=== PATIENT | female | born 1975 | race Caucasian/White ===

== ENCOUNTER 2023-05-10 07:39 | Outpatient (OUT) | payer OTHER, SELFPAY ==
--- NOTE | 2023-05-10 07:41 | MM_ITS ---
Patient Name: JESSENIA JIMENEZ MR#: [id number] : 1975 Exam Date: 05/10/2023 Ordering Doctor: DR Adrian Parisi . RADIOLOGY REPORT PROCEDURE: MM TOMOSYNTHESIS SCREENING BI COMPARISON: MAMMO POST BIOPSY LEFT, 10/03/2021. MG MAMM DIAGNOSTIC 3D SHRUTI CAD, 04/20/2022. INDICATIONS: Screening Calculator Name NCI Breast Cancer Risk Assessment Tool 5 Year Breast Cancer Risk 1.60% Lifetime Breast Cancer Risk 12.50% Personal Breast Cancer No Personal Ovarian Cancer No Treatments None Family Cancers None LOCATION: [facility] BREAST COMPOSITION: Extremely dense, which lowers the sensitivity of mammography. FINDINGS: DIAGNOSTIC CATEGORY 2--BENIGN FINDING. NO CHANGE FROM COMPARISON. Scattered benign-appearing nodules are present. Scattered benign-appearing calcifications are present. Scattered benign-appearing lymph nodes are present. RIGHT BREAST: No significant suspicious finding. LEFT BREAST: No significant suspicious finding. Stable microclip marker upper outer quandrant, anterior RECOMMENDATIONS: ROUTINE MAMMOGRAM AND CLINICAL EVALUATION IN 12 MONTHS. PLEASE NOTE: A NORMAL MAMMOGRAM DOES NOT EXCLUDE THE POSSIBILITY OF BREAST CANCER. A CLINICALLY SUSPICIOUS PALPABLE LUMP SHOULD BE BIOPSIED. Dictated by: Kam Mosqueda MD on 05/10/2023 at 09:11 Approved by: Kam Mosqueda MD on 05/10/2023 at 09:13
== END 2023-05-10 07:40 | disposition home or self-care (01) ==
LOC: MAMMO 07:39
PROVIDERS: PCP Family Medicine; Visit Provider Obstetrics & Gynecology
DX: Z12.31 Encounter for screening mammogram for malignant neoplasm of breast (principal)
CPT/HCPCS: 77063; 77067

== ENCOUNTER 2023-08-07 19:43 | Outpatient (REF) | payer OTHER, SELFPAY ==
--- OUTSIDE RECORDS SUMMARY | 2023-08-07 19:47 | XMS_ITS | CCD ---
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 Phone NAEL, DR LOPEZ Admitting Unavailable NAEL, DR LOPEZ Attending Unavailable SHEPHERD, DR KIM Garces Primary Care Unavailable NAEL, DR LOPEZ Consulting Unavailable ZIEBER, DR MOE Henry Consulting Unavailable NAEL, DR LOPEZ Admitting Unavailable NAEL, DR LOPEZ Attending Unavailable SHEPHERD, DR KIM Garces Primary Care Unavailable NAEL, DR LOPEZ Consulting Unavailable VELASQUEZ, DR MOE Henry Consulting Unavailable SHEPHERD, DR KIM Garces Admitting Unavailable SHEPHERD, DR KIM Garces Attending Unavailable SHEPHERD, DR KIM Garces Primary Care Unavailable SHEPHERD, DR KIM Garces Consulting Unavailable NAEL, DR LOPEZ Admitting Unavailable NAEL, DR LOPEZ Attending Unavailable SHEPHERD, DR KIM Garces Primary Care Unavailable OLIN, DR JORGE Gallardo Consulting Unavailable NAEL, DR LOPEZ Consulting Unavailable NAEL, DR LOPEZ Admitting Unavailable NAEL, DR LOPEZ Attending Unavailable SHEPHERD, DR KIM Garces Primary Care Unavailable NAEL, DR LOPEZ Consulting Unavailable Kim Shepherd MD Primary Care Provider [phone] Medications Current Medications Medication Drug Class(es) Dates Sig (Normalized) Sig (Original) FLUoxetine 20 mg oral capsule (1 source) Serotonin Reuptake Inhibitor Start: 10-01-2022 take 1 capsule by mouth in the morning FLUoxetine (PROzac) 20 MG capsule Take 20 mg by mouth in the morning. 0 10/01/2022 Active levonorgestrel 0.564720 mg/hr intrauterine system (1 source) Progestin, Progestin-containi ng Intrauterine Device Levonorgestrel (Mirena, 52 MG,) 20 MCG/DAY intrauterine device as directed Intrauterine 0 Active 24 hr metFORMIN hydrochloride 500 mg extended release oral tablet (1 source) Biguanide Start: 07-03-2022 metFORMIN XR (Glucophage-XR) 500 MG 24 hr tablet 1 (one) time each day at the same time. 0 07/03/2022 Active Problems Active Problems Problem Classification Problem Date Documented Date Episodic/Chronic Immunizations and screening for infectious disease (1 source) Encounter for screening for human papillomavirus (HPV); Translations: [ENC SCREENING HUMAN PAPILLOMAVIRUS] Onset: 07-04-2022 Episodic Other screening for suspected conditions (not mental disorders or infectious disease) (8 sources) Encounter for screening for malignant neoplasm of cervix; Translations: [Other abnormal and inconclusive findings on diagnostic imaging of breast] Onset: 04-20-2022 Episodic Past or Other Problems Problem Classification Problem Date Documented Da te Episodic/Chronic Malaise and fatigue (4 sources) Other fatigue; Translations: [OTHER FATIGUE] Onset: 09-01-2021 Episodic Nonmalignant breast conditions (4 sources) Solitary cyst of left breast; Translations: [SOLITARY CYST OF LEFT BREAST] Onset: 10-03-2021 Episodic Results Test Name Value Interpretation Reference Range Facil ity PAP ACOG PANEL 2: 30 to 65on 07-09-2022 . . Normal [facility] Comment on above: Result Comment: Perf ormed at: WB Performed By: #### [id number] ####[facility] [address] [place] [id number] Pan Age Gdln ACOG Testing 30-65 Normal [facility] Comment on above: Performed By: #### 4 [id number] ####[facility] [address] [place] [id number] Pan DIAGNOSIS: Comment Normal [facility] Comment on above: Result Comment: NEGA TIVE FOR INTRAEPITHELIAL LESION OR MALIGNANCY. CELLULAR CHANGES ASSOCIATED WITH INFLAMMATION ARE PRESENT. Performed at: WB Performed By: #### [id number] ####[facility] [address] [place] [id number] Pan HPV Aptima Negative Normal Negative [facility] Comment on above: Result Comment: This nucleic acid amplification test detects fourteen high-risk HPV types (16,18,31,33,35,39,45,51,52,56,58,59,66,68) without differentiation. Performed at: =G Performed By: #### [id number] ####[facility] [address] [place], [place] [address]DrCarol Pan HPV Genotype Reflex Comment Normal [facility] Comment on above: Result Comment: Crit van not met, HPV Genotype not performed. Performed at: WB Performed By: #### [id number] ####[place] [address]DrCarol Pan Methodology: Comment Normal [facility] Comment on above: Result Comment: This liquid based ThinPrep(R) pap test was screened with the use of an image guided system. Performed at: WB Performed By: #### 4 [id number] ####[place] [address]DrCarol Pan Note: Comment Normal [facility] Comment on above: Result Comment: The Pap smear is a screening test designed to aid in the detection of premalignant and malignant conditions of the uterine cervix. It is not a diagnostic procedure and should not be used as the sole means of detecting cervical cancer. Both false-positive and false-negative reports do occur. . Performed at: WB Performed By: #### [id number] ####[facility] [address] [place], [place] [address]DrCarol Pan Performed by: Comment Normal [facility] Comment on above: Result Comment: Zamzam Ryan, Mail Teller (ASCP) Performed at: WB Performed By: #### [id number] ####[facility] [address] [place], [place] [address]DrCarol Pan Specimen adequacy: Comment Normal [facility] Comment on above: Result Comment: Sati sfactory for evaluation. Endocervical and/or squamous metaplastic cells (endocervical component) are present. Performed at: WB Performed By: #### [id number] ####[facility] [address] [place], [place] [address]DrCarol Pan MG MAMM DIAGNOSTIC 3D SHRUTI CA Don 04-20-2022 MG MAMM DIAGNOSTIC 3D SHRUTI CAD Patient: BOB GLORIA D. Exam Date: 04/20/2022 : 1975 Gender:F Ordering : DR JESSICA PARISI . Admission #: [id number] Family : Order #: [id number] CLICK HERE TO VIEW EXAM RADIOLOGY REPORT PROCEDURE: MAMMOGRAM DIAGNOSTIC 3D BILATERAL CAD COMPARISON: MAMMO POST BIOPSY LEFT, 10/03/2021. INDICATIONS: Abnormal findings on diagnostic imaging of breast Calculator Name NCI Breast Cancer Risk Assessment Tool 5 Year Breast Cancer Risk 1.70% Lifetime Breast Cancer Risk 12.80% Personal Breast Cancer No Personal Ovarian Cancer No Treatments None Family Cancers None LOCATION: [facility] BREAST COMPOSITION: Extremely dense, which lowers the sensitivity of mammography. FINDINGS: DIAGNOSTIC CATEGORY 2--BENIGN FINDING. NO CHANGE FROM COMPARISON. Scattered benign-appearing nodules are present. Scattered benign-appearing calcifications are present. Scattered benign-appearing lymph nodes are present. RIGHT BREAST: No significant suspicious finding. LEFT BREAST: No significant suspicious finding. Stable micro clip marker upper outer quadrant, anterior breast RECOMMENDATIONS: ROUTINE MAMMOGRAM AND CLINICAL EVALUATION IN 12 MONTHS. PLEASE NOTE: A NORMAL MAMMOGRAM DOES NOT EXCLUDE THE POSSIBILITY OF BREAST CANCER. A CLINICALLY SUSPICIOUS PALPABLE LUMP SHOULD BE BIOPSIED. Dictated by: Jorge Mosqueda MD on 04/20/2022 at 10:25 Approved by: Jorge Mosqueda MD on 04/20/2022 at 10:26 Normal [facility] MAMM DX 3D LT CADon 04-20 MG MAMM DX 3D LT CAD Patient: GLORIA JIMENEZ Exam Date: 04/20/2022 : 1975 Gender:F Ordering : DR JESSICA PARISI . Admission #: [id number] Family : Order #: [id number] CLICK HERE TO VIEW EXAM RADIOLOGY REPORT PROCEDURE: MAMMOGRAM DIAGNOSTIC 3D BILATERAL CAD COMPARISON: MAMMO POST BIOPSY LEFT, 10/03/2021. INDICATIONS: Abnormal findings on diagnostic imaging of breast Calculator Name NCI Breast Cancer Risk Assessment Tool 5 Year Breast Cancer Risk 1.70% Lifetime Breast Cancer Risk 12.80% Personal Breast Cancer No Personal Ovarian Cancer No Treatments None Family Cancers None LOCATION: [facility] BREAST COMPOSITION: Extremely dense, which lowers the sensitivity of mammography. FINDINGS: DIAGNOSTIC CATEGORY 2--BENIGN FINDING. NO CHANGE FROM COMPARISON. Scattered benign-appearing nodules are present. Scattered benign-appearing calcifications are present. Scattered benign-appearing lymph nodes are present. RIGHT BREAST: No significant suspicious finding. LEFT BREAST: No significant suspicious finding. Stable micro clip marker upper outer quadrant, anterior breast RECOMMENDATIONS: ROUTINE MAMMOGRAM AND CLINICAL EVALUATION IN 12 MONTHS. PLEASE NOTE: A NORMAL MAMMOGRAM DOES NOT EXCLUDE THE POSSIBILITY OF BREAST CANCER. A CLINICALLY SUSPICIOUS PALPABLE LUMP SHOULD BE BIOPSIED. Dictated by: Jorge Mosqueda MD on 04/20/2022 at 10:25 Approved by: Jorge Mosqueda MD on 04/20/2022 at 10:26 Normal [facility] MAMMO POST BIOPSY LEFTon MAMMO POST BIOPSY LEFT Patient: BOB SEPTEMBER Precious. Exam Date: 10/03/2021 : 1975 Gender:F Ordering : DR JESSICA PARISI . Admission #: [id number] Family : Order #: [id number] CLICK HERE TO VIEW EXAM This report includes an Addendum and supersedes previous reports for this exam. RADIOLOGY REPORT PROCEDURE: MAMMOGRAM POST BIOPSY IMAGES COMPARISON: MG MAMM DX 3D LT CAD, 09/27/2021. MG MAMM SCREEN 3D SHRUTI CAD, 03/17/2021. INDICATIONS: Complex cyst of breast BREAST COMPOSITION: Extremely dense, which lowers the sensitivity of mammography. FINDINGS: BIOPSY MARKER: A metallic marker has been placed in the targeted location within the lower-outer quadrant of the left breast. BREAST FINDINGS: Expected post biopsy findings. RECOMMENDATIONS: Dictated by: Moe Keane M.D. on 10/03/2021 at 13:32 Approved by: Moe Keane M.D. on 10/03/2021 at 13:43 ADDENDUM: FINDINGS: DIAGNOSTIC CATEGORY 3--PROBABLY BENIGN FINDING. THE FOLLOWING FINDING(S) HAS A HIGH PROBABILITY OF A BENIGN ETIOLOGY: RECOMMENDATIONS: SHORT TERM FOLLOW-UP DIAGNOSTIC MAMMOGRAM LEFT BREAST IN 6 MONTHS. Dictated by: Moe Keane M.D. on 10/11/2021 at 10:39 Approved by: Moe Keane M.D. on 10/11/2021 at 10:39 Normal [facility] US VAC ASST BX BRST LT W CLI Kyler 10-03-2021 US VAC ASST BX BRST LT W CLIP Patient: BOB SEPTEMBER Precious. Exam Date: 10/03/2021 : 1975 Gender:F Ordering : DR JESSICA PARISI . Admission #: [id number] Family : Order #: [id number] CLICK HERE TO VIEW EXAM This report includes an Addendum and supersedes previous reports for this exam. RADIOLOGY REPORT PROCEDURE: ULTRASOUND BIOPSY VACCUUM ASSISTED LEFT WITH CLIP COMPARISON: US BREAST LEFT LIMITED, 09/27/2021. INDICATIONS: Complex cyst of breast DESCRIPTION: After obtaining informed consent, a vacuum assisted ultrasound-guided biopsy was performed in the usual sterile manner. The location of the biopsy was then marked as indicated below. FINDINGS: RECOMMENDATIONS: SPECIMEN #, LOCATION: Cyst aspiration and 4 core samples, 3 o'clock left breast complex cyst. BIOPSY NEEDLE: 13 gauge Elite (r) vacuum core biopsy needle. MARKERS(S) PLACED: A single metallic marker was placed in the appropriate targeted location. MEDICATION: Buffered 1% lidocaine with epinephrine administered locally. COMPLICATIONS: None. PATHOLOGY LAB: Pending. CONCLUSION: 1. Uneventful ultrasound-guided breast biopsy. 2. Pathology results are pending. An addendum to this report will be provided after pathology results are available. Dictated by: Moe Keane M.D. on 10/03/2021 at 13:44 Approved by: Moe Keane M.D. on 10/03/2021 at 13:45 ADDENDUM: Final pathologic diagnosis: Negative for malignant cells; consistent with cyst contents. Dictated by: Moe Keane M.D. on 10/11/2021 at 10:38 Approved by: Moe Keane M.D. on 10/11/2021 at 10:38 Normal [facility] MG MAMM DX 3D LT CADon 09-27 MG MAMM DX 3D LT CAD Patient: BOB GLORIA Precious. Exam Date: 09/27/2021 : 1975 Gender:F Ordering : DR JESSICA PARISI . Admission #: [id number] Family : Order #: [id number] CLICK HERE TO VIEW EXAM RADIOLOGY REPORT PROCEDURE: MAMMOGRAM DIAGNOSTIC 3D LEFT CAD, 09/27/2021, 07:49 ULTRASOUND BREAST LEFT LIMITED, 09/27/2021, 08:24 COMPARISON: US BREAST LEFT LIMITED, 03/28/2021. MG MAMM SCREEN SHRUTI W CAD, 03/16/2020. MG MAMM RT DIAG FU, 03/18/2019. MG MAMM SCREEN SHRUTI W CAD, 03/04/2019. MG MAMM SCREEN 3D SHRUTI CAD, 03/17/2021. INDICATIONS: Solitary cyst of breast Calculator Name NCI Breast Cancer Risk Assessment Tool 5 Year Breast Cancer Risk 0.80% Lifetime Breast Cancer Risk 8.50% Personal Breast Cancer No Personal Ovarian Cancer No Treatments None Family Cancers None LOCATION: [facility] BREAST COMPOSITION: Extremely dense, which lowers the sensitivity of mammography. FINDINGS: DIAGNOSTIC CATEGORY 4--SUSPICIOUS FOR MALIGNANCY. FINDING DOES NOT EXHIBIT CLASSIC FINDINGS OF BREAST CANCER: LEFT BREAST: Previously seen cystic structure at the 3 o'clock position 2.6 cm from the nipple appears more complex on today's study with more thickened, irregular jones and adjacent cyst, 1.6 x 1.2 x 1.2 cm in overall size. Aspiration of fluid followed by ultrasound-guided biopsy of complex cyst is recommended. Findings, recommendations, and alternatives were discussed with the patient. Our radiology department nurse is working with patient to schedule biopsy. RECOMMENDATIONS: ULTRASOUND-GUIDED CORE BIOPSY: LEFT BREAST PLEASE NOTE: A NORMAL MAMMOGRAM DOES NOT EXCLUDE THE POSSIBILITY OF BREAST CANCER. A CLINICALLY SUSPICIOUS PALPABLE LUMP SHOULD BE BIOPSIED. Dictated by: Moe Keane M.D. on 09/27/2021 at 09:46 Approved by: Moe Keane M.D. on 09/27/2021 at 09:50 Normal [facility] US BREAST LEFT LIMITEDon US BREAST LEFT LIMITED Patient: GLORIA JIMENEZ Precious. Exam Date: 09/27/2021 : 1975 Gender:F Ordering : DR JESSICA PARISI . Admission #: [id number] Family : Order #: [id number] CLICK HERE TO VIEW EXAM RADIOLOGY REPORT PROCEDURE: MAMMOGRAM DIAGNOSTIC 3D LEFT CAD, 09/27/2021, 07:49 ULTRASOUND BREAST LEFT LIMITED, 09/27/2021, 08:24 COMPARISON: US BREAST LEFT LIMITED, 03/28/2021. MG MAMM SCREEN SHRUTI W CAD, 03/16/2020. MG MAMM RT DIAG FU, 03/18/2019. MG MAMM SCREEN SHRUTI W CAD, 03/04/2019. MG MAMM SCREEN 3D SHRUTI CAD, 03/17/2021. INDICATIONS: Solitary cyst of breast Calculator Name NCI Breast Cancer Risk Assessment Tool 5 Year Breast Cancer Risk 0.80% Lifetime Breast Cancer Risk 8.50% Personal Breast Cancer No Personal Ovarian Cancer No Treatments None Family Cancers None LOCATION: [facility] BREAST COMPOSITION: Extremely dense, which lowers the sensitivity of mammography. FINDINGS: DIAGNOSTIC CATEGORY 4--SUSPICIOUS FOR MALIGNANCY. FINDING DOES NOT EXHIBIT CLASSIC FINDINGS OF BREAST CANCER: LEFT BREAST: Previously seen cystic structure at the 3 o'clock position 2.6 cm from the nipple appears more complex on today's study with more thickened, irregular jones and adjacent cyst, 1.6 x 1.2 x 1.2 cm in overall size. Aspiration of fluid followed by ultrasound-guided biopsy of complex cyst is recommended. Findings, recommendations, and alternatives were discussed with the patient. Our radiology department nurse is working with patient to schedule biopsy. RECOMMENDATIONS: ULTRASOUND-GUIDED CORE BIOPSY: LEFT BREAST PLEASE NOTE: A NORMAL MAMMOGRAM DOES NOT EXCLUDE THE POSSIBILITY OF BREAST CANCER. A CLINICALLY SUSPICIOUS PALPABLE LUMP SHOULD BE BIOPSIED. Dictated by: Moe Keane M.D. on 09/27/2021 at 09:46 Approved by: Moe Keane M.D. on 09/27/2021 at 09:50 Normal [facility] ESTRADIOLon 09-02-2021 Estradiol 209.0 pg/mL Normal [facility] Comment on above: Result Comment: Adul t Female: Follicular phase 12.5 - 166.0 Ovulation phase 85.8 - 498.0 Luteal phase 43.8 - 211.0 Postmenopausal <6.0 - 54.7 1st trimester 215.0 - >4300.0 Jeanna ECLIA methodology Performed By: #### E STRADI #### [facility] [address] [place] [address] Dr. Taran Pan FSHon 09-02-2021 FSH 6.1 mIU/mL Normal [facility] Comment on above: Result Comment: Adul t Female: Follicular phase 3.5 - 12.5 Ovulation phase 4.7 - 21.5 Luteal phase 1.7 - 7.7 Postmenopausal 25.8 - 134.8 Performed By: #### L BCFSH #### [facility] [address] [place] [address] Dr. Taran Pan CBC AUTO DIFFon 09-01-2021 BASO # 0.1 103/ul Normal 0.0-0.1 [facility] Comment on above: Performed By: #### C BC ####[facility] [address] [place], [place] [address]Dr. Taran Maxim Basophils/100 WBC (Bld) 1.2 % Normal 0.2-2.0 [facility] Comment on above: Performed By: #### C BC ####[facility] [address] [place], [place] [address]Dr. Ludypablo Maxim EO # 0.1 103/ul Normal 0.0-0.7 [facility] Comment on above: Performed By: #### C BC ####[facility] [address] [place], [place] [address]Dr. Taran Pan Eosinophils/100 WBC (Bld) 0.9 % Normal 0.9-7.0 [facility] Comment on above: Performed By: #### C BC ####[facility] [address] [place], [place] [address]Dr. Ludypablo Pan Erythrocyte distribution width (RBC) [Ratio] 13.1 % Normal 11.0-15.0 [facility] Comment on above: Performed By: #### C BC ####[facility] [address] [place], [place] [address]Dr. Ludypablo Pan Hematocrit (Bld) [Volume fraction] 42.4 % Normal 36.0-48.0 [facility] Comment on above: Performed By: #### C BC ####[facility] [address] [place], [place] [address]Dr. Ludypablo Maxim Hemoglobin (Bld) [Mass/Vol] 14.0 g/dL Normal 12.0-16.0 [facility] Comment on above: Performed By: #### C BC ####[facility] [address] [place], [place] [address]Dr. Taran Pan IG # 0.02 10e3/ul Normal 0.00-0.03 [facility] Comment on above: Performed By: #### C BC ####[facility] [address] [place], [place] [address]Dr. Taran Pan IG % 0.3 % Normal 0.0-0.5 [facility] Comment on above: Performed By: #### C BC ####[facility] [address] [place] [address]DrCarol Pan LYMPH # 1.5 103/ul Normal 1.2-3.8 [facility] Comment on above: Performed By: #### C BC ####[facility] [address] [place] [address]DrCarol Pan Lymphocytes/100 WBC (Bld) 26.4 % Normal 20.5-60.0 [facility] Comment on above: Performed By: #### C BC ####[facility] [address] [place], [place] [address]DrCarol Pan MANUAL DIFF REQ NO Normal [facility] Comment on above: Performed By: #### C BC ####[facility] [address] [place] [address]DrCarol Pan MCH (RBC) [Entitic mass] 30.6 pg Normal 26.7-34.0 [facility] Comment on above: Performed By: #### C BC ####[facility] [address] [place], [place] [address]DrCarol Pan MCHC (RBC) [Mass/Vol] 33.0 g/dL Normal 29.9-35.2 [facility] Comment on above: Performed By: #### C BC ####[facility] [address] [place], [place] [address]DrCarol Pan MCV (RBC) [Entitic vol] 92.6 fL Normal 81.0-99.0 [facility] Comment on above: Performed By: #### C BC ####[facility] [address] [place], [place] [address]DrCarol Pan MONO # 0.3 103/ul Normal 0.3-0.8 [facility] Comment on above: Performed By: #### C BC ####[facility] [address] [place], [place] [address]DrCarol Pan Monocytes/100 WBC (Bld) 5.6 % Normal 1.7-12.0 [facility] Comment on above: Performed By: #### C BC ####[facility] [address] [place], [place] [address]Dr. Taran Pan NEUT # 3.8 103/ul Normal 1.4-6.5 [facility] Comment on above: Performed By: #### C BC ####[facility] [address] [place], [place] [address]Dr. Taran Pan Neutrophils/100 WBC (Bld) 65.6 % Normal 43.0-75.0 [facility] Comment on above: Performed By: #### C BC ####[facility] [address] [place], [place] [address]Dr. Taran Pan Platelet mean volume (Bld) [Entitic vol] 11.2 fL Normal 9.5-13.5 [facility] Comment on above: Performed By: #### C BC ####[facility] [address] [place], [place] [address]Dr. Taran Maxim PLT 398 103/ul Normal 150-450 [facility] Comment on above: Performed By: #### C BC ####[facility] [address] [place], [place] [address]Dr. Taran Pan RBC 4.58 106/ul Normal 4.20-5.40 [facility] Comment on above: Performed By: #### C BC ####[facility] [address] [place], [place] [address]Dr. Ludypablo Maxim WBC 5.8 103/ul Normal 4.0-11.0 [facility] Comment on above: Performed By: #### C BC ####[facility] [address] [place], [place] [address]DrCarol Pan FREE T4on 09-01-2021 Free T4 [Mass/Vol] 0.95 ng/dL Normal 0.78-2.19 [facility] Comment on above: Performed By: #### F T4 ####[facility] [address] [place], [place] [address]Dr. Taran Pan PROF CHEM 8 (BAS METB)on Anion gap [Moles/Vol] 11.2 mmol/L Normal [facility] Comment on above: Performed By: #### T SH, BMP #### [facility] [address] [place] [address] Dr. Taran Pan Calcium [Mass/Vol] 8.5 mg/dL Normal 8.5-10.1 [facility] Comment on above: Performed By: #### T SH, BMP #### [facility] [address] [place] [address] Dr. Taran Pan Chloride [Moles/Vol] 104 mmol/L Normal 98-107 [facility] Comment on above: Performed By: #### T SH, BMP #### [facility] [address] [place] [address] Dr. Taran Pan CO2 [Moles/Vol] 28.2 mmol/L Normal 22.0-30.0 [facility] Comment on above: Performed By: #### T SH, BMP #### [facility] [address] [place] [address] Dr. Taran Pan Creatinine [Mass/Vol] 0.77 mg/dL Normal 0.52-1.04 [facility] Comment on above: Performed By: #### T SH, BMP #### [facility] [address] [place] [address] Dr. Taran Pan EGFR-AF RUSSIAN >60 Normal >=60 [facility] Comment on above: Performed By: #### T SH, BMP #### [facility] [address] [place] [address] Dr. Taran Pan EGFR-NON AF RUSSIAN >60 Normal >=60 [facility] Comment on above: Performed By: #### T SH, BMP #### [facility] [address] [place] [address] Dr. Taran Pan Glucose [Mass/Vol] 96 mg/dL Normal 74-106 [facility] Comment on above: Performed By: #### T SH, BMP #### [facility] [address] [place] [address] Dr. Taran Pan Potassium [Moles/Vol] 4.4 mmol/L Normal 3.4-5.0 [facility] Comment on above: Performed By: #### T CLIVE, BMP #### [facility] [address] [place] [address] Dr. Taran Pan Sodium [Moles/Vol] 139 mmol/L Normal 137-145 [facility] Comment on above: Performed By: #### T CLIVE, BMP #### [facility] [address] [place] [address] Dr. Taran Pan Urea nitrogen [Mass/Vol] 12.0 mg/dL Normal 7.0-18.0 [facility] Comment on above: Performed By: #### Gerardo DUFFY, BMP #### [facility] [address] [place] [address] Dr. Taran Pan Urea nitrogen/Creatini ne [Mass ratio] 15.6 mg/mg Normal [facility] Comment on above: Performed By: #### Gerardo DUFFY, BMP #### [facility] [address] [place] [address] Dr. Taran Pan TSHon 09-01-2021 TSH 2.163 uIU/mL Normal 0.470-4.680 [facility] Comment on above: Performed By: #### T CLIVE, BMP #### [facility] [address] [place] [address] Dr. Taran Pan TSH RANGE SEE BELOW Normal [facility] Comment on above: Result Comment: <0.3 4 UIU/ml HYPERTHYROID 0.34-5.60 UIU/ml EUTHYROID >5.60 UIU/ml HYPOTHYROID Performed By: #### T CLIVE, BMP #### [facility] [address] [place] [address] Dr. Taran Elise 03-25-2021 MARYANNEN Telephone (Recondo) BOBSEPTEMBER Precious ([id number]) 1975 [facility] Date Time Provider Department 03/25/21 HECTOR BEAR During your visit today, we recorded the following information about you: Hector Bear PA-C 03/25/2021 8:03 AM Signed Call to September for Occupation Health follow up of positive COVID test with symptom onset 9 days ago. she states symptoms are resolved other than lost of taste and smell. She denies fever and states she would like to be cleared for work on 03/26/21, will clear and send message to management. Hector Bear PA-C Allergies As of Date: 03/25/2021 (No Known Allergies) Date Reviewed: 04/12/2014 Reviewed by: Tony Llamas - Fully Assessed Reason for Visit: [facility] COVID Outreach [4023] Prescriptions as of 03/25/2021 - FLUoxetine (PROZAC) 10 mg capsule TAKE 1 CAPSULE BY MOUTH ONCE DAILY Problem List As Of Date 03/25/2021 Noted Resolved Preventative health care [Z00.00] 06/08/2013 AMA (advanced maternal age) multigravida 35+ [O*04/12/2014 History of delivery, currently *04/12/2014 Echogenic bowel of fetus on ultrasound*05/10/2014 Acute maxillary sinusitis [J01.00] 07/20/2015 Encounter Status:Closed by HECTOR BEAR on 03/25/21 [facility] 03-18-2021 [facility] Telephone (CORPMN) BOBSEPTEMBER Precious ([id number]) 1975 [facility] Date Time Provider Department 03/18/21 HECTOR BEAR During your visit today, we recorded the following information about you: Hector Bear PA-C 03/18/2021 7:21 AM Signed Call to September for Occupational Health follow up with no answer, left with call back numbers. Hector Bear PA-C Allergies As of Date: 03/18/2021 (No Known Allergies) Date Reviewed: 04/12/2014 Reviewed by: Tony Llamas - Fully Assessed Reason for Visit: [facility] COVID Outreach [1996] Prescriptions as of 03/18/2021 - FLUoxetine (PROZAC) 10 mg capsule TAKE 1 CAPSULE BY MOUTH ONCE DAILY Problem List As Of Date 03/18/2021 Noted Resolved Preventative health care [Z00.00] 06/08/2013 AMA (advanced maternal age) multigravida 35+ [O*04/12/2014 History of delivery, currently *04/12/2014 Echogenic bowel of fetus on ultrasound*05/10/2014 Acute maxillary sinusitis [J01.00] 07/20/2015 Encounter Status:Closed by HECTOR BEAR on 03/18/[address] [facility] GLORIA JIMENEZ ([id number]) 1975 [facility] Date Time Provider Department 03/18/21 HECTOR BEAR CORPMN During your visit today, we recorded the following information about you: Hector Bear PA-C 03/18/2021 7:36 AM Signed Call to September to discuss COVID positive result. She states symptoms are mild with onset of 03/15/21. She I vaccinated and RTW policy discussed in detail Hector Bear PA-C Allergies As of Date: 03/18/2021 (No Known Allergies) Date Reviewed: 04/12/2014 Reviewed by: Tony Llamas - Fully Assessed Reason for Visit: [facility] COVID Outreach [1245] Prescriptions as of 03/18/2021 - FLUoxetine (PROZAC) 10 mg capsule TAKE 1 CAPSULE BY MOUTH ONCE DAILY Problem List As Of Date 03/18/2021 Noted Resolved Preventative health care [Z00.00] 06/08/2013 AMA (advanced maternal age) multigravida 35+ [O*04/12/2014 History of delivery, currently *04/12/2014 Echogenic bowel of fetus on ultrasound*05/10/2014 Acute maxillary sinusitis [J01.00] 07/20/2015 Encounter Status:Closed by HECTOR BEAR on 03/18/21 [facility] 03-17-2021 [facility] Telephone (CORPMN) GLORIA JIMENEZ ([id number]) 1975 [facility] Date Time Provider Department 03/17/[address] [facility] During your visit today, we recorded the following information about you: Colton Lindsey RN 03/17/2021 9:07 AM Signed CG called with gena-lex sx of SOTO, fatigue, cough. RASHMI RT paged at 1000. Allergies As of Date: 03/17/2021 (No Known Allergies) Date Reviewed: 04/12/2014 Reviewed by: Tony Llamas - Fully Assessed Reason for Visit: Covid-19 Hotline [9524] Prescriptions as of 03/17/2021 - FLUoxetine (PROZAC) 10 mg capsule TAKE 1 CAPSULE BY MOUTH ONCE DAILY Problem List As Of Date 03/17/2021 Noted Resolved Preventative health care [Z00.00] 06/08/2013 AMA (advanced maternal age) multigravida 35+ [O*04/12/2014 History of delivery, currently *04/12/2014 Echogenic bowel of fetus on ultrasound*05/10/2014 Acute maxillary sinusitis [J01.00] 07/20/2015 Encounter Status:Closed by COLTON LINDSEY on 03/17/21 [facility] Tele[facility] (CORPMN) BOB,September ([id number]) 1975 F [facility] Date Time Provider Department 03/17/21 MERRITT VALDIVIA During your visit today, we recorded the following information about you: Merritt Valdivia APRN.MATRIX INSPECTOR 03/17/2021 9:13 AM Signed Spoke with patient - meets criteria for Covid-19 testing. Symptoms: New onset cough past few days, really bad SOTO Symptoms started 03/15 Positive contact ?: been around covid +, coworker Covid pass +/-?: at work Covid 19 test ordered; patient instructed to schedule test via [employer]. 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 FULLY VACCINATED. No recent travel. No high risk factors. 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 Recommended to call back if onset of any symptoms or worsening of symptoms. Recommended caregiver to check my chart message for the link to self- schedule the covid test. Caregiver will continue using face mask, hand hygiene and social distancing as we discussed. Caregiver's PCP (if available) has been CC'd to receive test results. The employee/patient did not have any questions or concerns at the end of our conversation. Merritt Valdivia APRN.[facility] Occupational Health Allergies As of Date: 03/17/2021 (No Known Allergies) Date Reviewed: 04/12/2014 Reviewed by: Tony Llamas - Fully Assessed Reason for Visit: [facility] COVID Outreach [3886] Primary Visit Diagnosis:Suspected COVID-19 virus infection [Z20.822] Order(s):CAREGIVER COVID19 [SQCGCOVD] Order #: [id number] FUTURE Prescriptions as of 03/17/2021 - FLUoxetine (PROZAC) 10 mg capsule TAKE 1 CAPSULE BY MOUTH ONCE DAILY Problem List As Of Date 03/17/2021 Noted Resolved Preventative health care [Z00.00] 06/08/2013 AMA (advanced maternal age) multigravida 35+ [O*04/12/2014 History of delivery, currently *04/12/2014 Echogenic bowel of fetus on ultrasound*05/10/2014 Acute maxillary sinusitis [J01.00] 07/20/2015 Encounter Status:Closed by MERRITT VALDIVIA on 03/17/21 Normal [facility] Caregiver [id number] 03-17-20 21 SARS-CoV-2 (COVID-19) RNA CLAUDE+probe Ql (Unsp spec) UPPER RESPIRATORY TRACT SWAB Normal [facility] Comment on above: Performed By: #### C GCOVD #### [place] [address] SARS-CoV-2 (COVID-19) RNA CLAUDE+probe Ql (Unsp spec) Positive for COVID19 (SARS CoV2) by RT-PCR or equivalent method. Critically abnormal Negative for COVID19 (SARS CoV2) by RT-PCR or equivalent method. [facility] Comment on above: Result Comment: This test was developed and its performance characteristics determined by [facility]. This test has been authorized by FDA under an Emergency Use Authorization (EUA). This test has been validated in accordance with the FDA's Guidance Document Policy for Diagnostics Testing in Laboratories Certified to Perform High Complexity Testing under CLIA prior to Emergency use Authorization for Coronavirus Disease 2019 during the Public Health Emergency issued on August 01, 2019. Test performed by [facility], [facility], [address] [place] [phone]. Performed By: #### C GCOVD #### [place] [address] Encounters Encounter Date Encounter Type Care Provider Facility Start: 07-15-2023 Chart abstracting Jessica Parisi DO Work Phone: [facility] Start: 07-03-2022 End: 07-03-[address] JESSICA PARISI Facility:[facility] Start: 04-20-2022 End: 04-21-[address] JESSICA PARISI Facility:[facility] Start: 10-03-2021 End: 10-03-[address] JESSICA PARISI Facility:[facility] Start: 09-27-2021 End: 09-28-[address] JESSICA PARISI Facility:[facility] Start: 09-01-2021 End: 09-02-[address] KIM SHEPHERD Facility:[facility] Procedures Date Procedure Procedure Detail Performing Clinician Start: 05-10-2023 Mammography Jessica campos DO Work Phone: Plan of Treatment Date Care Activity Detail Author Start: 05-10-2024 Screening for malign ant neoplasm of breast Mammogram [facility] Start: 08-07-2023 End: 08-07-2023 Patient encounter procedure 08/07/2023 4:00 PM EST Office Visit [facility] [address] [place] [id number] Jessica Parisi, DO [address] [place] [address] [facility] Start: 2005 Screening for malign ant neoplasm of cervix [facility] Start: 02-06-1996 Screening for malign ant neoplasm of cervix Pap Smear [facility] Start: 1975 Screening for malign ant neoplasm of colon [facility] Payers Date Payer Category Payer [facility] O (unspecified) ANTONIO ALVAREZ [id number] 2021-Present [address] [place] [address] [facility] [place] [id number] 1975 Unknown [id number] 1975 Unknown [id number] 1975 Unknown [id number] 1975 Unknown [id number] 1975 Unknown [id number] 1959 Private Health Insurance [id number] Social History Date Type Detail Facility Start: 07-15-2023 [facility] Start: 07-15-2023 Tobacco use and exposure Smokeless t obacco non-user [facility] Start: 07-15-2023 Alcohol intake Lifetime non-d fay (finding) [facility] Start: 1975 Sex Assigned At Not on file [facility] Gender identity Not on file [facility] Clinical Note 08-10-2020 Note Date & Type Note Facility 08-10-2020 Note Patient Outreach ([place] [facility]) GLORIA JIMENEZ ([id number]) 1975 [facility] Date Time Provider Department 08/10/20 ALCIDES SINCLAIR During your visit today, we recorded the following information about you: Allergies As of Date: 08/10/2020 (No Known Allergies) Date Reviewed: 04/12/2014 Reviewed by: Tony Llamas - Fully Assessed Order(s):SARS-COVID VACCINE 1ST DOSE APPT [60411NLT] Order #: [id number] FUTURE Problem List As Of Date 08/10/2020 Noted Resolved Preventative health care [Z00.00] 06/08/2013 AMA (advanced maternal age) multigravida 35+ [O*04/12/2014 History of delivery, currently *04/12/2014 Echogenic bowel of fetus on ultrasound*05/10/2014 Acute maxillary sinusitis [J01.00] 07/20/2015 Encounter Status:Closed by RODGER, PRODUSER on 08/15/20 [facility] Summary Purpose Family History No Family History Records FoundNo Family History Records Found Advance Directives No Advanced Directives Records FoundNo Advanced Directives Records Found Additional Source Comments INFORMATION SOURCE (unrecogn ized section and content) DATE CREATED AUTHOR 06/26/2021 [facility] DATE CREATED AUTHOR AUTHOR'S ORGANIZ ATION 07/10/2022 [facility] Teams (unrecognized sec tion and content) 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 This clinical summary was aggregated from multiple sources. Caution should be exercised in using it in the provision of clinical care. This summary normalizes information from multiple sources, and as a consequence, information in this document may materially change the coding, format and clinical context of patient data. In addition, data may be omitted in some cases. CLINICAL DECISIONS SHOULD BE BASED ON THE PRIMARY CLINICAL RECORDS. [employer] provides no warranty or guarantee of the accuracy or completeness of information in this document.
[2023-08-12 21:07] LABS: Age Gdln ACOG Testing Note (.); HPV Aptima Negative (Negative); IGP, Aptima HPV, rfx 16/18,45 Note (.)
== END 2023-08-07 19:44 | disposition home or self-care (01) ==
LOC: LAB 19:43
PROVIDERS: PCP Family Medicine; Visit Provider Obstetrics & Gynecology
DX: Z01.419 Encounter for gynecological examination (general) (routine) without abnormal findings (principal)
CPT/HCPCS: 87624; G0145

== ENCOUNTER 2023-08-16 19:36 | Emergency (ER) | payer OTHER, SELFPAY ==
[2023-08-16 19:38] VITALS: BP 156/82; PULSE 75; RESP 18; TEMP 36.8; O2SAT 99; BMI 27.5
--- OUTSIDE RECORDS SUMMARY | 2023-08-16 19:49 | XMS_ITS | CCD ---
Author Name Unknown Address [address] [place] [address] Organization [facility] Care Team Providers Care Clinical Informatics Physician Name Role Phone NAEL, DR LOPEZ Admitting Unavailable NAEL, DR LOPEZ Attending Unavailable SHEPHERD, DR KIM Garces Primary Care Unavailable NAEL, DR LOPEZ Consulting Unavailable VELASQUEZ, DR MOE Henry Consulting Unavailable NAEL, DR LOPEZ Admitting Unavailable NAEL, DR LOPEZ Attending Unavailable JOAO, DR KIM Garces Primary Care Unavailable NAEL, DR LOPEZ Consulting Unavailable VELASQUEZ, DR MOE Henry Consulting Unavailable SHEPHERD, DR KIM Garces Admitting Unavailable SHEPHERD, DR KIM Garces Attending Unavailable JOAO, DR KIM Garces Primary Care Unavailable JOAO, DR KIM Garces Consulting Unavailable NAEL, DR LOPEZ Admitting Unavailable NAEL, DR LOPEZ Attending Unavailable SHEPHERD, DR KIM Garces Primary Care Unavailable BURNSIDE, DR JORGE Gallardo Consulting Unavailable NAEL, DR LOPEZ Consulting Unavailable NAEL, DR LOPEZ Admitting Unavailable NAEL, DR LOPEZ Attending Unavailable JOAO, DR KIM Garces Primary Care Unavailable NAEL, DR LOPEZ Consulting Unavailable Kim Shepherd MD Primary Care Provider [phone] JESSICA PARISI Attending Unavailable Medications Current Medications Medication Drug Class(es) Dates Sig (Normalized) Sig (Original) FLUoxetine 20 mg oral capsule (1 source) Serotonin Reuptake Inhibitor Start: 10-01-2022 take 1 capsule by mouth in the morning FLUoxetine (PROzac) 20 MG capsule Take 20 mg by mouth in the morning. 0 10/01/2022 Active levonorgestrel 0.384777 mg/hr intrauterine system (1 source) Progestin, Progestin-containi [...] 30 to 65on 07-09-[address] [facility] Comment on above: Result Comment: Perf ormed at: WB Performed By: #### 4 [id number] ####[facility] [address] [place] [id number] Pan Age Gdln ACOG Testing 30-[address] [facility] Comment on above: Performed By: #### 4 [id number] ####[facility] [address] [place] [id number] Pan DIAGNOSIS: Comment Normal [facility] Comment on above: Result Comment: NEGA TIVE FOR INTRAEPITHELIAL LESION OR MALIGNANCY. CELLULAR CHANGES ASSOCIATED WITH INFLAMMATION ARE PRESENT. Performed at: WB Performed By: #### 4 [id number] ####[facility] [address] [place] [id number] Pan HPV Aptima Negative Normal Negative [facility] Comment on above: Result Comment: This nucleic acid amplification test detects fourteen high-risk HPV types (16,18,31,33,35,39,45,51,52,56,58,59,66,68) without differentiation. Performed at: =G Performed By: #### 4 [id number] ####[facility] [address] [place], [place] [address]Dr. Taran Pan HPV Genotype Reflex Comment Normal [facility] Comment on above: Result Comment: Crit eria not met, HPV Genotype not performed. Performed at: WB Performed By: #### 4 [id number] ####[facility] [address] [place], [place] [address]DrCarol Pan Methodology: Comment Normal [facility] Comment on above: Result Comment: This liquid based ThinPrep(R) pap test was screened with the use of an image guided system. Performed at: WB Performed By: #### 4 [id number] ####[place] [address]DrCarol Pan Note: Comment Normal [facility] Comment on above: Result Comment: The Pap smear is a screening test designed to aid in the detection of premalignant and malignant conditions of the uterine cervix. It is not a diagnostic procedure and should not be used as the sole means of detecting cervical cancer. Both false-positive and false-negative reports do occur. . Performed at: WB Performed By: #### 4 [id number] ####[facility] [address] [place], [place] [address]DrCarol Pan Performed by: Comment Normal [facility] Comment on above: Result Comment: Zamzam Ryan, Production Material Handler (ASCP) Performed at: WB Performed By: #### 4 [id number] ####[facility] [address] [place], [place] [address]DrCarol Pan Specimen adequacy: Comment Normal [facility] Comment on above: Result Comment: Sati sfactory for evaluation. Endocervical and/or squamous metaplastic cells (endocervical component) are present. Performed at: WB Performed By: #### 4 [id number] ####[facility] [address] [place], [place] [address]DrCarol Pan MG MAMM DIAGNOSTIC 3D SHRUTI CA Don 04-20-2022 MG MAMM DIAGNOSTIC 3D SHRUTI CAD Patient: TONY SEPTEMBER D. Exam Date: 04/20/2022 : 1975 Gender:F Ordering : DR JESSICA PARISI . Admission #: [id number] Family : Order #: [id number] CLICK HERE TO VIEW EXAM RADIOLOGY REPORT PROCEDURE: MAMMOGRAM DIAGNOSTIC 3D BILATERAL CAD COMPARISON: MAMMO POST BIOPSY LEFT, 10/03/2021. INDICATIONS: Abnormal findings on diagnostic imaging of breast Calculator Name NCI Breast Cancer Risk Assessment Tool 5 Year Breast Cancer Risk 1.70% Lifetime Breast Cancer Risk 12.80% Personal Breast Cancer No Personal Ovarian Cancer No Treatments None Family Cancers None LOCATION: [facility] BREAST COMPOSITION: Extremely dense, which lowers the [...] Mosqueda MD on 04/20/2022 at 10:26 Normal [facility] MG MAMM DX 3D LT CADon 04-20 MG MAMM DX 3D LT CAD Patient: TONY SEPTEMBER D. Exam Date: 04/20/2022 : 1975 Gender:F Ordering : DR JESSICA PARISI . Admission #: [id number] Family : Order #: [id number] CLICK HERE TO VIEW EXAM RADIOLOGY REPORT PROCEDURE: MAMMOGRAM DIAGNOSTIC 3D BILATERAL CAD COMPARISON: MAMMO POST BIOPSY LEFT, 10/03/2021. INDICATIONS: Abnormal findings on diagnostic imaging of breast Calculator Name NCI Breast Cancer Risk Assessment Tool 5 Year Breast Cancer Risk 1.70% Lifetime Breast Cancer Risk 12.80% Personal Breast Cancer No Personal Ovarian Cancer No Treatments None Family Cancers None LOCATION: [facility] BREAST COMPOSITION: Extremely dense, which lowers the [...] Mosqueda MD on 04/20/2022 at 10:[address] [facility] MAMMO POST BIOPSY LEFTon MAMMO POST BIOPSY LEFT Patient: JESSENIA JIMENEZ Precious. Exam Date: 10/03/2021 : 1975 Gender:F Ordering : DR JESSICA PARISI . Admission #: [id number] Family : Order #: [id number] CLICK HERE TO VIEW EXAM This report [...] Keane M.D. on 10/11/2021 at 10:[address] [facility] US VAC ASST BX BRST LT W CLI Kyler 10-03-2021 US VAC ASST BX BRST LT W CLIP Patient: TONY September. Exam Date: 10/03/2021 : 1975 Gender:F Ordering : DR JESSICA PARISI . Admission #: [id number] Family : Order #: [id number] CLICK HERE TO VIEW EXAM This report [...] Keane M.D. on 10/11/2021 at 10:[address] [facility] MG MAMM DX 3D LT CADon 09-27 MG MAMM DX 3D LT CAD Patient: TONY SEPTEMBER Precious. Exam Date: 09/27/2021 : 1975 Gender:F Ordering : DR JESSICA PARISI . Admission #: [id number] Family : Order #: [id number] CLICK HERE TO VIEW EXAM RADIOLOGY REPORT [...] Treatments None Family Cancers None LOCATION: [facility] BREAST COMPOSITION: Extremely dense, which lowers the [...] M.D. on 09/27/2021 at 09:50 Normal [facility] US BREAST LEFT LIMITEDon US BREAST LEFT LIMITED Patient: JESSENIA JIMENEZ Exam Date: 09/27/2021 : 1975 Gender:F Ordering : DR JESSICA PARISI . Admission #: [id number] Family : Order #: [id number] CLICK HERE TO VIEW EXAM RADIOLOGY REPORT [...] Treatments None Family Cancers None LOCATION: [facility] BREAST COMPOSITION: Extremely dense, which lowers the [...] M.D. on 09/27/2021 at 09:50 Normal [facility] ESTRADIOLon 09-02-2021 Estradiol 209.0 pg/mL Normal [facility] Comment on above: Result Comment: Adul t Female: Follicular phase 12.5 - 166.0 Ovulation phase 85.8 - 498.0 Luteal phase 43.8 - 211.0 Postmenopausal <6.0 - 54.7 1st trimester 215.0 - >4300.0 Jeanna ECLIA methodology Performed By: #### E LORENE #### [facility] [address] [place], [place] [address] Dr. Taran Pan FSHon 09-02-2021 FSH 6.1 mIU/mL Normal [facility] Comment on above: Result Comment: Adul t Female: Follicular phase 3.5 - 12.5 Ovulation phase 4.7 - 21.5 Luteal phase 1.7 - 7.7 Postmenopausal 25.8 - 134.8 Performed By: #### L [facility] #### [facility] [address] [place] [address] [address] Taran Pan CBC AUTO DIFFon 09-01-2021 BASO # 0.1 103/ul Normal 0.0-0.[address] [facility] Comment on above: Performed By: #### C BC ####[facility] [address] [place] [id number]. Taran Pan Basophils/100 WBC (Bld) 1.2 % Normal 0.2-2.0 [facility] Comment on above: Performed By: #### C BC ####[facility] [address] [place] [address]DrCarol Pan EO # 0.1 103/ul Normal 0.0-0.7 [facility] Comment on above: Performed By: #### C BC ####[facility] [address] [place] [address]DrCarol Pan Eosinophils/100 WBC (Bld) 0.9 % Normal 0.9-7.0 [facility] Comment on above: Performed By: #### C BC ####[facility] [address] [place] [address]Dr. Taran Pan Erythrocyte distribution width (RBC) [Ratio] 13.1 % Normal 11.0-15.0 [facility] Comment on above: Performed By: #### C BC ####[facility] [address] [place] [address]Dr. Taran Pan Hematocrit (Bld) [Volume fraction] 42.4 % Normal 36.0-48.0 [facility] Comment on above: Performed By: #### C BC ####[facility] [address] [place] [address]Dr. Taran Pan Hemoglobin (Bld) [Mass/Vol] 14.0 g/dL Normal 12.0-16.0 [facility] Comment on above: Performed By: #### C BC ####[facility] [address] [place] [address]DrCarol Pan IG # 0.02 10e3/ul Normal 0.00-0.03 [facility] Comment on above: Performed By: #### C BC ####[facility] [address] [place] [id number]. Taran Pan IG % 0.3 % Normal 0.0-0.5 [facility] Comment on above: Performed By: #### C BC ####[facility] [address] [place] [id number]. Taran Pan LYMPH # 1.5 103/ul Normal 1.2-3.8 [facility] Comment on above: Performed By: #### C BC ####[facility] [address] [place] [id number]. Taran Pan Lymphocytes/100 WBC (Bld) 26.4 % Normal 20.5-60.0 [facility] Comment on above: Performed By: #### C BC ####[facility] [address] [place] [id number]. Taran Pan MANUAL DIFF REQ NO Normal [facility] Comment on above: Performed By: #### C BC ####[facility] [address] [place] [id number]. Taran Pan MCH (RBC) [Entitic mass] 30.6 pg Normal 26.7-34.0 [facility] Comment on above: Performed By: #### C BC ####[facility] [address] [place] [id number]. Taran Pan MCHC (RBC) [Mass/Vol] 33.0 g/dL Normal 29.9-35.2 [facility] Comment on above: Performed By: #### C BC ####[facility] [address] [place] [id number]. Taran Pan MCV (RBC) [Entitic vol] 92.6 fL Normal 81.0-99.0 [facility] Comment on above: Performed By: #### C BC ####[facility] [address] [place] [id number]. Taran Pan MONO # 0.3 103/ul Normal 0.3-0.8 [facility] Comment on above: Performed By: #### C BC ####[facility] [address] [place] [id number]. Taran Pan Monocytes/100 WBC (Bld) 5.6 % Normal 1.7-12.0 [facility] Comment on above: Performed By: #### C BC ####[facility] [address] [place] [id number]. Taran Pan NEUT # 3.8 103/ul Normal 1.4-6.5 [facility] Comment on above: Performed By: #### C BC ####[facility] [address] [place] [id number]. Taran Pan Neutrophils/100 WBC (Bld) 65.6 % Normal 43.0-75.0 [facility] Comment on above: Performed By: #### C BC ####[facility] [address] [place] [id number]. Taran Pan Platelet mean volume (Bld) [Entitic vol] 11.2 fL Normal 9.5-13.5 [facility] Comment on above: Performed By: #### C BC ####[facility] [address] [place] [id number]. Taran Pan PLT 398 103/ul Normal 150-450 [facility] Comment on above: Performed By: #### C BC ####[facility] [address] [place] [id number]. Taran Pan RBC 4.58 106/ul Normal 4.20-5.40 [facility] Comment on above: Performed By: #### C BC ####[facility] [address] [place] [id number]. Taran Pan WBC 5.8 103/ul Normal 4.0-11.0 [facility] Comment on above: Performed By: #### C BC ####[facility] [address] [place] [id number]. Taran Pan FREE T4on 09-01-2021 Free T4 [Mass/Vol] 0.95 ng/dL Normal 0.78-2.19 [facility] Comment on above: Performed By: #### F T4 ####[facility] [address] [place] [address]Dr. Taran Pan PROF CHEM 8 (BAS METB)on Anion gap [Moles/Vol] 11.2 mmol/L Normal [facility] Comment on above: Performed By: #### T SH, BMP #### [facility] [address] [place] [address] [address] Taran Pan Calcium [Mass/Vol] 8.5 mg/dL Normal 8.5-10.1 [facility] Comment on above: Performed By: #### T SH, BMP #### [facility] [address] [place] [address] [address] Taran Pan Chloride [Moles/Vol] 104 mmol/L Normal 98-107 [facility] Comment on above: Performed By: #### T SH, BMP #### [facility] [address] [place] [address] [address] Taran Pan CO2 [Moles/Vol] 28.2 mmol/L Normal 22.0-30.0 [facility] Comment on above: Performed By: #### T SH, BMP #### [facility] [address] [place] [address] [address] Taran Pan Creatinine [Mass/Vol] 0.77 mg/dL Normal 0.52-1.04 [facility] Comment on above: Performed By: #### T SH, BMP #### [facility] [address] [place] [address] [address] Taran Pan EGFR-AF ALGERIAN >60 Normal >=60 [facility] Comment on above: Performed By: #### T SH, BMP #### [facility] [address] [place] [address] [address] Taran Pan EGFR-NON AF ALGERIAN >60 Normal >=60 [facility] Comment on above: Performed By: #### T SH, BMP #### [facility] [address] [place] [address] [address] Taran Pan Glucose [Mass/Vol] 96 mg/dL Normal 74-106 [facility] Comment on above: Performed By: #### T SH, BMP #### [facility] [address] [place] [address] Dr. Taran Pan Potassium [Moles/Vol] 4.4 mmol/L Normal 3.4-5.[address] [facility] Comment on above: Performed By: #### T CLIVE, BMP #### [facility] [address] [place] [address] Dr. Taran Pan Sodium [Moles/Vol] 139 mmol/L Normal 137-[address] [facility] Comment on above: Performed By: #### T CLIVE, BMP #### [facility] [address] [place] [address] Dr. Taran Pan Urea nitrogen [Mass/Vol] 12.0 mg/dL Normal 7.0-18.[address] [facility] Comment on above: Performed By: #### T CLIVE, BMP #### [facility] [address] [place] [address] Dr. Taran Pan Urea nitrogen/Creatini ne [Mass ratio] 15.6 mg/mg Normal [facility] Comment on above: Performed By: #### T CLIVE, BMP #### [facility] [address] [place] [address] Dr. Taran Pan TSHon 09-01-2021 TSH 2.163 uIU/mL Normal 0.470-4.680 [facility] Comment on above: Performed By: #### T CLIVE, BMP #### [facility] [address] [place] [address] Dr. Taran Pan TSH RANGE SEE BELOW Normal [facility] Comment on above: Result Comment: <0.3 4 UIU/ml HYPERTHYROID 0.34-5.60 UIU/ml EUTHYROID >5.60 UIU/ml HYPOTHYROID Performed By: #### T CLIVE, BMP #### [facility] [address] [place] [address] Dr. Taran Elise 03-25-2021 PRIYANK Telephone (Traiana) TONYSeptember ([id number]) 1975 [facility] Date Time Provider Department 03/25/21 EVELIA BEAR During your visit today, we recorded the following information about you: Evelia Bear PA-C 03/25/2021 8:03 AM Signed Call to September for Occupation Health follow up of positive COVID test with symptom onset 9 days ago. she states symptoms are resolved other than lost of taste and smell. She denies fever and states she would like to be cleared for work on 03/26/21, will clear and send message to management. Evelia Bear PA-C Allergies As of Date: 03/25/2021 (No Known Allergies) Date Reviewed: 04/12/2014 Reviewed by: Tony Llamas - Fully Assessed Reason for Visit: [facility] COVID Outreach [[id number]] Prescriptions as of 03/25/2021 - FLUoxetine (PROZAC) 10 mg capsule TAKE 1 CAPSULE BY MOUTH ONCE DAILY Problem List As Of Date 03/25/2021 Noted Resolved Preventative health care [Z00.00] 06/08/2013 AMA (advanced maternal age) multigravida 35+ [O*04/12/2014 History of delivery, currently *04/12/2014 Echogenic bowel of fetus on ultrasound*05/10/2014 Acute maxillary sinusitis [J01.00] 07/20/2015 Encounter Status:Closed by EVELIA BEAR on 03/25/21 [facility] CNPN Telephone (CORPMN) TONYSEPTEMBER Precious ([id number]) 1975 [facility] Date Time Provider Department 03/18/21 EVELIA BEAR During your visit today, we recorded the following information about you: Evelia Bear PA-C 03/18/2021 7:21 AM Signed Call to September for Occupational Health follow up with no answer, left with call back numbers. Evelia Bear PA-C Allergies As of Date: 03/18/2021 (No Known Allergies) Date Reviewed: 04/12/2014 Reviewed by: Tony Llamas - Fully Assessed Reason for Visit: [facility] COVID Outreach [[id number]] Prescriptions as of 03/18/2021 - FLUoxetine (PROZAC) 10 mg capsule TAKE 1 CAPSULE BY MOUTH ONCE DAILY Problem List As Of Date 03/18/2021 Noted Resolved Preventative health care [Z00.00] 06/08/2013 AMA (advanced maternal age) multigravida 35+ [O*04/12/2014 History of delivery, currently *04/12/2014 Echogenic bowel of fetus on ultrasound*05/10/2014 Acute maxillary sinusitis [J01.00] 07/20/2015 Encounter Status:Closed by EVELIA BEAR on 03/18/21 [facility] JESSENIA JIMENEZ ([id number]) 1975 [facility] Date Time Provider Department 03/18/21 EVELIA BEAR CORPMN During your visit today, we recorded the following information about you: Evelia Bear PA-C 03/18/2021 7:36 AM Signed Call to September to discuss COVID positive result. She states symptoms are mild with onset of 03/15/21. She I vaccinated and RTW policy discussed in detail Evelia Bear PA-C Allergies As of Date: 03/18/2021 (No Known Allergies) Date Reviewed: 04/12/2014 Reviewed by: Tony Llamas - Leida Assessed Reason for Visit: [facility] COVID Outreach [[id number]] Prescriptions as of 03/18/2021 - FLUoxetine (PROZAC) 10 mg capsule TAKE 1 CAPSULE BY MOUTH ONCE DAILY Problem List As Of Date 03/18/2021 Noted Resolved Preventative health care [Z00.00] 06/08/2013 AMA (advanced maternal age) multigravida 35+ [O*04/12/2014 History of delivery, currently *04/12/2014 Echogenic bowel of fetus on ultrasound*05/10/2014 Acute maxillary sinusitis [J01.00] 07/20/2015 Encounter Status:Closed by EVELIA BEAR on 03/18/21 [facility] 03-17-2021 CNPN Telephone (CORPMN) JESSENIA JIMENEZ ([id number]) [address] [facility] Date Time Provider Department 03/17/21 COLTON LINDSEY During your visit today, we recorded the following information about you: Colton Lindsey RN 03/17/2021 9:07 AM Signed CG called with covmariela-like sx of SOTO, fatigue, cough. RASHMI RT paged at [phone]. Allergies As of Date: 03/17/2021 (No Known Allergies) Date Reviewed: 04/12/2014 Reviewed by: Tony Llamas - Fully Assessed Reason for Visit: Covid-19 Hotline [[id number]] Prescriptions as of 03/17/2021 - FLUoxetine (PROZAC) 10 mg capsule TAKE 1 CAPSULE BY MOUTH ONCE DAILY Problem List As Of Date 03/17/2021 Noted Resolved Preventative health care [Z00.00] 06/08/2013 AMA (advanced maternal age) multigravida 35+ [O*04/12/2014 History of delivery, currently *04/12/2014 Echogenic bowel of fetus on ultrasound*05/10/2014 Acute maxillary sinusitis [J01.00] 07/20/2015 Encounter Status:Closed by COLTON LINDSEY on 03/17/21 [facility]CORPMN[facility] TONYSeptember ([id number]) [address] [facility] Date Time Provider Department 03/17/21 MERRITT VALDIVIA During your visit today, we recorded the following information about you: Merritt Valdivia APRN.MARYANNE 03/17/2021 9:13 AM Signed Spoke with patient - meets criteria for Covid-19 testing. Symptoms: New onset cough past few days, really bad SOTO Symptoms started 03/15 Positive contact ?: been around covid +, coworker Covid pass +/-?: at work Covid 19 test ordered; patient instructed to schedule test via [employer]. Also instructed patient to self-isolate, quarantine until test results are known, and to notify supervisor broadloom that they are unable to return to [...] the end of our conversation. Merritt Valdivia APRN.MARYANNE Occupational Health Allergies As of Date: 03/17/2021 (No Known Allergies) Date Reviewed: 04/12/2014 Reviewed by: Tony Llamas - Fully Assessed Reason for Visit: [facility] COVID Outreach [[id number]] Primary Visit Diagnosis:Suspected COVID-19 virus infection [Z20.822] Order(s):CAREGIVER COVID19 [SQCGCOVD] Order #: [id number] FUTURE Prescriptions as of 03/17/2021 - FLUoxetine (PROZAC) 10 mg capsule TAKE 1 CAPSULE BY MOUTH ONCE DAILY Problem List As Of Date 03/17/2021 Noted Resolved Preventative health care [Z00.00] 06/08/2013 AMA (advanced maternal age) multigravida 35+ [O*04/12/2014 History of delivery, currently *04/12/2014 Echogenic bowel of fetus on ultrasound*05/10/2014 Acute maxillary sinusitis [J01.00] 07/20/2015 Encounter Status:Closed by MERRITT VALDIVIA on 03/17/21 Normal [facility] Caregiver [id number] 03-17-20 SARS-CoV-2 (COVID-19) RNA CLAUDE+probe Ql (Unsp spec) UPPER RESPIRATORY TRACT SWAB Normal [facility] Comment on above: Performed By: #### C GCOVD #### [address] [address] SARS-CoV-2 (COVID-19) RNA CLAUDE+probe Ql (Unsp spec) Positive for COVID19 (SARS CoV2) by RT-PCR or equivalent method. Critically abnormal Negative for COVID19 (SARS CoV2) by RT-PCR or equivalent method. [facility] Comment on above: Result Comment: This test was developed and its performance characteristics determined by [facility]'s [facility] [place]. This test has been authorized by FDA under an Emergency Use Authorization (EUA). This test has been validated in accordance with the FDA's Guidance Document Policy for Diagnostics Testing in Laboratories Certified to Perform High Complexity Testing under CLIA prior to Emergency use Authorization for Coronavirus Disease 2019 during the Public Health Emergency issued on August 01, 2019. Test performed by [facility], [facility] [place], [address] [place] [id number]. Performed By: #### C GCOVD #### [address] [address] Encounters Encounter Date Encounter Type Care Provider Facility Start: 08-07-2023 End: 08-07-2023 ambulatory JESSICA PARISI Not Available Start: 07-15-2023 Chart abstracting Jessica Parisi DO [...] for malign ant neoplasm of breast Mammogram [facility] Start: 08-07-2023 End: 08-07-2023 Patient encounter procedure 08/07/2023 4:00 PM EST Office Visit [facility] [address] [place] [address] Jessica Parisi, DO [address] [place], [place] [id number] [facility] Start: 2005 Screening for malign ant neoplasm of cervix [facility] Start: 02-06-1996 Screening for malign ant neoplasm of cervix Pap Smear [facility] Start: 1975 Screening for malign ant neoplasm of colon [facility] Healthcare Payers Date Payer Category Payer Managed Care O (unspecified) AETNA AETNA [id number] 2021-Present [address] [place] [id number] [facility] [id number] 1975 Unknown [id number] 1975 Unknown [id number] 1975 Unknown [id number] 1975 Unknown [id number] [id number] 1975 Unknown [id number] [id number] 1975 Unknown [id number] 1959 Private Health Insurance [id number] Social History Date Type Detail Facility Start: 07-15-2023 Tobacco smoking stat [facility] Never smoked tobacco [facility] Start: 07-15-2023 Tobacco use and exposure Smokeless t obacco non-user [facility] Start: 07-15-2023 Alcohol intake Lifetime non-d fay (finding) [facility] Start: 1975 Sex Assigned At Not on file [facility] Healthcare Gender identity Not on file [facility] are Clinical Note 08-10-2020 Note Date & Type Note Facility 08-10-2020 Note Patient Outreach ([place] [facility]) JESSENIA JIMENEZ ([id number]) [address] [facility] Date Time Provider Department 08/10/20 ALCIDES SINCLAIR During your visit today, we recorded the following information about you: Allergies As of Date: 08/10/2020 (No Known Allergies) Date Reviewed: 04/12/2014 Reviewed by: Tony Llamas - Fully Assessed Order(s):SARS-COVID VACCINE 1ST DOSE APPT [70911MXA] Order #: [id number] FUTURE Problem List As Of Date 08/10/2020 Noted Resolved Preventative health care [Z00.00] 06/08/2013 AMA (advanced maternal age) multigravida 35+ [O*04/12/2014 History of delivery, currently *04/12/2014 Echogenic bowel of fetus on ultrasound*05/10/2014 Acute maxillary sinusitis [J01.00] 07/20/2015 Encounter Status:Closed by EPIC, PRODUSER on 08/15/20 [facility] Summary Purpose Family History No Family History Records FoundNo Family History Records FoundNo Family History Records Found Advance Directives No Advanced Directives Records FoundNo Advanced Directives Records FoundNo Advanced Directives Records Found Additional Source Comments INFORMATION SOURCE (unrecogn ized section and content) DATE CREATED AUTHOR 06/26/2021 [facility] DATE CREATED AUTHOR AUTHOR'S ORGANIZ ATION 07/10/2022 [facility] DATE CREATED AUTHOR AUTHOR'S ORGANIZ ATION 08/08/2023 [facility] Care Teams (unrecognized sec tion and content) Clinical Informatics Physician Relationship Specialty Start Date End Date Kim Shepherd MD [address] [place] [id number] PCP - General Family Medicine 04/03/23 FOR [...] BE BASED ON THE PRIMARY CLINICAL RECORDS. [employer] provides no warranty or guarantee of the accuracy or completeness of information in this document.
--- NOTE | 2023-08-16 19:51 | ED_ITS ---
HPI - Abdominal Pain General Chief Complaint: Abdominal Pain Stated Complaint: abd pain Time Seen by Provider: 08/16/23 19:45 Source: patient Mode of arrival: walk-in Limitations: no limitations History of Present Illness HPI narrative: patient presents complaining of abdominal pain and diarrhea. At least 6 episodes of nonbloody diarrhea. Nausea but no vomiting. Points to epigastric and lower quads as sites of abdominal discomfort. No fever or chills. No known exposures Related Data Allergies Allergy/AdvReac Type Severity Reaction Status Date / Time No Known Drug Allergies Allergy Verified 08/16/23 19:45 Review of Systems ROS Status of ROS 10 or more systems reviewed and unremark able except as noted in history and below Exam Constitutional Vital Signs, click to edit/add: Last Vital Signs Temp 98.6 F 08/17/23 00:14 Pulse 80 08/17/23 00:14 Resp 16 08/16/23 23:29 BP 92/53 08/17/23 00:14 Pulse Ox 96 08/17/23 00:14 O2 Del Method Room Air 08/17/23 00:14 Common normals: no apparent distress, average body habitus, oriented x3, no limitations, healthy appearing, alert and well nourished [facility] Common normals: normocephalic and head/scalp atraumatic Eye Common normals: EOMs intact bilaterally and conjunctivae normal Respiratory Common normals: normal respiratory effort, no retractions, no use of accessory muscles and clear to auscultation bilaterally Cardio Common normals: regular rate, regular rhythm, S1 normal heart sound and S2 normal heart sound GI Common normals: Normal to inspection, nondistended, normoactive bowel sounds present, soft to palpation and non-tender Extremity Common normals: normal to inspection and full ROM Neuro Common normals: oriented x3, CN's II-XII intact bilaterally, moves all ext remities and no focal motor deficits Psych Appearance: grossly normal Course Vital Signs Vital signs: Vital Signs Temperature 98.2 F 08/16/23 19:38 Pulse Rate 75 08/16/23 19:38 Respiratory Rate 18 08/16/23 19:38 Blood Pressure 156/82 H 08/16/23 19:38 Pulse Oximetry 99 08/16/23 19:38 Oxygen Delivery Method Room Air 08/16/23 19:38 Temperature 98.6 F 08/17/23 00:14 Pulse Rate 80 08/17/23 00:14 Respiratory Rate 16 08/16/23 23:29 Blood Pressure 92/53 08/17/23 00:14 Pulse Oximetry 96 08/17/23 00:14 Oxygen Delivery Method Room Air 08/17/23 00:14 MDM - Abdominal Pain MDM Narrative Medical decision making narrative: presents with abdominal pain and diarrhea. Nonbloody diarrhea. stool neg for C. diff. Pain improved after hydration and fentanyl. CT with mild findings of enteritis.Discharged home with lomotil. Stool culture pending Lab Data Labs: Lab Results 08/16/23 08/16/23 Range/Units 19:58 21:33 WBC 6.4 (4.0-11.0) 10^3/uL RBC 4.54 (4.20-5.40) 10^6/uL Hgb 13.5 (12.0-16.0) g/dL Hct 42.6 (36.0-48.0) % MCV 93.8 (81.0-99.0) fL MCH 29.7 (26.7-34.0) pg MCHC 31.7 (29.9-35.2) g/dL RDW 13.8 (11.0-15.0) % Plt Count 326 (150-450) 10^3/uL MPV 11.4 (9.5-13.5) fL Neut % (Auto) 85.0 H (43.0-75.0) % Lymph % (Auto) 11.7 L (20.5-60.0) % [place] % (Auto) 1.4 L (1.7-12.0) % Eos % (Auto) 0.5 L (0.9-7.0) % Baso % (Auto) 1.2 (0.2-2.0) % Neut # (Auto) 5.5 (1.4-6.5) 10^3/uL Lymph # (Auto) 0.8 L (1.2-3.8) 10^3/uL [place] # (Auto) 0.1 L (0.3-0.8) 10^3/uL Eos # (Auto) 0.0 (0.0-0.7) 10^3/uL Baso # (Auto) 0.1 (0.0-0.1) 10^3/uL Abs Immat Gran (auto) 0.01 (0.00-0.03) 10^3/uL Imm/Tot Granulo (auto) 0.2 (0.0-0.5) % Sodium 136 (136-145) mmol/L Potassium 3.4 L (3.5-5.1) mmol/L Chloride 100 (98-107) mmol/L Carbon Dioxide 25.1 (21.0-32.0) mmol/L Anion Gap 14.3 BUN 9.0 (7.0-18.0) mg/dL Creatinine 0.79 (0.55-1.02) mg/dL Est GFR ( Amer) >60 (>=60) Est GFR (Non-Af Amer) >60 (>=60) BUN/Creatinine Ratio 11.4 Glucose 95 (74-106) mg/dL Lactate 0.8 (0.4-2.0) mmol/L Calcium 8.5 (8.5-10.1) mg/dL Total Bilirubin 0.2 (0.2-1.0) mg/dL AST 17 (15-37) U/L ALT 37 (14-59) U/L Alkaline Phosphatase 65 (46-116) U/L Total Protein 7.9 (6.4-8.2) g/dL Albumin 3.9 (3.4-5.0) g/dL Globulin 4.0 g/dL Albumin/Globulin Ratio 1.0 Stl C. cayetanensis PCR Not detected (NOT DETECTE) Stool Rotavirus (PCR) Not detected (NOT DETECTE) Stool Adenovirus (PCR) Not detected (NOT DETECTE) Stool Astrovirus (PCR) Not detected (NOT DETECTE) Stool Campylobacter PCR Not detected (NOT DETECTE) Stool Cryptosporidium PCR Not detected (NOT DETECTE) St Sh/Enteroin Ecoli PCR Not detected (NOT DETECTE) Stl Enterotoxigenic E PCR Not detected (NOT DETECTE) Stool EPEC (PCR) Not detected (NOT DETECTE) Stl E. histolytica PCR Not detected (NOT DETECTE) Stool Giardia Lamblia PCR Not detected (NOT DETECTE) Stl P. shigelloides PCR Not detected (NOT DETECTE) Stool Salmonella PCR Not detected (NOT DETECTE) Stool Sapovirus (PCR) Not detected (NOT DETECTE) Stl Shiga-like Tx 1 PCR Not detected (NOT DETECTE) St Y.enterocolitica PCR Not detected (NOT DETECTE) Stl Vibrio cholerae PCR Not detected (NOT DETECTE) Stl Enteroaggr Ecoli PCR Not detected (NOT DETECTE) Stl Norovirus GI/GII PCR Not detected (NOT DETECTE) Specimen Source Stool C. difficile Toxin A&B Not detected (NOT DETECTE) Vibrio Culture Not detected (NOT DETECTE) Imaging Data CT scan - abdomen: Radiologist's impression: ITS Impressions Abdomen/Pelvis CT 08/16/23 22:05 IMPRESSION: Fluid-filled large bowel may be seen with diarrheal illness/enteritis. Otherwise, no acute intra-abdominal or pelvic abnormality. Electronically authenticated by: VÍCTOR HARPER Date: 08/16/2023 22:56 Discharge Plan Discharge Stand Alone Forms: Portal Instructions Chief Complaint: Abdominal Pain Clinical Impression: Enteritis Patient Disposition: Home, Self-Care Time of Disposition Decision: 00:18 Condition: Good Mode of Transportation: Private Vehicle Instructions: Enteritis (ED) Additional Instructions: follow up with family doctor saturday Referrals: Kim Hendricks MD [Primary Care Provider] - 1 week Discharge Date/Time: 08/17/23 00:27
[2023-08-16 20:09] LABS: Basophils Absolute Auto 0.1 10^3/uL (0.0-0.1); Basophils Percent Auto 1.2 % (0.2-2.0); Eosinophils Percent Auto 0.5 % (0.9-7.0); Hematocrit 42.6 % (36.0-48.0); Hemoglobin 13.5 g/dL (12.0-16.0); Immature Granulocytes Abs Auto 0.01 10^3/uL (0.00-0.03); Immature Granulocytes Pct Auto 0.2 % (0.0-0.5); Lymphocytes Absolute Auto 0.8 10^3/uL (1.2-3.8); Lymphocytes Percent Auto 11.7 % (20.5-60.0); Mean Corpuscular HGB Conc 31.7 g/dL (29.9-35.2); Mean Corpuscular Hemoglobin 29.7 pg (26.7-34.0); Mean Corpuscular Volume 93.8 fL (81.0-99.0); Mean Platelet Volume 11.4 fL (9.5-13.5); Monocytes Absolute Auto 0.1 10^3/uL (0.3-0.8); Monocytes Percent Auto 1.4 % (1.7-12.0); Neutrophils Absolute Auto 5.5 10^3/uL (1.4-6.5); Platelet Count 326 10^3/uL (150-450); Red Blood Count 4.54 10^6/uL (4.20-5.40); Red Cell Distribution Width 13.8 % (11.0-15.0); White Blood Count 6.4 10^3/uL (4.0-11.0)
[2023-08-16] MEDS: DICYCLOMINE HCL 20 MG/2 ML VIAL IM (20:23)
[2023-08-16] MEDS: 0.9 % SODIUM CHLORIDE 1,000 ML 999 ML IV (20:23)
[2023-08-16] MEDS: ONDANSETRON PF 4 MG/2 ML VIAL IV (20:23)
[2023-08-16 20:25] LABS: Alanine Aminotransferase 37 U/L (14-59); Albumin Level 3.9 g/dL (3.4-5.0); Alkaline Phosphatase 65 U/L (46-116); Anion Gap 14.3; Aspartate Amino Transferase 17 U/L (15-37); BUN Creatinine Ratio 11.4; Bilirubin Total 0.2 mg/dL (0.2-1.0); Calcium 8.5 mg/dL (8.5-10.1); Carbon Dioxide 25.1 mmol/L (21.0-32.0); Chloride 100 mmol/L (98-107); Estimated GFR (African America >60 (>=60); Estimated GFR (Non-African Ame >60 (>=60); Glucose 95 mg/dL (74-106); Potassium 3.4 mmol/L (3.5-5.1); Sodium 136 mmol/L (136-145); Total Protein 7.9 g/dL (6.4-8.2)
[2023-08-16 20:28] LABS: Lactate/Lactic Acid 0.8 mmol/L (0.4-2.0)
[2023-08-16] MEDS: METOCLOPRAMIDE HCL 10 MG/2 ML VIAL IVP (20:54)
[2023-08-16] MEDS: FENTANYL CITRATE/PF 100 MCG/2 ML VIAL 50 MCG IV ×2 (20:54→22:37)
--- NOTE | 2023-08-16 22:05 | CT_ITS ---
The [address] [address] Patient Name: JESSENIA JIMENEZ MRN: [id number] date: 1975 Sex: F Assigned Patient Location: ER Current Patient Location: ER Accession/Order Number: [id number] Exam Date: 08/16/2023 22:25 Report Date: 08/16/2023 22:56 At the request of: KRISTIE KITCHEN Procedure: CT abdomen pelvis w con EXAM: CT abdomen pelvis w con HISTORY: abdominal pain COMPARISON: None. TECHNIQUE: Intravenous contrast-enhanced axial CT of the abdomen and pelvis was performed with coronal and sagittal reformats provided. FINDINGS: Lung bases: Clear. ABDOMEN: Liver: Normal. Gallbladder/biliary: Normal. No biliary dilation. Pancreas: Normal. Spleen: Normal. Adrenals: Normal. Kidneys, ureters and urinary bladder: Normal. Pelvis: Normal size of the uterus. An intrauterine device is noted and appears appropriately positioned. No adnexal mass. Vasculature: Normal caliber of the abdominal aorta. Major venous structures of the abdomen are patent. Hollow viscera/retroperitoneum: Small hiatal hernia. Small bowel is normal caliber. Appendix is normal. No focal colonic wall thickening. Portions of large bowel are fluid filled. No mesenteric or pelvic lymphadenopathy. No intra-abdominal free fluid or free air. Musculoskeletal/soft tissues: Subcutaneous emphysema along the left flank may reflect an injection site. No acute fracture or aggressive osseous abnormality. CT/CT abdomen pelvis w con IMPRESSION: Fluid-filled large bowel may be seen with diarrheal illness/enteritis. Otherwise, no acute intra-abdominal or pelvic abnormality. Electronically authenticated by: VÍCTOR HARPER Date: 08/16/2023 22:56
[2023-08-16 22:06] VITALS: BP 128/63; PULSE 91; RESP 18; TEMP 38.7; O2SAT 100
[2023-08-16 22:10] LABS: Adenovirus F 40/41 NOT DETECTED (NOT DETECTE); Astrovirus NOT DETECTED (NOT DETECTE); Campylobacter NOT DETECTED (NOT DETECTE); Cryptosporidium NOT DETECTED (NOT DETECTE); Cyclospora cayetanensis NOT DETECTED (NOT DETECTE); Entamoeba histolytica NOT DETECTED (NOT DETECTE); Enteroaggregative E.coli NOT DETECTED (NOT DETECTE); Enteropathogenic E.coli NOT DETECTED (NOT DETECTE); Enterotoxigenic E. coli NOT DETECTED (NOT DETECTE); Giardia lamblia NOT DETECTED (NOT DETECTE); Norovirus GI/GII NOT DETECTED (NOT DETECTE); Plesiomonas shigelloides NOT DETECTED (NOT DETECTE); Rotavirus A NOT DETECTED (NOT DETECTE); Salmonella NOT DETECTED (NOT DETECTE); Sapovirus NOT DETECTED (NOT DETECTE); Shiga-like toxin-producing E.C NOT DETECTED (NOT DETECTE); Shigella/Enteroinvasive E.coli NOT DETECTED (NOT DETECTE); Vibrio NOT DETECTED (NOT DETECTE); Vibrio cholerae NOT DETECTED (NOT DETECTE); Yersinia enterocolitica NOT DETECTED (NOT DETECTE)
[2023-08-16] MEDS: ACETAMINOPHEN 500 MG TABLET 1000 MG PO (22:36)
[2023-08-16 23:29] VITALS: BP 99/54; PULSE 83; RESP 16; TEMP 38.1; O2SAT 96
[2023-08-17] MEDS: HYDROCODONE/ACET 5-325 MG TABLET 4 TAB PO (00:09)
[2023-08-17] MEDS: DIPHENOXYLATE HCL 2.5 MG/ATROPINE 0.025 MG TABLET 2 TAB PO (00:12)
[2023-08-17 00:14] VITALS: BP 92/53; PULSE 80; TEMP 37; O2SAT 96
[2023-08-17] MEDS: DIPHENOXYLATE HCL 2.5 MG/ATROPINE 0.025 MG TABLET 1 TAB PO (00:17)
[2023-08-19 15:08] LABS: Cryptosporidium EIA Negative (Negative); Giardia lamblia Ag, EIA Negative (Negative)
== END 2023-08-17 00:27 | disposition home or self-care (01) ==
PROVIDERS: Emergency Provider Internal Medicine; PCP Family Medicine
DX: K52.9 Noninfective gastroenteritis and colitis, unspecified (principal)
CPT/HCPCS: 36415; 74177; 80053; 83605; 85025; 87045; 87493; 87507; 96361; 96372; 96374; 96375; 96376; 99285; J0500; Q9967

== ENCOUNTER 2023-09-07 07:52 | Outpatient (OUT) | payer OTHER, SELFPAY ==
--- NOTE | 2023-09-07 | US_ITS ---
The [address] [address] Patient Name: JESSENIA JIMENEZ MRN: [id number] date: 1975 Sex: F Assigned Patient Location: US Current Patient Location: US Accession/Order Number: [id number] Exam Date: 09/07/2023 08:03 Report Date: 09/07/2023 09:00 At the request of: NON-STAFF PHYSICIAN Procedure: US right upper quadrant EXAMINATION: US right upper quadrant HISTORY: epigastric pain r10.13 , abdominal pain COMPARISON: No relevant comparison available. TECHNIQUE: Transabdominal evaluation of the right upper quadrant. FINDINGS: LIVER: Normal size and echotexture. Color Doppler demonstrates patent hepatic veins. PORTAL VEIN: Duplex Doppler demonstrates normal hepatopetal flow pattern with flow velocity averaging 46 cm/s. GALLBLADDER: No visible gallstones, wall thickening, or pericholecystic free fluid. Negative sonographic Boyer's sign. BILIARY: No abnormal dilation or stones. Common bile duct diameter is within normal limits. PANCREASE: No visible mass, abnormal atrophy, or duct dilation. KIDNEY: No hydronephrosis. No visible mass or stones. Size: 9.8 x 4.0 x 4.4 cm US/US right upper quadrant IMPRESSION: 1. Normal right upper quadrant ultrasound. Electronically authenticated by: YENIFER ENG Date: 09/07/2023 09:00
--- OUTSIDE RECORDS SUMMARY | 2023-09-07 07:54 | XMS_ITS | CCD ---
Author Organization [facility] Care Team Providers Care Television Specialist Name Role Phone NAEL, DR LOPEZ Admitting [...] KIM Garces Attending Unavailable SHEPHERD, DR KIM Garecs Primary Care Unavailable SHEPHERD, DR KIM Garces Consulting Unavailable NAEL, DR LOPEZ Admitting Unavailable NAEL, DR LOPEZ Attending Unavailable SHEPHERD, DR KIM Garces Primary Care Unavailable DALLAS, DR JORGE Gallardo Consulting Unavailable NAEL, DR LOPEZ Consulting Unavailable NAEL, DR LOPEZ Admitting Unavailable NAEL, DR LOPEZ Attending Unavailable JOAO, DR KIM Garces Primary Care Unavailable NAEL, DR LOPEZ Consulting Unavailable Kim Shepherd MD Primary Care Provider JESSICA PARISI Attending Unavailable Kim Shepherd MD Primary Care Provider Medications Current Medications Medication Drug Class(es) Dates Sig (Normalized) Sig (Original) ciprofloxacin 500 mg oral tablet (1 source) Quinolone Antimicrobial Start: 08-21-2023 take 500 mg by mouth twice daily Ciprofloxacin Hcl Active 500 MG PO Twice daily August 21, 2023 12:00am FLUoxetine 20 mg oral capsule (5 sources) Serotonin Reuptake Inhibitor Start: 01-16-2022 take 1 capsule by mouth once daily Fluoxetine Active 1 CAP PO Daily August 21, 2023 12:00am FreeTextSig: Take 1 capsule by mouth once daily; Note: Source Status: Start; Refills: 1; Qty: 90 Capsule; Provider: Joao Alvarez ( ) Start: 07-23-2019 take 1 capsule by mo uth once daily FLUoxetine (PROZAC) 10 mg capsule TAKE 1 CAPSULE BY MOUTH ONCE DAILY 30 capsule 1 07/23/2019 Active Comment on above: TAKE 1 CAPSULE BY MO UTH ONCE DAILY levonorgestrel 0.854359 mg/hr intrauterine system (1 source) Progestin, Progestin-containing Intrauterine Device Levonorgestrel (Mirena, 52 MG,) 20 MCG/DAY intrauterine device as directed Intrauterine 0 Active Multivitamin (Daily Multi-Vitamin) tablet (1 source) Start: 08-21-19 24 take 1 tablet by mouth once daily Multivitamin (Daily Multi-Vitamin) tablet Active 1 TAB PO Daily August 21, 2023 12:00am Completed/Discontinued Medications Medication Drug Class(es) Dates Sig (Normalized) Sig (Original) 24 hr metFORMIN hydrochloride 500 mg extended release oral tablet (2 sources) Biguanide Start: 07-03-2022 take 1 tablet by mouth once daily in the evening metFORMIN ER (GLUCOPHAGE XR) 500 mg 24 hr tablet Take 1 tablet by mouth every evening. 90 tablet 3 07/03/2022 Active Start: 07-03-2022 metFORMIN XR ( Glucophage-XR) 500 MG 24 hr tablet 1 (one) time each day at the same time. 0 07/03/2022 Active Comment on above: Take 1 tablet by tamera th every evening. MULTI-VITAMIN ORAL (1 source) MULTI-VITAMIN OR AL Take by mouth. 0 Active Comment on above: Take by mouth. vortioxetine 10 mg oral tablet (1 source) Start: 2 take 1 tablet by mouth once daily vortioxetine (TRINTELLIX) 10 mg tablet Take 1 tablet by mouth daily 30 tablet 0 12/25/2021 Active Comment on above: Take 1 tablet by tamera th daily zolpidem tartrate 5 mg oral tablet (1 source) gamma-Aminobutyri c Acid-ergic Agonist Start: 2 take 1 tablet by mouth at bedtime zolpidem (AMBIEN) 5 mg tablet Take 1 tablet by mouth at bedtime 30 tablet 0 09/18/2021 Active Comment on above: Take 1 tablet by tamera th at bedtime Problems Active Problems Problem Classification Problem Date Documented Da te Episodic/Chronic Abdominal pain (1 source) Epigastric pain; Translations: [Epigastric pain] 08-30-2023 Episodic Immunizations and screening for infectious disease (1 source) Encounter for screening for human papillomavirus (HPV); Translations: [ENC SCREENING HUMAN PAPILLOMAVIRUS] Onset: 07-04-2022 Episodic Other gastrointestinal disorders (2 sources) Diarrhea; Translations: [Diarrhea, unspecified] 08-21-2023 Episodic Other gastrointestinal disorders (1 source) Diarrhea, unspecified; Translations: [Diarrhea] 08-21-2023 Episodic Other screening for suspected conditions (not mental disorders or infectious disease) (11 sources) Encounter for screening for malignant neoplasm [...] CYST OF LEFT BREAST] Onset: 10-03-2021 Episodic Other complications of (1 source) Multigravida of advanced maternal age; Translations: [Supervision of elderly multigravida, unspecified trimester] Onset: 04-12-2014 04-12-2014 Episodic Other complications of (1 source) H/O: premature delivery; Translations: [Supervision of other high risk pregnancies, unspecified trimester] Onset: 04-12-2014 04-12-2014 Episodic Other complications of (1 source) ultrasound scan abnormal; Translations: [Abnormal ultrasonic finding on screening of mother] Onset: 05-10-2014 05-10-2014 Episodic Other upper respiratory infections (1 source) Acute maxillary sinusitis; Translations: [Acute maxillary sinusitis, unspecified] Onset: 07-20-2015 07-20-2015 Episodic Results Test Name Value Interpretation Reference Range Facility Basophils Auto (Bld) [#/Vol] on 08-16-2023 Basophils (Bld) [#/Vol] 0.1 10 3/uL 0.0-0.1 [facility] Basophils/100 WBC Auto (Bld) on 08-16-2023 Basophils/100 WBC (Bld) 1.2 % 0.2-2.0 [facility] Cryptosporidium sp Ag [Prese nce] in Stool by Immunoassayon 08-16-2023 Cryptosporidium sp Ag IA Ql (Stl) Negative Negative [facility] Comment on above: Performed at: [facility] Team [facility] [address] [id number] Director: Carlos Rosario PhD, Phone: [phone] Detection in stool of any of Campylobacter coli, Campylobacter jejuni, and Campylobacon 08-16-2023 C. coli+jejuni+upsaliensi s DNA CLAUDE+non-probe Ql (Stl) Not detected NOT DETECTE [facility] Detection in stool of any of Vibrio cholerae, Vibrio parahaemolyticus, and Vibrio vulon 08-16-2023 V. cholerae+parahaemolyti cus+vulnificus DNA CLAUDE+non-probe Ql (Stl) Not detected NOT DETECTE [facility] Detection in stool of either or both Salmonella enterica and Salmonella bongori DNA bon 08-16-2023 S. enterica+bongori DNA CLAUDE+non-probe Ql (Stl) Not detected NOT DETECTE [facility] Detection in stool of either or both enteroaggregative Escherichia coli Bismark plasmid aon 08-16-2023 E. coli enteroaggregative Bismark plasmid aggR+aatA genes CLAUDE+non-probe Ql (Stl) Not detected NOT DETECTE [facility] Eosinophils/100 WBC Auto (Bl d)on 08-16-2023 Eosinophils/100 WBC (Bld) 0.5 % 0.9-7.0 [facility] Erythrocyte distribution wid th Auto (RBC) [Ratio]on 08-16-2023 Erythrocyte distribution width (RBC) [Ratio] 13.8 % 11.0-15.0 [facility] Escherichia coli Stx1 and St x2 toxin stx1+stx2 genes [Presence] in Stool by CLAUDE withon 08-16-2023 E. coli stx1+stx2 genes CLAUDE+non-probe Ql (Stl) Not detected NOT DETECTE [facility] Escherichia coli enteropatho genic eae gene [Presence] in Stool by CLAUDE with non-probeon 08-16-2023 E. coli enteropathogenic eae gene CLAUDE+non-probe Ql (Stl) Not detected NOT DETECTE [facility] Escherichia coli enterotoxig enic ltA+st1a+st1b genes [Presence] in Stool by CLAUDE withon 08-16-2023 E. coli enterotoxigenic ltA+st1a+st1b genes CLAUDE+non-probe Ql (Stl) Not detected NOT DETECTE [facility] Estimated glomerular filtrat ion rate (GFR) non- Americanon 08-16-2023 GFR/1.73 sq M.predicted among non-blacks MDRD (S/P/Bld) [Vol rate/Area] mL/min/{1.73_m2} >=60 [facility] Giardia lamblia Ag [Presence ] in Stool by Immunoassayon 08-16-2023 G. lamblia Ag IA Ql (Stl) Negative Negative [facility] Globulin Calc (S) [Mass/Vol] on 08-16-2023 Globulin (S) [Mass/Vol] 4.0 g/dL [facility] Hematocrit Auto (Bld) [Volum e fraction]on 08-16-2023 Hematocrit (Bld) [Volume fraction] 42.6 % 36.0-48.0 [facility] Hemoglobin [Mass/volume] in Bloodon 08-16-2023 Hemoglobin (Bld) [Mass/Vol] 13.5 g/dL 12.0-16.0 [facility] Laboratory - Chemistry and C hemistry - challengeon 08-16-2023 Albumin [Mass/Vol] 3.9 g/dL 3.4-5.0 [facility] ALP [Catalytic activity/Vol] 65 U/L 46-116 [facility] ALT [Catalytic activity/Vol] 37 U/L 14-59 [facility] AST [Catalytic activity/Vol] 17 U/L 15-37 [facility] Bilirubin [Mass/Vol] 0.2 mg/dL 0.2-1.0 [facility] Calcium [Mass/Vol] 8.5 mg/dL 8.5-10.1 [facility] Chloride [Moles/Vol] 100 mmol/L 98-107 [facility] CO2 [Moles/Vol] 25.1 mmol/L 21.0-32.0 [facility] Creatinine [Mass/Vol] 0.79 mg/dL 0.55-1.02 [facility] GFR/1.73 sq M.predicted MDRD (S/P/Bld) [Vol rate/Area] mL/min/{1.73_m2} >=60 [facility] Glucose [Mass/Vol] 95 mg/dL 74-106 [facility] Lactate [Moles/Vol] 0.8 mmol/L 0.4-2.0 [facility] Potassium [Moles/Vol] 3.4 mmol/L 3.5-5.1 [facility] Protein [Mass/Vol] 7.9 g/dL 6.4-8.2 [facility] Sodium [Moles/Vol] 136 mmol/L 136-145 [facility] Urea nitrogen [Mass/Vol] 9.0 mg/dL 7.0-18.0 [facility] Urea nitrogen/Creatinine [Mass ratio] 11.4 mg/mg [facility] Laboratory - Hematology and Cell countson 08-16-2023 Immature granulocytes/100 WBC (Bld) 0.2 % 0.0-0.5 [facility] Laboratory - Specimen inform ationon 08-16-2023 Specimen type Nom (Spec) Stool [facility] Leukocytes [#/volume] correc cornelio for nucleated erythrocytes in Blood by Automated counon 08-16-2023 WBC corrected for nucl RBC Auto (Bld) [#/Vol] 6.4 10 3/uL 4.0-11.0 [facility] Lymphocytes Auto (Bld) [#/Vo l]on 08-16-2023 Lymphocytes (Bld) [#/Vol] 0.8 10 3/uL 1.2-3.8 [facility] Lymphocytes/100 WBC Auto (Bl d)on 08-16-2023 Lymphocytes/100 WBC (Bld) 11.7 % 20.5-60.0 [facility] MCH Auto (RBC) [Entitic mass ]on 08-16-2023 MCH (RBC) [Entitic mass] 29.7 pg 26.7-34.0 [facility] MCHC Auto (RBC) [Mass/Vol]on 08-16-2023 MCHC (RBC) [Mass/Vol] 31.7 g/dL 29.9-35.2 [facility] MCV Auto (RBC) [Entitic vol] on 08-16-2023 MCV (RBC) [Entitic vol] 93.8 fL 81.0-99.0 [facility] Monocytes Auto (Bld) [#/Vol] on 08-16-2023 Monocytes (Bld) [#/Vol] 0.1 10 3/uL 0.3-0.8 [facility] Monocytes/100 WBC Auto (Bld) on 08-16-2023 Monocytes/100 WBC (Bld) 1.4 % 1.7-12.0 [facility] Neutrophils Auto (Bld) [#/Vo l]on 08-16-2023 Neutrophils (Bld) [#/Vol] 5.5 10 3/uL 1.4-6.5 [facility] Neutrophils/100 WBC Auto (Bl d)on 08-16-2023 Neutrophils/100 WBC (Bld) 85.0 % 43.0-75.0 [facility] No Panel Informationon 08-15 Adenovirus Types 40, 41 Not detected NOT DETECTE [facility] C. difficile Antigen and Toxins A,B Not detected NOT DETECTE [facility] Giardia lamblia Interpretation Not detected NOT DETECTE [facility] Stool Astrovirus (PCR) Not detected NOT DETECTE [facility] Stool Cryptosporidium Confirmation Not detected NOT DETECTE [facility] Stool Cyclospora cayetanensis (PCR) Not detected NOT DETECTE [facility] Stool Entamoeba (PCR) Not detected NOT DETECTE [facility] Stool Norovirus GI/GII PCR Not detected NOT DETECTE [facility] Stool Rotavirus (PCR) Not detected NOT DETECTE [facility] Stool Sapovirus (PCR) Not detected NOT DETECTE [facility] Stool Yersinia enterocolitica (PCR) Not detected NOT DETECTE [facility] Eosinophils # (Auto) 0.0 10 3/uL 0.0-0.7 [facility] Immature Granulocyte # (Auto) 0.01 10 3/uL 0.00-0.03 [facility] No Panel InformationOrdered By: Kim Shepherd on 08-16-2023 Salmonella/Shigella Screen [facility] Platelet mean volume Auto (B ld) [Entitic vol]on 08-16-2023 Platelet mean volume (Bld) [Entitic vol] 11.4 fL 9.5-13.5 [facility] Platelets Auto (Bld) [#/Vol] on 08-16-2023 Platelets (Bld) [#/Vol] 326 10 3/uL 150-450 [facility] RBC Auto (Bld) [#/Vol]on RBC (Bld) [#/Vol] 4.54 10 6/uL 4.20-5.40 [facility] Serum or plasma albumin/glob ulin mass ratioon 08-16-2023 Albumin/Globulin [Mass ratio] 1.0 {ratio} [facility] Serum or plasma anion gap de terminationon 08-16-2023 Anion gap [Moles/Vol] 14.3 mmol/L Fi [facility] Shigella species+EIEC invasi on plasmid antigen H ipaH gene [Presence] in Stool by NAAon 08-16-2023 Shigella species+EIEC invasion plasmid antigen H ipaH gene CLAUDE+non-probe Ql (Stl) Not detected NOT DETECTE [facility] Stool Plesiomonas shigelloid es DNA detection by non-probe and target amplification meon 08-16-2023 P. shigelloides DNA CLAUDE+non-probe Ql (Stl) Not detected NOT DETECTE [facility] Vibrio cholerae DNA [Presenc e] in Stool by CLAUDE with non-probe detectionon 08-16-2023 V. cholerae DNA CLAUDE+non-probe Ql (Stl) Not detected NOT DETECTE [facility] Human papilloma virus 16+18+ 31+33+35+39+45+51+52+56+58+59+66+68 DNA [Presence] in [place] 08-07-2023 HPV 16+18+31+33+35+39+45+5 1+52+56+58+59+66+68 DNA Probe+sig amp Ql (Cvx) Negative Negative [facility] Comment on above: This nucleic acid am plification test detects fourteen high- risk HPV types (16,18,31,33,35,39,45,51,52,56,58,59,66,68)without differentiation.Performed at: =G - [facility] [id number] Director: Dora Hameed MD, Phone: [phone] at: - [facility] [id number] Director: Dora Hameed MD, Phone: [phone] No Panel Informationon 08-06 HPV High Risk Other Comment Note . [facility] Comment on above: TESTS RESULT FLAG UN ITS REF RANGE LAB DIAGNOSIS: 02 NEGATIVE FOR INTRAEPITHELIAL LESION OR MALIGNANCY.Specimen adequacy: 02 Satisfactory for evaluation. Endocervical and/or squamous metaplastic cells (endocervical component) are present.Performed by: 02 Henny Tse, Educational Technician (ASCP). 02Note: Note 02 The Pap smear is a screening test designed to aid in the detection of premalignant and malignant conditions of the uterine cervix. It is not a diagnostic procedure and should not be used as the sole means of detecting cervical cancer. Both false-positive and false-negative reports do occur.Test Methodology: Note 02 This liquid based ThinPrep(R) pap test was screened with the use of an image guided system.HPV Genotype Reflex Note 02 Criteria not met, HPV Genotype not performed. ------- FLAG LEGEND: L-Low Normal,H-High Normal,LL-Alert Low,HH-Alert High <-Panic Low,>-Panic High,A-Abnormal,AA-Critical Abnormal -----Performed at:02 WB [facility] [address] [place] [address] Dora Hameed MD, Reference Lab Test Patient Age Note . [facility] Comment on above: TESTS RESULT FLAG UN ITS REF RANGE LAB Clinician Provided Cytology Information Source.............Cervix;Endocervix No. of containers..01 ThinPrep VialAge Algo ACOG [place]... -65 01 FLAG LEGEND: L-Low Normal,H-High Normal,LL-Alert Low,HH-Alert High <-Panic Low,>-Panic High,A-Abnormal,AA-Critical Abnormal -----Performed at:01 =G [facility] [address] [place] [address] Dora Hameed MD, PAP ACOG PANEL 2: 30 to 65on 07-09-2022 . . Normal [facility] Comment on above: Result Comment: Perf ormed at: WB Performed By: #### [id number] ####[facility] [address] [place] [id number] Pan Age Gdln ACOG Testing 30-65 Normal [facility] Comment on above: Performed By: #### 4 [id number] ####[facility] [address] [place] [address]DrCarol Pan DIAGNOSIS: Comment Normal [facility] Comment on above: Result Comment: NEGA TIVE FOR INTRAEPITHELIAL LESION OR MALIGNANCY. CELLULAR CHANGES ASSOCIATED WITH INFLAMMATION ARE PRESENT. Performed at: WB Performed By: #### 4 [id number] ####[facility] [address] [place], [place] [address]DrCarol Pan HPV Aptima Negative Normal Negative [facility] Comment on above: Result Comment: This nucleic acid amplification test detects fourteen high-risk HPV types (16,18,31,33,35,39,45,51,52,56,58,59,66,68) without differentiation. Performed at: =G Performed By: #### 4 [id number] ####[place] [address]DrCarol Pan HPV Genotype Reflex Comment Normal [facility] Comment on above: Result Comment: Crit eria not met, HPV Genotype not performed. Performed at: WB Performed By: #### 4 [id number] ####[facility] [address] [place], [place] [address]DrCarol Pan Methodology: Comment Normal [facility] Comment on above: Result Comment: This liquid based ThinPrep(R) pap test was screened with the use of an image guided system. Performed at: WB Performed By: #### [id number] ####[facility] [address] [place], [place] [address]DrCarol Pan Note: Comment Normal [facility] Comment on above: Result Comment: The Pap smear is a screening test designed to aid in the detection of premalignant and malignant conditions of the uterine cervix. It is not a diagnostic procedure and should not be used as the sole means of detecting cervical cancer. Both false-positive and false-negative reports do occur. . Performed at: WB Performed By: #### 4 [id number] ####[facility] [address] [place], [place] [address]DrCarol Pan Performed by: Comment Normal [facility] Comment on above: Result Comment: Zamzam Ryan, Educational Technician (ASCP) Performed at: WB Performed By: #### 4 [id number] ####[facility] [address] [place], [place] [address]Ht. Taran Pan Specimen adequacy: Comment Normal [facility] Comment on above: Result Comment: Sati sfactory for evaluation. Endocervical and/or squamous metaplastic cells (endocervical component) are present. Performed at: WB Performed By: #### 4 [id number] ####[facility] [address] [place], [place] [address]Gr. Taran Pan MG MAMM DIAGNOSTIC 3D SHRUTI CA Don 04-20-2022 MG MAMM DIAGNOSTIC 3D SHRUTI CAD Patient: TONY GLORIA Keyonna Exam Date: 04/20/2022 : 1975 Gender:F Ordering : DR JESSICA PARISI . Admission #: [id number] Family : Order #: [id number] CLICK HERE TO VIEW EXAM RADIOLOGY REPORT PROCEDURE: MAMMOGRAM DIAGNOSTIC 3D BILATERAL CAD COMPARISON: MAMMO POST BIOPSY LEFT, 10/03/2021. INDICATIONS: Abnormal findings on diagnostic imaging of breast Calculator Name NCI Breast Cancer Risk Assessment Tool 5 Year Breast Cancer Risk 1.70% Lifetime Breast Cancer Risk 12.80% Personal Breast Cancer No Personal Ovarian Cancer No Treatments None Family Cancers None LOCATION: [facility] BREAST COMPOSITION: Extremely dense, which lowers [...] Mosqueda MD on 04/20/2022 at 10:26 Normal [facility] MG MAMM DX 3D LT CADon 04-20 MG MAMM DX 3D LT CAD Patient: GLORIA ROJAS Exam Date: 04/20/2022 : 1975 Gender:F Ordering : DR JESSICA PARISI . Admission #: [id number] Family : Order #: [id number] CLICK HERE TO VIEW EXAM RADIOLOGY REPORT PROCEDURE: MAMMOGRAM DIAGNOSTIC 3D BILATERAL CAD COMPARISON: MAMMO POST BIOPSY LEFT, 10/03/2021. INDICATIONS: Abnormal findings on diagnostic imaging of breast Calculator Name NCI Breast Cancer Risk Assessment Tool 5 Year Breast Cancer Risk 1.70% Lifetime Breast Cancer Risk 12.80% Personal Breast Cancer No Personal Ovarian Cancer No Treatments None Family Cancers None LOCATION: [facility] BREAST COMPOSITION: Extremely dense, which lowers [...] MD on 04/20/2022 at 10:26 Normal [facility] MAMMO POST BIOPSY LEFTon MAMMO POST BIOPSY LEFT Patient: TONY SEPTEMBER D. Exam Date: 10/03/2021 : 1975 Gender:F Ordering : DR JESSICA PARISI . Admission #: [id number] Family : Order #: [id number] CLICK HERE TO VIEW EXAM This report [...] Keane M.D. on 10/11/2021 at 10:39 Normal [facility] US VAC ASST BX BRST LT W CLI Kyler 10-03-2021 US VAC ASST BX BRST LT W CLIP Patient: TONY September. Exam Date: 10/03/2021 : 1975 Gender:F Ordering : DR JESSICA PARISI . Admission #: [id number] Family : Order #: [id number] CLICK HERE TO VIEW EXAM This report [...] Keane M.D. on 10/11/2021 at 10:38 Normal [facility] MG MAMM DX 3D LT CADon 09-27 MG MAMM DX 3D LT CAD Patient: GLORIA ROJAS Exam Date: 09/27/2021 : 1975 Gender:F Ordering : DR JESSICA PARISI . Admission #: [id number] Family : Order #: [id number] CLICK HERE TO VIEW EXAM RADIOLOGY REPORT [...] Treatments None Family Cancers None LOCATION: [facility] BREAST COMPOSITION: Extremely dense, which lowers [...] M.D. on 09/27/2021 at 09:50 Normal [facility] US BREAST LEFT LIMITEDon US BREAST LEFT LIMITED Patient: TONY GLORIA Precious. Exam Date: 09/27/2021 : 1975 Gender:F Ordering : DR JESSICA PARISI . Admission #: [id number] Family : Order #: [id number] CLICK HERE TO VIEW EXAM RADIOLOGY REPORT [...] Treatments None Family Cancers None LOCATION: [facility] BREAST COMPOSITION: Extremely dense, which lowers [...] M.D. on 09/27/2021 at 09:50 Normal [facility] ESTRADIOLon 09-02-2021 Estradiol 209.0 pg/mL Normal [facility] Comment on above: Result Comment: Adul t Female: Follicular phase 12.5 - 166.0 Ovulation phase 85.8 - 498.0 Luteal phase 43.8 - 211.0 Postmenopausal <6.0 - 54.7 1st trimester 215.0 - >4300.0 Jeanna ECLIA methodology Performed By: #### E LORENE #### [facility] [address] [place] [address] Dr. Taran Pan FSHon 09-02-2021 FSH 6.1 mIU/mL Normal [facility] Comment on above: Result Comment: Adul t Female: Follicular phase 3.5 - 12.5 Ovulation phase 4.7 - 21.5 Luteal phase 1.7 - 7.7 Postmenopausal 25.8 - 134.8 Performed By: #### L BCFS #### [facility] [address] [place] [address] Dr. Taran Pan CBC AUTO DIFFon 09-01-2021 BASO # 0.1 103/ul Normal 0.0-0.1 [facility] Comment on above: Performed By: #### C BC ####[facility] [address] [place], [place] [address]Dr. Taran Pan Basophils/100 WBC (Bld) 1.2 % Normal 0.2-2.0 [facility] Comment on above: Performed By: #### C BC ####[facility] [address] [place], [place] [address]Dr. Taran Pan EO # 0.1 103/ul Normal 0.0-0.7 [facility] Comment on above: Performed By: #### C BC ####[facility] [address] [place] [address]Dr. Taran Pan Eosinophils/100 WBC (Bld) 0.9 % Normal 0.9-7.0 [facility] Comment on above: Performed By: #### C BC ####[facility] [address] [place], [place] [address]DrCarol Pan Erythrocyte distribution width (RBC) [Ratio] 13.1 % Normal 11.0-15.0 [facility] Comment on above: Performed By: #### C BC ####[facility] [address] [place], [place] [address]Dr. Taran Pan Hematocrit (Bld) [Volume fraction] 42.4 % Normal 36.0-48.0 [facility] Comment on above: Performed By: #### C BC ####[facility] [address] [place] [address]Dr. Taran Pan Hemoglobin (Bld) [Mass/Vol] 14.0 g/dL Normal 12.0-16.0 [facility] Comment on above: Performed By: #### C BC ####[facility] [address] [place] [address]Dr. Ludypablo Pan IG # 0.02 10e3/ul Normal 0.00-0.03 [facility] Comment on above: Performed By: #### C BC ####[facility] [address] [place], [place] [address]Dr. Ludypablo Maxim IG % 0.3 % Normal 0.0-0.5 [facility] Comment on above: Performed By: #### C BC ####[facility] [address] [place], [place] [address]Dr. Taran Maxim LYMPH # 1.5 103/ul Normal 1.2-3.8 [facility] Comment on above: Performed By: #### C BC ####[facility] [address] [place], [place] [address]DrCarol Taran Maxim Lymphocytes/100 WBC (Bld) 26.4 % Normal 20.5-60.0 [facility] Comment on above: Performed By: #### C BC ####[facility] [id number] [place], [place] [address]Dr. Taran Maxim MANUAL DIFF REQ NO Normal [facility] Comment on above: Performed By: #### C BC ####[facility] M[address] [place], [place] [address]Dr. Taran Maxim MCH (RBC) [Entitic mass] 30.6 pg Normal 26.7-34.0 [facility] Comment on above: Performed By: #### C BC ####[facility] O[address] [place], [place] [address]Dr. Taran Pan MCHC (RBC) [Mass/Vol] 33.0 g/dL Normal 29.9-35.2 [facility] Comment on above: Performed By: #### C BC ####[facility] [address] [place] [address]DrCarol Pan MCV (RBC) [Entitic vol] 92.6 fL Normal 81.0-99.0 [facility] Comment on above: Performed By: #### C BC ####[facility] F[address] [place], [place] [address]DrCarol Pan MONO # 0.3 103/ul Normal 0.3-0.8 [facility] Comment on above: Performed By: #### C BC ####[facility] Ltsojeduam[address] [place], [place] [address]DrCarol Pan Monocytes/100 WBC (Bld) 5.6 % Normal 1.7-12.0 [facility] Comment on above: Performed By: #### C BC ####[facility] F[address]qgunf[address] [place], [place] [address]Dr. Taran Pan NEUT # 3.8 103/ul Normal 1.4-6.5 [facility] Comment on above: Performed By: #### C BC ####[facility] Exry[address]xes[address] [place], [place] [address]DrCarol Pan Neutrophils/100 WBC (Bld) 65.6 % Normal 43.0-75.0 [facility] Comment on above: Performed By: #### C BC ####[facility] K[address] [place], [place] [address]DrCarol Pan Platelet mean volume (Bld) [Entitic vol] 11.2 fL Normal 9.5-13.5 [facility] Comment on above: Performed By: #### C BC ####[facility] Ydcox[address] [place], [place] [address]DrCarol Pan PLT 398 103/ul Normal 150-450 [facility] Comment on above: Performed By: #### C BC ####[facility] [address] [place], [place] [address]DrCarol Pan RBC 4.58 106/ul Normal 4.20-5.40 [facility] Comment on above: Performed By: #### C BC ####[facility] [address] [place] [address]Dr. Taran Pan WBC 5.8 103/ul Normal 4.0-11.0 [facility] Comment on above: Performed By: #### C BC ####[facility] [address] [place] [address]Dr. Taran Pan FREE T4on 09-01-2021 Free T4 [Mass/Vol] 0.95 ng/dL Normal 0.78-2.19 [facility] Comment on above: Performed By: #### F T4 ####[facility] [address] [place] [address]Dr. Taran Pan PROF CHEM 8 (BAS METB)on Anion gap [Moles/Vol] 11.2 mmol/L Normal [facility] Comment on above: Performed By: #### T CLIVE, BMP #### [facility] [address] [address] [address] Taran Pan Calcium [Mass/Vol] 8.5 mg/dL Normal 8.5-10.[address] [facility] Comment on above: Performed By: #### T SH, BMP #### [facility] [address] [address] [address] Taran Pan Chloride [Moles/Vol] 104 mmol/L Normal 98-107 [facility] Comment on above: Performed By: #### T SH, BMP #### [facility] [address] [address] [address] Taran Pan CO2 [Moles/Vol] 28.2 mmol/L Normal 22.0-30.0 [facility] Comment on above: Performed By: #### T SH, BMP #### [facility] [address] [address] [address] Taran Pan Creatinine [Mass/Vol] 0.77 mg/dL Normal 0.52-1.04 [facility] Comment on above: Performed By: #### T SH, BMP #### [facility] [address] [place] [address] Dr. Taran Pan EGFR-AF KITTITIAN >60 Normal >=60 [facility] Comment on above: Performed By: #### T SH, BMP #### [facility] [address] [place] [address] Dr. Taran Pan EGFR-NON AF KITTITIAN >60 Normal >=60 [facility] Comment on above: Performed By: #### T SH, BMP #### [facility] [address] [address] [address] Taran Pan Glucose [Mass/Vol] 96 mg/dL Normal 74-106 [facility] Comment on above: Performed By: #### T SH, BMP #### [facility] [address] [place] [address] Dr. Taran Pan Potassium [Moles/Vol] 4.4 mmol/L Normal 3.4-5.0 [facility] Comment on above: Performed By: #### T SH, BMP #### [facility] [address] [place] [address] Dr. Taran Pan Sodium [Moles/Vol] 139 mmol/L Normal 137-[address] [facility] Comment on above: Performed By: #### T SH, BMP #### [facility] [address] [place] [address] Dr. Taran Pan Urea nitrogen [Mass/Vol] 12.0 mg/dL Normal 7.0-18.0 [facility] Comment on above: Performed By: #### T SH, BMP #### [facility] [address] [place] [address] Dr. Taran Pan Urea nitrogen/Creatinine [Mass ratio] 15.6 mg/mg Normal [facility] Comment on above: Performed By: #### T SH, BMP #### [facility] [address] [place] [address] Dr. Taran Pan TSHon 09-01-2021 TSH 2.163 uIU/mL Normal 0.470-4.680 [facility] Comment on above: Performed By: #### T SH, BMP #### [facility] [address] [address] [address] Taran Pan TSH RANGE SEE BELOW Normal [facility] Comment on above: Result Comment: <0.3 4 UIU/ml HYPERTHYROID 0.34-5.60 UIU/ml EUTHYROID >5.60 UIU/ml HYPOTHYROID Performed By: #### T CLIVE, SANTOSH #### [facility] [address] [address] [address] Taran Elise 03-25-2021 CNPN Telephone (CORPMN) GLORIA ROJAS ([id number]) 1975 F [facility] Date Time Provider Department 03/25/21 EVELIA BEAR CORPFL During your visit today, we recorded the [...] Llamas - Fully Assessed [facility] Prescriptions as of 03/25/2021 - FLUoxetine (PROZAC) 10 mg capsule TAKE 1 CAPSULE BY MOUTH ONCE DAILY Problem List As Of Date 03/25/2021 Noted Resolved Preventative health care [Z00.00] 06/08/2013 AMA (advanced maternal age) multigravida 35+ [O*04/12/2014 History of delivery, currently *04/12/2014 Echogenic bowel of fetus on ultrasound* 4 Acute maxillary sinusitis [J01.00] 07/20/2015 Encounter Status:Closed by EVELIA BEAR on 03/25/21 [facility]21 [facility] Telephone (CORPMN) TONYSEPTEMBER Precious ([id number]) 1975 F [facility] Date Time Provider Department 03/18/21 EVELIA BEAR During your visit today, we recorded the following information about you: Evelia Bear PA-C 03/18/2021 7:21 AM Signed Call to September for Occupational Health follow up with no answer, VM left with call back numbers. Evelia Bear PA-C Allergies As of Date: 03/18/2021 (No Known Allergies) Date Reviewed: 04/12/2014 Reviewed by: Tony Llamas - Fully Assessed Reason for Visit: [facility] COVID Outreach [3886] Prescriptions as of 03/18/2021 - FLUoxetine (PROZAC) 10 mg capsule TAKE 1 CAPSULE BY MOUTH ONCE DAILY Problem List As Of Date 03/18/2021 Noted Resolved Preventative health care [Z00.00] 06/08/2013 AMA (advanced maternal age) multigravida 35+ [O*04/12/2014 History of delivery, currently *04/12/2014 Echogenic bowel of fetus on ultrasound* 4 Acute maxillary sinusitis [J01.00] 07/20/2015 Encounter Status:Closed by EVELIA BEAR on 03/18/21 [facility] Telephone (CORPMN) TONYSEPTEMBER Precious ([id number]) 1975 [facility] Date Time Provider Department 03/18/21 [...] Llamas - Fully Assessed Reason for Visit: [facility] COVID Outreach [6866] Prescriptions as of 03/18/2021 - FLUoxetine (PROZAC) 10 mg capsule TAKE 1 CAPSULE BY MOUTH ONCE DAILY Problem List As Of Date 03/18/2021 Noted Resolved Preventative health care [Z00.00] 06/08/2013 AMA (advanced maternal age) multigravida 35+ [O*04/12/2014 History of delivery, currently *04/12/2014 Echogenic bowel of fetus on ultrasound* 4 Acute maxillary sinusitis [J01.00] 07/20/2015 Encounter Status:Closed by EVELIA BEAR on 03/18/21 [facility] 03-17-2021 CNPN Telephone (CORPMN) TONYSEPTEMBER Precious ([id number]) 1975 [facility] Date Time Provider Department 03/17/21 COLTON LINDSEY During your visit today, we recorded the following information about you: Colton Lindsey RN 03/17/2021 9:07 AM Signed CG called with covid-like sx of SOTO, fatigue, cough. RASHMI RT paged at [phone]. Allergies As of Date: 03/17/2021 (No Known Allergies) Date Reviewed: 04/12/2014 Reviewed by: Tony Llamas - Fully Assessed Reason for Visit: Covid-19 Hotline [3880] Prescriptions as of 03/17/2021 - FLUoxetine (PROZAC) 10 mg capsule TAKE 1 CAPSULE BY MOUTH ONCE DAILY Problem List As Of Date 03/17/2021 Noted Resolved Preventative health care [Z00.00] 06/08/2013 AMA (advanced maternal age) multigravida 35+ [O*04/12/2014 History of delivery, currently *04/12/2014 Echogenic bowel of fetus on ultrasound* 4 Acute maxillary sinusitis [J01.00] 07/20/2015 Encounter Status:Closed by COLTON LINDSEY on 03/17/21 [facility] CNPN Telephone (CORPMN) TONYGLORIA Precious ([id number]) 1975 F [facility] Date Time Provider Department 03/17/21 MERRITT VALDIVIA During your visit today, we recorded the following information about you: Merritt Valdivia APRN.SHOT EXAMINER 03/17/2021 9:13 AM Signed Spoke with patient - meets criteria for Covid-19 testing. Symptoms: New onset cough past few days, really bad SOTO Symptoms started 03/15 Positive contact ?: been around covid +, coworker Covid pass +/-?: at work Covid 19 test ordered; patient instructed to schedule test via [employer] [facility]. 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 Merritt Valdivia APRN.SHOT EXAMINER Occupational Health Allergies As of Date: 03/17/2021 (No Known Allergies) Date Reviewed: 04/12/2014 Reviewed by: Tony Llamas - Fully Assessed Reason for Visit: [facility] COVID Outreach [3886] Primary Visit Diagnosis:Suspected COVID-19 virus infection [Z20.822] Order(s):CAREGIVER COVID19 [SQCGCOVD] Order #: [id number] FUTURE Prescriptions as of 03/17/2021 - FLUoxetine (PROZAC) 10 mg capsule TAKE 1 CAPSULE BY MOUTH ONCE DAILY Problem List As Of Date 03/17/2021 Noted Resolved Preventative health care [Z00.00] 06/08/2013 AMA (advanced maternal age) multigravida 35+ [O*04/12/2014 History of delivery, currently *04/12/2014 Echogenic bowel of fetus on ultrasound* 4 Acute maxillary sinusitis [J01.00] 07/20/2015 Encounter Status:Closed by MERRITT VALDIVIA on 03/17/21 Normal [facility] Caregiver [id number] 03-17-20 SARS-CoV-2 (COVID-19) RNA CLAUDE+probe Ql (Unsp spec) UPPER RESPIRATORY TRACT SWAB Normal [facility] Comment on above: Performed By: #### C GCOVD #### [facility] [address] [place], [place] [address] SARS-CoV-2 (COVID-19) RNA CLAUDE+probe Ql (Unsp spec) Positive for COVID19 (SARS CoV2) by RT-PCR or equivalent method. Critically abnormal Negative for COVID19 (SARS CoV2) by RT-PCR or equivalent method. [facility] Comment on above: Result Comment: This test was developed and its performance characteristics determined by [facility] [place]. This test has been authorized by FDA under an Emergency Use Authorization (EUA). This test has been validated in accordance with the FDA's Guidance Document Policy for Diagnostics Testing in Laboratories Certified to Perform High Complexity Testing under CLIA prior to Emergency use Authorization for Coronavirus Disease 2019 during the Public Health Emergency issued on August 01, 2019. Test performed by [facility], [facility] [place], [address] [address]. Performed By: #### C GCOVD #### [place] [address] Vital Signs Date Time Vital Sign Value Performing Clinician Anastacia brady 08-30-2023 10:23-0400 Body height 167.6 cm Estrellita Jacob CONVENTIONS ASSISTANT.SHOT EXAMINER Work Phone: [facility] 08-30-2023 10:23-0400 Body temperature 98.1 [degF] Estrellita Jacob CONVENTIONS ASSISTANT.SHOT EXAMINER Work Phone: [facility] 08-30-2023 10:23-0400 Body weight 77.56 kg Estrellita Jacob CONVENTIONS ASSISTANT.SHOT EXAMINER Work Phone: [facility] 08-30-2023 10:23-0400 Diastolic blood pressure 80 mm[Hg] Estrellita Jacob CONVENTIONS ASSISTANT.SHOT EXAMINER Work Phone: [facility] 08-30-2023 10:23-0400 Heart rate 66 /min Estrellita Jacob CONVENTIONS ASSISTANT.SHOT EXAMINER Work Phone: [facility] 08-30-2023 10:23-0400 Systolic blood pressure 122 mm[Hg] Estrellita Jacob CONVENTIONS ASSISTANT.SHOT EXAMINER Work Phone: [facility] 08-21-2023 09:24-0400 Body height 167.64 cm [facility] 08-21-2023 09:24-0400 Body mass index (BMI) [Ratio] 27.6 kg/m2 [facility] 08-21-2023 09:24-0400 Body weight 77.62 kg [facility] 08-21-2023 09:24-0400 Diastolic blood pressure 79 mm[Hg] [facility] 08-21-2023 09:24-0400 Heart rate 76 /min [facility] 08-21-2023 09:24-0400 Systolic blood pressure 127 mm[Hg] [facility] Encounters Encounter Date Encounter Type Care Provider Facility Start: 08-30-2023 End: 08-30-2023 Patient encounter procedure Estrellita Jacob APRN.SHOT EXAMINER Work Phone: [facility] Comment on above: Epigastric pain (Jaimee kianna Dx); Screening for malignant neoplasm of colon; Diarrhea, unspecified type Start: 08-21-2023 End: 08-21-2023 ambulatory [facility] Work Phone: Start: 08-21-2023 End: 08-21-2023 Patient encounter procedure [facility] Work Phone: Start: 08-16-2023 Non-patient / Non-visit [facility] Work Phone: Start: 08-07-2023 End: 08-07-2023 ambulatory JESSICA PARISI Not Available Start: 08-07-2023 Non-patient / Non-visit [facility] Work Phone: Start: 07-15-2023 Chart abstracting Jessica Parisi DO Work Phone: [facility] Start: 07-03-2022 End: 07-03-[address] JESSICA PARISI Facility:[facility] Start: 04-20-2022 End: 04-21-[address] JESSICA PARISI Facility:[facility] Start: 10-03-2021 End: 10-03-[address] JESSICA PARISI Facility:[facility] Start: 09-27-2021 End: 09-28-[address] JESSICA PARISI Facility:[facility] Start: 09-01-2021 End: 09-02-[address] KIM SHEPHERD Facility:[facility] Start: 06-08-2013 Patient encounter status Estrellita Jacob APRN.SHOT EXAMINER Work Phone: [facility] Work Phone: Procedures Date Procedure Procedure Detail Performing Clinician Start: 08-16-2023 Salmonella/Shigella Screen Start: 05-10-2023 Mammography Jessica Mark campos DO Work Phone: Start: 06-10-2015 Lipid 1996 panel - S nash or Plasma Estrellita Cecil ARCHIBALDNCarolSHOT EXAMINER Work Phone: Plan of Treatment Date Care Activity Detail Author Start: 05-10-2024 Screening for malignant neoplasm of breast Mammogram [facility] Start: 08-21-2023 Patient referral [facility] Work Phone: Start: 08-07-2023 End: 08-07-2023 Patient encounter procedure 08/07/2023 4:00 PM EST Office Visit [facility] [address] [place] [address] Jessica Parisi, DO [address] [place], [place] [id number] [facility] Start: 07-03-2023 Screening for malignant neoplasm of breast Mammogram Screening [facility] Start: 06-03-2023 Depression Assessment Depression Ass essment [facility] Start: 02-01-2023 Covid-19 Vaccine ( season) Covid-19 Vaccine ( season) [facility] Start: 06-10-2020 Lipid panel Lipid Screening [facility] Start: 02-06-2020 Diabetes Screening Diabetes Screenin g [facility] Start: 02-06-2020 Screening for malignant neoplasm of colon [facility] Start: 2005 Screening for malignant neoplasm of cervix [facility] Start: 02-06-1996 Screening for malignant neoplasm of cervix [facility] Start: 1994 Hepatitis B Vaccine (1 of 3 - 19+ 3-dose series) Hepatitis B Vaccine (1 of 3 - 19+ 3-dose series) [facility] Start: 1994 Urine microalbumin profile DTaP,Tdap,Td Vaccine (1 - Tdap) [facility] Start: 1993 Hepatitis C screening Hepatitis C Sc andres [facility] Start: 1975 Screening for malignant neoplasm of colon [facility] End: 08-29-2024 EGD DIAGNOSTIC EGD DIAGNOSTIC Endoscopy Routine Epigastric pain 1 Occurrences starting 08/30/2023 until 08/29/2024 [facility] Work Phone: Comment on above: 1 Occurrences starti ng 08/30/2023 until 08/29/2024 Patient referral [facility] Work Phone: End: 08-29-2024 Screening colonoscopy COLONOSCOPY SCREENING Endoscopy Routine Screening for malignant neoplasm of colon 1 Occurrences starting 08/30/2023 until 08/29/2024 [facility] Work Phone: Comment on above: 1 Occurrences starti ng 08/30/2023 until 08/29/2024 End: 09-28-2024 US Abdomen RUQ US ABD RIGHT UPPER QUADRANT Radiology Routine Epigastric pain 1 Occurrences starting 08/30/2023 until 09/28/2024 [facility] includes the [facility] Work Phone: Comment on above: 1 Occurrences starti ng 08/30/2023 until 09/28/2024 [facility] Immunizations Immunization Date Immunization Notes Care Provider Dylan [facility] 03-12-2023 influenza virus vacc ine, unspecified formulation Estrellita Zambory CONVENTIONS ASSISTANT.SHOT EXAMINER Work Phone: [facility] 03-26-2022 influenza virus vacc ine, unspecified formulation Estrellita Zambory CONVENTIONS ASSISTANT.SHOT EXAMINER Work Phone: [facility] 03-06-2021 influenza virus vacc ine, unspecified formulation Estrellita Zambory CONVENTIONS ASSISTANT.SHOT EXAMINER Work Phone: [facility] 04-11-2018 influenza virus vacc ine, unspecified formulation Estrellita Zambory CONVENTIONS ASSISTANT.SHOT EXAMINER Work Phone: [facility] 04-03-2017 influenza virus vacc ine, unspecified formulation Estrellita Zambory CONVENTIONS ASSISTANT.SHOT EXAMINER Work Phone: [facility] 03-08-2016 influenza virus vacc ine, unspecified formulation Estrellita Zambory CONVENTIONS ASSISTANT.SHOT EXAMINER Work Phone: [facility] 03-09-2015 influenza virus vacc ine, unspecified formulation Estrellita Lucaslime CONVENTIONS ASSISTANT.SHOT EXAMINER Work Phone: [facility] Payers Date Payer Category Payer Managed Care HMO (unspecified) [employer] A[employer] [id number] 2021-Present [address] [place] [address] HMO [id number] 2021 Private Health Insurance EHP AET NA EHP PLUS STAFF/NON STAFF / EHP Plus [facility] [id number] 2021-Present [phone] [address] [place] [address] PPO [id number] 1975 Unknown [id number] 1975 Unknown [id number] 1975 Unknown [id number] 1975 Unknown [id number] 1975 Unknown [id number] 1975 Unknown [id number] 1959 Private Health Insurance [id number] Private Health Insurance [employer] [id number] Social History Date Type Detail Facility Start: 07-15-2023 End: 08-30-2023 Tobacco smoking status NHIS Never smoked tobacco [facility] Start: 07-15-2023 Tobacco use and exposure Smokeless tobacco non-user [facility] Start: 07-15-2023 End: 08-30-2023 Alcohol intake Lifetime non-drinker (finding) [facility] Start: 1975 Sex Assigned At Not on file [facility] Start: 08-30-2023 Gender identity Not on file [facility] Start: 1975 Sex Assigned At Female [facility] Start: 08-30-2023 History of Social function [facility] National Score (1-10 0), lower number is lower risk 67 [facility] Start: 06-05-2021 Gender identity Identifies as female gender (finding) [facility] Start: 06-05-2021 Sexual orientation Heterosexual (finding) [facility] History of Present illness Narrative 08-30-2023 Estrellita Jacob APRN.SHOT EXAMINER - 08/30/2023 10:00 AM EDT Note Date & Type Note Facility 08-30-2023 History of Presen t illness Narrative Images from the original note were not included. Gloria Rojas is a 48 year old female who presents today for diarrhea, f/u [facility]. Pleasant 48-year-old female who presents today as follow-up from recent ER visit for diarrhea, nausea and abdominal pain, quoted as 2-3 weeks ago[address] She reports CT and labs complete at that time, was told CT showed diarrhea. She had low-grade fevers, quotes about 101 F. She denies any melena or BRBPR associated. She believes stool cultures were complete and negative. She was reportedly provided fluids and sent home on antiemetics, anticholinergics and pain medications. Her records are not available to review today, release of records was signed and sent. She reports years back having an episode of colitis. She reports seeing her PCP with continued complaints of diarrhea and was provided a 5-day course of Cipro. She has noted improvement in symptoms, though stool is still soft. She continues to have nausea that seems to be worse after eating. She is experiencing epigastric pain after eating, 5/10 on the pain scale. She also has generalized discomfort throughout her abdomen. She is afebrile today. She is currently averaging 2 BM/day and continues to deny any signs of GIB, though notes dark specks in her stool. In the past, she has intermittent GERD symptoms which she uses Tums as needed for. She denies dysphagia or odynophagia. She denies any regular use of NSAIDs. She does not smoke or consume alcohol. She has no known FMH of CRC, IBD or celiac disease. She has no prior endoscopic evaluation. 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 Her is a [employer]. HISTORIES FAMILY HISTORY Problem Relation Age of Onset Gall Stones Mother Heart disease Mother Hypertension Father Diabetes Father PAST MEDICAL HISTORY Diagnosis Date Generalized anxiety disorder PAST SURGICAL HISTORY Procedure Laterality Date TONSILLECTOMY & ADENOIDECTOMY <AGE 12 Tonsillectomy Social History Tobacco Use Smoking status: Never Substance Use Topics Alcohol use: Never Drug use: Never ALLERGIES No Known Allergies MULTI-VITAMIN ORAL Take by mouth. FLUoxetine (PROZAC) 20 mg capsule Take 1 capsule by mouth once daily metFORMIN ER (GLUCOPHAGE XR) 500 mg 24 hr tablet Take 1 tablet by mouth every evening. FLUoxetine (PROZAC) 20 mg capsule Take 1 capsule by mouth once daily vortioxetine (TRINTELLIX) 10 mg tablet Take 1 tablet by mouth daily zolpidem (AMBIEN) 5 mg tablet Take 1 tablet by mouth at bedtime FLUoxetine (PROZAC) 10 mg capsule TAKE 1 CAPSULE BY MOUTH ONCE DAILY (Patient taking differently: Take 20 mg by mouth once daily.) BP 122/80 Pulse 66 Temp 98.1 Ht 5' 6 (1.68m) Wt 171 lb (77.6kg) BMI 27.61 kg/(m^2). Physical Exam Constitutional: Appearance: Normal appearance. HENT: Head: Normocephalic and atraumatic. Cardiovascular: Rate and Rhythm: Normal rate and regular rhythm. Heart sounds: Normal heart sounds. Pulmonary: Effort: Pulmonary effort is normal. Breath sounds: Normal breath sounds. Abdominal: General: Bowel sounds are normal. Palpations: Abdomen is soft. Musculoskeletal: General: Normal range of motion. Cervical back: Neck supple. Skin: General: Skin is warm and dry. Neurological: General: No focal deficit present. Mental Status: She is alert and oriented to person, place, and time. Psychiatric: Mood and Affect: Mood normal. Behavior: Behavior normal. ASSESSMENT/PLAN: 1. Epigastric pain - ICD9: 789.06, ICD10: R10.13 (primary diagnosis) - Pain is worse after eating. She reports recent CT imaging and labwork which we will work on obtaining. A release of records was signed. - EGD DIAGNOSTIC to r/o PUD. - US ABD RIGHT UPPER QUADRANT, r/o cholelithiasis. 2. Screening for malignant neoplasm of colon - ICD9: V76.51, ICD10: Z12.11 - No prior colonoscopy. She is due for screening purposes, also in light of recent symptoms. - COLONOSCOPY SCREENING. We we will plan for a MiraLAX/Gatorade bowel preparation. R/b/a discussed with the patient who is agreeable to proceed. 3. Diarrhea, unspecified type - ICD9: 787.91, ICD10: R19.7 - Improving. She was encouraged to push fluids and follow a blander diet currently. She is agreeable to notify office if symptoms regress. Colonoscopy as above. Estrellita Jacob APRN.CNP [facility] [address] [place] [address], [address] [place] [address] Department: [phone] This note was generated with voice recognition software and may contain errors, including spelling, grammar, syntax and misrecognition of what was dictated, that are not fully corrected. documented in this encounter [facility] Clinical Note 08-10-2020 Note Date & Type Note Facility 08-10-2020 Note Patient Outreach ([place] [facility]) TONYGLORIA Precious ([id number]) 1975 F [facility] Date Time Provider Department 08/10/20 [facility] During your visit today, we recorded the following information about you: Allergies As of Date: 08/10/2020 (No Known Allergies) Date Reviewed: 04/12/2014 Reviewed by: Tony Llamas - Fully Assessed Order(s):SARS-COVID VACCINE 1ST DOSE APPT [[id number]] Order #: [id number] FUTURE Problem List As Of Date 08/10/2020 Noted Resolved Preventative health care [Z00.00] 06/08/2013 AMA (advanced maternal age) multigravida 35+ [O*04/12/2014 History of delivery, currently *04/12/2014 Echogenic bowel of fetus on ultrasound*05/10/2014 Acute maxillary sinusitis [J01.00] 07/20/2015 Encounter Status:Closed by DESHAWN SOARES on 08/15/20 [facility] Evaluation note Note Date & Type Note Facility Evaluation note Diagnosis Onset Date Diarrhea acute Screening for colon cancer a [facility] Work Phone: Evaluation note Note Date & Type Note Facility Evaluation note Diagnosis Epigastric pain- Primary Abdominal pain, epigastric Screening for malignant neoplasm of colon Diarrhea, unspecified type documented in this encounter [facility] Discharge instructions Note Date & Type Note Facility Hospital Discharge instructions Ambulatory OrdersReferral to Gastroenterology Time Frame: 08/21/23, Location: None [facility] Work Phone: Reason for referral (narrative) Diagnostic Procedure Only (Routine) - Authorized Note Date & Type Note Facility Reason for referral (narrati ve) Specialty Diagnoses / Procedures Referred By María giang Referred To Contact [facility] Diagnoses Epigastric pain Procedures US ABD RIGHT UPPER QUADRANT US ABDOMINAL REAL TIME W/IMAGE LIMITED Estrellita Jacob APRN.CNP [address] [facility] [address] [place] [address] [facility] [place] [address] Referral ID Status Reason Start Date Expiration Date Visits Requested Visits Authorized [id number] Authorized Auto-Generat ed Referral 08/30/2023 09/28/2024 1 1 * Outpatient Procedure (Routine) - Authorized Specialty Diagnoses / Procedures Referred By María giang Referred To Contact [facility] Diagnoses Screening for malignant neoplasm of colon Procedures COLONOSCOPY SCREENING COLONOSCOPY FLX DX W/COLLJ SPEC WHEN PFRMD Estrellita Jacob APRN.CNP [address] [facility] [address] [place] [address] [facility] [address] [place] [address] Referral ID Status Reason Start Date Expiration Date Visits Requested Visits Authorized [id number] Authorized Auto-Generat ed Referral 08/30/2023 08/29/2024 1 1 * Outpatient Procedure (Routine) - Authorized Specialty Diagnoses / Procedures Referred By María t Referred To Contact [facility] Diagnoses Epigastric pain Procedures EGD DIAGNOSTIC ESOPHAGOGASTRODUODENOSC OPY TRANSORAL DIAGNOSTIC Estrellita Jacob APRN.CNP [address] [place] [address] [address] [place] [address] [facility] [address] [place] [address] Referral ID Status Reason Start Date Expiration Date Visits Requested Visits Authorized [id number] Authorized Auto-Generat ed Referral 08/30/2023 08/29/2024 1 1 [facility] Summary Purpose Family History No Family History Records FoundNo Family History Records FoundNo Family History Records Found Advance Directives Advance Directive Response Recorded Date/ Time Advance Directives No August 20 9:11am Chief Complaint and Reason for Visit Chief Complaint ER Follow [facility] Reason for Visit Diarrhea Screening for colon cancer Additional Source Comments INFORMATION SOURCE (unrecogn ized section and content) DATE CREATED AUTHOR 06/26/2021 [facility] DATE CREATED AUTHOR AUTHOR'S ORGANIZ ATION 07/10/2022 [facility] DATE CREATED AUTHOR AUTHOR'S ORGANIZ ATION 08/08/2023 [facility] [employer] Care Teams (unrecognized sec tion and content) Television Specialist Relationship Specialty Start Date End Date Kim Shepherd MD [address] [place] [phone] PCP - General Family Medicine 04/03/23 Team Status: Active Member Role Status Dates Kim Shepherd MD Primary Care Provider Active Team Status: Active Member Role Status Dates Provider Conversion Primary Care Provider Active Start: August 07, 2023 Kim Shepherd MD Attending Provider Active St art: August 07, 2023 Team Status: Active Member Role Status Dates Provider Conversion Primary Care Provider Active Start: August 16, 2023 Kim Shepherd MD Attending Provider Active St art: August 16, 2023 Team Status: Inactive Member Role Status Dates Kim Shepherd MD Primary Care Provide r, Attending Provider Active Start: August 21, 2023 End: August 21, 2023 Television Specialist Relationship Specialty Start Date End Date Kim Shepherd MD [address] [place] [phone] PCP - General Family Medicine 03/23/14 Goals (unrecognized section and content) Goals may be documented in a n alternate section Source Comments (unrecognize d section and content) In the event this informatio n is protected by the Federal Confidentiality of Alcohol and Drug Abuse Patient Records regulations: The Federal rules restrict any use of the information to criminally investigate or prosecute any alcohol or drug abuse patient.[facility] Reason for Visit (unrecogniz ed section and content) Reason Comments [facility] f/u FOR RECORDS PERTAINING TO PATIENTS WHO ARE [...] BE BASED ON THE PRIMARY CLINICAL RECORDS. [facility] [employer] [facility]. provides no warranty or guarantee of the accuracy or completeness of information in this document.
== END 2023-09-07 07:53 | disposition home or self-care (01) ==
LOC: US 07:52
PROVIDERS: PCP Family Medicine
DX: R10.13 Epigastric pain (principal)
CPT/HCPCS: 76705

== ENCOUNTER 2024-05-15 07:07 | Outpatient (OUT) | payer OTHER, SELFPAY ==
--- NOTE | 2024-05-15 07:08 | MM_ITS ---
Patient Name: JESSENIA JIMENEZ MR#: [id number] : 1975 Exam Date: 05/15/2024 Ordering Doctor: DR Adrian Parisi . RADIOLOGY REPORT PROCEDURE: MM TOMOSYNTHESIS SCREENING BI COMPARISON: MG MAMM DIAGNOSTIC 3D SHRUTI CAD, 04/20/2022. MM TOMOSYNTHESIS SCREENING BI, 05/10/2023. INDICATIONS: Screening mammogram Calculator Name NCI Breast Cancer Risk Assessment Tool 5 Year Breast Cancer Risk 1.40% Lifetime Breast Cancer Risk 12.20% Personal Breast Cancer No Personal Ovarian Cancer No Treatments None Family Cancers None LOCATION: [facility] BREAST COMPOSITION: The breasts are extremely dense, which lowers the sensitivity of mammography. FINDINGS: DIAGNOSTIC CATEGORY 2--BENIGN FINDING. NO CHANGE FROM COMPARISON. Scattered benign-appearing calcifications are present. Scattered benign-appearing lymph nodes are present. RIGHT BREAST: No significant suspicious finding. LEFT BREAST: No significant suspicious finding. Stable micro clip marker upper outer quadrant, mid breast RECOMMENDATIONS: ROUTINE MAMMOGRAM AND CLINICAL EVALUATION IN 12 MONTHS. PLEASE NOTE: A NORMAL MAMMOGRAM DOES NOT EXCLUDE THE POSSIBILITY OF BREAST CANCER. A CLINICALLY SUSPICIOUS PALPABLE LUMP SHOULD BE BIOPSIED. Dictated by: Kam Mosqueda MD on 05/15/2024 at 10:06 Approved by: Kam Mosqueda MD on 05/15/2024 at 10:07
--- OUTSIDE RECORDS SUMMARY | 2024-05-15 07:08 | XMS_ITS | CCD ---
Author Organization [facility] Care Team Providers Care Director Of Business Operations Name Role Phone NAEL, DR LOPEZ Admitting Unavailable NAEL, DR LOPEZ Attending Unavailable SHEPHERD, DR KIM Garces Primary Care Unavailable NAEL, DR LOPEZ Consulting Unavailable ZIEBER, DR MOE Henry Consulting Unavailable NAEL, DR LOPEZ Admitting Unavailable NAEL, DR LOPEZ Attending Unavailable SHEPHERD, DR KIM Garces Primary Care Unavailable NAEL, DR LOPEZ Consulting Unavailable ZIEBER, DR MOE Henry Consulting Unavailable SHEPHERD, DR KIM Garces Admitting Unavailable SHEPHERD, DR KIM Garces Attending Unavailable SHEPHERD, DR KIM Garces Primary Care Unavailable SHEPHERD, DR KIM Garces Consulting Unavailable NAEL, DR LOPEZ Admitting Unavailable NAEL, DR LOPEZ Attending Unavailable SHEPHERD, DR KIM Garces Primary Care Unavailable [place], DR JORGE Gallardo Consulting Unavailable NAEL, DR LOPEZ Consulting Unavailable NAEL, DR LOPEZ Admitting Unavailable NAEL, DR LOPEZ Attending Unavailable SHEPHERD, DR KIM Garces Primary Care Unavailable NAEL, DR LOPEZ Consulting Unavailable Kim Shepherd MD Primary Care Provider [phone] JESSICA PARISI Attending Unavailable Kim Shepherd MD Primary Care Provider KIM SHEPHERD Primary Care Unavailable Kim Shepherd MD Primary Care Provider Medications Current Medications Medication Drug Class(es) Dates Sig (Normalized) Sig (Original) dicyclomine hydrochloride 10 mg oral capsule (1 source) Anticholinergic Start: 01-31-2024 take 1 capsule by mouth at bedtime dicyclomine (BENTYL) 10 mg capsule Take 1 capsule by mouth before meals and at bedtime. 120 capsule 2 01/31/2024 Active levonorgestrel 0.092070 mg/hr intrauterine system (1 source) Progestin, Progestin-containing Intrauterine Device Levonorgestrel (Mirena, 52 MG,) 20 MCG/DAY intrauterine device as directed Intrauterine 0 Active Multivitamin (Daily Multi-Vitamin) tablet (3 sources) Start: 08-21-2023 take 1 tablet by mouth once daily Multivitamin (Daily Multi-Vitamin) tablet Active 1 TAB PO Daily August 21, 2023 12:00am omeprazole 10 mg delayed release oral capsule (3 sources) Proton Pump Inhibitor Start: 02-07-2024 take 10 mg by mouth once daily Omeprazole Active 10 MG PO Daily February 07, 2024 12:00am Start: 10-02-2023 omeprazole mag nesium (PRILOSEC OTC ORAL) 10/02/2023 Active phentermine hydrochloride 37.5 mg oral tablet (3 sources) Sympathomimetic Amine Anorectic Start: 02-07-2024 End: 03-16-2024 take 1 tablet by mouth once daily 30 minutes after breakfast Phentermine (Adipex-P) 37.5 mg tablet Active 37.5 MG PO Daily March 16, 2024 3:55pm must administer 30 minutes before or 1-2 hours after breakfast Completed/Discontinued Medications Medication Drug Class(es) Dates Sig (Normalized) Sig (Original) budesonide 3 mg delayed release oral capsule (1 source) Corticosteroid Start: 09-25-2023 End: 01-31-2024 take 3 capsules by mouth once daily, then take 2 capsules by mouth once daily budesonide, enteric coated (ENTOCORT EC) 3 mg 24 hr capsule Take 3 capsules (at once) by mouth daily x 6 weeks, then decrease to 2 capsules (at once) by mouth daily x 2 weeks. 154 capsule 09/25/2023 01/31/2024 Discontinued (Discontinued by Patient) ciprofloxacin 500 mg oral tablet (3 sources) Quinolone Antimicrobial Start: 08-21-2023 End: 02-07-2024 take 500 mg by mouth twice daily Ciprofloxacin Hcl Discontinued 500 MG PO Twice daily August 21, 2023 12:00am February 07, 2024 10:12am FLUoxetine 20 mg oral capsule (20 sources) Serotonin Reuptake Inhibitor Start: 01-16-2022 End: 01-31-2024 take 1 capsule by mouth once daily Fluoxetine Discontinued 1 CAP PO Daily August 21, 2023 12:00am November 28, 2023 4:01pm FreeTextSig: Take 1 capsule by mouth once daily; Note: Source Status: Start; Refills: 1; Qty: 90 Capsule; Provider: Eladio Alvarez ( ) Start: 07-23-2019 End: 01-31-2024 take 1 capsule by mouth once daily FLUoxetine (PROZAC) 10 mg capsule TAKE 1 CAPSULE BY MOUTH ONCE DAILY 30 capsule 1 07/23/2019 01/31/2024 Discontinued (Discontinued by Patient) Comment on above: TAKE 1 CAPSULE BY MO [facility] ONCE DAILY 2 ml glycopyrrolate 0.2 mg/ml injection (1 source) Start: 4 End: 4 0.1 mg, INTRAVENOUS, ONCE, 1 dose, On Sat09/13/23 at 1300 24 hr metFORMIN hydrochloride 500 mg extended release oral tablet (5 sources) Biguanide Start: 3 End: 4 take 1 tablet by mouth once daily in the evening metFORMIN ER (GLUCOPHAGE XR) 500 mg 24 hr tablet Take 1 tablet by mouth every evening. 90 tablet 3 07/03/2022 01/31/2024 Discontinued (Discontinued by Patient) Start: 07-03-2022 metFORMIN XR ( Glucophage-XR) 500 MG 24 hr tablet 1 (one) time each day at the same time. 0 07/03/2022 Active Comment on above: Take [address] [facility] every evening. MULTI-VITAMIN ORAL (4 sources) End: 01-31-2024 MULTI-VITAMIN ORAL Take by mouth. 01/31/2024 Discontinued (Discontinued by Patient) MULTI-VITAMIN OR AL Take by mouth. 0 Active Comment on above: Take by mouth. 1000 ml sodium chloride 9 mg/ml injection (1 source) Start: 09-13-19 End: 02-12-20 take 30 mL intravenously every hour 30 mL/hr, INTRAVENOUS, CONTINUOUS, Starting on Sat09/13/23 at 1300, Until Sat02/12/24 at 0256, Preprocedure vortioxetine 10 mg oral tablet (4 sources) Start: 12-26-19 End: 01-31-20 take 1 tablet by mouth once daily vortioxetine (TRINTELLIX) 10 mg tablet Take 1 tablet by mouth daily 30 tablet 12/25/2021 01/31/2024 Discontinued (Discontinued by Patient) Comment on above: Take 1 tablet by tamera th daily zolpidem tartrate 5 mg oral tablet (4 sources) gamma-Aminobuty paul Acid-ergic Agonist Start: 09-19-19 End: 01-31-20 24 take 1 tablet by mouth at bedtime zolpidem (AMBIEN) 5 mg tablet Take 1 tablet by mouth at bedtime 30 tablet 09/18/2021 01/31/2024 Discontinued (Discontinued by Patient) Comment on above: Take 1 tablet by tamera th at bedtime Problems Active Problems Problem Classification Problem Date Documented Da te Episodic/Chronic Abdominal pain (4 sources) Epigastric pain; Translations: [Epigastric pain] 08-30-2023 Episodic Immunizations and screening for infectious disease (1 source) Encounter for screening for human papillomavirus (HPV); Translations: [ENC SCREENING HUMAN PAPILLOMAVIRUS] Onset: 07-04-2022 Episodic Other gastrointestinal disorders (4 sources) Diarrhea; Translations: [Diarrhea, unspecified] 08-21-2023 Episodic Other gastrointestinal disorders (1 source) Diarrhea, unspecified; Translations: [Diarrhea] 08-21-2023 Episodic Other gastrointestinal disorders (1 source) Loose stool; Translations: [Other fecal abnormalities] 01-31-2024 Episodic Other nutritional; endocrine; and metabolic disorders (3 sources) Overweight in adulthood with body mass index of 25 or more but less than 30; Translations: [Overweight] 02-07-2024 Episodic Other nutritional; endocrine; and metabolic disorders (3 sources) Overweight; Translations: [Overweight] 02-07-2024 Episodic Other screening for suspected conditions (not mental disorders or infectious disease) (14 sources) Encounter for screening for malignant neoplasm [...] BREAST] Onset: 10-03-2021 Episodic Other complications of (4 sources) Multigravida of advanced maternal age; Translations: [Supervision of elderly multigravida, unspecified trimester] Onset: 04-12-2014 04-12-2014 Episodic Other complications of (4 sources) H/O: premature delivery; Translations: [Supervision of other high risk pregnancies, unspecified trimester] Onset: 04-12-2014 04-12-2014 Episodic Other complications of (4 sources) ultrasound scan abnormal; Translations: [Abnormal ultrasonic finding on screening of mother] Onset: 05-10-2014 05-10-2014 Episodic Other upper respiratory infections (4 sources) Acute maxillary sinusitis; Translations: [Acute maxillary sinusitis, unspecified] Onset: 07-20-2015 07-20-2015 Episodic Results Test Name Value Interpretation Reference Range Facility CELIAC SCREENon 09-19-2023 GLIAD DEAMIDATED IGA QUAL Negative Normal Negative, Test not Indicated [facility] Comment on above: Order Comment: Elisha bob Type: BLOOD SPECIMEN Ordering Facility: [facility] Address: [address] [place] [address] Result Comment: This is used as an aid in diagnosis of celiac disease. Clinical correlation is required. The following results were obtained with an [employer] QUANTA Lite Gliadin IgA VINCE Gliadin. Gliadin IgA values obtained with different manufacturers' assay methods may not be used interchangeably. The magnitude of the reported IgA levels cannot be correlated to an endpoint titer. Performed By: #### L [id number] #### [facility] CLIA [id number] [address] [place] [address] [place] Gliadin peptide IgA Qn (S) 8 Units Normal <20 [facility] Comment on above: Order Comment: Elisha bob Type: BLOOD SPECIMEN Ordering Facility: [facility] Address: [address] [place] [address] Performed By: #### L [id number] #### [facility] CLIA [id number] [address] [place] [address] [place] INTERPRETATION No serological evidence of celiac disease, however, if celiac disease is clinically suspected and patient is not on gluten-free diet, histological diagnosis may be considered. HLA testing may help with risk assessment. Normal [facility] Comment on above: Order Comment: Elisha bob Type: BLOOD SPECIMEN Ordering Facility: [facility] Address: [address] [place] [address] Performed By: #### L [id number] #### [facility] CLIA [id number] [address] [place] [address] [place] TRANSGLUTAMINASE IGA ABS INTERPRETATION Negative Normal Negative [facility] Comment on above: Order Comment: Speci men Type: BLOOD SPECIMEN Ordering Facility: [facility] Address: [address] [place] [address] Result Comment: The following results were obtained with [employer] R h-tTG IgA VINCE.???R h-tTG IgA values obtained with different manufacturers' assay methods may not be used interchangeably. The magnitude of the reported IgA levels cannot be corelated to an endpoint???concentration. This is used as an aid in diagnosis of celiac disease. Clinical correlation is required. Performed By: #### L [id number] #### [facility] CLIA [id number] [address] [place] [address] [place] tTG IgA Qn (S) <2 Normal <4 [facility] Comment on above: Order Comment: Speci men Type: BLOOD SPECIMEN Ordering Facility: [facility] Address: [address] [place] [address] Performed By: #### L [id number] #### [facility] CLIA [id number] [address] [place] [address] [place] IgA SerPl-mCncon 09-19-2023 IgA [Mass/Vol] 195 mg/dL Normal 70-400 [facility] Comment on above: Order Comment: Speci men Type: BLOOD SPECIMEN Ordering Facility: [facility] Address: [address] [place] [address] Performed By: #### 2 [id number] #### [facility] CLIA [id number] [address] [place] [address] [place] Colonoscopy Study observatio non 09-13-2023 [facility] Radiology Study observation (narrative) [facility] EGD Study observation Narrat iveon 09-13-2023 [facility] Radiology Study observation (narrative) [facility] Basophils Auto (Bld) [#/Vol] on 08-16-2023 Basophils (Bld) [#/Vol] 0.1 10 3/uL 0.0-0.1 [facility] Basophils/100 WBC Auto (Bld) on 08-16-2023 Basophils/100 WBC (Bld) 1.2 % 0.2-2.0 [facility] Cryptosporidium sp Ag [Prese nce] in Stool by Immunoassayon 08-16-2023 Cryptosporidium sp Ag IA Ql (Stl) Negative Negative [facility] Comment on above: Performed at: [facility] [employer] [place] [id number] Director: Carlos Rosario PhD, Phone: [phone] Detection in stool of any of Campylobacter coli, Campylobacter jejuni, and Campylobacon 08-16-2023 C. coli+jejuni+upsaliensis DNA CLAUDE+non-probe Ql (Stl) Not detected NOT DETECTE [facility] Detection in stool of any of Vibrio cholerae, Vibrio parahaemolyticus, and Vibrio vulon 08-16-2023 V. cholerae+parahaemolytic us+vulnificus DNA CLAUDE+non-probe Ql (Stl) Not detected NOT DETECTE [facility] Detection in stool of either or both Salmonella enterica and Salmonella bongori DNA bon 08-16-2023 S. enterica+bongori DNA CLAUDE+non-probe Ql (Stl) Not detected NOT DETECTE [facility] Detection in stool of either or both enteroaggregative Escherichia coli Bismark plasmid aon 08-16-2023 E. coli enteroaggregative Bismark plasmid aggR+aatA genes CLAUDE+non-probe Ql (Stl) Not detected NOT DETECTE [facility] Eosinophils/100 WBC Auto (Bl d)on 08-16-2023 Eosinophils/100 WBC (Bld) 0.5 % 0.9-7.0 [facility] Erythrocyte distribution wid th Auto (RBC) [Ratio]on 08-16-2023 Erythrocyte distribution width (RBC) [Ratio] 13.8 % 11.0-15.0 [facility] Escherichia coli Stx1 and St x2 toxin stx1+stx2 genes [Presence] in Stool by LCAUDE withon 08-16-2023 E. coli stx1+stx2 genes CLAUDE+non-probe Ql (Stl) Not detected NOT DETECTE [facility] Escherichia coli enteropatho genic eae gene [Presence] in Stool by CLAUDE with non-probeon 08-16-2023 E. coli enteropathogenic eae gene CLAUDE+non-probe Ql (Stl) Not detected NOT DETECTE [facility] Escherichia coli enterotoxig enic ltA+st1a+st1b genes [Presence] in Stool by CLAUDE withon 08-16-2023 E. coli enterotoxigenic ltA+st1a+st1b genes CLAUDE+non-probe Ql (Stl) Not detected NOT DETECTE [facility] Estimated glomerular filtrat ion rate (GFR) non- Americanon 08-16-2023 GFR/1.73 sq M.predicted among non-blacks MDRD (S/P/Bld) [Vol rate/Area] mL/min/{1.73_m2} >=60 [facility] Giardia lamblia Ag [Presence ] in Stool by Immunoassayon 08-16-2023 G. lamblia Ag IA Ql (Stl) Negative Negative [facility] Globulin Calc (S) [Mass/Vol] on 08-16-2023 Globulin (S) [Mass/Vol] 4.0 g/dL [facility] Hematocrit Auto (Bld) [Volum e fraction]on 08-16-2023 Hematocrit (Bld) [Volume fraction] 42.6 % 36.0-48.0 [facility] Hemoglobin [Mass/volume] in Bloodon 08-16-2023 Hemoglobin (Bld) [Mass/Vol] 13.5 g/dL 12.0-16.0 [facility] Laboratory - Chemistry and C hemistry - challengeon 08-16-2023 Albumin [Mass/Vol] 3.9 g/dL 3.4-5.0 [facility] ALP [Catalytic activity/Vol] 65 U/L 46-116 [facility] ALT [Catalytic activity/Vol] 37 U/L 14-59 [facility] AST [Catalytic activity/Vol] 17 U/L 15-37 [facility] Bilirubin [Mass/Vol] 0.2 mg/dL 0.2-1.0 [facility] Calcium [Mass/Vol] 8.5 mg/dL 8.5-10.1 [facility] Chloride [Moles/Vol] 100 mmol/L 98-107 [facility] CO2 [Moles/Vol] 25.1 mmol/L 21.0-32.0 [facility] Creatinine [Mass/Vol] 0.79 mg/dL 0.55-1.02 [facility] GFR/1.73 sq M.predicted MDRD (S/P/Bld) [Vol rate/Area] mL/min/{1.73_m2} >=60 [facility] Glucose [Mass/Vol] 95 mg/dL 74-106 [facility] Lactate [Moles/Vol] 0.8 mmol/L 0.4-2.0 [facility] Potassium [Moles/Vol] 3.4 mmol/L 3.5-5.1 [facility] Protein [Mass/Vol] 7.9 g/dL 6.4-8.2 [facility] Sodium [Moles/Vol] 136 mmol/L 136-145 [facility] Urea nitrogen [Mass/Vol] 9.0 mg/dL 7.0-18.0 [facility] Urea nitrogen/Creatinine [Mass ratio] 11.4 mg/mg [facility] Laboratory - Hematology and Cell countson 08-16-2023 Immature granulocytes/100 WBC (Bld) 0.2 % 0.0-0.5 [facility] - Specimen inform ationon 08-16-2023 Specimen type Nom (Spec) Stool [facility] Leukocytes [#/volume] correc cornelio for nucleated erythrocytes in Blood by Automated counon 08-16-2023 WBC corrected for nucl RBC Auto (Bld) [#/Vol] 6.4 10 3/uL 4.0-11.0 [facility] Lymphocytes Auto (Bld) [#/Vo l]on 08-16-2023 Lymphocytes (Bld) [#/Vol] 0.8 10 3/uL 1.2-3.8 [facility] Lymphocytes/100 WBC Auto (Bl d)on 08-16-2023 Lymphocytes/100 WBC (Bld) 11.7 % 20.5-60.0 [facility] MCH Auto (RBC) [Entitic mass ]on 08-16-2023 MCH (RBC) [Entitic mass] 29.7 pg 26.7-34.0 [facility] MCHC Auto (RBC) [Mass/Vol]on 08-16-2023 MCHC (RBC) [Mass/Vol] 31.7 g/dL 29.9-35.2 [facility] MCV Auto (RBC) [Entitic vol] on 08-16-2023 MCV (RBC) [Entitic vol] 93.8 fL 81.0-99.0 [facility] Monocytes Auto (Bld) [#/Vol] on 08-16-2023 Monocytes (Bld) [#/Vol] 0.1 10 3/uL 0.3-0.8 [facility] Monocytes/100 WBC Auto (Bld) on 08-16-2023 Monocytes/100 WBC (Bld) 1.4 % 1.7-12.0 [facility] Neutrophils Auto (Bld) [#/Vo l]on 08-16-2023 Neutrophils (Bld) [#/Vol] 5.5 10 3/uL 1.4-6.5 [facility] Neutrophils/100 WBC Auto (Bl d)on 08-16-2023 Neutrophils/100 WBC (Bld) 85.0 % 43.0-75.0 [facility] No Panel Informationon 08-15 Adenovirus Types 40, 41 Not detected NOT DETECT E [facility] C. difficile Antigen and Toxins A,B Not detected NOT DETECTE [facility] Giardia lamblia Interpretation Not detected NOT DETECTE [facility] Stool Astrovirus (PCR) Not detected NOT DETECTE [facility] Stool Cryptosporidium Confirmation Not detected NOT DETECTE [facility] Stool Cyclospora cayetanensis (PCR) Not detected NOT DETECTE [facility] Stool Entamoeba (PCR) Not detected NOT DETECTE [facility] Stool Norovirus GI/GII PCR Not detected NOT DETECTE [facility] Stool Rotavirus (PCR) Not detected NOT DETECTE [facility] Stool Sapovirus (PCR) Not detected NOT DETECTE [facility] Stool Yersinia enterocolitica (PCR) Not detected NOT DETECTE [facility] Eosinophils # (Auto) 0.0 10 3/uL 0.0-0.7 [facility] Immature Granulocyte # (Auto) 0.01 10 3/uL 0.00-0.03 [facility] No Panel InformationOrdered By: Kim Shepherd on 08-16-2023 Salmonella/Shigella Screen [facility] Platelet mean volume Auto (B ld) [Entitic vol]on 08-16-2023 Platelet mean volume (Bld) [Entitic vol] 11.4 fL 9.5-13.5 [facility] Platelets Auto (Bld) [#/Vol] on 08-16-2023 Platelets (Bld) [#/Vol] 326 10 3/uL 150-450 [facility] RBC Auto (Bld) [#/Vol]on RBC (Bld) [#/Vol] 4.54 10 6/uL 4.20-5.40 [facility] Serum or plasma albumin/glob ulin mass ratioon 08-16-2023 Albumin/Globulin [Mass ratio] 1.0 {ratio} [facility] Serum or plasma anion gap de terminationon 08-16-2023 Anion gap [Moles/Vol] 14.3 mmol/L [facility] Shigella species+EIEC invasi on plasmid antigen H ipaH gene [Presence] in Stool by NAAon 08-16-2023 Shigella species+EIEC invasion plasmid antigen H ipaH gene CLAUDE+non-probe Ql (Stl) Not detected NOT DETECTE [facility] Stool Plesiomonas shigelloid es DNA detection by non-probe and target amplification meon 08-16-2023 P. shigelloides DNA CLAUDE+non-probe Ql (Stl) Not detected NOT DETECTE [facility] Vibrio cholerae DNA [Presenc e] in Stool by CLAUDE with non-probe detectionon 08-16-2023 V. cholerae DNA CLAUDE+non-probe Ql (Stl) Not detected NOT DETECTE [facility] Human papilloma virus 16+18+ 31+33+35+39+45+51+52+56+58+59+66+68 DNA [Presence] in Dean 08-07-2023 HPV 16+18+31+33+35+39+45+51 +52+56+58+59+66+68 DNA Probe+sig amp Ql (Cvx) Negative Negative [facility] Comment on above: This nucleic acid am plification test detects fourteen high-risk HPV types (16,18,31,33,35,39,45,51,52,56,58,59,66,68)without differentiation.Performed at: =G - [facility] [address] [id number] Director: Dora Hameed MD, Phone: [phone] at: - [facility] [address] [id number] Director: Dora Hameed MD, Phone: [phone] No Panel Informationon 08-06 HPV High Risk Other Comment Note . [facility] Comment on above: TESTS RESULT FLAG UN ITS REF RANGE LAB -DIAGNOSIS: 02 NEGATIVE FOR INTRAEPITHELIAL LESION OR MALIGNANCY.Specimen adequacy: 02 Satisfactory for evaluation. Endocervical and/or squamous metaplastic cells (endocervical component) are present.Performed by: Kimi Tse, Rinkman ([facility]). 02Note: Note 02 The Pap smear is [...] Criteria not met, HPV Genotype not performed. -------- FLAG LEGEND: L-Low Normal,H-High Normal,LL-Alert Low,HH-Alert High <-Panic Low,>-Panic High,A-Abnormal,AA-Critical Abnormal ------Performed at:02 WB [facility] [address] [place] [address] Dora Hameed MD, Reference Lab Test Patient Age Note . [facility] Comment on above: TESTS RESULT FLAG UN ITS REF RANGE LAB - Clinician Provided Cytology Information Source.............Cervix;Endocervix No. of containers..01 ThinPrep VialAge Algo ACOG [place]... FLAG LEGEND: L-Low Normal,H-High Normal,LL-Alert Low,HH-Alert High <-Panic Low,>-Panic High,A-Abnormal,AA-Critical Abnormal ------Performed at:01 =G [facility] [place] [address] [place] [address] Dora Hameed MD, PAP ACOG PANEL 2: 30 to 65on 07-09-2022 . . Normal [facility] Comment on above: Result Comment: Perf ormed at: WB Performed By: #### [id number] ####[facility] [address] [place] [address]DrCarol Pan Age Gdln ACOG Testing 30-65 Normal [facility] Comment on above: Performed By: #### [id number] ####[facility] [address] [place] [address]DrCarol Pan DIAGNOSIS: Comment Normal [facility] Comment on above: Result Comment: NEGA TIVE FOR INTRAEPITHELIAL LESION OR MALIGNANCY. CELLULAR CHANGES ASSOCIATED WITH INFLAMMATION ARE PRESENT. Performed at: WB Performed By: #### [id number] ####[facility] [address] [place], [place] [address]DrCarol Pan HPV Aptima Negative Normal Negative [facility] Comment on above: Result Comment: This nucleic acid amplification test detects fourteen high-risk HPV types (16,18,31,33,35,39,45,51,52,56,58,59,66,68) without differentiation. Performed at: =G Performed By: #### [id number] ####[facility] [address] [place], [place] [address]DrCarol Pan HPV Genotype Reflex Comment Normal [facility] Comment on above: Result Comment: Crit eria not met, HPV Genotype not performed. Performed at: WB Performed By: #### 4 [id number] ####[facility] [address] [place], [place] [address]DrCarol Pan Methodology: Comment Normal [facility] Comment on above: Result Comment: This liquid based ThinPrep(R) pap test was screened with the use of an image guided system. Performed at: WB Performed By: #### 4 [id number] ####[facility] [address] [place], [place] [address]DrCarol Pan Note: Comment Normal [facility] Comment on above: Result Comment: The Pap smear is a screening test designed to aid in the detection of premalignant and malignant conditions of the uterine cervix. It is not a diagnostic procedure and should not be used as the sole means of detecting cervical cancer. Both false-positive and false-negative reports do occur. . Performed at: WB Performed By: #### [id number] ####[facility] [address] [place], [place] [address]Um. Ludypablo Maxim Performed by: Comment Normal [facility] Comment on above: Result Comment: Zamzam Ryan, Rinkman (ASCP) Performed at: WB Performed By: #### 4 [id number] ####[facility] [address] [place], [place] [address]WwCarol Pan Specimen adequacy: Comment Normal [facility] Comment on above: Result Comment: Sati sfactory for evaluation. Endocervical and/or squamous metaplastic cells (endocervical component) are present. Performed at: WB Performed By: #### [id number] ####[facility] [address] [place], [place] [address]DnCarol Pan MG MAMM DIAGNOSTIC 3D SHRUTI CA Don 04-20-2022 MG MAMM DIAGNOSTIC 3D SHRUTI CAD Patient: BOB GLORIA Precious. Exam Date: 04/20/2022 : 1975 Gender:F Ordering : DR JESSICA PARISI . Admission #: [id number] Family : Order #: [id number] CLICK HERE TO VIEW EXAM RADIOLOGY REPORT PROCEDURE: MAMMOGRAM DIAGNOSTIC 3D BILATERAL CAD COMPARISON: MAMMO POST BIOPSY LEFT, 10/03/2021. INDICATIONS: Abnormal findings on diagnostic imaging of breast Calculator Name NCI Breast Cancer Risk Assessment Tool 5 Year Breast Cancer Risk 1.70% Lifetime Breast Cancer Risk 12.80% Personal Breast Cancer No Personal Ovarian Cancer No Treatments None Family Cancers None LOCATION: [facility] BREAST COMPOSITION: Extremely dense, which lowers [...] Mosqueda MD on 04/20/2022 at 10:26 Normal [facility] MAMM DX 3D LT CADon 04-20 MG MAMM DX 3D LT CAD Patient: ROJAS CRISTELA Newby Exam Date: 04/20/2022 : 1975 Gender:F Ordering : DR JESSICA PARISI . Admission #: [id number] Family : Order #: [id number] CLICK HERE TO VIEW EXAM RADIOLOGY REPORT PROCEDURE: MAMMOGRAM DIAGNOSTIC 3D BILATERAL CAD COMPARISON: MAMMO POST BIOPSY LEFT, 10/03/2021. INDICATIONS: Abnormal findings on diagnostic imaging of breast Calculator Name NCI Breast Cancer Risk Assessment Tool 5 Year Breast Cancer Risk 1.70% Lifetime Breast Cancer Risk 12.80% Personal Breast Cancer No Personal Ovarian Cancer No Treatments None Family Cancers None LOCATION: [facility] BREAST COMPOSITION: Extremely dense, which lowers [...] MD on 04/20/2022 at 10:26 Normal [facility] MAMMO POST BIOPSY LEFTon MAMMO POST BIOPSY LEFT Patient: Chelsey ROJAS Exam Date: 10/03/2021 : 1975 Gender:F Ordering : DR JESSICA PARISI . Admission #: [id number] Family : Order #: [id number] CLICK HERE TO VIEW EXAM This report [...] Keane M.D. on 10/11/2021 at 10:39 Normal [facility] US VAC ASST BX BRST LT W CLI Kyler 10-03-2021 US VAC ASST BX BRST LT W CLIP Patient: GLORIA ROJAS Exam Date: 10/03/2021 : 1975 Gender:F Ordering : DR JESSICA PARISI . Admission #: [id number] Family : Order #: [id number] CLICK HERE TO VIEW EXAM This report [...] M.D. on 10/11/2021 at 10:38 Normal [facility] MG MAMM DX 3D LT CADon 09-27 MG MAMM DX 3D LT CAD Patient: CRISTELA ROJAS. Exam Date: 09/27/2021 : 1975 Gender:F Ordering : DR JESSICA PARISI . Admission #: [id number] Family : Order #: [id number] CLICK HERE TO VIEW EXAM RADIOLOGY REPORT [...] Treatments None Family Cancers None LOCATION: [facility] BREAST COMPOSITION: Extremely dense, which lowers [...] M.D. on 09/27/2021 at 09:50 Normal [facility] US BREAST LEFT LIMITEDon US BREAST LEFT LIMITED Patient: Chelsey ROJASCarol Exam Date: 09/27/2021 : 1975 Gender:F Ordering : DR JESSICA PARISI . Admission #: [id number] Family : Order #: [id number] CLICK HERE TO VIEW EXAM RADIOLOGY REPORT [...] Treatments None Family Cancers None LOCATION: [facility] BREAST COMPOSITION: Extremely dense, which lowers [...] M.D. on 09/27/2021 at 09:50 Normal [facility] ESTRADIOLon 09-02-2021 Estradiol 209.0 pg/mL Normal [facility] Comment on above: Result Comment: Adul t Female: Follicular phase 12.5 - 166.0 Ovulation phase 85.8 - 498.0 Luteal phase 43.8 - 211.0 Postmenopausal <6.0 - 54.7 1st trimester 215.0 - >4300.0 Jeanna ECLIA methodology Performed By: #### E LORENE #### [facility] [address] [place] [address] Dr. Taran Pan FSHon 09-02-2021 FSH 6.1 mIU/mL Normal [facility] Comment on above: Result Comment: Adul t Female: Follicular phase 3.5 - 12.5 Ovulation phase 4.7 - 21.5 Luteal phase 1.7 - 7.7 Postmenopausal 25.8 - 134.8 Performed By: #### [facility] #### [facility] [address] [address] [address] Taran Pan CBC AUTO DIFFon 09-01-2021 BASO # 0.1 103/ul Normal 0.0-0.1 [facility] Comment on above: Performed By: #### C BC ####[facility] [address] [address]DrCarol Pan Basophils/100 WBC (Bld) 1.2 % Normal 0.2-2.0 [facility] Comment on above: Performed By: #### C BC ####[facility] [address] [address]DrCarol Pan EO # 0.1 103/ul Normal 0.0-0.7 [facility] Comment on above: Performed By: #### C BC ####[facility] [address] [address]DrCarol Pan Eosinophils/100 WBC (Bld) 0.9 % Normal 0.9-7.0 [facility] Comment on above: Performed By: #### C BC ####[facility] [address] [place], [place] [address]Dr. Taran Pan Erythrocyte distribution width (RBC) [Ratio] 13.1 % Normal 11.0-15.0 [facility] Comment on above: Performed By: #### C BC ####[facility] [address] [place], [place] [address]Dr. Taran Pan Hematocrit (Bld) [Volume fraction] 42.4 % Normal 36.0-48.0 [facility] Comment on above: Performed By: #### C BC ####[facility] [address] [place], [place] [address]Dr. Ludypablo Pan Hemoglobin (Bld) [Mass/Vol] 14.0 g/dL Normal 12.0-16.0 [facility] Comment on above: Performed By: #### C BC ####[facility] [address] [place], [place] [address]Dr. Taran Pan IG # 0.02 10e3/ul Normal 0.00-0.03 [facility] Comment on above: Performed By: #### C BC ####[facility] [address] [place], [place] [address]Dr. Ludypablo Pan IG % 0.3 % Normal 0.0-0.5 [facility] Comment on above: Performed By: #### C BC ####[facility] [address] [place], [place] [address]Dr. Taran Pan LYMPH # 1.5 103/ul Normal 1.2-3.8 [facility] Comment on above: Performed By: #### C BC ####[facility] [address] [place], [place] [address]Dr. Taran Pan Lymphocytes/100 WBC (Bld) 26.4 % Normal 20.5-60.0 [facility] Comment on above: Performed By: #### C BC ####[facility] [address] [place], [place] [address]Dr. Taran Pan MANUAL DIFF REQ NO Normal [facility] Comment on above: Performed By: #### C BC ####[facility] [address] [place], [place] [address]Dr. Taran Pan MCH (RBC) [Entitic mass] 30.6 pg Normal 26.7-34.0 [facility] Comment on above: Performed By: #### C BC ####[facility] [address] [address]Dr. Taran Pan MCHC (RBC) [Mass/Vol] 33.0 g/dL Normal 29.9-35.2 [facility] Comment on above: Performed By: #### C BC ####[facility] [address] [address]Dr. Taran Pan MCV (RBC) [Entitic vol] 92.6 fL Normal 81.0-99.0 [facility] Comment on above: Performed By: #### C BC ####[facility] [address] [address]Dr. Taran Pan MONO # 0.3 103/ul Normal 0.3-0.8 [facility] Comment on above: Performed By: #### C BC ####[facility] [address] [address]Dr. Taran Pan Monocytes/100 WBC (Bld) 5.6 % Normal 1.7-12.0 [facility] Comment on above: Performed By: #### C BC ####[facility] [address] [place], [place] [address]Dr. Taran Pan NEUT # 3.8 103/ul Normal 1.4-6.5 [facility] Comment on above: Performed By: #### C BC ####[facility] [address] [address]Dr. Taran Maxim Neutrophils/100 WBC (Bld) 65.6 % Normal 43.0-75.0 [facility] Comment on above: Performed By: #### C BC ####[facility] [address] [address]Dr. Taran Pan Platelet mean volume (Bld) [Entitic vol] 11.2 fL Normal 9.5-13.5 [facility] Comment on above: Performed By: #### C BC ####[facility] [address] [address]Dr. Taran Pan PLT 398 103/ul Normal 150-450 [facility] Comment on above: Performed By: #### C BC ####[facility] [address] [address]Dr. Taran Pan RBC 4.58 106/ul Normal 4.20-5.40 [facility] Comment on above: Performed By: #### C BC ####[facility] [address] [address]Dr. Taran Pan WBC 5.8 103/ul Normal 4.0-11.0 [facility] Comment on above: Performed By: #### C BC ####[facility] [address] [address]Dr. Taran Pan FREE T4on 09-01-2021 Free T4 [Mass/Vol] 0.95 ng/dL Normal 0.78-2.19 The [facility] Comment on above: Performed By: #### F T4 ####[facility] [address] [address]Dr. Taran Pan PROF CHEM 8 (BAS METB)on Anion gap [Moles/Vol] 11.2 mmol/L Normal [facility] Comment on above: Performed By: #### T SH, BMP #### [facility] [address] [place] [address] Dr. Taran Pan Calcium [Mass/Vol] 8.5 mg/dL Normal 8.5-10.1 [facility] Comment on above: Performed By: #### T SH, BMP #### [facility] [address] [address] [address] Taran Pan Chloride [Moles/Vol] 104 mmol/L Normal 98-107 [facility] Comment on above: Performed By: #### T SH, BMP #### [facility] [address] [address] [address] Taran Pan CO2 [Moles/Vol] 28.2 mmol/L Normal 22.0-30.0 [facility] Comment on above: Performed By: #### T SH, BMP #### [facility] [address] [place] [address] Dr. Taran Pan Creatinine [Mass/Vol] 0.77 mg/dL Normal 0.52-1.04 [facility] Comment on above: Performed By: #### T SH, BMP #### [facility] [address] [place] [address] Dr. Traan Pan EGFR-AF CYPRIOT >60 Normal >=60 [facility] Comment on above: Performed By: #### T SH, BMP #### [facility] [address] [place] [address] Dr. Taran Pan EGFR-NON AF CYPRIOT >60 Normal >=60 [facility] Comment on above: Performed By: #### T SH, BMP #### [facility] [address] [place] [address] Dr. Taran Pan Glucose [Mass/Vol] 96 mg/dL Normal 74-106 [facility] Comment on above: Performed By: #### T SH, BMP #### [facility] [address] [place] [address] Dr. Taran Pan Potassium [Moles/Vol] 4.4 mmol/L Normal 3.4-5.0 [facility] Comment on above: Performed By: #### T SH, BMP #### [facility] [address] [place] [address] Dr. Taran Pan Sodium [Moles/Vol] 139 mmol/L Normal 137-145 [facility] Comment on above: Performed By: #### T SH, BMP #### [facility] [address] [place] [address] Dr. Taran Pan Urea nitrogen [Mass/Vol] 12.0 mg/dL Normal 7.0-18.0 [facility] Comment on above: Performed By: #### T SH, BMP #### [facility] [address] [place] [address] Dr. Taran Pan Urea nitrogen/Creatinine [Mass ratio] 15.6 mg/mg Normal [facility] Comment on above: Performed By: #### T SH, BMP #### [facility] [address] [address] [address] Taran Pan TSHon 09-01-2021 TSH 2.163 uIU/mL Normal 0.470-4.680 [facility] Comment on above: Performed By: #### T CLIVE, BMP #### [facility] [address] [address] [address] Taran Pan TSH RANGE SEE BELOW Normal [facility] Comment on above: Result Comment: <0.3 4 UIU/ml HYPERTHYROID 0.34-5.60 UIU/ml EUTHYROID >5.60 UIU/ml HYPOTHYROID Performed By: #### T CLIVE BMP #### [facility] [address] [address] [address] Taran Pan Vital Signs Date Time Vital Sign Value Performing Clinician Facility 03-16-2024 15:44-0400 Body height 167.64 cm [facility] 03-16-2024 15:44-0400 Body mass index (BMI) [Ratio] 28.3 kg/m2 [facility] 03-16-2024 15:44-0400 Body weight 79.54 kg [facility] 03-16-2024 15:44-0400 Diastolic blood pressure 70 mm[Hg] [facility] 03-16-2024 15:44-0400 Heart rate 86 /min [facility] 03-16-2024 15:44-0400 Respiratory rate 16 /min [facility] 03-16-2024 15:44-0400 SaO2% (BldA) [Mass fraction] 98 % [facility] 03-16-2024 15:44-0400 Systolic blood pressure 102 mm[Hg] [facility] 02-07-2024 10:090400 Body height 167.64 cm [facility] 02-07-2024 10:09-0400 Body mass index (BMI) [Ratio] 29.3 kg/m2 [facility] 02-07-2024 10:090400 Body weight 82.55 kg [facility] 02-07-2024 10:09-0400 Diastolic blood pressure 78 mm[Hg] [facility] 02-07-2024 10:09-0400 Heart rate 59 /min [facility] 02-07-2024 10:09-0400 Systolic blood pressure 124 mm[Hg] [facility] 01-31-2024 10:130400 Body height 167.6 cm Estrellita Jacob APRN.PHARMACY ASSOCIATE Work Phone: [facility] 01-31-2024 10:13-0400 Body mass index (BMI) [Ratio] 27.44 kg/m2 Estrellita Jacob APRN.PHARMACY ASSOCIATE Work Phone: [facility] 01-31-2024 10:130400 Body weight 77.11 kg Estrellita Jacob APRN.PHARMACY ASSOCIATE Work Phone: [facility] 01-31-2024 10:13-0400 Diastolic blood pressure 86 mm[Hg] Estrellita Jacob APRN.PHARMACY ASSOCIATE Work Phone: [facility] 01-31-2024 10:13-0400 Heart rate 64 /min Estrellita Jacob APRN.PHARMACY ASSOCIATE Work Phone: [facility] 01-31-2024 10:13-0400 Systolic blood pressure 131 mm[Hg] Estrellita Jacob APRN.PHARMACY ASSOCIATE Work Phone: [facility] 09-13-2023 14:00-0400 Diastolic blood pressure 52 mm[Hg] Marcello Villarreal MD Work Phone: [facility] 09-13-2023 14:00-0400 Heart rate 66 /min Marcello Villarreal MD Work Phone: [facility] 09-13-2023 14:00-0400 Respiratory rate 16 /min Marcello Villarreal MD Work Phone: [facility] 09-13-2023 14:00-0400 SaO2% (BldA) [Mass fraction] 99 % Marcello Villarreal MD Work Phone: [facility] 09-13-2023 14:00-0400 Systolic blood pressure 95 mm[Hg] Marcello Villarreal MD Work Phone: [facility] 09-13-2023 12:50-0400 Body height 167.6 cm Marcello Villarreal MD Work Phone: [facility] 09-13-2023 12:50-0400 Body mass index (BMI) [Ratio] 26.95 kg/m2 Marcello Villarreal MD Work Phone: [facility] 09-13-2023 12:50-0400 Body temperature 98.29 [degF] Marcello Villarreal MD Work Phone: [facility] 09-13-2023 12:50-0400 Body weight 75.75 kg Marcello Villarreal MD Work Phone: [facility] 08-30-2023 10:23-0400 Body height 167.6 cm Estrellita Jacob APRN.PHARMACY ASSOCIATE Work Phone: [facility] 08-30-2023 10:23-0400 Body temperature 98.1 [degF] Estrellita Jacob LEARNING SUPPORT SERVICES DIRECTOR.PHARMACY ASSOCIATE Work Phone: [facility] 08-30-2023 10:23-0400 Body weight 77.56 kg Estrellita Jacob APRN.PHARMACY ASSOCIATE Work Phone: [facility] 08-30-2023 10:23-0400 Diastolic blood pressure 80 mm[Hg] Estrellita Jacob APRN.PHARMACY ASSOCIATE Work Phone: [facility] 08-30-2023 10:23-0400 Heart rate 66 /min Estrellita Jacob APRN.PHARMACY ASSOCIATE Work Phone: [facility] 08-30-2023 10:23-0400 Systolic blood pressure 122 mm[Hg] Estrellita Jacob APRN.PHARMACY ASSOCIATE Work Phone: [facility] 08-21-2023 09:24-0400 Body height 167.64 cm [facility] 08-21-2023 09:24-0400 Body mass index (BMI) [Ratio] 27.6 kg/m2 [facility] 08-21-2023 09:24-0400 Body weight 77.62 kg [facility] 08-21-2023 09:24-0400 Diastolic blood pressure 79 mm[Hg] [facility] 08-21-2023 09:24-0400 Heart rate 76 /min [facility] 08-21-2023 09:24-0400 Systolic blood pressure 127 mm[Hg] [facility] Encounters Encounter Date Encounter Type Care Provider Facility Start: 03-16-2024 End: 03-16-2024 ambulatory [facility] Work Phone: Start: 03-16-2024 End: 03-16-2024 Patient encounter procedure [facility]ly [facility], [facility] Physician [facility] Work Phone: Start: 02-07-2024 End: 02-07-2024 ambulatory [facility] Work Phone: Start: 02-07-2024 End: 02-07-2024 Patient encounter procedure [facility] Physician [facility] Work Phone: Start: 01-31-2024 End: 01-31-2024 Patient encounter procedure Estrellita Jacob APRN.PHARMACY ASSOCIATE Work Phone: [facility] Comment on above: Loose stools (Primar y Dx); Abdominal cramping; Epigastric pain Start: 09-19-2023 End: 09-19-2023 ambulatory KIM SHEPHERD Facility:[facility] Start: 09-19-2023 Telephone encounter Estrellita jaffe APRN.PHARMACY ASSOCIATE Work Phone: [facility] Start: 09-13-2023 End: 09-13-2023 Subsequent hospital visit by physician Marcello Lemus MD Work Phone: [facility] Comment on above: Epigastric pain [R10 .13] Start: 08-30-2023 End: 08-30-2023 Patient encounter procedure Estrellita Jacob APRN.PHARMACY ASSOCIATE Work Phone: [facility] Comment on above: Epigastric pain (Jaimee sofia Dx); Screening for malignant neoplasm of colon; Diarrhea, unspecified type Start: 08-21-2023 End: 08-21-2023 ambulatory [facility] Work Phone: Start: 08-21-2023 End: 08-21-2023 Patient encounter procedure [facility] Work Phone: Start: 08-16-2023 Non-patient / Non-visit [facility] Physician [facility] Work Phone: Start: 08-07-2023 End: 08-07-2023 ambulatory JESSICA PARISI Not Available Start: 08-07-2023 Non-patient / Non-visit [facility] Physician [facility] Work Phone: Start: 07-15-2023 Chart [...] Start: 06-08-2013 Patient encounter status Estrellita Jacob APRN.PHARMACY ASSOCIATE Work Phone: [facility] Work Phone: Procedures Date Procedure Procedure Detail Performing Clinician Start: 09-13-2023 Colonoscopy flx dx w/collj spec when pfrmd Estrellita Jacob APRN.PHARMACY ASSOCIATE Work Phone: Start: 09-13-2023 Esophagogastroduodenoscopy transoral diagnostic Estrellita Jacob APRN.CNP Work Phone: Start: 09-13-2023 Colonoscopy Estrellita Jacob APRN.CNP Work Phone: Start: 08-16-2023 Salmonella/Shigella Screen Start: 05-10-2023 Mammography Jessica Parisi DO Work Phone: Start: 06-10-2015 Lipid 1996 panel - Serum or Plasma Shu Jacob APRN.CNP Work Phone: Plan of Treatment Date Care Activity Detail Author Start: 09-12-2024 Screening for malignant neoplasm of colon [facility] Start: 05-10-2024 Screening for malignant neoplasm of breast Mammogram [facility] Start: 02-02-2024 Covid-19 Vaccine () Covid-19 Vaccine () [facility] Start: 02-02-2024 Influenza vaccination Influenz a Vaccine (#1) [facility] Start: 08-21-2023 Patient referral [facility] Work Phone: Start: 08-07-2023 End: 08-07-2023 Patient encounter procedure 08/07/2023 4:00 PM EST Office Visit [facility] [address] [place] [address] Jessica Parisi, [address] [place] [address] [facility] Start: 07-03-2023 Screening for malignant neoplasm of breast Mammogram Screening [facility] Start: 06-03-2023 Behavioral Health Screening Behavioral Health Screening [facility] Start: 06-03-2023 [facility] Start: 02-01-2023 Covid-19 Vaccine () Covid-19 Vaccine () [facility] Start: 06-10-2020 Lipid panel Lipid Screening [facility] Start: 02-06-2020 Diabetes Screening Diabetes Screenin g [facility] Start: 02-06-2020 Screening for malignant neoplasm of colon [facility] Start: 2005 Screening for malignant neoplasm of cervix [facility] Start: 02-06-1996 Screening for malignant neoplasm of cervix [facility] Start: 1994 Hepatitis B Vaccine (1 of 3 - 19+ 3-dose series) Hepatitis B Vaccine (1 of 3 - 19+ 3-dose series) [facility] Start: 1994 Urine microalbumin profile DTaP,Tdap,Td Vaccine (1 - Tdap) [facility] Start: 1993 Anxiety Screening Anxiety Screening [facility] Start: 1993 Depression Screening Depression Scre ening [facility] Start: 1993 Hepatitis C screening Hepatitis C Sc reening [facility] Start: 1975 Screening for malignant neoplasm of colon [facility] End: 08-29-2024 EGD DIAGNOSTIC EGD DIAGNOSTIC Endoscopy Routine Epigastric pain 1 Occurrences starting 08/30/2023 until 08/29/2024 [facility] Work Phone: Comment on above: 1 Occurrences starti ng 08/30/2023 until 08/29/2024 Patient referral [facility] Work Phone: End: 08-29-2024 Screening colonoscopy COLONOSCOPY SCREENING Endoscopy Routine Screening for malignant neoplasm of colon 1 Occurrences starting 08/30/2023 until 08/29/2024 [facility] Work Phone: Comment on above: 1 Occurrences starti ng 08/30/2023 until 08/29/2024 End: 09-28-2024 US Abdomen RUQ US ABD RIGHT UPPER QUADRANT Radiology Routine Epigastric pain 1 Occurrences starting 08/30/2023 until 09/28/2024 [facility] Work Phone: Comment on above: 1 Occurrences starti ng 08/30/2023 until 09/28/2024 [facility] Immunizations Immunization Date Immunization Notes Care Provider [facility] 03-12-2023 influenza virus vacc ine, unspecified formulation Estrellita Jacob APRN.PHARMACY ASSOCIATE Work Phone: [facility] 03-26-2022 influenza virus vacc ine, unspecified formulation Estrellita Jacob APRN.PHARMACY ASSOCIATE Work Phone: [facility] 03-06-2021 influenza virus vacc ine, unspecified formulation Estrellita Zambory LEARNING SUPPORT SERVICES DIRECTOR.PHARMACY ASSOCIATE Work Phone: [facility] 04-11-2018 influenza virus vacc ine, unspecified formulation Estrellita Jacob LEARNING SUPPORT SERVICES DIRECTOR.PHARMACY ASSOCIATE Work Phone: [facility] 04-03-2017 influenza virus vacc ine, unspecified formulation Estrellita Jacob LEARNING SUPPORT SERVICES DIRECTOR.PHARMACY ASSOCIATE Work Phone: [facility] 03-08-2016 influenza virus vacc ine, unspecified formulation Estrellita Jacob LEARNING SUPPORT SERVICES DIRECTOR.PHARMACY ASSOCIATE Work Phone: [facility] 03-09-2015 influenza virus vacc ine, unspecified formulation Estrellita Jacob LEARNING SUPPORT SERVICES DIRECTOR.PHARMACY ASSOCIATE Work Phone: [facility] Payers Date Payer Category Payer Managed Care HMO (unspecified) [employer]ET[employer] AETNA [id number] 2021-Present [address] [place] [address] HMO [id number] 2021 Private Health Insurance [id number] 2021 Private Health Insurance EHP AET NA EHP PLUS STAFF/NON STAFF / EHP Plus [facility] [id number] 2021-Present [phone] [address] [place] [address] PPO [id number] 1975 Unknown [id number] 1975 Unknown [id number] 1975 Unknown [id number] 1975 Unknown [id number] 1975 Unknown [id number] 1975 Unknown [id number] 1959 Private Health Insurance [id number] Social History Date Type Detail Facility Start: 07-15-2023 End: 08-21-2023 Tobacco smoking status NHIS Never smoked tobacco [facility] Start: 07-15-2023 End: 01-31-2024 Tobacco use and exposure Smokeless tobacco non-user [facility] Start: 07-15-2023 End: 08-30-2023 Alcohol intake Lifetime non-drinker (finding) [facility] Start: 1975 Sex Assigned At Not on file [facility] Start: 08-30-2023 End: 01-31-2024 Gender identity Not on file [facility] Start: 1975 Sex Assigned At Female [facility] Start: 08-30-2023 End: 01-31-2024 History of Social function [facility] National Score (1-10 0), lower number is lower risk 67 [facility] Start: 06-05-2021 Gender identity Identifies as female gender (finding) [facility] Start: 06-05-2021 Sexual orientation Heterosexual (finding) [facility] Clinical Notes 08-30-2023 to 01-31-2024 Estrellita Jacob APRN.MARYANNE - 01/31/2024 10:00 AM EDTTelephone Encounter - Sofia Wolfe LPN - 09/19/2023 12:11 PM Marcello Jacobson I, MD - 09/13/2023 1:10 PM EDT Note Date & Type Note Facility 01-31-2024 History of Presen t illness Narrative Images from the original note were not included. Gloria Rojas is a 48 year old female who presents today for follow up. She was seen in August for complaints of diarrhea and epigastric pain. Panendoscopy was complete 09/13/23 which revealed some gastritis (H. Pylori negative), otherwise a normal exam. Biopsies were taken from the small bowel which revealed duodenitis with slight villous abnormality but marked increased numbers of intraepithelial lymphocytes. Celiac serology thereafter was negative. Random biopsies from the colon were negative for microscopic colitis. She was placed on a 8 week course of Budesonide and overall noted no symptom difference on this. She is averaging a BM every other day, stool is soft. She has intermittent sharp abdominal cramping, that will occur after eating and be relieved after BM. This occurs at least a couple times per week. She admits to chronically having a sensitive stomach. Symptoms are more notable with certain foods such as dairy, high fat or greasy food. She tries to limit these. She does note she feels better avoiding gluten but doesn't strictly follow a gluten free diet. She denies any constipation. She denies signs of GIB. Her UGI complaints have resolved. She remains on Omeprazole 20 mg by mouth daily. She denies GERD, n/v. She denies fevers. Her weight is stable. Prior OV: August 30, 2023: Gloria Lang Bob is a 48 year old female who presents today for diarrhea, f/u [facility]. Pleasant 48-year-old female who presents today [...] prior endoscopic evaluation. 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 HISTORIES ACTIVE PROBLEM LIST [facility] [place] (Advanced Maternal Age) Multigravida 35+ History of Delivery, Currently Echogenic Bowel of Fetus On Ultrasound Acute Maxillary Sinusitis FAMILY HISTORY Problem Relation Age of Onset Gall Stones Mother Heart disease Mother Hypertension Father Diabetes Father PAST MEDICAL HISTORY No date: Generalized anxiety disorder PAST SURGICAL HISTORY No date: TONSILLECTOMY & ADENOIDECTOMY <AGE 12 Comment: Tonsillectomy Social History Tobacco Use Smoking status: Never Smokeless tobacco: Never Vaping Use Vaping status: Never Used Substance Use Topics Alcohol use: Never Drug use: Never ALLERGIES No Known Allergies omeprazole magnesium (PRILOSEC OTC ORAL)^^Disp: ^Rfl: FLUoxetine (PROZAC) 20 mg capsule^Take 1 capsule by mouth once daily^Disp: 90 capsule^Rfl: 1 dicyclomine (BENTYL) 10 mg capsule^Take 1 capsule by mouth before meals and at bedtime.^Disp: 120 capsule^Rfl: 2 BP 131/86 Pulse 64 Ht 5' 6 (1.68m) Wt 170 lb (77.1kg) LMP 08/08/2020 BMI 27.45 kg/(m^2). Physical Exam Constitutional: Appearance: Normal appearance. [...] and Affect: Mood normal. Behavior: Behavior normal. CELIAC SCREEN Order: [id number] - Part of Panel Order [id number] Status: Final result Visible to patient: Yes (seen) Dx: Diarrhea, unspecified type 0 Result Notes Component Ref Range & Units 4 mo ago Transglutaminase IgA Abs <4 U/mL <2 Transglutaminase IgA Abs Interpretation Negative Negative Comment: The following results were obtained with [employer] QUANTA Lite R h-tTG IgA VINCE. R h-tTG IgA values obtained with different manufacturers' assay methods may not be used interchangeably. The magnitude of the reported IgA levels cannot be corelated to an endpoint concentration. This is used as an aid in diagnosis of celiac disease. Clinical correlation is required. Interpretation (Celiac Screen) No serological evidence of celiac disease, however, if celiac disease is clinically suspected and patient is not on gluten-free diet, histological diagnosis may be considered. HLA testing may help with risk assessment. Gliadin Ab, IgA <20 Units 8 Gliad Deamidated IgA Qual Negative, Test not Indicated Negative Comment: This is used as an aid in diagnosis of celiac disease. Clinical correlation is required. The following results were obtained with an [employer] QUANTA Lite Gliadin IgA VINCE Gliadin. Gliadin IgA values obtained with different manufacturers' assay methods may not be used interchangeably. The magnitude of the reported IgA levels cannot be correlated to an endpoint titer. Resulting Agency CCM Specimen Collected: 09/19/23 2:39 PM EDT Last Resulted: 09/20/23 1:07 PM EDT ASSESSMENT/PLAN: 1. Loose stools - ICD9: 787.7, ICD10: R19.5 (primary diagnosis) - She is averaging a BM every other day which she describes as loose, not watery or signs of GIB. This will typically occur after eating and be associated with abdominal cramping which is relieved after BM. She will have one BM then be fine, symptoms are not continuous throughout the day. She did not find a difference on Budesonide. She will complete this script as prescribed which she is almost finished with. We will trial Dicyclomine 10 mg PO TID AC and HS, script sent to pharmacy. Further recommendations will be determined pending her response. 2. Abdominal cramping - ICD9: 789.00, ICD10: R10.9 - Plan as above. 3. Epigastric pain - ICD9: 789.06, ICD10: R10.13 - Resolved. She remains on Omeprazole 20 mg by mouth daily. Estrellita Jacob APRN.[facility] [address] [place] [address], [address] [place] [id number] Department: [phone] This note was generated with voice recognition software and may contain errors, including spelling, grammar, syntax and misrecognition of what was dictated, that are not fully corrected. documented in this encounter [facility] 09-19-2023 Miscellaneous Notes Summary: Biopsy Results EXTERNAL LAB (Order [id number]) Patient Info Patient Name Sex Gloria Maldonado ([id number]) Female 1975 Scanned Documents View External Labs - Pathology [ID [id number]] documented in this encounter [facility] 09-13-2023 Note [facility] Patient Name: Gloria Lang. Procedure Date: 09/13/2023 1:38 PM Date of : 1975 Age: 48 Gender: Female Race: Unknown Attending MD: Marcello Lemus MD, [id number] Procedure: Colonoscopy Referring MD: KIM SHEPHERD MD Providers: Marcello Lemus MD Indications: Screening for colorectal malignant neoplasm, Incidental diarrhea noted Findings: The perianal and digital rectal examinations were normal. The colon (entire examined portion) appeared normal. Biopsies for histology were taken with a cold forceps from the sigmoid colon for evaluation of microscopic colitis. Verification of patient identification for the specimen was done. Estimated blood loss was minimal. The terminal ileum appeared normal. Patient Profile: This is a 48 year old female. Refer to note in patient chart for documentation of history and physical. Last Colonoscopy: none. The patient's first colonoscopy is today. Impression: - The entire examined colon is normal. Biopsied. Recommendation: - Patient has a contact number available for emergencies. The signs and symptoms of potential delayed complications were discussed with the patient. Return to normal activities tomorrow. Written discharge instructions were provided to the patient. - Resume previous diet. - Continue present medications. - Await pathology results. - Repeat colonoscopy in 10 years for screening purposes. - Return to primary care physician as previously scheduled. - Return to GI clinic if symptoms persist. Medicines: See the Anesthesia note for documentation of the administered medications Procedure: Pre-Anesthesia Assessment: - See the other procedure note for documentation of the pre-procedure assessment. - Prior to the procedure, a History and Physical was performed, and patient medications and allergies were reviewed. The patient's tolerance of previous anesthesia was also reviewed. The risks and benefits of the procedure and the sedation options and risks were discussed with the patient. All questions were answered, and informed consent was obtained. Prior Anticoagulants: The patient has taken no anticoagulant or antiplatelet agents. ASA Grade Assessment: II - A patient with mild systemic disease. After reviewing the risks and benefits, the patient was deemed in satisfactory condition to undergo the procedure. After I obtained informed consent, the scope was passed under direct vision. Throughout the procedure, the patient's blood pressure, pulse, and oxygen saturations were monitored continuously. Provation AI/GI Genius was used during withdrawal. The COLONOSCOPE was introduced through the anus and advanced to the terminal ileum, with identification of the appendiceal orifice and IC valve. The colonoscopy was performed without difficulty. The patient tolerated the procedure well. The quality of the bowel preparation was good. The terminal ileum, ileocecal valve, appendiceal orifice, and rectum were photographed. Complications: No immediate complications. Procedure Code(s): --- Professional --- 11936, Colonoscopy, flexible; with biopsy, single or multiple Diagnosis Code(s): --- Professional --- Z12.11, Encounter for screening for malignant neoplasm of colon CPT copyright 2020 [employer]. All rights reserved. The codes documented in this report are preliminary and upon credit operations specialist review may be revised to meet current compliance requirements. Marcello Lemus MD 09/13/2023 1:54:04 PM This report has been signed electron (more content not included)... [facility] 09-13-2023 Note [facility] Patient Name: Gloria Newby Procedure Date: 09/13/2023 1:16 PM Date of : 1975 Age: 48 Gender: Female Race: Unknown Attending MD: Marcello Lemus MD, [id number] Procedure: Upper GI endoscopy Referring MD: KIM SHEPHERD MD Providers: Marcello Lemus MD Indications: Epigastric abdominal pain, Diarrhea Findings: The examined esophagus was normal. The Z-line was regular and was found 34 cm from the incisors. A few small semi-pedunculated polyps with no stigmata of recent bleeding were found in the gastric fundus. Localized mild inflammation characterized by congestion (edema) and erythema was found in the prepyloric region of the stomach. Biopsies were taken with a cold forceps for histology. Verification of patient identification for the specimen was done. Estimated blood loss was minimal. The exam of the stomach was otherwise normal. The examined duodenum was normal. Biopsies were taken with a cold forceps for histology. Verification of patient identification for the specimen was done. Estimated blood loss was minimal. Patient Profile: This is a 48 year old female. Refer to note in patient chart for documentation of history and physical. Patient has symptoms. Impression: - Normal esophagus. - Z-line regular, 34 cm from the incisors. - A few gastric polyps. - Gastritis. Biopsied. - Normal examined duodenum. Biopsied. Recommendation: - Patient has a contact number available for emergencies. The signs and symptoms of potential delayed complications were discussed with the patient. Return to normal activities tomorrow. Written discharge instructions were provided to the patient. - Resume previous diet. - Continue present medications. - Await pathology results. - Return to primary care physician as previously scheduled. Medicines: See the Anesthesia note for documentation of the administered medications Procedure: Pre-Anesthesia Assessment: - Prior to the procedure, a History and Physical was performed, and patient medications and allergies were reviewed. The patient is competent. The risks and benefits of the procedure and the sedation options and risks were discussed with the patient. All questions were answered and informed consent was obtained. Patient identification and proposed procedure were verified by the physician, the nurse and the vessel builder in the pre-procedure area in the endoscopy suite. Mental Status Examination: alert and oriented. Airway Examination: normal oropharyngeal airway and neck mobility. Respiratory Examination: clear to auscultation. CV Examination: normal. Prophylactic Antibiotics: The patient does not require prophylactic antibiotics. Prior Anticoagulants: The patient has taken no anticoagulant or antiplatelet agents. ASA Grade Assessment: II - A patient with mild systemic disease. After reviewing the risks and benefits, the patient was deemed in satisfactory condition to undergo the procedure. The anesthesia plan was to use monitored anesthesia care (MAC). Immediately prior to administration of medications, the patient was re-assessed for adequacy to receive sedatives. The heart rate, respiratory rate, oxygen saturations, blood pressure, adequacy of pulmonary ventilation, and response to care were monitored throughout the procedure. The physical status of the patient was re-assessed after the procedure. After obtaining informed consent, the endoscope was (more content not included)... [facility] 09-13-2023 History and physical note [facility] [address] [place] [address] September Bob is a 48 year old female who presents today for diarrhea, f/u [facility]. Pleasant 48-year-old female who presents today [...] prior endoscopic evaluation. 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 UPDATED HISTORY AND PHYSICAL EXAMINATION SERVICE DATE: 09/13/2023 SERVICE TIME: 1:24 PM PHYSICAL EXAM MUST BE COMPLETED ON ADMISSION The History and Physical (completed in the past 30 days) has been reviewed and the patient has been examined. The contents accurately reflect the patient's condition with the following additions or revisions since the H&P was completed. Examination indicates no changes. This H&P can be found in the Electronic Medical Record. SIGNATURE: Marcello Lemus MD PATIENT NAME: Gloria Rojas DATE: September 13, 2023 TIME: 1:24 PM PAGER: Marcello Lemus MD [facility] tie layer,[facility] [place] Clinical electronic game developer, [facility] Work Phone: 09-13-2023 History and physical note [facility] [address] [place] [address] Gloria Rojas is a 48 year old female who presents today for diarrhea, f/u [facility]. Pleasant 48-year-old female who presents today [...] prior endoscopic evaluation. 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 UPDATED HISTORY AND PHYSICAL EXAMINATION SERVICE DATE: 09/13/2023 SERVICE TIME: 1:24 PM PHYSICAL EXAM MUST BE COMPLETED ON ADMISSION The History and Physical (completed in the past 30 days) has been reviewed and the patient has been examined. The contents accurately reflect the patient's condition with the following additions or revisions since the H&P was completed. Examination indicates no changes. This H&P can be found in the Electronic Medical Record. SIGNATURE: Marcello Lemus MD PATIENT NAME: Gloria Rojas DATE: September 13, 2023 TIME: 1:24 PM PAGER: Marcello Lemus MD [facility] tie layer,[facility] [place] Clinical electronic game developer, [facility] documented in this encounter [facility] 08-30-2023 History of Presen t illness Narrative Images from the original note were not included. Gloria Rojas is a 48 year old female who presents today for diarrhea, f/u [facility]. Pleasant 48-year-old female who presents today [...] prior endoscopic evaluation. 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 HISTORIES FAMILY HISTORY Problem Relation Age of [...] symptoms regress. Colonoscopy as above. Estrellita Jacob APRN.MARYANNE [facility] [address] [place] [address], [address] [place] [address] Department: [phone] This note was generated with voice recognition software and may contain errors, including spelling, grammar, syntax and misrecognition of what was dictated, that are not fully corrected. documented in this encounter [facility] Evaluation note Diagnosis Onset Date Diarrhea acute Screening for colon cancer a [facility] Work Phone: Evaluation note* Diagnosis Epigastric pain- Primary Abdominal pain, epigastric Screening for malignant neoplasm of colon Diarrhea, unspecified type [facility] Diagnosis Loose stools- Primary Abnormal feces Abdominal cramping Abdominal pain, unspecified site Epigastric pain Abdominal pain, epigastric [facility] Diagnosis Onset Date Resolution Status Overweight with body mass in dex (BMI) of 29 to 29.[address] [facility] Work Phone: Evaluation note* Diagnosis Epigastric pain Abdominal pain, epigastric Screening for malignant neoplasm of colon [facility] this [facility] Diagnosis Onset Date Resolution Status Overweight with body mass in dex (BMI) of 29 to 29.9 in adult acute Overweight with body mass in dex (BMI) of 28 [address] [facility] Work Phone: Hospital Discharge instructionsAmbulatory Orders* Referral to Gastroenterology Time Frame: 08/21/23, Location: None Selected [facility] Work Phone: Reason for referral (narrative)* Diagnostic Procedure Only (Routine) - Authorized Specialty Diagnoses / Procedures Referred By María giang Referred To Contact [facility] Diagnoses Epigastric pain Procedures US ABD RIGHT UPPER QUADRANT US ABDOMINAL REAL TIME W/IMAGE LIMITED Estrellita Jacob APRN.CNP [address] [place] [address] [facility] [place] [address] Referral ID Status Reason Start Date Expiration Date Visits Requested Visits Authorized [id number] Authorized Auto-Generat ed Referral 08/30/2023 09/28/2024 1 1 * Outpatient Procedure (Routine) - Authorized Specialty Diagnoses / Procedures Referred By María giang Referred To Contact [facility] Diagnoses Screening for malignant neoplasm of colon Procedures COLONOSCOPY SCREENING COLONOSCOPY FLX DX W/COLLJ SPEC WHEN PFRMD Estrellita Jacob APRN.CNP [address] [facility] [address] [place] [address] [facility] [address] [place] [id number] Referral ID Status Reason Start Date Expiration Date Visits Requested Visits Authorized [id number] Authorized Auto-Generat ed Referral 08/30/2023 08/29/2024 1 1 * Outpatient Procedure (Routine) - Authorized Specialty Diagnoses / Procedures Referred By Contac t Referred To Contact [facility] Diagnoses Epigastric pain Procedures EGD DIAGNOSTIC ESOPHAGOGASTRODUODENOSC OPY TRANSORAL DIAGNOSTIC Estrellita Jacob APRN.PHARMACY ASSOCIATE [address] [facility] [address] [place] [address] [facility] [address] [place] [address] Referral ID Status Reason Start Date Expiration Date Visits Requested Visits Authorized [id number] Authorized Auto-Generat ed Referral 08/30/2023 08/29/2024 1 1 [facility] for referral (narrative)* Outpatient Procedure (Routine) - Closed Specialty Diagnoses / Procedures Referred By María t Referred To Contact [facility] Diagnoses Screening for malignant neoplasm of colon Procedures COLONOSCOPY SCREENING COLONOSCOPY FLX DX W/COLLJ SPEC WHEN PFRMD Estrellita Jacob APRN.PHARMACY ASSOCIATE [address] [facility] [address] [place] [id number] [facility] [address] [place] [address] Referral ID Status Reason Start Date Expiration Date V isits Requested Visits Authorized [id number] Closed Auto-Generate d Referral 08/30/2023 08/29/2024 1 1 * Outpatient Procedure (Routine) - Closed Specialty Diagnoses / Procedures Referred By María t Referred To Contact [facility] Diagnoses Epigastric pain Procedures EGD DIAGNOSTIC ESOPHAGOGASTRODUODENOSC OPY TRANSORAL DIAGNOSTIC Estrellita Jacob APRN.PHARMACY ASSOCIATE [address] [facility] [address] [place] [address] [facility] [address] [place] [address] Referral ID Status Reason Start Date Expiration Date V isits Requested Visits Authorized [id number] Closed Auto-Generate d Referral 08/30/2023 08/29/2024 1 1 [facility] for visit Narrative* Outpatient Procedure (Routine) - Closed Specialty Diagnoses / Procedures Referred By Contac t Referred To Contact [facility] Diagnoses Screening for malignant neoplasm of colon Procedures COLONOSCOPY SCREENING COLONOSCOPY FLX DX W/COLLJ SPEC WHEN PFRMD Estrellita Jacob, SARAI.PHARMACY ASSOCIATE [address] [place] [address] [facility] [address] [place] [address] Referral ID Status Reason Start Date Expiration Date V isits Requested Visits Authorized [id number] Closed Auto-Generate d Referral 08/30/2023 08/29/2024 1 1 [facility] Summary Purpose Family History No Family History Records FoundNo Family History Records FoundNo Family History Records Found Advance Directives Advance Directive Response Recorded Date/ Time Advance Directives No August 20 9:11am Chief Complaint and Reason for Visit Chief Complaint ER Follow Up-[facility] Reason for Visit Diarrhea Screening for colon cancer Chief Complaint talk about concerns, and wt loss Reason for Visit Overweight with body mass index (BMI) of 29 to 29.9 in adult Chief Complaint talk about concerns, and wt loss 1 month f/u Reason for Visit Overweight with body mass index (BMI) of 29 to 29.9 in adult Overweight with body mass index (BMI) of 28 to 28.9 in adult Additional Source Comments INFORMATION SOURCE (unrecogn ized section and content) DATE CREATED AUTHOR 07/10/2022 [facility] p[facility] DATE CREATED AUTHOR AUTHOR'S ORGANIZ ATION 08/08/2023 [facility] EPIC DATE CREATED AUTHOR AUTHOR'S ORGANIZ ATION 09/21/2023 [facility] Care Teams (unrecognized sec tion and content) Team Status: Active Member Role Status Dates Kim Shepherd MD Primary Care Provider Active Team Status: Inactive Member Role Status Dates Kim Shepherd MD Primary Care Provide r, Attending Provider Active Start: February 07, 2024 End: February 07, 2024 Director Of Business Operations Relationship Specialty Start Date End Date Kim Shepherd MD [address] [place] [facility] [place] [phone] PCP - General Family Medicine 04/03/23 Team [...] August 21, 2023 End: August 21, 2023 Director Of Business Operations Relationship Specialty Start Date End Date Kim Shepherd MD [address] [place] [facility] [place] [phone] PCP - General Family Medicine 03/23/14 Director Of Business Operations Relationship Specialty Start Date End Date Kim Shepherd MD [address] [place] [facility] [place] [phone] PCP - General Family Medicine 03/23/14 Director Of Business Operations Relationship Specialty Start Date End Date Kim Shepherd MD [address] [place] [facility] [place] [phone] PCP - General Family Medicine 03/23/14 Director Of Business Operations Relationship Specialty Start Date End Date Kim Shepherd MD [address] [place] [facility] [place] [phone] PCP - General Family Medicine 03/23/14 Team Status: Inactive Member Role Status Dates Kim Shepherd MD Primary Care Provide r, Attending Provider Active Start: March 16, 2024 End: March 16, 2024 Goals (unrecognized section and content) Goals may be documented in a n alternate sectionGoals may be documented in an alternate sectionGoals may be documented in an alternate section Source Comments (unrecognize d section and content) In the event this informatio n is protected by the Federal Confidentiality of Alcohol and Drug Abuse Patient Records regulations: The Federal rules restrict any use of the information to criminally investigate or prosecute any alcohol or drug abuse patient.[facility] the event this information is protected by the Federal Confidentiality of Alcohol and Drug Abuse Patient Records regulations: The Federal rules restrict any use of the information to criminally investigate or prosecute any alcohol or drug abuse patient.[facility] the event this information is protected by the Federal Confidentiality of Alcohol and Drug Abuse Patient Records regulations: The Federal rules restrict any use of the information to criminally investigate or prosecute any alcohol or drug abuse patient.[facility] the event this information is protected by the Federal Confidentiality of Alcohol and Drug Abuse Patient Records regulations: The Federal rules restrict any use of the information to criminally investigate or prosecute any alcohol or drug abuse patient.[facility] [place] Reason for Visit (unrecogniz ed section and content) Reason Comments [facility] f/u Reason Comments Follow Up Follow up visit FOR RECORDS PERTAINING TO PATIENTS WHO ARE [...] BE BASED ON THE PRIMARY CLINICAL RECORDS. [facility] [employer] [facility]. provides no warranty or guarantee of the accuracy or completeness of information in this document.
== END 2024-05-15 07:08 | disposition home or self-care (01) ==
LOC: MAMMO 07:07
PROVIDERS: PCP Family Medicine; Visit Provider Obstetrics & Gynecology
DX: Z12.31 Encounter for screening mammogram for malignant neoplasm of breast (principal)
CPT/HCPCS: 77063; 77067

== ENCOUNTER 2024-09-16 20:16 | Outpatient (REF) | payer OTHER, SELFPAY ==
--- OUTSIDE RECORDS SUMMARY | 2024-09-16 20:20 | XMS_ITS | CCD ---
Author Organization [facility] Care Team Providers Care Shop Steward Name Role Phone AILIN, DR LOPEZ Admitting Unavailable AILIN, DR LOPEZ Attending Unavailable SHEPHERD, DR KIM Garces Primary Care Unavailable AILIN, DR LOPEZ Consulting Unavailable ZIEBER, DR MOE Henry Consulting Unavailable AILIN, DR LOPEZ Admitting Unavailable AILIN, DR LOPEZ Attending Unavailable SHEPHERD, DR KIM Garces Primary Care Unavailable AILIN, DR LOPEZ Consulting Unavailable VELASQUEZ, DR MOE Henry Consulting Unavailable SHEPHERD, DR KIM Garces Admitting Unavailable SHEPHERD, DR KIM Garces Attending Unavailable SHEPHERD, DR KIM Garces Primary Care Unavailable SHEPHERD, DR KIM Garces Consulting Unavailable AILIN, DR LOPEZ Admitting Unavailable AILIN, DR LOPEZ Attending Unavailable SHEPHERD, DR KIM Garces Primary Care Unavailable TITUS, DR OJRGE Gallardo Consulting Unavailable AILIN, DR LOPEZ Consulting Unavailable AILIN, DR LOPEZ Admitting Unavailable AILIN, DR LOPEZ Attending Unavailable SHEPHERD, DR KIM Garces Primary Care Unavailable AILIN, DR LOPEZ Consulting Unavailable Kim Shepherd MD Primary Care Provider JESSICA PARISI Attending Unavailable Kim Shepherd MD Primary Care Provider [phone] KIM SHEPHERD Primary Care Unavailable Kim Shepherd MD Primary Care Provider Kim Shepherd MD Primary Care Provider Medications Current Medications Medication Drug Class(es) Dates Sig (Normalized) Sig (Original) ascorbic acid 60 mg / beta carotene 5000 unt / copper sulfate 40 mg / dl-alpha tocopheryl acetate 30 unt / sodium selenite 0.04 mg / zinc oxide 40 mg oral tablet (3 sources) Vitamin C Multiple Vitamin (Multivitamin Adult) tablet Take by mouth Active dicyclomine hydrochloride 10 mg oral capsule (1 source) Anticholinergic Start: 01-31-2024 take 1 capsule by mouth at bedtime dicyclomine (BENTYL) 10 mg capsule Take 1 capsule by mouth before meals and at bedtime. 120 capsule 2 01/31/2024 Active levonorgestrel 0.954968 mg/hr intrauterine system (4 sources) Progestin, Progestin-containing Intrauterine Device Levonorgestrel (Mirena, 52 MG,) 20 MCG/DAY intrauterine device as directed Intrauterine Active Multivitamin (Daily Multi-Vitamin) tablet (3 sources) [...] on above: TAKE 1 CAPSULE BY [facility] ONCE DAILY 2 ml glycopyrrolate 0.2 mg/ml [...] Comment on above: [facility]. MULTI-VITAMIN ORAL (4 sources) End: [...] paul Acid-ergic Agonist Start: 09-19-19 End: 01-31-20 take 1 tablet by mouth at bedtime [...] conditions (not mental disorders or infectious disease) (16 sources) Encounter for screening for malignant neoplasm [...] QUAL Negative Normal Negative, Test not Indicated [facility] Comment on above: Order Comment: Specmonique bob Type: BLOOD SPECIMEN Ordering Facility: [facility] Address: [address] [place] [address] Result Comment: This is used as an aid in diagnosis of celiac disease. Clinical correlation is required. The following results were obtained with an [employer]ANT[employer] Lite Gliadin IgA VINCE Gliadin. Gliadin IgA values obtained with different manufacturers' assay methods may not be used interchangeably. The magnitude of the reported IgA levels cannot be correlated to an endpoint titer. Performed By: #### L [id number] #### [facility] CLIA [id number] [address] [place], [place] [address] [place] [address] [place] Gliadin peptide IgA Qn (S) 8 Units Normal <20 [facility] Comment on above: Order Comment: Elisha bob Type: BLOOD SPECIMEN Ordering Facility: [facility] Address: [address] [place] [address] Performed By: #### L [id number] #### [facility] CLIA [id number] [address] [place] [address] [place] INTERPRETATION No serological evidence of celiac disease, however, if celiac disease is clinically suspected and patient is not on gluten-free diet, histological diagnosis may be considered. HLA testing may help with risk assessment. Normal [facility] Comment on above: Order Comment: Elisha bob Type: BLOOD SPECIMEN Ordering Facility: [facility] Address: [address] [place] [address] Performed By: #### L [id number] #### [facility] CLIA [id number] [address] [place] [address] [place] TRANSGLUTAMINASE IGA ABS INTERPRETATION Negative Normal Negative [facility] Comment on above: Order Comment: Elisha bob Type: BLOOD SPECIMEN Ordering Facility: [facility] Address: [address] [place] [address] Result Comment: The following results were obtained with [employer] Lite R h-tTG IgA VINCE.???R h-tTG IgA values obtained with different manufacturers' assay methods may not be used interchangeably. The magnitude of the reported IgA levels cannot be corelated to an endpoint???concentration. This is used as an aid in diagnosis of celiac disease. Clinical correlation is required. Performed By: #### L [id number] #### [facility] CLIA [id number] [address] [place] [address] [place] tTG IgA Qn (S) <2 Normal <4 [facility] Comment on above: Order Comment: Elisha bob Type: BLOOD SPECIMEN Ordering Facility: [facility] Address: [address] [place] [address] Performed By: #### L [id number] #### [facility] CLIA [id number] [address] [place] [address] [place] IgA SerPl-mCncon 09-19-2023 IgA [Mass/Vol] 195 mg/dL Normal 70-400 [facility] Comment on above: Order Comment: Elisha [facility] Type: BLOOD SPECIMEN Ordering Facility: [facility] Address: [address] [place], [place] [address] Performed By: #### 2 [id number] #### [facility] CLIA [id number] [address] [place], [place] [address]K [id number] [place], [place] [address] [place] Colonoscopy Study observatio non 09-13-2023 [facility] Radiology Study observation (narrative) [facility] EGD Study observation Narrat iveon 09-13-2023 [facility] Radiology Study observation (narrative) [facility] Basophils Auto (Bld) [#/Vol] on 08-16-2023 Basophils (Bld) [#/Vol] 0.1 10 3/uL 0.0-0.1 [facility] Basophils/100 WBC Auto (Bld) on 08-16-2023 Basophils/100 WBC (Bld) 1.2 % 0.2-2.0 [facility] Cryptosporidium sp Ag [Prese nce] in Stool by Immunoassayon 08-16-2023 Cryptosporidium sp Ag IA Ql (Stl) Negative Negative [facility] Comment on above: Performed at: [facility] [employer] [address] [id number] Director: Carlos Rosario PhD, Phone: [phone] Detection in stool of any of Campylobacter coli, Campylobacter jejuni, and Campylobacon 08-16-2023 C. coli+jejuni+upsaliensis DNA CLAUDE+non-probe Ql (Stl) Not detected NOT DETECTE [facility] Detection in stool of any of Vibrio cholerae, Vibrio parahaemolyticus, and Vibrio vulon 08-16-2023 V. cholerae+parahaemolytic us+vulnificus DNA CLAUDE+non-probe Ql (Stl) Not detected NOT DETECTE [facility] Detection in stool of either or both Salmonella enterica and Salmonella bongori DNA bon 08-16-2023 S. enterica+bongori DNA CLAUDE+non-probe Ql (Stl) Not detected NOT DETECTE [facility] Detection in stool of either or both enteroaggregative Escherichia coli Bismark plasmid aon 08-16-2023 E. coli enteroaggregative Bismark plasmid aggR+aatA genes CLAUDE+non-probe Ql (Stl) Not detected NOT DETECTE [facility] Eosinophils/100 WBC Auto (Bl d)on 08-16-2023 Eosinophils/100 WBC (Bld) 0.5 % 0.9-7.0 [facility] Erythrocyte distribution wid th Auto (RBC) [Ratio]on 08-16-2023 Erythrocyte distribution width (RBC) [Ratio] 13.8 % 11.0-15.0 [facility] Escherichia coli Stx1 and St x2 toxin stx1+stx2 genes [Presence] in Stool by CLAUDE withon 08-16-2023 E. coli stx1+stx2 genes CLAUDE+non-probe Ql (Stl) Not detected NOT DETECTE [facility] Escherichia coli enteropatho genic eae gene [Presence] in Stool by CLAUDE with non-probeon 08-16-2023 E. coli enteropathogenic eae gene CLAUDE+non-probe Ql (Stl) Not detected NOT DETECTE [facility] Escherichia coli enterotoxig enic ltA+st1a+st1b genes [Presence] in Stool by CLAUDE withon 08-16-2023 E. coli enterotoxigenic ltA+st1a+st1b genes CLAUDE+non-probe Ql (Stl) Not detected NOT DETECTE [facility] Estimated glomerular filtrat ion rate (GFR) non- Americanon 08-16-2023 GFR/1.73 sq M.predicted among non-blacks MDRD (S/P/Bld) [Vol rate/Area] mL/min/{1.73_m2} >=60 [facility] Giardia lamblia Ag [Presence ] in Stool by Immunoassayon 08-16-2023 G. lamblia Ag IA Ql (Stl) Negative Negative [facility] Globulin Calc (S) [Mass/Vol] on 08-16-2023 Globulin (S) [Mass/Vol] 4.0 g/dL [facility] Hematocrit Auto (Bld) [Volum e fraction]on 08-16-2023 Hematocrit (Bld) [Volume fraction] 42.6 % 36.0-48.0 [facility] Hemoglobin [Mass/volume] in Bloodon 08-16-2023 Hemoglobin (Bld) [Mass/Vol] 13.5 g/dL 12.0-16.0 [facility] - Chemistry and C hemistry - challengeon 08-16-2023 Albumin [Mass/Vol] 3.9 g/dL 3.4-5.0 [facility] ALP [Catalytic activity/Vol] 65 U/L 46-116 [facility] ALT [Catalytic activity/Vol] 37 U/L 14-59 [facility] AST [Catalytic activity/Vol] 17 U/L 15-37 [facility] Bilirubin [Mass/Vol] 0.2 mg/dL 0.2-1.0 [facility] Calcium [Mass/Vol] 8.5 mg/dL 8.5-10.1 [facility] Chloride [Moles/Vol] 100 mmol/L 98-107 [facility] CO2 [Moles/Vol] 25.1 mmol/L 21.0-32.0 [facility] Creatinine [Mass/Vol] 0.79 mg/dL 0.55-1.02 [facility] GFR/1.73 sq M.predicted MDRD (S/P/Bld) [Vol rate/Area] mL/min/{1.73_m2} >=60 [facility] Glucose [Mass/Vol] 95 mg/dL 74-106 [facility] Lactate [Moles/Vol] 0.8 mmol/L 0.4-2.0 [facility] Potassium [Moles/Vol] 3.4 mmol/L 3.5-5.1 [facility] Protein [Mass/Vol] 7.9 g/dL 6.4-8.2 [facility] Sodium [Moles/Vol] 136 mmol/L 136-145 [facility] Urea nitrogen [Mass/Vol] 9.0 mg/dL 7.0-18.0 [facility] Urea nitrogen/Creatinine [Mass ratio] 11.4 mg/mg [facility] - Hematology and Cell countson 08-16-2023 Immature granulocytes/100 WBC (Bld) 0.2 % 0.0-0.5 [facility] - Specimen inform ationon 08-16-2023 Specimen type Nom (Spec) Stool [facility] Leukocytes [#/volume] correc cornelio for nucleated erythrocytes in Blood by Automated counon 08-16-2023 WBC corrected for nucl RBC Auto (Bld) [#/Vol] 6.4 10 3/uL 4.0-11.0 [facility] Lymphocytes Auto (Bld) [#/Vo l]on 08-16-2023 Lymphocytes (Bld) [#/Vol] 0.8 10 3/uL 1.2-3.8 [facility] Lymphocytes/100 WBC Auto (Bl d)on 08-16-2023 Lymphocytes/100 WBC (Bld) 11.7 % 20.5-60.0 [facility] MCH Auto (RBC) [Entitic mass ]on 08-16-2023 MCH (RBC) [Entitic mass] 29.7 pg 26.7-34.0 [facility] MCHC Auto (RBC) [Mass/Vol]on 08-16-2023 MCHC (RBC) [Mass/Vol] 31.7 g/dL 29.9-35.2 [facility] MCV Auto (RBC) [Entitic vol] on 08-16-2023 MCV (RBC) [Entitic vol] 93.8 fL 81.0-99.0 [facility] Monocytes Auto (Bld) [#/Vol] on 08-16-2023 Monocytes (Bld) [#/Vol] 0.1 10 3/uL 0.3-0.8 [facility] Monocytes/100 WBC Auto (Bld) on 08-16-2023 Monocytes/100 WBC (Bld) 1.4 % 1.7-12.0 [facility] Neutrophils Auto (Bld) [#/Vo l]on 08-16-2023 Neutrophils (Bld) [#/Vol] 5.5 10 3/uL 1.4-6.5 [facility] Neutrophils/100 WBC Auto (Bl d)on 08-16-2023 Neutrophils/100 WBC (Bld) 85.0 % 43.0-75.0 [facility] No Panel Informationon 08-15 Adenovirus Types 40, 41 Not detected NOT DETECT E [facility] C. difficile Antigen and Toxins A,B Not detected NOT DETECTE [facility] Giardia lamblia Interpretation Not detected NOT DETECTE [facility] Stool Astrovirus (PCR) Not detected NOT DETECTE [facility] Stool Cryptosporidium Confirmation Not detected NOT DETECTE [facility] Stool Cyclospora cayetanensis (PCR) Not detected NOT DETECTE [facility] Stool Entamoeba (PCR) Not detected NOT DETECTE [facility] Stool Norovirus GI/GII PCR Not detected NOT DETECTE [facility] Stool Rotavirus (PCR) Not detected NOT DETECTE [facility] Stool Sapovirus (PCR) Not detected NOT DETECTE [facility] Stool Yersinia enterocolitica (PCR) Not detected NOT DETECTE [facility] Eosinophils # (Auto) 0.0 10 3/uL 0.0-0.7 [facility] Immature Granulocyte # (Auto) 0.01 10 3/uL 0.00-0.03 [facility] No Panel InformationOrdered By: Kim Shepherd on 08-16-2023 Salmonella/Shigella Screen [facility] Platelet mean volume Auto (B ld) [Entitic vol]on 08-16-2023 Platelet mean volume (Bld) [Entitic vol] 11.4 fL 9.5-13.5 [facility] Platelets Auto (Bld) [#/Vol] on 08-16-2023 Platelets (Bld) [#/Vol] 326 10 3/uL 150-450 [facility] RBC Auto (Bld) [#/Vol]on RBC (Bld) [#/Vol] 4.54 10 6/uL 4.20-5.40 [facility] Serum or plasma albumin/glob ulin mass ratioon 08-16-2023 Albumin/Globulin [Mass ratio] 1.0 {ratio} [facility] Serum or plasma anion gap de terminationon 08-16-2023 Anion gap [Moles/Vol] 14.3 mmol/L [facility] Shigella species+EIEC invasi on plasmid antigen H ipaH gene [Presence] in Stool by NAAon 08-16-2023 Shigella species+EIEC invasion plasmid antigen H ipaH gene CLAUDE+non-probe Ql (Stl) Not detected NOT DETECTE [facility] Stool Plesiomonas shigelloid es DNA detection by non-probe and target amplification meon 08-16-2023 P. shigelloides DNA CLAUDE+non-probe Ql (Stl) Not detected NOT DETECTE [facility] Vibrio cholerae DNA [Presenc e] in Stool by CLAUDE with non-probe detectionon 08-16-2023 V. cholerae DNA CLAUDE+non-probe Ql (Stl) Not detected NOT DETECTE [facility] Human papilloma virus 16+18+ 31+33+35+39+45+51+52+56+58+59+66+68 DNA [Presence] in Dean 08-07-2023 HPV 16+18+31+33+35+39+45+51 +52+56+58+59+66+68 DNA Probe+sig amp Ql (Cvx) Negative Negative [facility] Comment on above: This nucleic acid am plification test detects fourteen high-risk HPV types (16,18,31,33,35,39,45,51,52,56,58,59,66,68)without differentiation.Performed at: =G - [facility] [id number] Director: Dora Hameed MD, Phone: [phone] at: - [facility] [id number] Director: Dora Hameed MD, Phone: [phone] No Panel Informationon 08-06 HPV High Risk Other Comment Note . [facility] Comment on above: TESTS RESULT FLAG UN ITS REF RANGE LAB -DIAGNOSIS: 02 NEGATIVE FOR INTRAEPITHELIAL LESION OR MALIGNANCY.Specimen adequacy: 02 Satisfactory for evaluation. Endocervical and/or squamous metaplastic cells (endocervical component) are present.Performed by: Kimi Tse, Code Official (ASC). 02Note: Note 02 The Pap smear is [...] High <-Panic Low,>-Panic High,A-Abnormal,AA-Critical Abnormal ------Performed at:[address] [id number] Dora Hameed MD, Reference Lab Test Patient Age Note . [facility] Comment on above: TESTS RESULT FLAG UN ITS REF RANGE LAB - Clinician Provided Cytology Information Source.............Cervix;Endocervix No. of containers..01 ThinPrep VialAge Poonam PHILLIPS [place]... 30-65 FLAG LEGEND: L-Low Normal,H-High Normal,LL-Alert Low,HH-Alert High <-Panic Low,>-Panic High,A-Abnormal,AA-Critical Abnormal ------Performed at:01 =G [facility] [address] [place] [address] Dora Hameed MD, PAP ACOG PANEL 2: 30 to 65on 07-09-2022 . . Normal [facility] Comment on above: Result Comment: Perf ormed at: WB Performed By: #### 4 [id number] ####[facility] [address] [place] [id number] Pan Age Gdln ACOG Testing 30-65 Normal [facility] Comment on above: Performed By: #### 4 [id number] ####[facility] [address] [place] [id number] Pan DIAGNOSIS: Comment Normal [facility] Comment on above: Result Comment: NEGA TIVE FOR INTRAEPITHELIAL LESION OR MALIGNANCY. CELLULAR CHANGES ASSOCIATED WITH INFLAMMATION ARE PRESENT. Performed at: WB Performed By: #### 4 [id number] ####[facility] [address] [place] [id number] Pan HPV Aptima Negative Normal Negative [facility] Comment on above: Result Comment: This nucleic acid amplification test detects fourteen high-risk HPV types (16,18,31,33,35,39,45,51,52,56,58,59,66,68) without differentiation. Performed at: =G Performed By: #### 4 [id number] ####[facility] [address] [place] [id number]. Taran Pan HPV Genotype Reflex Comment Normal [facility] Comment on above: Result Comment: Crit van not met, HPV Genotype not performed. Performed at: WB Performed By: #### 4 [id number] ####[facility] [address] [place] [id number] Pan Methodology: Comment Normal [facility] Comment on above: Result Comment: This liquid based ThinPrep(R) pap test was screened with the use of an image guided system. Performed at: WB Performed By: #### 4 [id number] ####[facility] [address] [place] [address]Dr. Taran Pan Note: Comment Normal [facility] Comment on above: Result Comment: The Pap smear is a screening test designed to aid in the detection of premalignant and malignant conditions of the uterine cervix. It is not a diagnostic procedure and should not be used as the sole means of detecting cervical cancer. Both false-positive and false-negative reports do occur. . Performed at: WB Performed By: #### 4 [id number] ####[facility] [address] [place] [address]Dr. Taran Pan Performed by: Comment Normal [facility] Comment on above: Result Comment: Zamzam Ryan, Code Official (ASCP) Performed at: WB Performed By: #### 4 [id number] ####[facility] [address] [place] [address]DrCarol Pan Specimen adequacy: Comment Normal [facility] Comment on above: Result Comment: Sati sfactory for evaluation. Endocervical and/or squamous metaplastic cells (endocervical component) are present. Performed at: WB Performed By: #### 4 [id number] ####[facility] [address] [place] [address]Dr. Taran Pan MG MAMM DIAGNOSTIC 3D SHRUTI CA Don 04-20-2022 MG MAMM DIAGNOSTIC 3D SHRUTI CAD Patient: BOB GLORIA D. Exam Date: 04/20/2022 : 1975 Gender:F Ordering : DR JESSICA PARISI . Admission #: [id number] Family : Order #: [id number] CLICK HERE TO VIEW EXAM RADIOLOGY REPORT PROCEDURE: MAMMOGRAM DIAGNOSTIC 3D BILATERAL CAD COMPARISON: MAMMO POST BIOPSY LEFT, 10/03/2021. INDICATIONS: Abnormal findings on diagnostic imaging of breast Calculator Name NCI Breast Cancer Risk Assessment Tool 5 Year Breast Cancer Risk 1.70% Lifetime Breast Cancer Risk 12.80% Personal Breast Cancer No Personal Ovarian Cancer No Treatments None Family Cancers None LOCATION: [facility] BREAST COMPOSITION: Extremely dense, which lowers [...] Mosqueda MD on 04/20/2022 at 10:26 Normal [facility] MG MAMM DX 3D LT CADon 04-20 MG MAMM DX 3D LT CAD Patient: CRISTELA ROJAS Exam Date: 04/20/2022 : 1975 Gender:F Ordering : DR JESSICA PARISI . Admission #: [id number] Family : Order #: [id number] CLICK HERE TO VIEW EXAM RADIOLOGY REPORT PROCEDURE: MAMMOGRAM DIAGNOSTIC 3D BILATERAL CAD COMPARISON: MAMMO POST BIOPSY LEFT, 10/03/2021. INDICATIONS: Abnormal findings on diagnostic imaging of breast Calculator Name NCI Breast Cancer Risk Assessment Tool 5 Year Breast Cancer Risk 1.70% Lifetime Breast Cancer Risk 12.80% Personal Breast Cancer No Personal Ovarian Cancer No Treatments None Family Cancers None LOCATION: [facility] BREAST COMPOSITION: Extremely dense, which lowers [...] MD on 04/20/2022 at 10:[address] [facility] MAMMO POST BIOPSY LEFTon MAMMO POST BIOPSY LEFT Patient: Chelsey ROJAS Exam Date: 10/03/2021 : 1975 Gender:F Ordering : DR JESSICA PARISI . Admission #: [id number] Family : Order #: [id number] CLICK HERE TO VIEW EXAM This report [...] Keane M.D. on 10/11/2021 at 10:39 Normal [facility] US VAC ASST BX BRST LT W CLI Kyler 10-03-2021 US VAC ASST BX BRST LT W CLIP Patient: GLORIA ROJAS Exam Date: 10/03/2021 : 1975 Gender:F Ordering : DR JESSICA PARISI . Admission #: [id number] Family : Order #: [id number] CLICK HERE TO VIEW EXAM This report [...] M.D. on 10/11/2021 at 10:[address] [facility] MG MAMM DX 3D LT CADon 09-27 MG MAMM DX 3D LT CAD Patient: CRISTELA ROJAS JYOTI Newby Exam Date: 09/27/2021 : 1975 Gender:F Ordering : DR JESSICA PARISI . Admission #: [id number] Family : Order #: [id number] CLICK HERE TO VIEW EXAM RADIOLOGY REPORT [...] Treatments None Family Cancers None LOCATION: [facility] BREAST COMPOSITION: Extremely dense, which lowers [...] M.D. on 09/27/2021 at 09:[address] [facility] US BREAST LEFT LIMITEDon US BREAST LEFT LIMITED Patient: BOBChelsey Exam Date: 09/27/2021 : 1975 Gender:F Ordering : DR JESSICA PARISI . Admission #: [id number] Family : Order #: [id number] CLICK HERE TO VIEW EXAM RADIOLOGY REPORT [...] Treatments None Family Cancers None LOCATION: [facility] BREAST COMPOSITION: Extremely dense, which lowers [...] Keane M.D. on 09/27/2021 at 09:50 Normal [facility] ESTRADIOLon 09-02-2021 Estradiol 209.0 pg/mL Normal [facility] Comment on above: Result Comment: Adul t Female: Follicular phase 12.5 - 166.0 Ovulation phase 85.8 - 498.0 Luteal phase 43.8 - 211.0 Postmenopausal <6.0 - 54.7 1st trimester 215.0 - >4300.0 Jeanna ECLIA methodology Performed By: #### E LORENE #### [facility] [address] [place] [address] Dr. Taran Pan FSHon 09-02-2021 FSH 6.1 mIU/mL Normal [facility] Comment on above: Result Comment: Adul t Female: Follicular phase 3.5 - 12.5 Ovulation phase 4.7 - 21.5 Luteal phase 1.7 - 7.7 Postmenopausal 25.8 - 134.8 Performed By: #### L [facility] #### [facility] [address] [place] [address] Dr. Taran Pan CBC AUTO DIFFon 09-01-2021 BASO # 0.1 103/ul Normal 0.0-0.1 [facility] Comment on above: Performed By: #### C BC ####[facility] [address] [place] [id number]. Taran Pan Basophils/100 WBC (Bld) 1.2 % Normal 0.2-2.0 [facility] Comment on above: Performed By: #### C BC ####[facility] [address] [place] [id number]. Taran Pan EO # 0.1 103/ul Normal 0.0-0.7 [facility] Comment on above: Performed By: #### C BC ####[facility] [address] [place] [address]Dr. Taran Pan Eosinophils/100 WBC (Bld) 0.9 % Normal 0.9-7.0 [facility] Comment on above: Performed By: #### C BC ####[facility] [address] [place], [place] [address]Dr. Taran Pan Erythrocyte distribution width (RBC) [Ratio] 13.1 % Normal 11.0-15.0 [facility] Comment on above: Performed By: #### C BC ####[facility] [address] [place], [place] [address]Dr. Taran Pan Hematocrit (Bld) [Volume fraction] 42.4 % Normal 36.0-48.0 [facility] Comment on above: Performed By: #### C BC ####[facility] [address] [place], [place] [address]Dr. Taran Pan Hemoglobin (Bld) [Mass/Vol] 14.0 g/dL Normal 12.0-16.[address] [facility] Comment on above: Performed By: #### C BC ####[facility] [address] [place], [place] [address]Dr. Taran Pan IG # 0.02 10e3/ul Normal 0.00-0.[address] [facility] Comment on above: Performed By: #### C BC ####[facility] Gppe[address] [place], [place] [address]Dr. Taran Pan IG % 0.3 % Normal 0.0-0.[address] [facility] Comment on above: Performed By: #### C BC ####[facility] [address]im[address] [place], [place] [address]Dr. Taran Pan LYMPH # 1.5 103/ul Normal 1.2-3.[address] [facility] Comment on above: Performed By: #### C BC ####[facility] Toftwnoyws[address] [place], [place] [address]Dr. Taran Pan Lymphocytes/100 WBC (Bld) 26.4 % Normal 20.5-60.0 [facility] Comment on above: Performed By: #### C BC ####[facility] [address] [address]Dr. Taran Pan MANUAL DIFF REQ NO Normal [facility] Comment on above: Performed By: #### C BC ####[facility] [address] [id number]. Taran Pan MCH (RBC) [Entitic mass] 30.6 pg Normal 26.7-34.0 [facility] Comment on above: Performed By: #### C BC ####[facility] [address] [address]Dr. Taran Pan MCHC (RBC) [Mass/Vol] 33.0 g/dL Normal 29.9-35.2 [facility] Comment on above: Performed By: #### C BC ####[facility] [address] [place], [place] [address]Dr. Taran Pan MCV (RBC) [Entitic vol] 92.6 fL Normal 81.0-99.0 [facility] Comment on above: Performed By: #### C BC ####[facility] [address] [place], [place] [address]Dr. Taran Pan MONO # 0.3 103/ul Normal 0.3-0.8 [facility] Comment on above: Performed By: #### C BC ####[facility] Rig[address] [place], [place] [address]Dr. Taran Pan Monocytes/100 WBC (Bld) 5.6 % Normal 1.7-12.0 [facility] Comment on above: Performed By: #### C BC ####[facility] [address] [place], [place] [address]DrCarol Pan NEUT # 3.8 103/ul Normal 1.4-6.5 [facility] Comment on above: Performed By: #### C BC ####[facility] Boh[address] [place], [place] [address]DrCarol Pan Neutrophils/100 WBC (Bld) 65.6 % Normal 43.0-75.0 [facility] Comment on above: Performed By: #### C BC ####[facility] [address] [address]DrCarol Pan Platelet mean volume (Bld) [Entitic vol] 11.2 fL Normal 9.5-13.5 [facility] Comment on above: Performed By: #### C BC ####[facility] [address] [address]Dr. Taran Pan PLT 398 103/ul Normal 150-450 [facility] Comment on above: Performed By: #### C BC ####[facility] [address] [address]DrCarol Pan RBC 4.58 106/ul Normal 4.20-5.40 [facility] Comment on above: Performed By: #### C BC ####[facility] [address] [place] [address]DrCarol Pan WBC 5.8 103/ul Normal 4.0-11.0 [facility] Comment on above: Performed By: #### C BC ####[facility] [address] [address]Dr. Taran Pan FREE T4on 09-01-2021 Free T4 [Mass/Vol] 0.95 ng/dL Normal 0.78-2.19 [facility] Comment on above: Performed By: #### F T4 ####[facility] [address] [address]Dr. Taran Pan PROF CHEM 8 (BAS METB)on Anion gap [Moles/Vol] 11.2 mmol/L Normal [facility] Comment on above: Performed By: #### T CLIVE, BMP #### [facility] [address] [address] [address] Taran Pna Calcium [Mass/Vol] 8.5 mg/dL Normal 8.5-10.1 [facility] Comment on above: Performed By: #### T CLIVE, BMP #### [facility] [address] [address] [address] Taran Pan Chloride [Moles/Vol] 104 mmol/L Normal 98-[address] [facility] Comment on above: Performed By: #### T SH, BMP #### [facility] [address] [place] [address] Dr. Taran Pan CO2 [Moles/Vol] 28.2 mmol/L Normal 22.0-30.0 [facility] Comment on above: Performed By: #### T SH, BMP #### [facility] [address] [place] [address] Dr. Taran Pan Creatinine [Mass/Vol] 0.77 mg/dL Normal 0.52-1.[address] [facility] Comment on above: Performed By: #### T SH, BMP #### [facility] [address] [place] [address] Dr. Taran Pan EGFR-AF SAUDI ARABIAN >60 Normal >=60 [facility] Comment on above: Performed By: #### T SH, BMP #### [facility] [address] [place] [address] Dr. Taran Pan EGFR-NON AF SAUDI ARABIAN >60 Normal >=60 [facility] Comment on above: Performed By: #### T SH, BMP #### [facility] [address] [place] [address] Dr. Taran Pan Glucose [Mass/Vol] 96 mg/dL Normal 74-106 [facility] Comment on above: Performed By: #### T SH, BMP #### [facility] [address] [place] [address] Dr. Taran Pan Potassium [Moles/Vol] 4.4 mmol/L Normal 3.4-5.[address] [facility] Comment on above: Performed By: #### T SH, BMP #### [facility] [address] [place] [address] Dr. Taran Pan Sodium [Moles/Vol] 139 mmol/L Normal 137-145 [facility] Comment on above: Performed By: #### T SH, BMP #### [facility] [address] [place] [address] Dr. Taran Pan Urea nitrogen [Mass/Vol] 12.0 mg/dL Normal 7.0-18.0 [facility] Comment on above: Performed By: #### T SH, BMP #### [facility] [address] [place] [address] Dr. Taran Pan Urea nitrogen/Creatinine [Mass ratio] 15.6 mg/mg Normal [facility] Comment on above: Performed By: #### T SH, BMP #### [facility] [address] [place] [address] Dr. Taran Pan TSHon 09-01-2021 TSH 2.163 uIU/mL Normal 0.470-4.680 [facility] Comment on above: Performed By: #### T SH, BMP #### [facility] [address] [place] [address] Dr. Taran Pan TSH RANGE SEE BELOW Normal [facility] Comment on above: Result Comment: <0.3 4 UIU/ml HYPERTHYROID 0.34-5.60 UIU/ml EUTHYROID >5.60 UIU/ml HYPOTHYROID Performed By: #### T SH, BMP #### [facility] [address] [place] [address] Dr. Taran Pan Vital Signs Date Time Vital Sign Value Performing Clinician Facility 09-16-2024 15:50-0400 Body mass index (BMI) [Ratio] 30.7 kg/m2 [employer] Work Phone: [facility] 09-16-2024 15:50-0400 Body weight 83.69 kg [employer] Work Phone: [facility] 09-16-2024 15:50-0400 Diastolic blood pressure 84 mm[Hg] [employer] Work Phone: [facility] 09-16-2024 15:50-0400 Systolic blood pressure 126 mm[Hg] [employer] Work Phone: [facility] 03-16-2024 15:44-0400 Body height 167.64 cm [facility] 03-16-2024 15:44-0400 Body mass index (BMI) [Ratio] 28.3 kg/m2 [facility] 03-16-2024 15:44-0400 Body weight 79.54 kg [facility] 03-16-2024 15:44-0400 Diastolic blood pressure 70 mm[Hg] [facility] 03-16-2024 15:44-0400 Heart rate 86 /min [facility] 03-16-2024 15:44-0400 Respiratory rate 16 /min [facility] 03-16-2024 15:44-0400 SaO2% (BldA) [Mass fraction] 98 % [facility] 03-16-2024 15:44-0400 Systolic blood pressure 102 mm[Hg] [facility] 02-07-2024 10:090400 Body height 167.64 cm [facility] 02-07-2024 10:09-0400 Body mass index (BMI) [Ratio] 29.3 kg/m2 [facility] 02-07-2024 10:09-0400 Body weight 82.55 kg [facility] 02-07-2024 10:09-0400 Diastolic blood pressure 78 mm[Hg] [facility] 02-07-2024 10:09-0400 Heart rate 59 /min [facility] 02-07-2024 10:09-0400 Systolic blood pressure 124 mm[Hg] [facility] 01-31-2024 10:13-0400 Body height 167.6 cm Estrellita Jacob APRN.[employer]ISH[employer]PERVIS[employer] Work Phone: [facility] 01-31-2024 10:13-0400 Body mass index (BMI) [Ratio] 27.44 kg/m2 Estrellita Jacob OTORHINOLARYNGOLOGIST.[employer]ELT FINISHING SUPERVISOR Work Phone: [facility] 01-31-2024 10:13-0400 Body weight 77.11 kg Estrellita Jacob OTORHINOLARYNGOLOGIST.FELT FINISHING SUPERVISOR Work Phone: [facility] 01-31-2024 10:13-0400 Diastolic blood pressure 86 mm[Hg] Estrellita Jacob OTORHINOLARYNGOLOGIST.FELT FINISHING SUPERVISOR Work Phone: [facility] 01-31-2024 10:13-0400 Heart rate 64 /min Estrellita Jacob OTORHINOLARYNGOLOGIST.FELT FINISHING SUPERVISOR Work Phone: [facility] 01-31-2024 10:13-0400 Systolic blood pressure 131 mm[Hg] Estrellita Jacob OTORHINOLARYNGOLOGIST.[employer]ELT FINISHING SUPERVISOR Work Phone: [facility] 09-13-2023 14:00-0400 Diastolic blood pressure 52 mm[Hg] Marcello Villarreal MD Work Phone: [facility] 09-13-2023 14:00-0400 Heart rate 66 /min Marcello Villarreal MD Work Phone: [facility] 09-13-2023 14:00-0400 Respiratory rate 16 /min Marcello Villarreal MD Work Phone: [facility] 09-13-2023 14:00-0400 SaO2% (BldA) [Mass fraction] 99 % Marcello Villarreal MD Work Phone: [facility] 09-13-2023 14:00-0400 Systolic blood pressure 95 mm[Hg] Marcello Villarreal MD Work Phone: [facility] 09-13-2023 12:50-0400 Body height 167.6 cm Marcello Villarreal MD Work Phone: [facility] 09-13-2023 12:50-0400 Body mass index (BMI) [Ratio] 26.95 kg/m2 Marcello Villarreal MD Work Phone: [facility] 09-13-2023 12:50-0400 Body temperature 98.29 [degF] Marcello Villarreal MD Work Phone: [facility] 09-13-2023 12:50-0400 Body weight 75.75 kg Marcello Villarreal MD Work Phone: [facility] 08-30-2023 10:23-0400 Body height 167.6 cm Estrellita Jacob OTORHINOLARYNGOLOGIST.FELT FINISHING SUPERVISOR Work Phone: [facility] 08-30-2023 10:23-0400 Body temperature 98.1 [degF] Estrellita Segoviaslime OTORHINOLARYNGOLOGIST.FELT FINISHING SUPERVISOR Work Phone: [facility] 08-30-2023 10:23-0400 Body weight 77.56 kg Estrellita Segoviaslime OTORHINOLARYNGOLOGIST.FELT FINISHING SUPERVISOR Work Phone: [facility] 08-30-2023 10:23-0400 Diastolic blood pressure 80 mm[Hg] Estrellitasatnam Segoviaslime OTORHINOLARYNGOLOGIST.FELT FINISHING SUPERVISOR Work Phone: [facility] 08-30-2023 10:23-0400 Heart rate 66 /min Estrellita Segoviaslime OTORHINOLARYNGOLOGIST.FELT FINISHING SUPERVISOR Work Phone: [facility] 08-30-2023 10:23-0400 Systolic blood pressure 122 mm[Hg] Estrellitasatnam Segoviaslime OTORHINOLARYNGOLOGIST.FELT FINISHING SUPERVISOR Work Phone: [facility] 08-21-2023 09:24-0400 Body height 167.64 cm [facility] 08-21-2023 09:24-0400 Body mass index (BMI) [Ratio] 27.6 kg/m2 [facility] 08-21-2023 09:24-0400 Body weight 77.62 kg [facility] 08-21-2023 09:24-0400 Diastolic blood pressure 79 mm[Hg] [facility] 08-21-2023 09:24-0400 Heart rate 76 /min [facility] 08-21-2023 09:24-0400 Systolic blood pressure 127 mm[Hg] [facility] Encounters Encounter Date Encounter Type Care Provider Facility Start: 09-16-2024 End: 09-16-2024 Patient encounter procedure Jessica Ailin DO Work Phone: [facility] Start: 09-16-2024 End: 09-16-2024 Periodic preventive med est patient 40-64yrs Jessica Ailin DO Work Phone: [facility] Comment on above: Well woman exam with routine gynecological exam; Encounter for screening mammogram for malignant neoplasm of breast Start: 09-16-2024 End: 09-16-2024 Bamboo flowsheet Jessica Ailin DO Work Phone: [facility] Start: 09-16-2024 End: 09-16-2024 Bamboo flowsheet Jessica Ailin DO Work Phone: [facility] Start: 03-16-2024 End: 03-16-2024 ambulatory [facility] Work Phone: Start: 03-16-2024 End: 03-16-2024 Patient encounter procedure [facility] Work Phone: Start: 02-07-2024 End: 02-07-2024 ambulatory [facility] Work Phone: Start: 02-07-2024 End: 02-07-2024 Patient encounter procedure [facility] Work Phone: Start: 01-31-2024 End: 01-31-2024 Patient encounter procedure Estrellita Jacob APRN.FELT FINISHING SUPERVISOR Work Phone: [facility] Comment on above: Loose stools (Primar y Dx); Abdominal cramping; Epigastric pain Start: 09-19-2023 End: 09-19-2023 ambulatory KIM SHEPHERD Facility:[facility] Start: 09-19-2023 Telephone encounter Estrellita jaffe APRN.FELT FINISHING SUPERVISOR Work Phone: [facility] Start: 09-13-2023 End: 09-13-2023 Subsequent hospital visit by physician Marcello Lemus MD Work Phone: [facility] Comment on above: Epigastric pain [R10 .13] Start: 08-30-2023 End: 08-30-2023 Patient encounter procedure Estrellita Jacob APRN.FELT FINISHING SUPERVISOR Work Phone: [facility] Comment on above: Epigastric pain (Jaimee sofia Dx); Screening for malignant neoplasm of colon; Diarrhea, unspecified type Start: 08-21-2023 End: 08-21-2023 ambulatory [facility] Work Phone: Start: 08-21-2023 End: 08-21-2023 Patient encounter procedure [facility] Work Phone: Start: 08-16-2023 Non-patient / Non-visit [facility] Work Phone: Start: 08-07-2023 End: 08-07-2023 ambulatory JESSICA PARISI Not Available Start: 08-07-2023 Non-patient / Non-visit [facility] Work Phone: Start: [...] Start: 06-08-2013 Patient encounter status Estrellita Jacob APRN.FELT FINISHING SUPERVISOR Work Phone: [facility] Work Phone: Procedures Date Procedure Procedure Detail Performing Clinician Start: 05-15-2024 Mammography Jessica Parisi DO Work Phone: Start: 09-13-2023 Colonoscopy flx dx w/collj spec when pfrmd Estrellita Jacob APRN.FELT FINISHING SUPERVISOR Work Phone: Start: 09-13-2023 Esophagogastroduodenoscopy transoral diagnostic Estrellita Jacob APRN.FELT FINISHING SUPERVISOR Work Phone: Start: 09-13-2023 Colonoscopy Estrellita Jacob APRN.FELT FINISHING SUPERVISOR Work Phone: Start: 08-16-2023 Salmonella/Shigella Screen Start: 08-07-2023 Microscopic observation [Identifier] in Cervix by Cyto stain Jessica Parisi DO Work Phone: Start: 05-10-2023 Mammography Jessica Parisi DO Work Phone: Start: 06-10-2015 Lipid 1996 panel - Serum or Plasma Shu e Lucaory OTORHINOLARYNGOLOGIST.FELT FINISHING SUPERVISOR Work Phone: Plan of Treatment Date Care Activity Detail Author Start: 09-12-2033 Screening for malignant neoplasm of colon [facility] Start: 08-06-2028 Screening for malignant neoplasm of cervix [facility] Start: 09-27-2025 End: 09-27-2025 Patient encounter procedure 09/27/2025 4:00 PM EDT [facility] Visit [facility] [address] [place] [id number] Jessica Parisi, DO [facility] [place] [address] [facility] Start: 05-15-2025 Screening for malignant neoplasm of breast Mammogram [facility] Start: 09-16-2024 End: 09-16-2024 Patient encounter procedure 09/16/2024 3:40 PM EDT Office Visit [facility] [address] [place] [id number] Jessica Parisi, DO [address] [place] [address] Arrived [facility] Comment on above: Arrived Start: 09-16-2024 End: 11-16-2025 MG Breast - bilateral Screening Bilateral screening mammogram Imaging Routine Encounter for screening mammogram for malignant neoplasm of breast Expected: 09/16/2024 (Approximate), Expires: 11/16/2025 [facility] Work Phone: Comment on above: Expected: 09/16/2024 (Approximate), Expires: 11/16/2025 Start: 09-12-2024 Screening for malignant neoplasm of colon [facility] Start: 05-10-2024 Screening for malignant neoplasm of breast Mammogram [facility] Start: 02-02-2024 Covid-19 Vaccine () Covid-19 Vaccine () [facility] Start: 02-02-2024 Influenza vaccination Influenza Vacc ine (#1) [facility] Start: 08-21-2023 Patient referral [facility] Work Phone: Start: 08-07-2023 End: 08-07-2023 Patient encounter procedure 08/07/2023 4:00 PM EST Office Visit [facility] [address] [place] [place] [address] Jessica Parisi, DO [address] [place] [address] [facility] Start: 07-03-2023 Screening for malignant neoplasm of breast Mammogram Screening [facility] Start: 06-03-2023 Behavioral Health Screening Behavioral Health Screening [facility] Start: 06-03-2023 Depression Assessment Depression Ass essment [facility] Start: 02-01-2023 Covid-19 Vaccine () Covid-19 Vaccine () [facility] Start: 06-10-2020 Lipid panel Lipid Screening [facility] Start: 02-06-2020 Diabetes Screening Diabetes Screenin g [facility] Start: 02-06-2020 Screening for malignant neoplasm of colon [facility] Start: 2005 Screening for malignant neoplasm of cervix [facility] Start: 02-06-1996 Screening for malignant neoplasm of cervix [facility] Start: 1994 Hepatitis B Vaccine (1 of 3 - 19+ 3-dose series) Hepatitis B Vaccine (1 of 3 - 19+ 3-dose series) [facility] Start: 1994 Urine microalbumin profile DTaP,Tdap,Td Vaccine (1 - Tdap) [facility] Start: 1993 Anxiety Screening Anxiety Screening [facility] Start: 1993 Depression Screening Depression Scre ening [facility] Start: 1993 Hepatitis C screening Hepatitis C Sc reening [facility] Start: 1975 Screening for malignant neoplasm of colon [facility] End: 08-29-2024 EGD DIAGNOSTIC EGD DIAGNOSTIC Endoscopy Routine Epigastric pain 1 Occurrences starting 08/30/2023 until 08/29/2024 [facility] Work Phone: Comment on above: 1 Occurrences starti ng 08/30/2023 until 08/29/2024 Patient referral [facility] Work Phone: End: 08-29-2024 Screening colonoscopy COLONOSCOPY SCREENING Endoscopy Routine Screening for malignant neoplasm of colon 1 Occurrences starting 08/30/2023 until 08/29/2024 [facility] Work Phone: Comment on above: 1 Occurrences starti ng 08/30/2023 until 08/29/2024 THIN PREP TIS PAP AN D HR HPV DNA THIN PREP TIS PAP AND HR HPV DNA Pathology and Cytology Routine Well woman exam with routine gynecological exam Ordered: 09/16/2024 [facility] Comment on above: Ordered: 09/16/2024 End: 09-28-2024 US Abdomen RUQ US ABD RIGHT UPPER QUADRANT Radiology Routine Epigastric pain 1 Occurrences starting 08/30/2023 until 09/28/2024 [facility] Work Phone: Comment on above: 1 Occurrences starti ng 08/30/2023 until 09/28/2024 [facility] Immunizations Immunization Date Immunization Notes Care Provider [facility] 03-12-2023 influenza virus vacc ine, unspecified formulation Estrellita Zambory OTORHINOLARYNGOLOGIST.FELT FINISHING SUPERVISOR Work Phone: [facility] 03-26-2022 influenza virus vacc ine, unspecified formulation Estrellita Zambory OTORHINOLARYNGOLOGIST.FELT FINISHING SUPERVISOR Work Phone: [facility] 03-06-2021 influenza virus vacc ine, unspecified formulation Estrellita Zambory OTORHINOLARYNGOLOGIST.FELT FINISHING SUPERVISOR Work Phone: [facility] 04-11-2018 influenza virus vacc ine, unspecified formulation Estrellita Zambory OTORHINOLARYNGOLOGIST.FELT FINISHING SUPERVISOR Work Phone: [facility] 04-03-2017 influenza virus vacc ine, unspecified formulation Estrellita Jacob OTORHINOLARYNGOLOGIST.FELT FINISHING SUPERVISOR Work Phone: [facility] 03-08-2016 influenza virus vacc ine, unspecified formulation Estrellita Jacob OTORHINOLARYNGOLOGIST.FELT FINISHING SUPERVISOR Work Phone: [facility] 03-09-2015 influenza virus vacc ine, unspecified formulation Estrellita Jacob OTORHINOLARYNGOLOGIST.FELT FINISHING SUPERVISOR Work Phone: [facility] Payers Date Payer Category Payer Managed Care HMO (unspecified) [id number] 2021 Private Health Insurance [id number] 2021 Private Health Insurance EHP AET NA EHP PLUS STAFF/NON STAFF / EHP Plus [facility] [id number] 2021-[facility] [phone] [address] [place] [address] PPO [id number] 1975 Unknown [id number] 1975 Unknown [id number] 1975 Unknown [id number] 1975 Unknown [id number] 1975 Unknown [id number] 1975 Unknown [id number] 1959 Private Health Insurance [id number] Social History Date Type Detail Facility Start: 07-15-2023 End: 08-21-2023 Tobacco smoking status NHIS Never smoked tobacco [facility] Start: 07-15-2023 End: 01-31-2024 Tobacco use and exposure Smokeless tobacco non-user [facility] Start: 07-15-2023 End: 08-30-2023 Alcohol intake Lifetime non-drinker (finding) [facility] Start: 1975 Sex Assigned At Not on file [facility] Start: 07-15-2023 End: 08-30-2023 Gender identity Not on file [facility] Start: 1975 Sex Assigned At Female [facility] Start: 07-15-2023 End: 08-30-2023 History of Social function [facility] National Score (1-10 0), lower number is lower risk 67 [facility] Start: 06-05-2021 Gender identity Identifies as female gender (finding) [facility] [facility] Start: 06-05-2021 Sexual orientation Heterosexual (finding) [facility] Clinical Notes 08-30-2023 to 09-16-2024 Brooke Alvarenga, KYAW - 09/16/2024 3:40 PM Estrellita Chakraborty APRN.MARYANNE - 01/31/2024 10:00 AM EDTTelephone Encounter - Sofia Wolfe LPN - 09/19/2023 12:11 PM EDT Note Date & Type Note Facility 09-16-2024 History of Presen t illness Narrative Reason for Appointment: Patient ID: Gloria Rojas is a 49 y.o. female who presents for Well Women Visit Patient presents today for Annual Exam. MEDICATIONS Current Outpatient Medications Medication Instructions Levonorgestrel (Mirena, 52 MG,) 20 MCG/DAY intrauterine device as directed Intrauterine Multiple Vitamin (Multivitamin Adult) tablet Oral ALLERGIES No Known Allergies PROBLEMS Active Ambulatory Problems Diagnosis Date Noted No Active Ambulatory Problems Resolved Ambulatory Problems Diagnosis Date Noted No Resolved Ambulatory Problems Past Medical History: Diagnosis Date Abnormal weight gain Anxiety and depression (CMS/HCC) Breast cyst, left Fatigue Insomnia IUD (intrauterine device) in place Migraines (CMS/HCC) Thyroid disease (CMS/HCC) HISTORY PAST MEDICAL HISTORY SOCIAL HISTORY Past Medical History: Diagnosis Date Abnormal weight gain Anxiety and depression (CMS/HCC) Breast cyst, left Fatigue Insomnia IUD (intrauterine device) in place Migraines (CMS/HCC) Thyroid disease (CMS/HCC) Social History Tobacco Use Smoking status: Never Smokeless tobacco: Never Substance Use Topics Alcohol use: Never Drug use: Never FAMILY HISTORY Family History Problem Relation Name Age of Onset Other (Hearing disorder) Other Other (Thyroid disorder) Other Diabetes Other Coronary artery disease Other SURGICAL HISTORY Past Surgical History: Procedure Laterality Date TONSILECTOMY, ADENOIDECTOMY, BILATERAL MYRINGOTOMY AND TUBES age 5-6 REVIEW OF SYSTEMS Review of Systems: Review of Systems Constitutional: Negative. HENT: Negative. Eyes: Negative. Respiratory: Negative. Cardiovascular: Negative. Gastrointestinal: Negative. Genitourinary: Negative. Musculoskeletal: Negative. Skin: Negative. Neurological: Negative. All other systems reviewed and are negative. Hematological: Negative. Endocrine: Negative. Allergic/Immunologic: Negative. OBJECTIVE Objective: Physical Exam Constitutional: Appearance: Normal appearance. She is well-developed. Genitourinary: Vulva normal. Breasts: Breasts are soft. Right: Normal. Left: Normal. Cardiovascular: Rate and Rhythm: Normal rate and regular rhythm. Pulmonary: Effort: Pulmonary effort is normal. Breath sounds: Normal breath sounds. Abdominal: General: Bowel sounds are normal. There is no distension. Palpations: Abdomen is soft. Tenderness: There is no abdominal tenderness. There is no guarding or rebound. Musculoskeletal: General: No swelling. Normal range of motion. Right lower leg: No edema. Left lower leg: No edema. Neurological: Mental Status: She is alert and oriented to person, place, and time. Skin: General: Skin is warm and dry. Psychiatric: Mood and Affect: Mood normal. Behavior: Behavior normal. Vitals and nursing note reviewed. Exam conducted with a blood splatter analyst present. Vitals: Estimated body mass index is 30.7 kg/m as calculated from the following: Height as of 09/26/22: 5' 5 . Weight as of this encounter: 184 lb 8 oz. BP: 126/84 No LMP recorded (lmp unknown). Patient has had an implant. ASSESSMENT & PLAN ICD-10-CM 1. Well woman exam with routine gynecological exam Z01.419 THIN PREP TIS PAP AND HR HPV DNA 2. Encounter for screening mammogram for malignant neoplasm of breast Z12.31 Bilateral screening mammogram Bilateral screening mammogram Annual: Patient presents today for an annual exam. Patient states she is doing well and has no complaints. Pap was obtained without difficulty and patient given mammogram order to have scheduled/obtained. Pt to have IUD removed and one reinserted. Orders Placed This Encounter Procedures Bilateral screening mammogram Follow Up: Patient is to return in one year for annual unless needed otherwise. Documented by Brooke Alvarenga LPN on behalf of: Jessica Parisi DO documented in this encounter [facility] 01-31-2024 History of Presen t illness Narrative [...] stable. Prior OV: August 30, 2023: Gloria Rojas is a 48 year old female who presents today for diarrhea, f/u [facility]. Pleasant 48-year-old female who presents today [...] endoscopic evaluation. 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 Her is a mclaughlin, [employer]. HISTORIES ACTIVE PROBLEM LIST Preventative Health Care [place] (Advanced Maternal Age) Multigravida 35+ History of [...] normal. Behavior: Behavior normal. CELIAC SCREEN Order: [id number] - Part of Panel Order [id number] Status: Final result Visible to patient: Yes (seen) Dx: Diarrhea, unspecified type 0 Result Notes Component Ref Range & Units 4 mo ago Transglutaminase IgA Abs <4 U/mL <2 Transglutaminase IgA Abs Interpretation Negative Negative Comment: The following results were obtained with [employer] QUANTA Lite R h-tTG IgA VINCE. R [...] 20 mg by mouth daily. Estrellita Jacob APRN.MARYANNE [facility] [address] [place] [address] [address] [place] [address] Department: [phone] This note was generated with voice recognition software and may contain errors, including spelling, grammar, syntax and misrecognition of what was dictated, that are not fully corrected. documented in this encounter [facility] 09-19-2023 Miscellaneous Notes Summary: Biopsy Results EXTERNAL LAB (Order [id number]) Patient Info Patient Name Sex Gloria Maldonado ([id number]) Female 1975 Scanned Documents View External Labs - Pathology [ID [id number]] documented in this encounter [facility] 09-13-2023 Note [facility] Patient Name: Gloria Newby Procedure Date: 09/13/2023 1:38 PM Date of : 1975 Age: 48 Gender: Female Race: Unknown Attending MD: Marcello Lemus MD, [id number] Procedure: Colonoscopy Referring MD: KIM SHEPHERD MD [...] immediate complications. Procedure Code(s): --- Professional --- 13417, Colonoscopy, flexible; with biopsy, single or multiple Diagnosis Code(s): --- Professional --- Z12.11, Encounter for screening for malignant neoplasm of colon CPT copyright 2020 [employer]. All rights reserved. The codes documented in this report are preliminary and upon computerized machine fabric cutter review may be revised to meet current compliance requirements. Marcello Lemus MD 09/13/2023 1:54:04 PM This report has been signed electron (more content not included)... [facility] 09-13-2023 Note [facility] Patient Name: Gloria Newby Procedure Date: 09/13/2023 1:16 PM Date of : 1975 Age: 48 Gender: Female Race: Unknown Attending MD: Marcello Lemus MD, [id number] Procedure: Upper GI endoscopy Referring MD: KIM [...] by the physician, the nurse and the primer charger in the pre-procedure area in the endoscopy [...] included)... [facility] 09-13-2023 History and physical note [facility] [address] [place] [address] September Bob is a 48 year old female who presents today for diarrhea, f/u [facility]. Pleasant 48-year-old female who presents today [...] endoscopic evaluation. 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 Her is a mclaughlin, [employer]. UPDATED HISTORY AND PHYSICAL EXAMINATION SERVICE DATE: [...] TIME: 1:24 PM PAGER: Marcello Lemus MD [facility] gut snatcher,[facility] Clinical peoplesoft business analyst, [facility] Work Phone: 09-13-2023 History and physical note [facility] [address] [place] [address] Gloria Rojas is a 48 year old female who presents today for diarrhea, f/u [facility]. Pleasant 48-year-old female who presents today [...] endoscopic evaluation. 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 Her is a mclaughlin, [employer]. UPDATED HISTORY AND PHYSICAL EXAMINATION SERVICE DATE: [...] TIME: 1:24 PM PAGER: Marcello Lemus MD [facility] gut snatcher,[facility] Clinical peoplesoft business analyst, [facility] documented in this encounter [facility] 08-30-2023 History of Presen t illness Narrative Images from the original note were not included. Gloria Rojas is a 48 year old female who presents today for diarrhea, f/u [facility]. Pleasant 48-year-old female who presents today [...] endoscopic evaluation. 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 Her is a mclaughlin, [employer]. HISTORIES FAMILY HISTORY Problem Relation Age of [...] symptoms regress. Colonoscopy as above. Estrellita Jacob APRN.[facility] [address] [place] [address], [address] [place] [address] Department: [phone] This note was generated with voice recognition software and may contain errors, including spelling, grammar, syntax and misrecognition of what was dictated, that are not fully corrected. documented in this encounter [facility] Evaluation note Diagnosis Onset Date Diarrhea acute Screening for colon [facility] Work Phone: Evaluation note* Diagnosis Epigastric pain- Primary Abdominal pain, epigastric Screening for malignant neoplasm of colon Diarrhea, unspecified type documented in this encounter [facility] Diagnosis Loose stools- Primary Abnormal feces Abdominal cramping Abdominal pain, unspecified site Epigastric pain Abdominal pain, epigastric documented in this encounter [facility] Diagnosis Onset Date Resolution Status Overweight with body mass in dex (BMI) of 29 to 29.9 in adult acute [facility] Work Phone: Evaluation note* Diagnosis Epigastric pain Abdominal pain, epigastric Screening for malignant neoplasm of colon documented in this encounter [facility] Diagnosis Onset Date Resolution Status Overweight with body mass in dex (BMI) of 29 to 29.9 in adult acute Overweight with body mass in dex (BMI) of 28 to 28.9 in adult acute [facility] Work Phone: Evaluation note* Diagnosis Well woman exam with routine gynecological exam Routine gynecological examination Encounter for screening mammogram for malignant neoplasm of breast [facility] Orders* Referral to Gastroenterology Time Frame: 08/21/23, Location: None [facility] Work Phone: Reason for referral (narrative)* Diagnostic Procedure Only (Routine) - Authorized Specialty Diagnoses / Procedures Referred By María t Referred To Contact [facility] Diagnoses Epigastric pain Procedures US ABD RIGHT UPPER QUADRANT US ABDOMINAL REAL TIME W/IMAGE LIMITED Estrellita Jaocb APRN.CNP [address] [place] [address] [address] [place] [address] [place] [address] Referral ID Status Reason Start Date Expiration Date Visits Requested Visits Authorized [id number] Authorized Auto-Generat ed Referral 08/30/2023 09/28/2024 1 1 * Outpatient Procedure (Routine) - Authorized Specialty Diagnoses / Procedures Referred By Contac t Referred To Contact [facility] Diagnoses Screening for malignant neoplasm of colon Procedures COLONOSCOPY SCREENING COLONOSCOPY FLX DX W/COLLJ SPEC WHEN PFRMEstrellita Mata APRN.FELT FINISHING SUPERVISOR [address] [facility] [address] [place] [id number] [facility] Disease [address] [address] Referral ID Status Reason Start Date Expiration Date Visits Requested Visits Authorized [id number] Authorized Auto-Generat ed Referral 08/30/2023 08/29/2024 1 1 * Outpatient Procedure (Routine) - Authorized Specialty Diagnoses / Procedures Referred By Contac t Referred To Contact [facility] Diagnoses Epigastric pain Procedures EGD DIAGNOSTIC ESOPHAGOGASTRODUODENOSC OPY TRANSORAL DIAGNOSTIC Estrellita Jacob APRN.FELT FINISHING SUPERVISOR [address] [facility] [address] [place] [address] [address] Referral ID Status Reason Start Date Expiration Date Visits Requested Visits Authorized [id number] Authorized Auto-Generat ed Referral 08/30/2023 08/29/2024 1 1 [facility] for referral (narrative)* Outpatient Procedure (Routine) - Closed Specialty Diagnoses / Procedures Referred By Contac t Referred To Contact [facility] Diagnoses Screening for malignant neoplasm of colon Procedures COLONOSCOPY SCREENING COLONOSCOPY FLX DX W/COLLJ SPEC WHEN Estrellita Lewis APRN.FELT FINISHING SUPERVISOR [address] [facility] [address] [place] [address] [facility] Disease [place] [address] [place] [address] Referral ID Status Reason Start Date Expiration Date V isits Requested Visits Authorized [id number] Closed Auto-Generate d Referral 08/30/2023 08/29/2024 1 1 * Outpatient Procedure (Routine) - Closed Specialty Diagnoses / Procedures Referred By María giang Referred To Contact [facility] Diagnoses Epigastric pain Procedures EGD DIAGNOSTIC ESOPHAGOGASTRODUODENOSC OPY TRANSORAL DIAGNOSTIC Estrellita Jacob APRN.CNP [address] [place] [address] [facility] [address] [address] Referral ID Status Reason Start Date Expiration Date V isits Requested Visits Authorized [id number] Closed Auto-Generate d Referral 08/30/2023 08/29/2024 1 1 [facility] N[facility]* Outpatient Procedure (Routine) - Closed Specialty Diagnoses / Procedures Referred By María giang Referred To Contact [facility] Diagnoses Screening for malignant neoplasm of colon Procedures COLONOSCOPY SCREENING COLONOSCOPY FLX DX W/COLLJ SPEC WHEN PFRMD Estrellita Jacob APRN.FELT FINISHING SUPERVISOR [address] [facility] [address] [place] [address] [address] Referral ID Status Reason Start Date Expiration Date V isits Requested Visits Authorized [id number] Closed Auto-Generate d Referral 08/30/2023 08/29/2024 1 1 [facility] Summary Purpose Family History No Family History Records FoundNo Family History Records FoundNo Family History Records Found Advance Directives Advance Directive Response Recorded Date/ Time Advance Directives No August 20 9:11am Chief Complaint and Reason for Visit Chief Complaint ER Follow Up-[facility] Reason for Visit Diarrhea Screening for [...] and content) DATE CREATED AUTHOR 07/10/2022 [facility] DATE CREATED AUTHOR AUTHOR'S ORGANIZ ATION 08/08/2023 [facility] EPIC DATE CREATED AUTHOR AUTHOR'S ORGANIZ ATION 09/21/2023 [facility] Care Teams (unrecognized sec tion and content) Team Status: Active Member Role Status Dates Kim Shepherd MD Primary Care Provider Active Team Status: Inactive Member Role Status Dates Kim Shepherd MD Primary Care Provide r, Attending Provider Active Start: February 07, 2024 End: February 07, 2024 Shop Steward Relationship Specialty Start Date End Date Kim Shepherd MD [address] [place] [phone] PCP - General Family Medicine 04/03/23 Team [...] August 21, 2023 End: August 21, 2023 Shop Steward Relationship Specialty Start Date End Date Kim Shepherd MD [address] [place] [phone] PCP - General Family Medicine 03/23/14 Shop Steward Relationship Specialty Start Date End Date Kim Shepherd MD [address] [place] [address] PCP - General Family Medicine 03/23/14 Shop Steward Relationship Specialty Start Date End Date Kim Shepherd MD [address] [place] [phone] PCP - General Family Medicine 03/23/14 Shop Steward Relationship Specialty Start Date End Date Kim Shepherd MD [address] [place] [facility] [place] [place] [phone] PCP - General Family Medicine 03/23/14 Team Status: Inactive Member Role Status Dates Kim Shepherd MD Primary Care Provide r, Attending Provider Active Start: March 16, 2024 End: March 16, 2024 Shop Steward Relationship Specialty Start Date End Date Kim Shepherd MD [address] [place] [phone] PCP - General Family Medicine 04/03/23 Shop Steward Relationship Specialty Start Date End Date Kim Shepherd MD [address] [place] [facility] [place] [phone] PCP - General Family Medicine 04/03/23 Goals (unrecognized section and content) Goals may [...] or prosecute any alcohol or drug abuse patient.[facility] the event this information is protected by the Federal Confidentiality of Alcohol and Drug Abuse Patient Records regulations: The Federal rules restrict any use of the information to criminally investigate or prosecute any alcohol or drug abuse patient.[facility] the event this information is protected by the Federal Confidentiality of Alcohol and Drug Abuse Patient Records regulations: The Federal rules restrict any use of the information to criminally investigate or prosecute any alcohol or drug abuse patient.[facility] the event this information is protected by the Federal Confidentiality of Alcohol and Drug Abuse Patient Records regulations: The Federal rules restrict any use of the information to criminally investigate or prosecute any alcohol or drug abuse patient.[facility] Reason for Visit (unrecogniz ed section and content) Reason Comments [facility] f/u Reason Comments Follow Up Follow up visit Reason Comments Well Women Visit FOR RECORDS PERTAINING TO PATIENTS WHO ARE [...] BE BASED ON THE PRIMARY CLINICAL RECORDS. [facility]. provides no warranty or guarantee of the accuracy or completeness of information in this document.
[2024-09-21 12:08] LABS: Age Gdln ACOG Testing Note (.); HPV Aptima Negative (Negative); IGP, Aptima HPV, rfx 16/18,45 Note (.)
== END 2024-09-16 20:17 | disposition home or self-care (01) ==
LOC: LAB 20:16
PROVIDERS: PCP Family Medicine; Visit Provider Obstetrics & Gynecology
DX: Z01.419 Encounter for gynecological examination (general) (routine) without abnormal findings (principal)
CPT/HCPCS: 87624; 88175

== ENCOUNTER 2025-02-24 06:48 | Emergency (ER) | payer OTHER, SELFPAY ==
[2025-02-24] VITALS (14 sets, daily range): BP systolic 101–131; BP diastolic 64–79; PULSE 68–94; TEMP 36.8; O2SAT 85–100; BMI 25.8
--- NOTE | 2025-02-24 06:56 | ECG_ITS ---
[facility] Test Date: 2025-02-24 Pat Name: JESSENIA JIMENEZ Department: Room: - Gender: Female Product Technician: : 1975 Requested By: [id number] Order Number: [id number] Reading MD: BIA MERRILL M.D. Measurements Intervals [place] Rate: 77 P: 47 MD: 200 QRS: 72 QRSD: 82 T: 90 QT: 390 QTc: 422 Interpretive Statements 1100 Sinus rhythm 0102 ARTIFACT PRESENT, precludes accurate interpretation 9110 normal ECG No previous ECG available for comparison Electronically Signed On 02-24-2025 18:00:04 EDT by BIA MERRILL M.D.
--- NOTE | 2025-02-24 06:58 | ED.GENADUL1 ---
HPI HPI - General Adult General Chief complaint: Altered Mental Status Stated complaint: CVA SYMPTOMS Time Seen by Provider: 02/24/25 06:56 History of Present Illness HPI narrative: This 50-year-old female was brought to emergency department by her . The patient woke up this morning and was getting ready for work and was in the bathroom when her daughter alerted her that the patient needed help in the bathroom. He went into the bathroom and the patient's hands were spasming. She was able to walk down the stairs and get into the car. On the way to the hospital she started hyperventilating with carpal spasm and some degree of pedal spasm. He was concerned that she was having a stroke. Upon arrival she was taken to room 5 immediately and evaluated. She is awake alert oriented, hyperventilating, her speech is clear, cognition is intact, vision is grossly intact, laundromat manager strength is intact despite her carpal spasm, pushing pills of the lower extremity are intact, she is able to hold her hands up against gravity with a negative pronator drift. Related Data Allergies Allergy/AdvReac Type Severity Reaction Status Date / Time No Known Drug Allergies Allergy Verified 02/24/25 07:00 Opioid HPI Opioid Management Most Recent Opioid Data: Last Pain Scale 4 08/16/23, 23:30 Review of Systems ROS Status of ROS 10 or more systems reviewed and unremarkable except as noted in history and below Medical Decision Making MDM Narrative Medical decision making narrative: Vital signs and Nursing Notes reviewed: General: Awake, alert, anxious adult female with carpal and pedal spasm, no respiratory distress, GCS 15 HEENT: Normocephalic atraumatic, mucous membranes are moist and pink, eyes are clear, normal conjunctiva, vision is grossly intact, posterior pharynx is normal in appearance. No facial droop noted Neck: Supple, no meningeal signs, no anterior or posterior cervical lymphadenopathy Chest: Lungs are clear to auscultation with good air entry, there is no wheezing rhonchi or rales appreciated no accessory muscle use, patient is speaking in complete sentences-no chest wall tenderness to palpation CVS: Regular rate and rhythm S1-S2, no murmurs rubs or gallops, pulses are brisk and equal bilaterally ABD: Soft, nondistended, nontender, no rebound guarding or rigidity, bowel sounds are normal, no pulsatile masses appreciated Extremities: There is spasms of the hands and feet, no other notable abnormality noted, patient was able to transfer from the wheelchair to the bed and weight-bear on both feet Skin: Normal in appearance without rash,pallor, petechiae or purpura Neuro: Speech is slow but clear, there is no facial droop, laundromat manager vision is grossly intact, extraocular moods are intact, laundromat manager strength is intact, negative pronator drift, push and pulls of the lower extremity are equal and normal. Cognition is intact, NIH stroke scale is 0 upon arrival Lab Data Labs: Lab Results 02/24/25 Range/Units 06:55 POC Glucose 144 H (74-106) mg/dL ECG Data Attestation: I personally reviewed and interpreted this ECG as follows: (Limited by patient movement, sinus rhythm at 77 bpm, normal axis, no acute ST segment elevation or T wave inversion) Discharge Plan Discharge Patient Disposition: Still a Patient
[2025-02-24 07:05] LABS: Hematocrit 43.5 % (36.0-48.0); Hemoglobin 14.3 g/dL (12.0-16.0); Immature Granulocytes Abs Auto 0.02 10^3/uL (0.00-0.03); Immature Granulocytes Pct Auto 0.3 % (0.0-0.5); Lymphocytes Absolute Auto 2.7 10^3/uL (1.2-3.8); Mean Corpuscular HGB Conc 32.9 g/dL (29.9-35.2); Mean Corpuscular Hemoglobin 30.2 pg (26.7-34.0); Mean Corpuscular Volume 91.8 fL (81.0-99.0); Platelet Count 432 10^3/uL (150-450); Red Blood Count 4.74 10^6/uL (4.20-5.40); White Blood Count 7.2 10^3/uL (4.0-11.0)
--- OUTSIDE RECORDS SUMMARY | 2025-02-24 07:07 | XMS_ITS | Clinical Summary ---
Author Organization [facility] Address [address] [place] [address], [address] [place] [address] Care Team Providers Care Window Draper Name Role Phone Unavailable Primary Care Provider Unavailabl e Social History Tobacco Use Types Packs/Day Years Used Date Smoking Tobacco: Never Assessed Comments Unknown Sex and Gender Information Value Date Recorded Sex Assigned at Not on file Legal Sex Female 10:57 PM EST Gender Identity Not on file Sexual Orientation Not on file Plan of Treatment Not on file
--- OUTSIDE RECORDS SUMMARY | 2025-02-24 07:07 | XMS_ITS | Encounter Summary ---
Author Organization [facility] Address [facility] [place] [address] Care Team Providers Care Horseradish Grinder Name Role Phone Kim Hendricks MD Primary Care Provider [phone] Source Comments In the event this information is protected by the Federal Confidentiality of Alcohol and Drug AbusePatient Records regulations: The Federal rules restrict any use of the information to criminally investigate or prosecute any alcohol or drug abuse patient.[facility] Encounter Details Date Type Department Care Team (Latest Contact Info) Description 09/25/2023 Get Medical Advice [facility] [address] [place] [address] Estrellita Jacob APRN.RADIO ENGINEERING TEACHER [address] [place] [address] colonscopy/EGD follow up Social History Tobacco Use Types Packs/Day Years Used Date Smoking Tobacco: Never Alcohol Use Standard Drinks/Week Comments Never 0 (1 standard drink = 0.6 oz pur e alcohol) Area Deprivation Index Answer Date Ady rded National Score (1-100), lowe r number is lower risk 67 08/30/2023 State Score (1-10), lower number is lower risk 5 08/30/2023 Data from: https://www.neighborhoodatlas.medicine.[facility].edu /. Last address used for calculation [id number] 08/30/2023 Comments Unknown Sex and Gender Information Value Date Recorded Sex Assigned at Female 06/05/2021 1:25 PM EST Legal Sex Female 9:07 AM EST Gender Identity Female 06/05/2021 1:25 PM EST Sexual Orientation Straight 06/05/2021 1: 25 PM EST documented as of this encounter Plan of Treatment Not on file documented as of this encounter Visit Diagnoses Not on filedocumented in this encounter Care Teams Horseradish Grinder Relationship Specialty Start Date End Date Kim Hendricks MD [address] [place] [address] PCP - General Family Medicine 03/23/14 documented as of this encounter
--- OUTSIDE RECORDS SUMMARY | 2025-02-24 07:07 | XMS_ITS | Encounter Summary ---
Author Organization [facility] Address [address] [place] [address] Care Team Providers Care Applied Computer Science Professor Name Role Phone Kim Hendricks MD Primary Care Provider [phone] Encounter Details Date Type Department Care Team (Late st Contact Info) Description 09/24/2024 Orders Only [facility] [address] [place] [address] Fareed Mariposa, [place] [address] [place] [address] Social History Tobacco Use Types Packs/Day Years Used Date Smoking Tobacco: Never Smokeless Tobacco: Never Alcohol Use Standard Drinks/Week Comments Never 0 (1 standard drink = 0.6 oz pur e alcohol) Comments Unknown Sex and Gender Information Value Date Recorded Sex Assigned at Not on file Legal Sex Female 6:44 PM EDT Gender Identity Not on file Sexual Orientation Not on file documented as of this encounter Plan of Treatment Upcoming Encounters Date Type Department Care Team (Late st Contact Info) Description 03/01/2025 3:30 PM EDT Office Visit [facility] [address] [facility] [place] [address] Ida Vera NP [address] [place] [address] 09/27/2025 4:00 PM EDT Office Visit [facility] [address] [facility] [place] [address] Adrian Parisi, DO [address] [place] [address] [place] [address] documented as of this encounter Procedures Procedure Name Priority Date/Time Associated Diagnosis Comments PAP SMEAR Routine 09/17/2024 12:00 AM EDT documented in this encounter Results * Pap Smear (09/17/2024 12:00 AM EDT) Swab Cervical swab / Unknown us Adrian Parisi DO LAB CYTOLOGY ORDERABLES Final Re sult EXTERNAL LAB documented in this encounter Visit Diagnoses Not on filedocumented in this encounter Care Teams Applied Computer Science Professor Relationship Specialty Start Date End Date Kim Hendricks MD [address] [facility] [place] [address] PCP - General Family Medicine 04/03/23 documented as of this encounter
--- OUTSIDE RECORDS SUMMARY | 2025-02-24 07:07 | XMS_ITS | Encounter Summary ---
Author Organization [facility] Address [facility] [place] [address] Care Team Providers Care Printer Technician Name Role Phone Kim Hendricks MD Primary Care Provider [phone] Source Comments In the event this information is protected by the Federal Confidentiality of Alcohol and Drug AbusePatient Records regulations: The Federal rules restrict any use of the information to criminally investigate or prosecute any alcohol or drug abuse patient.[facility] Encounter Details Date Type Department Care Team (Latest Contact Info) Description 09/17/2023 Get Medical Advice [facility] [address] [place] [address] Estrellita Jacob APRN.ENVIRONMENTAL COMPLIANCE ENGINEER [address] [place] [address] colonscopy/EGD follow up Social History Tobacco Use Types Packs/Day Years Used Date Smoking Tobacco: Never Alcohol Use Standard Drinks/Week Comments Never 0 (1 standard drink = 0.6 oz pur e alcohol) Area Deprivation Index Answer Date Ady rded National Score (1-100), lowe r number is lower risk 67 08/30/2023 State Score (1-10), lower number is lower risk 5 08/30/2023 Data from: https://www.neighborhoodatlas.medicine.[facility].edu /. Last address used for calculation [id number] 08/30/2023 Comments Unknown Sex [...] on filedocumented in this encounter Care Teams Printer Technician Relationship Specialty Start Date End Date Kim Hendricks MD [address] [place] [address] PCP - General Family Medicine 03/23/14 documented as of this encounter
--- OUTSIDE RECORDS SUMMARY | 2025-02-24 07:07 | XMS_ITS | Encounter Summary ---
Author Organization [facility] Address [address] [place] [address] Care Team Providers Care Mergers And Acquisitions Attorney Name Role Phone Kim Hendricks MD Primary Care Provider [phone] Source Comments In the event this information is protected by the Federal Confidentiality of Alcohol and Drug AbusePatient Records regulations: The Federal rules restrict any use of the information to criminally investigate or prosecute any alcohol or drug abuse patient.[facility] Encounter Details Date Type Department Care Team (Latest Contact Info) Description 09/26/2023 Get Medical Advice [facility] [address] [place] [address] Estrellita Jacob APRN.VP SOFTWARE [address] [place] [address] New medication budesonide Social History Tobacco Use Types Packs/Day Years Used Date Smoking Tobacco: Never Alcohol Use Standard Drinks/Week Comments Never 0 (1 standard drink = 0.6 oz pur e alcohol) Area Deprivation Index Answer Date Ady rded National Score (1-100), lowe r number is lower risk 67 08/30/2023 State Score (1-10), lower number is lower risk 5 08/30/2023 Data from: https://www.neighborhoodatlas.medicine.[facility].edu /. Last address used for calculation [id number] [place] [address] [address] 08/30/2023 Comments Unknown Sex and [...] on filedocumented in this encounter Care Teams Mergers And Acquisitions Attorney Relationship Specialty Start Date End Date Kim Hendricks MD [address] [place] [address] PCP - General Family Medicine 03/23/14 documented as of this encounter
--- OUTSIDE RECORDS SUMMARY | 2025-02-24 07:07 | XMS_ITS | Encounter Summary ---
Author Organization [facility] Address [address] [place] [address] Care Team Providers Care Survey And Mapping Technician Name Role Phone Kim Hendricks MD Primary Care Provider [phone] Margarita Paige (Rn) (Hist) RN Unavailable Unavailable Farrah Edwards MA Unavailable Unavailable Source Comments In the event this information is protected by the Federal Confidentiality of Alcohol and Drug AbusePatient Records regulations: The Federal rules restrict any use of the information to criminally investigate or prosecute any alcohol or drug abuse patient.[facility] Encounter Details Date Type Department Care Team (Late st Contact Info) Description 04/22/2014 Get Medical Advice Maternal Medicine [address] [facility] [address] [place] [address] [place] [address] [place], [place] [phone] RE: Visit Follow Up Question Social History Tobacco Use Types Packs/Day Years [...] Diagnoses Not on filedocumented in this encounter Additional Health Concerns Infection Onset Date Last Indicated Resolved Time COVID-19 Rule-Out 03/17/2021 03/17/2021 03/18/2021 1:00 AM EDT COVID-19 Confirmed 03/17/2021 03/17/2021 8:53 PM EDT documented as of this encounter Care Teams Survey And Mapping Technician Relationship Specialty Start Date End Date Kim Hendricks MD [address] [place] [address] PCP - General Family Medicine 03/23/14 Margarita Paige (Rn) (Hist), food assembler commissary kitchen Coordinator Other 06/30/15 09/28/15 Farrah Edwards MA EHP Water Operator Other 09/29/15 documented as of this encounter
--- OUTSIDE RECORDS SUMMARY | 2025-02-24 07:07 | XMS_ITS | Clinical Summary ---
Author Organization [facility] Address [address] [place] [address] Care Team Providers Care Bilingual Receptionist Name Role Phone Kim Hendricks MD Primary Care Provider [phone] Allergies No known active allergies Medications Multiple Vitamin (Multivitamin Adult) tablet Take by mouth Active PROzac 20 MG capsule Active estradiol (Estrace) 0.5 MG tabletIndicatio ns:Menopause Take 1 tablet (0.5 mg) by mouth Daily Take 1 tablet by mouth for 30 days 30 tablet 6 5 Active doxycycline (Vibramycin) 100 MG capsule Take 100 mg by mouth Daily 5 Active phentermine (Adipex-P) 37.5 MG tabletIndicatio ns:Encounter for weight management Take 1 tablet (37.5 mg) by mouth in the morning. Take before meals. 30 tablet 5 03/04/20 25 Active phentermine (Adipex-P) 37.5 MG tabletIndicatio ns:Encounter for weight management Take 1 tablet (37.5 mg) by mouth in the morning. Take before meals. 30 tablet 5 02/03/20 25 Discontinued Hospital, Clinic, or Other Facility Administered Medication Ordered Dose Route Frequency Start Date End Date Status Levonorgestrel intrauterine device 52 mgIndications:Encounter for IUD insertion 52 mg IU Continuous 09/28/2024 09/27/2029 Active Encounters Date Type Department Care Team Description 02/02/2025 3:00 PM EDT Office Visit [facility] [place] [facility] [address] [place] [address] [place] [address] Ashley Ny PA Encounter for weight management 02/02/2025 Bamboo flowsheet [facility] [address] [place] [address] Ashley Ny PA 02/02/2025 Travel 01/04/2025 2:50 PM EDT Office Visit [facility] [address] [place] [address] Ashley Ny PA Weight gain; Encounter for weight management 01/04/2025 Bamboo flowsheet [facility] [address] [place] [address] Ashley Ny PA 01/04/2025 Travel 12/07/2024 4:00 PM EDT Office Visit [facility] [address] [place] [address] Ashley Ny PA Encounter for weight management; Menopause 12/07/2024 Bamboo flowsheet [facility] [address] [place] [address] Ashley Ny PA 12/07/2024 Travel from Last 3 Months Family History Medical History Relation Name Comments Coronary artery disease Other Diabetes Other Hearing disorder Other Thyroid disorder Other Relation Name Status Comments Other Social History Tobacco Use Types Packs/Day Years Used Date Smoking Tobacco: Never Smokeless Tobacco: Never Tobacco Cessation:Counseling Given: Not Answered Alcohol Use Standard Drinks/Week Comments Never 0 (1 standard drink = 0.6 oz pur e alcohol) Comments No Sex and Gender Information Value Date Recorded Sex Assigned at Not on file Legal Sex Female 6:44 PM EDT Gender Identity Not on file Sexual Orientation Not on file Last Filed Vital Signs Vital Sign Reading Time Taken Comments Blood Pressure 110/70 02/02/2025 2:58 PM EDT Pulse - - Temperature - - Respiratory Rate - - Oxygen Saturation - - Inhaled Oxygen Concentration - - Weight 84.6 kg (186 lb 6.4 oz) 02/02/2025 2:58 P M EDT Height 165.1 cm (5' 5 ) 01/04/2025 2:37 PM EDT Body Mass Index 31.02 01/04/2025 2:37 PM EDT Plan of Treatment Upcoming Encounters Date Type Department Care Team (Late st Contact Info) Description 03/01/2025 3:30 PM EDT Office Visit [facility] MONTOYA [address] [place] [address] Ida Vera, IRWIN [address] [facility] [place] [address] 09/27/2025 4:00 PM EDT Office Visit [facility] MONTOYA [address] [place] [address] Adrian Parisi DO [address] [facility] [place] [address] Health Maintenance Due Date Last Done Comments CT Colonography 1975 FIT-DNA 1975 FIT 1975 FOBT 1975 Sigmoidoscopy 1975 Influenza Vaccine (#1) 2025 , 03/12/2023, 03/26/2022, Additional history exists Mammogram 05/15/2025 05/15/2024, 1201/2023, 07/03/2022, Additional history exists Cervical Cancer Screening 09/17/2029 HPV/Cotest 09/17/2029 Pap Smear 09/17/2029 09/17/2024, 08/07/2023 Colonoscopy 09/12/2033 09/13/2023, 09/13/2023, 09/01 Colorectal Cancer Screening 09/12/2033 Procedures Procedure Name Priority Date/Time Associated Diagnosis Comments PAP SMEAR Routine 09/17/2024 12:00 AM EDT MM TOMOSYNTHESIS SCREENING BI 05/15/2024 10:08 AM EST from Last 3 Months or Most Recently Relevant to Health Maintenance Results * Pap Smear (09/17/2024 12:00 AM EDT) Swab Cervical swab / Unknown us Adrian Parisi DO LAB CYTOLOGY ORDERABLES Final Re sult EXTERNAL LAB * MM TOMOSYNTHESIS SCREENING BI (05/15/2024 10:08 AM EST) Anatomical Region Laterality Modality Other 05/15/2024 10:0 8 AM EST Narrative 05/15/2024 10:08 [place] [address] Mammography Report Signed Patient: GLORIA ROJAS MR#: [id number] : 1975 Acct:[id number] Age/Sex: 49 / F ADM Date: 05/15/24 Loc: MAMMO Attending Dr: Adrian Parisi D.O. Ordering Physician: Adrian Parsii D.O. Results: Date of Service: 05/15/24 Follow Up: Procedure(s): MM tomosynthesis screening BI Accession Number(s): [id number] cc: Kim Hendricks M.D.; Adrian Parisi D.O. Patient Name: GLORIA ROJAS MR#: [id number] : 1975 Exam Date: 05/15/2024 Ordering Doctor: DR Adrian Parisi . RADIOLOGY REPORT PROCEDURE: MM TOMOSYNTHESIS SCREENING BI COMPARISON: MG MAMM DIAGNOSTIC 3D SHRUTI CAD, 04/20/2022. MM TOMOSYNTHESIS SCREENING BI, 05/10/2023. INDICATIONS: Screening mammogram Calculator Name NCI Breast Cancer Risk Assessment Tool 5 Year Breast Cancer Risk 1.40% Lifetime Breast Cancer Risk 12.20% Personal Breast Cancer No Personal Ovarian Cancer No Treatments None Family Cancers None LOCATION: [facility] BREAST COMPOSITION: The breasts are extremely dense, which lowers the sensitivity of mammography. FINDINGS: DIAGNOSTIC CATEGORY 2--BENIGN FINDING. NO CHANGE FROM COMPARISON. Scattered benign-appearing calcifications are present. Scattered benign-appearing lymph nodes are present. RIGHT BREAST: No significant suspicious finding. LEFT BREAST: No significant suspicious finding. Stable micro clip marker upper outer quadrant, mid breast RECOMMENDATIONS: ROUTINE MAMMOGRAM AND CLINICAL EVALUATION IN 12 MONTHS. PLEASE NOTE: A NORMAL MAMMOGRAM DOES NOT EXCLUDE THE POSSIBILITY OF BREAST CANCER. A CLINICALLY SUSPICIOUS PALPABLE LUMP SHOULD BE BIOPSIED. Dictated by: Kam Mosqueda MD on 05/15/2024 at 10:06 Approved by: Kam Mosqueda MD on 05/15/2024 at 10:07 Dictated By: Kam Mosqueda M.D. Signed By: 05/15/24 1008 DD/ 07 TD/TT: Agency Appointments Supervisor: Procedure Note Radiology, Radiologist, MD - 05/15/2024 [place] [address] Mammography Report Signed Patient: GLORIA ROJAS DMR#: [id number] : 1975Acct:[id number] Age/Sex: 49 / FADM Date: 05/15/24 Loc: MAMMO Attending Dr: Adrian Parisi D.O. Ordering Physician: Adrian Parisi D.O.Results: Date of Service: 05/15/24Follow Up: Procedure(s): MM tomosynthesis screening BI Accession Number(s): [id number] cc: Kim Hendricks M.D.; Adrian Parisi D.O. Patient Name: GLORIA ROJAS MR#: [id number] : 1975 Exam Date: 05/15/2024 Ordering Doctor: DR Adrian Parisi . RADIOLOGY REPORT PROCEDURE: MM TOMOSYNTHESIS SCREENING BI COMPARISON: MG MAMM DIAGNOSTIC 3D SHRUTI CAD, 04/20/2022. MMTOMOSYNTHESIS SCREENING BI, 05/10/2023. INDICATIONS: Screening mammogram Calculator Name NCI Breast Cancer Risk Assessment Tool 5 Year Breast Cancer Risk 1.40% Lifetime Breast Cancer Risk 12.20% Personal Breast Cancer No Personal Ovarian Cancer No Treatments None Family Cancers None LOCATION: [facility] BREAST COMPOSITION: The breasts are extremely dense, which lowers the sensitivity of mammography. FINDINGS: DIAGNOSTIC CATEGORY 2--BENIGN FINDING. NO CHANGE FROM COMPARISON. Scattered benign-appearing calcifications are present. Scattered benign-appearing lymph nodes are present. RIGHT BREAST: No significant suspicious finding. LEFT BREAST: No significant suspicious finding. Stable micro clip marker upper outer quadrant, mid breast RECOMMENDATIONS: ROUTINE MAMMOGRAM AND CLINICAL EVALUATION IN 12 MONTHS. PLEASE NOTE: A NORMAL MAMMOGRAM DOES NOT EXCLUDE THE POSSIBILITY OFBREAST CANCER. A CLINICALLY SUSPICIOUS PALPABLE LUMP SHOULD BE BIOPSIED. Dictated by: Kam Mosqueda MD on 05/15/2024 at 10:06 Approved by: Kam Mosqueda MD on 05/15/2024 at 10:07 Dictated By: Kam Mosqueda M.D. Signed By:05/15/24 100 DD/ 100 TD/TT: Agency Appointments Supervisor: us Adrian Ailin DO [facility] Final Result from Last 3 Months or Most Recently Relevant to Health Maintenance Insurance [employer] Care Teams Bilingual Receptionist Relationship Specialty Start Date End Date Kim Hendricks MD [address] [place] [address] PCP - General Family Medicine 04/03/23
--- OUTSIDE RECORDS SUMMARY | 2025-02-24 07:07 | XMS_ITS | Encounter Summary ---
Author Organization [facility] Address [address] [place] [address] Care Team Providers Care Industrial Safety And Health Specialist Name Role Phone Kim Hendricks MD Primary Care Provider [phone] Margarita Paige (Rn) (Hist) RN Unavailable Unavailable Farrah Edwards MA Unavailable Unavailable Source Comments In the event this information is protected by the Federal Confidentiality of Alcohol and Drug AbusePatient Records regulations: The Federal rules restrict any use of the information to criminally investigate or prosecute any alcohol or drug abuse patient.[facility] Encounter Details Date Type Department Care Team (Late st Contact Info) Description 07/14/2014 Get Medical Advice Maternal Medicine [address] [place], [place] [phone] [place] [address] [address] [place], [place] [phone] RE: Test Result Question Social History Tobacco Use Types Packs/Day [...] documented as of this encounter Care Teams Industrial Safety And Health Specialist Relationship Specialty Start Date End Date Kim Hendricks MD [address] [place] [address] PCP - General Family Medicine 03/23/14 Margarita Paige (Rn) (Hist), sustain engineer Coordinator Other 06/30/15 09/28/15 Farrah Edwards MA EHP Popcorn Machine Operator Other 09/29/15 documented as of this encounter
--- OUTSIDE RECORDS SUMMARY | 2025-02-24 07:07 | XMS_ITS | Encounter Summary ---
Author Organization [facility] Address [address] [place] [address] Care Team Providers Care Sharepoint Trainer Name Role Phone Kim Hendricks MD Primary Care Provider [phone] Encounter Details Date Type Department Care Team (Late st Contact Info) Description 05/10/2023 Clinisync Result Encounter [facility] External Department Unsolicited Adrian Parisi DO [address] [place], [place] [address] Social History Tobacco Use Types Packs/Day Years [...] 3:30 PM EDT Office Visit HESHAM MONTOYA [address] [place] [address] [place] [address] Ida Vera, IRWIN [address] [place] [address] 09/27/2025 4:00 PM EDT Office Visit [facility]AM [facility] [address] [facility] [place] [address] Adrian Parisi DO [address] [place], [facility] documented as of this encounter Procedures Procedure Name Priority Date/Time Associated Diagnosis Comments MM TOMOSYNTHESIS SCREENING BI 05/10/2023 9:13 AM EST documented in this encounter Results * MM TOMOSYNTHESIS SCREENING BI (05/10/2023 9:13 AM EST) Anatomical Region Laterality Modality Other 05/10/2023 9:13 AM EST Narrative 05/10/2023 9:15 AM EST The [address] [address] Mammography Report Signed Patient: GLORIA ROJAS MR#: [id number] : 1975 Acct:[id number] Age/Sex: 48 / F ADM Date: 05/10/23 Loc: MAMMO Attending Dr: Adrian Parisi D.O. Ordering Physician: Adrian Parisi D.O. Results: Date of Service: 05/10/23 Follow Up: Procedure(s): MM tomosynthesis screening BI Accession Number(s): [id number] cc: Kim Hendricks M.D.; Adrian Parisi D.O. Patient Name: GLORIA ROJAS MR#: [id number] : 1975 Exam Date: 05/10/2023 Ordering Doctor: DR Adrian Parisi . RADIOLOGY REPORT PROCEDURE: MM TOMOSYNTHESIS SCREENING BI COMPARISON: MAMMO POST BIOPSY LEFT, 10/03/2021. MG MAMM DIAGNOSTIC 3D SHRUTI CAD, 04/20/2022. INDICATIONS: Screening Calculator Name NCI Breast Cancer Risk Assessment Tool 5 Year Breast Cancer Risk 1.60% Lifetime Breast Cancer Risk 12.50% Personal Breast Cancer No Personal Ovarian Cancer No Treatments None Family Cancers None LOCATION: [facility] BREAST COMPOSITION: Extremely dense, which lowers the sensitivity of mammography. FINDINGS: DIAGNOSTIC CATEGORY 2--BENIGN FINDING. NO CHANGE FROM COMPARISON. Scattered benign-appearing nodules are present. Scattered benign-appearing calcifications are present. Scattered benign-appearing lymph nodes are present. RIGHT BREAST: No significant suspicious finding. LEFT BREAST: No significant suspicious finding. Stable microclip marker upper outer quandrant, anterior RECOMMENDATIONS: ROUTINE MAMMOGRAM AND CLINICAL EVALUATION IN 12 MONTHS. PLEASE NOTE: A NORMAL MAMMOGRAM DOES NOT EXCLUDE THE POSSIBILITY OF BREAST CANCER. A CLINICALLY SUSPICIOUS PALPABLE LUMP SHOULD BE BIOPSIED. Dictated by: Kam Mosqueda MD on 05/10/2023 at 09:11 Approved by: Kam Mosqueda MD on 05/10/2023 at 09:13 Dictated By: Kam Mosqueda M.D. Signed By: 05/10/23914 DD/ 2 TD/TT: Paralegal Secretary: Procedure Note Radiology, Radiologist, MD - 05/10/2023 [place] [address] Mammography Report Signed Patient: GLORIA ROJAS DMR#: [id number] : 1975Acct:[id number] Age/Sex: 48 / FADM Date: 05/10/23 Loc: MAMMO Attending Dr: Adrian Parisi D.O. Ordering Physician: Adrian Parisi D.O.Results: Date of Service: 05/10/23Follow Up: Procedure(s): MM tomosynthesis screening BI Accession Number(s): [id number] cc: Kim Hendricks M.D.; Adrian Parisi D.O. Patient Name: GLORIA ROJAS MR#: [id number] : 1975 Exam Date: 05/10/2023 Ordering Doctor: DR Adrian Parisi . RADIOLOGY REPORT PROCEDURE: MM TOMOSYNTHESIS SCREENING BI COMPARISON: MAMMO POST BIOPSY LEFT, 10/03/2021. MG MAMM DIAGNOSTIC 3DBIL CAD, 04/20/2022. INDICATIONS: Screening Calculator Name NCI Breast Cancer Risk Assessment Tool 5 Year Breast Cancer Risk 1.60% Lifetime Breast Cancer Risk 12.50% Personal Breast Cancer No Personal Ovarian Cancer No Treatments None Family Cancers None LOCATION: [facility] BREAST COMPOSITION: Extremely dense, which lowers the sensitivity of mammography. FINDINGS: DIAGNOSTIC CATEGORY 2--BENIGN FINDING. NO CHANGE FROM COMPARISON. Scattered benign-appearing nodules are present. Scatteredbenign-appearing calcifications are present. Scattered benign-appearing lymph nodes are present. RIGHT BREAST: No significant suspicious finding. LEFT BREAST: No significant suspicious finding. Stable microclip marker upper outer quandrant, anterior RECOMMENDATIONS: ROUTINE MAMMOGRAM AND CLINICAL EVALUATION IN 12 MONTHS. PLEASE NOTE: A NORMAL MAMMOGRAM DOES NOT EXCLUDE THE POSSIBILITY OFBREAST CANCER. A CLINICALLY SUSPICIOUS PALPABLE LUMP SHOULD BE BIOPSIED. Dictated by: Kma Mosqueda MD on 05/10/2023 at 09:11 Approved by: Kam Mosqueda MD on 05/10/2023 at 09:13 Dictated By: Kam Mosqueda M.D. Signed By:05/10/23914 DD/ 2 TD/TT: Paralegal Secretary: us Adrian Ailin DO [facility] Final Result documented in this encounter Visit Diagnoses Not on filedocumented in this encounter Care Teams Sharepoint Trainer Relationship Specialty Start Date End Date Kim Hendricks MD [address] [place] [phone] PCP - General Family Medicine 04/03/23 documented as of this encounter
--- OUTSIDE RECORDS SUMMARY | 2025-02-24 07:07 | XMS_ITS | Encounter Summary ---
Author Organization [facility] Address [address] [place] [address] Care Team Providers Care Studio Camera Operator Name Role Phone Kim Hendricks MD Primary Care Provider [phone] Source Comments In the event this information is protected by the Federal Confidentiality of Alcohol and Drug AbusePatient Records regulations: The Federal rules restrict any use of the information to criminally investigate or prosecute any alcohol or drug abuse patient.[facility] Encounter Details Date Type Department Care Team (Late st Contact Info) Description 11/27/2023 Get Medical Advice [facility] [address] [place] [address] Estrellita Jacob APRN.STOCK SHEETS CLEANER INSPECTOR [address] [place] [address] New medication Social History Tobacco Use Types Packs/Day Years Used Date Smoking Tobacco: Never Alcohol Use Standard Drinks/Week Comments Never 0 (1 standard drink = 0.6 oz pur e alcohol) Area Deprivation Index Answer Date Ady rded National Score (1-100), lowe r number is lower risk 67 08/30/2023 State Score (1-10), lower number is lower risk 5 08/30/2023 Data from: https://www.neighborhoodatlas.medicine.[facility].edu /. Last address used for calculation [address] 08/30/2023 Comments Unknown Sex [...] on filedocumented in this encounter Care Teams Studio Camera Operator Relationship Specialty Start Date End Date Kim Hendricks MD [address] [place] [address] PCP - General Family Medicine 03/23/14 documented as of this encounter
--- OUTSIDE RECORDS SUMMARY | 2025-02-24 07:07 | XMS_ITS | Encounter Summary ---
Author Organization [facility] Address [address] [place] [address] Care Team Providers Care Laundry Operator Finishing Name Role Phone Kim Hendricks MD Primary Care Provider [phone] Margarita Paige (Rn) (Hist) RN Unavailable Unavailable Farrah Edwards MA Unavailable Unavailable Source Comments In the event this information is protected by the Federal Confidentiality of Alcohol and Drug AbusePatient Records regulations: The Federal rules restrict any use of the information to criminally investigate or prosecute any alcohol or drug abuse patient.[facility] Encounter Details Date Type Department Care Team (Late st Contact Info) Description 05/17/2014 Get Medical Advice [facility] [address] [address] [place], [place] [phone] [place] [address] [address] [place], [place] [phone] RE: Test Result Question Social History Tobacco [...] documented as of this encounter Care Teams Laundry Operator Finishing Relationship Specialty Start Date End Date Kim Hendricks MD [address] [place] [address] PCP - General Family Medicine 03/23/14 Margarita Paige (Rn) (Hist), rebrander Coordinator Other 06/30/15 09/28/15 Farrah Edwards MA EHP Master Sonar Technician Other 09/29/15 documented as of this encounter
--- OUTSIDE RECORDS SUMMARY | 2025-02-24 07:07 | XMS_ITS | Encounter Summary ---
Author Organization [facility] Address [address] [place] [address] Care Team Providers Care Manager Of Employee Relations Name Role Phone Kim Hendricks MD Primary Care Provider [phone] Encounter Details Date Type Department Care Team (Late st Contact Info) Description 05/15/2024 Clinisync Result Encounter [facility] External Department Unsolicited Adrian Parisi DO [address] [place], [facility] Social History Tobacco Use Types Packs/Day Years [...] PM EDT Office Visit HESHAM MONTOYA [address] [place] [address] Ida Vera NP [address] [place] [address] 09/27/2025 4:00 PM EDT Office Visit HESHAM MONTOYA [address] [place] [address] Adrian Parisi, DO [address] [facility] [place] [address] documented as of this encounter Procedures Procedure Name Priority Date/Time Associated Diagnosis Comments MM TOMOSYNTHESIS SCREENING BI 05/15/2024 10:08 AM EST documented in this encounter Results * MM TOMOSYNTHESIS SCREENING BI (05/15/2024 10:08 AM EST) Anatomical Region Laterality Modality Other 05/15/2024 10:0 8 AM EST Narrative 05/15/2024 10:08 AM EST The [address] [address] Mammography Report Signed Patient: GLORIA ROJAS MR#: [id number] : 1975 Acct:[id number] Age/Sex: 49 / F ADM Date: 05/15/24 Loc: MAMMO Attending Dr: Adrian Parisi D.O. Ordering Physician: Adrian Parisi D.O. Results: Date of Service: 05/15/24 Follow Up: Procedure(s): MM tomosynthesis screening BI Accession Number(s): [id number] cc: Kim Hendricks M.D.; Adrian Parisi D.O. Patient Name: GLORIA ROJAS MR#: [id number] : 1975 Exam Date: 05/15/2024 Ordering Doctor: [...] Treatments None Family Cancers None LOCATION: [facility] BREAST COMPOSITION: The breasts are extremely dense, [...] on 05/15/2024 at 10:07 Dictated By: Kam Mosuqeda M.D. Signed By: 05/15/24 1008 DD/ 1008 TD/TT: Retail Branch Manager: Procedure Note Radiology, Radiologist, - 05/15/2024 [place] [address] Mammography Report Signed Patient: GLORIA ROJAS DMR#: [id number] : 1975Acct:[id number] Age/Sex: 49 / FADM Date: 05/15/24 Loc: MAMMO Attending Dr: Adrian Parisi D.O. Ordering Physician: Adrian Parisi D.O.Results: Date of Service: 05/15/24Follow Up: Procedure(s): MM tomosynthesis screening BI Accession Number(s): [id number] cc: Kim Hendricks M.D.; Adrian Parisi D.O. Patient Name: GLORIA ROJAS MR#: [id number] : 1975 Exam Date: 05/15/2024 Ordering Doctor: [...] Treatments None Family Cancers None LOCATION: [facility] BREAST COMPOSITION: The breasts are extremely dense, [...] Dictated By: Kam Mosqueda M.D. Signed By:05/15/24 1008 DD/ 1008 TD/TT: Retail Branch Manager: Adrian Floreso DO [facility] Final Result documented in this encounter Visit Diagnoses Not on filedocumented in this encounter Care Teams Manager Of Employee Relations Relationship Specialty Start Date End Date Kim Hendricks MD [address] [place] [phone] PCP - General Family Medicine 04/03/23 documented as of this encounter
--- OUTSIDE RECORDS SUMMARY | 2025-02-24 07:07 | XMS_ITS | Encounter Summary ---
Author Organization [facility] Address [facility] [place] [address] Care Team Providers Care Extrusion Process Operator Name Role Phone Kim Hendricks MD Primary Care Provider [phone] Margarita Paige (Rn) (Hist) RN Unavailable Unavailable Farrah Edwards MA Unavailable Unavailable Source Comments In the event this information is protected by the Federal Confidentiality of Alcohol and Drug AbusePatient Records regulations: The Federal rules restrict any use of the information to criminally investigate or prosecute any alcohol or drug abuse patient.[facility] Encounter Details Date Type Department Care Team (Late st Contact Info) Description 06/25/2014 Patient Msg Medical Records [address] [place] [address] Provider, Cc RE: Request an Appointment Social History Tobacco Use Types Packs/Day Years [...] documented as of this encounter Care Teams Extrusion Process Operator Relationship Specialty Start Date End Date Kim Hendricks MD [address] [place] [phone] PCP - General Family Medicine 03/23/14 Margarita Paige (Rn) (Hist), english drawer Coordinator Other 06/30/15 09/28/15 Farrah Edwards MA EHP Parts Sales Representative Other 09/29/15 documented as of this encounter
--- OUTSIDE RECORDS SUMMARY | 2025-02-24 07:08 | XMS_ITS | Encounter Summary ---
Author Organization [facility] Address [address] [place] [address] Care Team Providers Care Sheriff'S Sergeant Name Role Phone Kim Hendricks MD Primary Care Provider [phone] Source Comments In the event this information is protected by the Federal Confidentiality of Alcohol and Drug AbusePatient Records regulations: The Federal rules restrict any use of the information to criminally investigate or prosecute any alcohol or drug abuse patient.[facility] Encounter Details Date Type Department Care Team (Late st Contact Info) Description 01/06/2025 Get Medical Advice [facility] [address] [place] [address] Provider, Ccf Prior auth Social History Tobacco Use Types Packs/Day Years Used Date Smoking Tobacco: Never Smokeless Tobacco: Never Alcohol Use Standard Drinks/Week Comments Never 0 (1 standard drink = 0.6 oz pur e alcohol) Area Deprivation Index Answer Date Ady rded National Score (1-100), lowe r number is lower risk 67 08/30/2023 State Score (1-10), lower number is lower risk 5 08/30/2023 Data from: https://www.neighborhoodatlas.[facility] /. Last address used for calculation [address] 08/30/2023 Comments No Sex and Gender Information Value [...] on filedocumented in this encounter Care Teams Sheriff'S Sergeant Relationship Specialty Start Date End Date Kim Hendricks MD [address] [place] [phone] PCP - General Family Medicine 03/23/14 documented as of this encounter
--- OUTSIDE RECORDS SUMMARY | 2025-02-24 07:08 | XMS_ITS | CCD ---
Author Organization [facility] Care Team Providers Care Finishing Range Operator Name Role Phone AILIN, DR LOPEZ Admitting [...] SHEPHERD, DR KIM Garces Primary Care Unavailable PICKTON, DR JORGE Gallardo Consulting Unavailable AILIN, DR LOPEZ Consulting Unavailable AILIN, DR LOPEZ Admitting Unavailable AILIN, DR LOPEZ Attending Unavailable SHEPHERD, DR KIM Garces Primary Care Unavailable AILIN, DR LOPEZ Consulting Unavailable Kim Shepherd MD Primary Care Provider Kim Shepherd MD Primary Care Provider [phone] KIM SHEPHERD Primary Care Unavailable Kim Shepherd MD Primary Care Provider [phone] Kim Shepherd MD Primary Care Provider [phone] Kim Shepherd MD Primary Care Provider [phone] Kim Shepherd MD Primary Care Provider [phone] JESSICA PARISI Attending Unavailable AILIN, JESSICA Attending Unavailable ASHLEY TSANG Attending Unavailable ASHLEY TSANG Attending Unavailable ASHLEY TSANG Attending Unavailable Medications Current Medications Medication Drug Class(es) Dates Sig (Normalized) Sig (Original) ascorbic acid 60 mg / beta carotene 5000 unt / copper sulfate 40 mg / dl-alpha tocopheryl acetate 30 unt / sodium selenite 0.04 mg / zinc oxide 40 mg oral tablet (13 sources) Vitamin C Multiple Vitamin (Multivitamin Adult) tablet Take by mouth Active dicyclomine hydrochloride 10 mg oral capsule (1 source) Anticholinergic Start: 01-31-2024 take 1 capsule by mouth at bedtime dicyclomine (BENTYL) 10 mg capsule Take 1 capsule by mouth before meals and at bedtime. 120 capsule 2 01/31/2024 Active doxycycline hyclate 100 mg oral capsule (2 sources) Tetracycline-class Drug Start: 12-25-2024 take 1 capsule by mouth once daily doxycycline (Vibramycin) 100 MG capsule Take 100 mg by mouth Daily 12/25/2024 Active estradiol 0.5 mg oral tablet (7 sources) Estrogen Start: 12-07-2024 End: 01-06-2025 take 1 tablet by mouth once daily estradiol (Estrace) 0.5 MG tablet Indications: Menopause Take 1 tablet (0.5 mg) by mouth Daily Take 1 tablet by mouth for 30 days 30 tablet 6 12/07/2024 Active levonorgestrel 0.393799 mg/hr intrauterine system (20 sources) Progestin, Progestin-containing Intrauterine Device Start: 09-28-2024 End: 09-27-2029 Levonorgestrel intrauterine device 52 mg Start: 09-28-2024 End: 09-28-2024 52 mg, Intrauterine, Once MI N Procedure, Starting on Sat09/28/24 at 0930, For 1 dose End: 01-04-2025 Levonorgestrel (Mirena, 52 M G,) 20 MCG/DAY intrauterine device as directed Intrauterine 01/04/2025 Discontinued (Therapy completed) Multivitamin (Daily Multi-Vitamin) tablet (3 sources) Start: [...] mag nesium (PRILOSEC OTC ORAL) 10/02/2023 Active Completed/Discontinued Medications Medication Drug Class(es) Dates Sig [...] Comment on above: TAKE 1 CAPSULE BY [facility] ONCE DAILY 2 ml glycopyrrolate 0.2 [...] by tamera th every evening. MULTI-VITAMIN ORAL (4 sources) End: 01-31-2024 MULTI-VITAMIN ORAL Take by mouth. 01/31/2024 Discontinued (Discontinued by Patient) MULTI-VITAMIN OR AL Take by mouth. 0 Active Comment on above: Take by mouth. phentermine hydrochloride 37.5 mg oral tablet (14 sources) Sympathomimetic Amine Anorectic Start: End: take 1 tablet by mouth before mealtime phentermine (Adipex-P) 37.5 MG tablet Indications: Encounter for weight management Take 1 tablet (37.5 mg) by mouth in the morning. Take before meals. 30 tablet 01/04/2025 02/02/2025 Discontinued Start: 02-07-2024 End: 03-16-2024 take 1 tablet by mouth once daily 30 minutes after breakfast Phentermine (Adipex-P) 37.5 mg tablet Active 37.5 MG PO Daily March 16, 2024 3:55pm must administer 30 minutes before or 1-2 hours after breakfast 1000 ml sodium chloride 9 mg/ml injection (1 source) Start: 09-13-2023 End: 02-12-2024 take 30 mL intravenously every hour 30 mL/hr, INTRAVENOUS, CONTINUOUS, Starting on Sat09/13/23 at 1300, Until Sat02/12/24 at 0256, Preprocedure vortioxetine 10 mg oral tablet (4 sources) Start: 12-25-2021 End: 01-31-2024 take 1 tablet by mouth once daily vortioxetine (TRINTELLIX) 10 mg tablet Take 1 tablet by mouth daily 30 tablet 12/25/2021 01/31/2024 Discontinued (Discontinued by Patient) Comment on above: Take 1 tablet by tamera th daily zolpidem tartrate 5 mg oral tablet (4 sources) gamma-Aminobu tyric Acid-ergic Agonist Start: 09-18-2021 End: 01-31-2024 take 1 tablet by mouth at bedtime zolpidem (AMBIEN) 5 mg tablet Take 1 tablet by mouth at bedtime 30 tablet 09/18/2021 01/31/2024 Discontinued (Discontinued by Patient) Comment on above: Take 1 tablet by tamera th at bedtime Problems Active Problems Problem Classification Problem Date Documented Da te Episodic/Chronic Abdominal pain (4 sources) Epigastric pain; Translations: [Epigastric pain] 08-30-2023 Episodic Contraceptive and procreative management (7 sources) Patient encounter status; Translations: [Encounter for removal of intrauterine contraceptive device] 09-28-2024 Episodic Immunizations and screening for infectious disease [...] sources) Overweight; Translations: [Overweight] 02-07-2024 Episodic Other nutritional; endocrine; and metabolic disorders (1 source) Weight increased; Translations: [Abnormal weight gain] 01-04-2025 Episodic Other screening for suspected conditions (not mental disorders or infectious disease) (16 sources) Encounter for screening for malignant neoplasm of cervix; Translations: [Other abnormal and inconclusive findings on diagnostic imaging of breast] Onset: 04-20-2022 Episodic Residual codes; unclassified (2 sources) Menopause present; Translations: [Asymptomatic menopausal state] 12-07-2024 Episodic Past or Other Problems Problem Classification [...] Test Name Value Interpretation Reference Range Facility HCG ( test) Ql (U)o n 09-28-2024 Interpretation and review of laboratory results Normal [facility] Preg Test, Ur Negative Negative [facility] IUD Insertionon 09-28-2024 Mali Jones LPN 09/28/2024 5:02 PM IUD Insertion Performed by: Jessica Parisi DO Authorized by: Jessica Parisi DO Procedure: IUD removal and insertion Consent obtained by patient, parent, or legal power of senior trial attorney - including discussion of procedure risks and benefits, patient questions answered, and patient education provided: yes Reason for removal: patient request Strings visualized: yes Tenaculum applied to cervix: yes Cervix dilated: yes Cervix dilated with: Cervical os finder IUD grasped by forceps: yes Performed with ultrasound guidance: no IUD removed: yes Date/Time of Removal: 09/28/2024 10:19 AM Removed without complications: yes IUD intact: yes risk: reasonably certain the patient is not Date/Time of Insertion: 09/28/2024 10:19 AM Immediately prior to procedure a time out was called: yes Pelvic exam performed: no Speculum placed in vagina: yes Cervix cleaned and prepped: yes Tenaculum/Allis/Ring Forceps applied to cervix: yes IUD inserted without complications: yes OSM: 52 mg Levonorgestrel 20 MCG/DAY Patient tolerated procedure well: yes Inserted with ultrasound guidance: no Transvaginal sono confirmed fundal placement: no Intended removal date: 5 years [facility] IGP,APTIMA HPV,AGE GDLNon AGE GDLN ACOG TESTING Note . [facility] Comment on above: TESTS RESULT FLAG UN ITS REF RANGE LAB Clinician Provided Cytology Information Source.............Cervix;Endocervix No. of containers..01 ThinPrep Vial Age Algo ACOG [place]... 30 FLAG LEGEND: L-Low Normal,H-High Normal,LL-Alert Low,HH-Alert High <-Panic Low,>-Panic High,A-Abnormal,AA-Critical Abnormal Performed at: 01 =[facility] [employer] [place] [address] Dora Hameed MD, HPV APTIMA Negative Negative [facility] Comment on above: This nucleic acid am plification test detects fourteen high- risk HPV types (16,18,31,33,35,39,45,51,52,56,58,59,66,68) without differentiation. Performed at: =[facility] [employer])[address] [id number] Associate Software Developer: Dora Hameed MD, Phone: [phone] Performed at: [facility] [id number] [place] [id number] Associate Software Developer: Paolo Marino MD, Phone: [phone] IGP, APTIMA HPV, RFX 16/18,45 Note . [facility] Comment on above: TESTS RESULT FLAG UN ITS REF RANGE LAB DIAGNOSIS: 02 NEGATIVE FOR INTRAEPITHELIAL LESION OR MALIGNANCY. Specimen adequacy: 02 Satisfactory for evaluation. Endocervical and/or squamous metaplastic cells (endocervical component) are present. Performed by: 02 Tayler [place] Usher ([facility]) . 02 Note: Note 03 The Pap smear is a screening test designed to aid in the detection of premalignant and malignant conditions of the uterine cervix. It is not a diagnostic procedure and should not be used as the sole means of detecting cervical cancer. Both false-positive and false-negative reports do occur. Test Methodology: Note 03 This liquid based ThinPrep(R) pap test was screened with the use of an image guided system. HPV Genotype Reflex Note 02 Criteria not met, HPV Genotype not performed. FLAG LEGEND: L-Low Normal,H-High Normal,LL-Alert Low,HH-Alert High <-Panic Low,>-Panic High,A-Abnormal,AA-Critical Abnormal Performed at: 02 [facility] [address] [place] [address] Paolo Marino MD, 03 WB [facility] [address] [address] Dora Hameed MD, BRUSH-SPATULA CERVIX ENDOCERVIX [facility] CELIAC SCREENon 09-19-2023 GLIAD DEAMIDATED IGA QUAL Negative Normal Negative, Test not Indicated [facility] Comment on above: Order Comment: Elisha bob Type: BLOOD SPECIMEN Ordering Facility: [facility] Address: [address] [place] [address] Result Comment: This is used as an aid in diagnosis of celiac disease. Clinical correlation is required. The following results were obtained with an Inova QUANTA Lite Gliadin IgA VINCE Gliadin. Gliadin IgA values obtained with different manufacturers' assay methods may not be used interchangeably. The magnitude of the reported IgA levels cannot be correlated to an endpoint titer. Performed By: #### L [id number] #### [facility] CLIA [id number] [address] [place] [address] [place] Gliadin peptide IgA Qn (S) 8 Units Normal <20 [facility] Comment on above: Order Comment: Elisha bob Type: BLOOD SPECIMEN Ordering Facility: [facility] Address: [address] [place] [address] Performed By: #### L [id number] #### [facility] CLIA [id number] [address] [place] [address] [place] INTERPRETATION No serological evidence of celiac disease, however, if celiac disease is clinically suspected and patient is not on gluten-free diet, histological diagnosis may be considered. HLA testing may help with risk assessment. Normal [facility] Comment on above: Order Comment: Elisha bob Type: BLOOD SPECIMEN Ordering Facility: [facility] Address: [address] [place] [address] Performed By: #### L [id number] #### [facility] CLIA [id number] [address] [place] [address] [place] TRANSGLUTAMINASE IGA ABS INTERPRETATION Negative Normal Negative [facility] Comment on above: Order Comment: Elisha bob Type: BLOOD SPECIMEN Ordering Facility: [facility] Address: [address] [place] [address] Result Comment: The following results were obtained with Inova QUANTA Lite R h-tTG IgA VINCE.???R h-tTG IgA values obtained with different manufacturers' assay methods may not be used interchangeably. The magnitude of the reported IgA levels cannot be corelated to an endpoint???concentration. This is used as an aid in diagnosis of celiac disease. Clinical correlation is required. Performed By: #### L [id number] #### [facility] CLIA [id number] [address] [place] [address] [place] tTG IgA Qn (S) <2 Normal <4 [facility] Comment on above: Order Comment: Speci men Type: BLOOD SPECIMEN Ordering Facility: [facility] Address: [address] [place] [address] Performed By: #### L [id number] #### [facility] CLIA [id number] [address] [place] [address] [place] IgA SerPl-mCncon 09-19-2023 IgA [Mass/Vol] 195 mg/dL Normal 70-400 [facility] Comment on above: Order Comment: Speci men Type: BLOOD SPECIMEN Ordering Facility: [facility] Address: [address] [place] [address] Performed By: #### 2 [id number] #### [facility] CLIA [id number] [address] [place] [address] [place] Colonoscopy Study observatio non 09-13-2023 [facility] Radiology Study observation (narrative) [facility] EGD Study observation Narrat iveon 09-13-2023 [facility] Radiology Study observation (narrative) [facility] Basophils Auto (Bld) [#/Vol] on 08-16-2023 Basophils (Bld) [#/Vol] 0.1 10 3/uL 0.0-0.1 [facility] Basophils/100 WBC Auto (Bld) on 08-16-2023 Basophils/100 WBC (Bld) 1.2 % 0.2-2.0 [facility] Cryptosporidium sp Ag [Prese nce] in Stool by Immunoassayon 08-16-2023 Cryptosporidium sp Ag IA Ql (Stl) Negative Negative [facility] Comment on above: Performed at: - [address] [id number] Director: Carlos Rosario PhD, Phone: [phone] Detection in stool of any of Campylobacter coli, Campylobacter jejuni, and Campylobacon 08-16-2023 C. coli+jejuni+upsaliensis DNA CLAUDE+non-probe Ql (Stl) Not detected NOT DETECTE [facility] Detection in stool of any of Vibrio cholerae, Vibrio parahaemolyticus, and Vibrio vulon 08-16-2023 V. cholerae+parahaemolytic us+vulnificus DNA CLAUDE+non-probe Ql (Stl) Not detected NOT DETECTE [facility] Detection in stool of either or both Salmonella enterica and Salmonella bongori DNA bon 08-16-2023 S. enterica+bongori DNA CLAUDE+non-probe Ql (Stl) Not detected NOT DETECTE [facility] Detection in stool of either or both enteroaggregative Escherichia coli Bismark plasmid aon 08-16-2023 E. coli enteroaggregative Bismark plasmid aggR+aatA genes CLAUDE+non-probe Ql (Stl) Not detected NOT DETECTE [facility] Eosinophils/100 WBC Auto (Bl d)on 08-16-2023 Eosinophils/100 WBC (Bld) 0.5 % 0.9-7.0 [facility] Erythrocyte distribution wid th Auto (RBC) [Ratio]on 08-16-2023 Erythrocyte distribution width (RBC) [Ratio] 13.8 % 11.0-15.0 [facility] Escherichia coli Stx1 and St x2 toxin stx1+stx2 genes [Presence] in Stool by CLAUDE withon 08-16-2023 E. coli stx1+stx2 genes CLAUDE+non-probe Ql (Stl) Not detected NOT DETECTE [facility] Escherichia coli enteropatho genic eae gene [Presence] in Stool by CLAUDE with non-probeon 08-16-2023 E. coli enteropathogenic eae gene CLAUDE+non-probe Ql (Stl) Not detected NOT DETECTE [facility] Escherichia coli enterotoxig enic ltA+st1a+st1b genes [Presence] in Stool by CLAUDE withon 08-16-2023 E. coli enterotoxigenic ltA+st1a+st1b genes CLAUDE+non-probe Ql (Stl) Not detected NOT DETECTE [facility] Estimated glomerular filtrat ion rate (GFR) non- Americanon 08-16-2023 GFR/1.73 sq M.predicted among non-blacks MDRD (S/P/Bld) [Vol rate/Area] mL/min/{1.73_m2} >=60 [facility] Giardia lamblia Ag [Presence ] in Stool by Immunoassayon 08-16-2023 G. lamblia Ag IA Ql (Stl) Negative Negative [facility] Globulin Calc (S) [Mass/Vol] on 08-16-2023 Globulin (S) [Mass/Vol] 4.0 g/dL [facility] Hematocrit Auto (Bld) [Volum e fraction]on 08-16-2023 Hematocrit (Bld) [Volume fraction] 42.6 % 36.0-48.0 [facility] Hemoglobin [Mass/volume] in Bloodon 08-16-2023 Hemoglobin (Bld) [Mass/Vol] 13.5 g/dL 12.0-16.0 [facility] Laboratory - Chemistry and C hemistry - challengeon 08-16-2023 Albumin [Mass/Vol] 3.9 g/dL 3.4-5.0 [facility] ALP [Catalytic activity/Vol] 65 U/L 46-116 [facility] ALT [Catalytic activity/Vol] 37 U/L 14-59 [facility] AST [Catalytic activity/Vol] 17 U/L 15-37 [facility] Bilirubin [Mass/Vol] 0.2 mg/dL 0.2-1.0 [facility] Calcium [Mass/Vol] 8.5 mg/dL 8.5-10.1 [facility] Chloride [Moles/Vol] 100 mmol/L 98-107 [facility] CO2 [Moles/Vol] 25.1 mmol/L 21.0-32.0 [facility] Creatinine [Mass/Vol] 0.79 mg/dL 0.55-1.[address] [facility] GFR/1.73 sq M.predicted MDRD (S/P/Bld) [Vol rate/Area] mL/min/{1.73_m2} >=60 [facility] Glucose [Mass/Vol] 95 mg/dL 74-106 [facility] Lactate [Moles/Vol] 0.8 mmol/L 0.4-2.0 [facility] Potassium [Moles/Vol] 3.4 mmol/L 3.5-5.[address] [facility] Protein [Mass/Vol] 7.9 g/dL 6.4-8.2 [facility] Sodium [Moles/Vol] 136 mmol/L 136-145 [facility] Urea nitrogen [Mass/Vol] 9.0 mg/dL 7.0-18.0 [facility] Urea nitrogen/Creatinine [Mass ratio] 11.4 mg/mg [facility] Laboratory - Hematology and Cell countson 08-16-2023 Immature granulocytes/100 WBC (Bld) 0.2 % 0.0-0.5 [facility] Laboratory - Specimen inform ationon 08-16-2023 Specimen type Nom (Spec) Stool [facility] Leukocytes [#/volume] correc cornelio for nucleated erythrocytes in Blood by Automated counon 08-16-2023 WBC corrected for nucl RBC Auto (Bld) [#/Vol] 6.4 10 3/uL 4.0-11.0 [facility] Lymphocytes Auto (Bld) [#/Vo l]on 08-16-2023 Lymphocytes (Bld) [#/Vol] 0.8 10 3/uL 1.2-3.8 [facility] Lymphocytes/100 WBC Auto (Bl d)on 08-16-2023 Lymphocytes/100 WBC (Bld) 11.7 % 20.5-60.0 [facility] MCH Auto (RBC) [Entitic mass ]on 08-16-2023 MCH (RBC) [Entitic mass] 29.7 pg 26.7-34.0 [facility] MCHC Auto (RBC) [Mass/Vol]on 08-16-2023 MCHC (RBC) [Mass/Vol] 31.7 g/dL 29.9-35.[address] [facility] MCV Auto (RBC) [Entitic vol] on 08-16-2023 MCV (RBC) [Entitic vol] 93.8 fL 81.0-99.0 [facility] Monocytes Auto (Bld) [#/Vol] on 08-16-2023 Monocytes (Bld) [#/Vol] 0.1 10 3/uL 0.3-0.8 [facility] Monocytes/100 WBC Auto (Bld) on 08-16-2023 Monocytes/100 WBC (Bld) 1.4 % 1.7-12.0 [facility] Neutrophils Auto (Bld) [#/Vo l]on 08-16-2023 Neutrophils (Bld) [#/Vol] 5.5 10 3/uL 1.4-6.5 [facility] Neutrophils/100 WBC Auto (Bl d)on 08-16-2023 Neutrophils/100 WBC (Bld) 85.0 % 43.0-75.0 [facility] No Panel Informationon 08-15 Adenovirus Types 40, 41 Not detected NOT DETECT E [facility] C. difficile Antigen and Toxins A,B Not detected NOT DETECTE [facility] Giardia lamblia Interpretation Not detected NOT DETECTE [facility] Stool Astrovirus (PCR) Not detected NOT DETECTE [facility] Stool Cryptosporidium Confirmation Not detected NOT DETECTE [facility] Stool Cyclospora cayetanensis (PCR) Not detected NOT DETECTE [facility] Stool Entamoeba (PCR) Not detected NOT DETECTE [facility] Stool Norovirus GI/GII PCR Not detected NOT DETECTE [facility] Stool Rotavirus (PCR) Not detected NOT DETECTE [facility] Stool Sapovirus (PCR) Not detected NOT DETECTE [facility] Stool Yersinia enterocolitica (PCR) Not detected NOT DETECTE [facility] Eosinophils # (Auto) 0.0 10 3/uL 0.0-0.[address] [facility] Immature Granulocyte # (Auto) 0.01 10 3/uL 0.00-0.03 [facility] No Panel InformationOrdered By: Kim Shepherd on 08-16-2023 Salmonella/Shigella Screen [facility] Platelet mean volume Auto (B ld) [Entitic vol]on 08-16-2023 Platelet mean volume (Bld) [Entitic vol] 11.4 fL 9.5-13.5 [facility] Platelets Auto (Bld) [#/Vol] on 08-16-2023 Platelets (Bld) [#/Vol] 326 10 3/uL 150-450 [facility] RBC Auto (Bld) [#/Vol]on RBC (Bld) [#/Vol] 4.54 10 6/uL 4.20-5.40 [facility] Serum or plasma albumin/glob ulin mass ratioon 08-16-2023 Albumin/Globulin [Mass ratio] 1.0 {ratio} [facility] Serum or plasma anion gap de terminationon 08-16-2023 Anion gap [Moles/Vol] 14.3 mmol/L [facility] Shigella species+EIEC invasi on plasmid antigen H ipaH gene [Presence] in Stool by NAAon 08-16-2023 Shigella species+EIEC invasion plasmid antigen H ipaH gene CLAUDE+non-probe Ql (Stl) Not detected NOT DETECTE [facility] Stool Plesiomonas shigelloid es DNA detection by non-probe and target amplification meon 08-16-2023 P. shigelloides DNA CLAUDE+non-probe Ql (Stl) Not detected NOT DETECTE [facility] Vibrio cholerae DNA [Presenc e] in Stool by CLAUDE with non-probe detectionon 08-16-2023 V. cholerae DNA CLAUDE+non-probe Ql (Stl) Not detected NOT DETECTE [facility] Human papilloma virus 16+18+ 31+33+35+39+45+51+52+56+58+59+66+68 DNA [Presence] in Dean 08-07-2023 HPV 16+18+31+33+35+39+45+51 +52+56+58+59+66+68 DNA Probe+sig amp Ql (Cvx) Negative Negative [facility] Comment on above: This nucleic acid am plification test detects fourteen high-risk HPV types (16,18,31,33,35,39,45,51,52,56,58,59,66,68)without differentiation.Performed at: =[address] [id number] Director: Dora Hameed MD, Phone: [phone] at: - [facility], [place] [id number] Director: Dora Hameed MD, Phone: [phone] No Panel Informationon 08-06 HPV High Risk Other Comment Note . [facility] Comment on above: TESTS RESULT FLAG UN ITS REF RANGE LAB -DIAGNOSIS: 02 NEGATIVE FOR INTRAEPITHELIAL LESION OR MALIGNANCY.Specimen adequacy: 02 Satisfactory for evaluation. Endocervical and/or squamous metaplastic cells (endocervical component) are present.Performed by: 02 Henny Tse, Supervisor Tower (ASCP). 02Note: Note 02 The Pap smear [...] High <-Panic Low,>-Panic High,A-Abnormal,AA-Critical Abnormal ------Performed at:02 [facility] [address] [place] [address] Dora Hameed MD, Reference Lab Test Patient Age Note . [facility] Comment on above: TESTS RESULT FLAG UN ITS REF RANGE LAB - Clinician Provided Cytology Information Source.............Cervix;Endocervix No. of containers..01 ThinPrep VialAge Algo ACOG [place]... FLAG LEGEND: L-Low Normal,H-High Normal,LL-Alert Low,HH-Alert High <-Panic Low,>-Panic High,A-Abnormal,AA-Critical Abnormal ------Performed at:01 =G [facility] [address] [facility] [place] [address] Dora Hameed MD, PAP ACOG PANEL 2: 30 to 65on 07-09-2022 . . Normal [facility] Comment on above: Result Comment: Perf ormed at: WB Performed By: #### [id number] ####[facility] [id number] [place] [id number]. Taran Pan Age Gdln ACOG Testing Normal [facility] Comment on above: Performed By: #### [id number] ####[facility] [address] [place], [place] [address]VjCarol Pan DIAGNOSIS: Comment Normal [facility] Comment on above: Result Comment: NEGA TIVE FOR INTRAEPITHELIAL LESION OR MALIGNANCY. CELLULAR CHANGES ASSOCIATED WITH INFLAMMATION ARE PRESENT. Performed at: WB Performed By: #### [id number] ####[facility] [address] [place], [place] [address]DrCarol Pan HPV Aptima Negative Normal Negative [facility] Comment on above: Result Comment: This nucleic acid amplification test detects fourteen high-risk HPV types (16,18,31,33,35,39,45,51,52,56,58,59,66,68) without differentiation. Performed at: =G Performed By: #### [id number] ####[facility] [address] [place], [place] [address]DrCarol Pan HPV Genotype Reflex Comment Normal [facility] Comment on above: Result Comment: Crit eria not met, HPV Genotype not performed. Performed at: WB Performed By: #### [id number] ####[place] [address]DrCarol Pan Methodology: Comment Normal [facility] Comment on above: Result Comment: This liquid based ThinPrep(R) pap test was screened with the use of an image guided system. Performed at: WB Performed By: #### [id number] ####[facility] [address] [place], [place] [address]DrCarol Pan Note: Comment Normal [facility] Comment on above: Result Comment: The Pap smear is a screening test designed to aid in the detection of premalignant and malignant conditions of the uterine cervix. It is not a diagnostic procedure and should not be used as the sole means of detecting cervical cancer. Both false-positive and false-negative reports do occur. . Performed at: WB Performed By: #### [id number] ####[facility] [address] [place], [place] [address]DrCarol Pan Performed by: Comment Normal [facility] Comment on above: Result Comment: Zamzam Ryan, Supervisor Tower (ASCP) Performed at: WB Performed By: #### [id number] ####[facility] [address] [place], [place] [address]Dr. Taran Pan Specimen adequacy: Comment Normal [facility] Comment on above: Result Comment: Sati sfactory for evaluation. Endocervical and/or squamous metaplastic cells (endocervical component) are present. Performed at: WB Performed By: #### [id number] ####[facility] [address] [place], [place] [address]Qi. Taran Pan MG MAMM DIAGNOSTIC 3D SHRUTI CA Don 04-20-2022 MG MAMM DIAGNOSTIC 3D SHRUTI CAD Patient: BOB GLORIA Precious. Exam Date: 04/20/2022 : 1975 Gender:F Ordering : DR JESSICA PARISI . Admission #: [id number] Family : Order #: [id number] CLICK HERE TO VIEW EXAM RADIOLOGY REPORT PROCEDURE: MAMMOGRAM DIAGNOSTIC 3D BILATERAL CAD COMPARISON: MAMMO POST BIOPSY LEFT, 10/03/2021. INDICATIONS: Abnormal findings on diagnostic imaging of breast Calculator Name NCI Breast Cancer Risk Assessment Tool 5 Year Breast Cancer Risk 1.70% Lifetime Breast Cancer Risk 12.80% Personal Breast Cancer No Personal Ovarian Cancer No Treatments None Family Cancers None LOCATION: [facility] BREAST COMPOSITION: Extremely dense, which [...] Mosqueda MD on 04/20/2022 at 10:26 Normal [facility] MG MAMM DX 3D LT CADon 04-20 MG MAMM DX 3D LT CAD Patient: BOB GLORIA Precious. Exam Date: 04/20/2022 : 1975 Gender:F Ordering : DR JESSICA PARISI . Admission #: [id number] Family : Order #: [id number] CLICK HERE TO VIEW EXAM RADIOLOGY REPORT PROCEDURE: MAMMOGRAM DIAGNOSTIC 3D BILATERAL CAD COMPARISON: MAMMO POST BIOPSY LEFT, 10/03/2021. INDICATIONS: Abnormal findings on diagnostic imaging of breast Calculator Name NCI Breast Cancer Risk Assessment Tool 5 Year Breast Cancer Risk 1.70% Lifetime Breast Cancer Risk 12.80% Personal Breast Cancer No Personal Ovarian Cancer No Treatments None Family Cancers None LOCATION: [facility] BREAST COMPOSITION: Extremely dense, which [...] MD on 04/20/2022 at 10:26 Normal [facility] MAMMO POST BIOPSY LEFTon MAMMO POST BIOPSY LEFT Patient: GLORIA ROJAS. Exam Date: 10/03/2021 : 1975 Gender:F Ordering : DR JESSICA PARISI . Admission #: [id number] Family : Order #: [id number] CLICK HERE TO VIEW EXAM This report [...] M.D. on 10/11/2021 at 10:39 Normal [facility] US VAC ASST BX BRST LT W CLI Kyler 10-03-2021 US VAC ASST BX BRST LT W CLIP Patient: BOBSeptember. Exam Date: 10/03/2021 : 1975 Gender:F Ordering : DR JESSICA PARISI . Admission #: [id number] Family : Order #: [id number] CLICK HERE TO VIEW EXAM This report [...] Keane M.D. on 10/11/2021 at 10:38 Normal [facility] MG MAMM DX 3D LT CADon 09-27 MG MAMM DX 3D LT CAD Patient: BOB SEPTEMBER D. Exam Date: 09/27/2021 : 1975 Gender:F Ordering : DR JESSICA PARISI . Admission #: [id number] Family : Order #: [id number] CLICK HERE TO VIEW EXAM RADIOLOGY REPORT [...] Treatments None Family Cancers None LOCATION: [facility] BREAST COMPOSITION: Extremely dense, which [...] M.D. on 09/27/2021 at 09:50 Normal [facility] US BREAST LEFT LIMITEDon US BREAST LEFT LIMITED Patient: BOB GLORIA D. Exam Date: 09/27/2021 : 1975 Gender:F Ordering : DR JESSICA PARISI . Admission #: [id number] Family : Order #: [id number] CLICK HERE TO VIEW EXAM RADIOLOGY REPORT [...] Treatments None Family Cancers None LOCATION: [facility] BREAST COMPOSITION: Extremely dense, which [...] M.D. on 09/27/2021 at 09:50 Normal [facility] ESTRADIOLon 09-02-2021 Estradiol 209.0 pg/mL Normal [facility] Comment on above: Result Comment: Adul t Female: Follicular phase 12.5 - 166.0 Ovulation phase 85.8 - 498.0 Luteal phase 43.8 - 211.0 Postmenopausal <6.0 - 54.7 1st trimester 215.0 - >4300.0 Jeanna ECLIA methodology Performed By: #### E LORENE #### [facility] [address] [place] [address] Dr. Taran Pan FSHon 09-02-2021 FSH 6.1 mIU/mL Normal [facility] Comment on above: Result Comment: Adul t Female: Follicular phase 3.5 - 12.5 Ovulation phase 4.7 - 21.5 Luteal phase 1.7 - 7.7 Postmenopausal 25.8 - 134.8 Performed By: #### L BCFS #### [facility] [address] [place] [address] [address] Taran Pan CBC AUTO DIFFon 09-01-2021 BASO # 0.1 103/ul Normal 0.0-0.1 [facility] Comment on above: Performed By: #### C BC ####[facility] [address] [place] [address]Dr. Taran Pan Basophils/100 WBC (Bld) 1.2 % Normal 0.2-2.0 [facility] Comment on above: Performed By: #### C BC ####[facility] [address] [place], [place] [address]Dr. Taran Pan EO # 0.1 103/ul Normal 0.0-0.7 [facility] Comment on above: Performed By: #### C BC ####[facility] [address] [place], [place] [address]Dr. Taran Pan Eosinophils/100 WBC (Bld) 0.9 % Normal 0.9-7.0 [facility] Comment on above: Performed By: #### C BC ####[facility] [address] [place], [place] [address]DrCarol Pan Erythrocyte distribution width (RBC) [Ratio] 13.1 % Normal 11.0-15.0 [facility] Comment on above: Performed By: #### C BC ####[facility] [address] [place], [place] [address]Dr. Taran Pan Hematocrit (Bld) [Volume fraction] 42.4 % Normal 36.0-48.0 [facility] Comment on above: Performed By: #### C BC ####[facility] [address] [place], [place] [address]DrCarol Pna Hemoglobin (Bld) [Mass/Vol] 14.0 g/dL Normal 12.0-16.0 [facility] Comment on above: Performed By: #### C BC ####[facility] [address] [place] [address]DrCarol Pan IG # 0.02 10e3/ul Normal 0.00-0.03 [facility] Comment on above: Performed By: #### C BC ####[facility] [address] [place] [address]Dr. Taran Pan IG % 0.3 % Normal 0.0-0.5 [facility] Comment on above: Performed By: #### C BC ####[facility] [address] [place], [place] [address]DrCarol Pan LYMPH # 1.5 103/ul Normal 1.2-3.8 [facility] Comment on above: Performed By: #### C BC ####[facility] [address] [place], [place] [address]Dr. Taran Pan Lymphocytes/100 WBC (Bld) 26.4 % Normal 20.5-60.0 [facility] Comment on above: Performed By: #### C BC ####[facility] [address] [place], [place] [address]DrCarol Ludypablo Pan MANUAL DIFF REQ NO Normal [facility] Comment on above: Performed By: #### C BC ####[facility] [address] [place] [address]DrCarol Pan MCH (RBC) [Entitic mass] 30.6 pg Normal 26.7-34.0 [facility] Comment on above: Performed By: #### C BC ####[facility] [address] [place], [place] [address]DrCarol Pan MCHC (RBC) [Mass/Vol] 33.0 g/dL Normal 29.9-35.2 [facility] Comment on above: Performed By: #### C BC ####[facility] [address] [place], [place] [address]DrCarol Pan MCV (RBC) [Entitic vol] 92.6 fL Normal 81.0-99.0 [facility] Comment on above: Performed By: #### C BC ####[facility] [address] [place], [place] [address]DrCarol Taran Pan MONO # 0.3 103/ul Normal 0.3-0.8 [facility] Comment on above: Performed By: #### C BC ####[facility] [address] [place], [place] [address]DrCarol Taran Maxim Monocytes/100 WBC (Bld) 5.6 % Normal 1.7-12.0 [facility] Comment on above: Performed By: #### C BC ####[facility] [address] [place], [place] [address]DrCarol Taran Pan NEUT # 3.8 103/ul Normal 1.4-6.5 [facility] Comment on above: Performed By: #### C BC ####[facility] [address] [place], [place] [address]DrCarol Taran Maxim Neutrophils/100 WBC (Bld) 65.6 % Normal 43.0-75.0 [facility] Comment on above: Performed By: #### C BC ####[facility] [address] [place], [place] [address]DrCarol Taran Maxim Platelet mean volume (Bld) [Entitic vol] 11.2 fL Normal 9.5-13.5 [facility] Comment on above: Performed By: #### C BC ####[facility] [address] [place], [place] [address]Dr. Taran Maxim PLT 398 103/ul Normal 150-450 [facility] Comment on above: Performed By: #### C BC ####[facility] [address] [place], [place] [address]DrCarol Pan RBC 4.58 106/ul Normal 4.20-5.40 [facility] Comment on above: Performed By: #### C BC ####[facility] [address] [place], [place] [address]DrCarol Pan WBC 5.8 103/ul Normal 4.0-11.0 [facility] Comment on above: Performed By: #### C BC ####[facility] [address] [place] [address]Dr. Taran Pan FREE T4on 09-01-2021 Free T4 [Mass/Vol] 0.95 ng/dL Normal 0.78-2.19 [facility] Comment on above: Performed By: #### F T4 ####[facility] [address] [place] [address]Dr. Taran Pan PROF CHEM 8 (BAS METB)on Anion gap [Moles/Vol] 11.2 mmol/L Normal [facility] Comment on above: Performed By: #### T CLIVE, BMP #### [facility] [address] [place] [address] Dr. Taran Pan Calcium [Mass/Vol] 8.5 mg/dL Normal 8.5-10.1 [facility] Comment on above: Performed By: #### T CLIVE, BMP #### [facility] [address] [place] [address] Dr. Taran Pan Chloride [Moles/Vol] 104 mmol/L Normal 98-107 [facility] Comment on above: Performed By: #### T CLIVE, BMP #### [facility] [address] [place] [address] Dr. Taran Pan CO2 [Moles/Vol] 28.2 mmol/L Normal 22.0-30.0 [facility] Comment on above: Performed By: #### T CLIVE, BMP #### [facility] [address] [place] [address] Dr. Taran Pan Creatinine [Mass/Vol] 0.77 mg/dL Normal 0.52-1.04 [facility] Comment on above: Performed By: #### T CLIVE, BMP #### [facility] [address] [place] [address] Dr. Taran Pan EGFR-AF JORDANIAN >60 Normal >=60 [facility] Comment on above: Performed By: #### T CLIVE, BMP #### [facility] [address] [place] [address] Dr. Taran Pan EGFR-NON AF JORDANIAN >60 Normal >=60 [facility] Comment on above: Performed By: #### T SH, BMP #### [facility] [address] [place] [address] Dr. Taran Pan Glucose [Mass/Vol] 96 mg/dL Normal 74-106 [facility] Comment on above: Performed By: #### T SH, BMP #### [facility] [address] [place] [address] Dr. Taran Pan Potassium [Moles/Vol] 4.4 mmol/L Normal 3.4-5.0 [facility] Comment on above: Performed By: #### T SH, BMP #### [facility] [address] [place] [address] Dr. Taran Pan Sodium [Moles/Vol] 139 mmol/L Normal 137-145 [facility] Comment on above: Performed By: #### T SH, BMP #### [facility] [address] [place] [address] Dr. Taran Pan Urea nitrogen [Mass/Vol] 12.0 mg/dL Normal 7.0-18.0 [facility] Comment on above: Performed By: #### T CLIVE, BMP #### [facility] [address] [place] [address] Dr. Taran Pan Urea nitrogen/Creatinine [Mass ratio] 15.6 mg/mg Normal [facility] Comment on above: Performed By: #### T SH, BMP #### [facility] [address] [place] [address] Dr. Taran Pan TSHon 09-01-2021 TSH 2.163 uIU/mL Normal 0.470-4.680 [facility] Comment on above: Performed By: #### T SH, BMP #### [facility] [address] [place] [address] Dr. Taran Pan TSH RANGE SEE BELOW Normal [facility] Comment on above: Result Comment: <0.3 4 UIU/ml HYPERTHYROID 0.34-5.60 UIU/ml EUTHYROID >5.60 UIU/ml HYPOTHYROID Performed By: #### T SH, BMP #### [facility] [address] [place] [address] Dr. Taran Pan Vital Signs Date Time Vital Sign Value Performing Clinician Facility 02-02-2025 14:58-0400 Body mass index (BMI) [Ratio] 31.02 kg/m2 Ashley Yanely PA Work Phone: [facility] 02-02-2025 14:58-0400 Body weight 84.55 kg Ashley Kirkland PA Work Phone: [facility] 02-02-2025 14:58-0400 Diastolic blood pressure 70 mm[Hg] Ashley Yanely PA Work Phone: [facility] 02-02-2025 14:58-0400 Systolic blood pressure 110 mm[Hg] Ashley Yanely PA Work Phone: [facility] 01-04-2025 14:37-0400 Body height 165.1 cm Ashley Kirkland PA Work Phone: [facility] 01-04-2025 14:37-0400 Body mass index (BMI) [Ratio] 31.28 kg/m2 Ashley Kirkland PA Work Phone: [facility] 01-04-2025 14:37-0400 Body weight 85.28 kg Ashley Kirkland PA Work Phone: [facility] 01-04-2025 14:37-0400 Diastolic blood pressure 76 mm[Hg] Ashley Yanely PA Work Phone: [facility] 01-04-2025 14:37-0400 Systolic blood pressure 124 mm[Hg] Ashley Kirkland PA Work Phone: [facility] 12-07-2024 16:07-0400 Body mass index (BMI) [Ratio] 31.8 kg/m2 Ashley Kirkland PA Work Phone: [facility] 12-07-2024 16:07-0400 Body weight 86.69 kg Ashley Yanely PA Work Phone: [facility] 12-07-2024 16:07-0400 Diastolic blood pressure 80 mm[Hg] Ashley Yanely PA Work Phone: [facility] 12-07-2024 16:07-0400 Systolic blood pressure 128 mm[Hg] Ashley AGUILAR Work Phone: [facility] 09-28-2024 09:37-0400 Body mass index (BMI) [Ratio] 30.47 kg/m2 Jessica Ailin DO Work Phone: [facility] 09-28-2024 09:37-0400 Body weight 83.06 kg Jessica Ailin DO Work Phone: [facility] 09-28-2024 09:37-0400 Diastolic blood pressure 74 mm[Hg] Jessica Ailin DO Work Phone: [facility] 09-28-2024 09:37-0400 Systolic blood pressure 114 mm[Hg] Jessica Ailin DO Work Phone: [facility] 09-16-2024 15:50-0400 Body mass index (BMI) [Ratio] 30.7 kg/m2 Jessica Ailin DO Work Phone: [facility] 09-16-2024 15:50-0400 Body weight 83.69 kg Jessica Ailin DO Work Phone: [facility] 09-16-2024 15:50-0400 Diastolic blood pressure 84 mm[Hg] Jessica Ailin DO Work Phone: [facility] 09-16-2024 15:50-0400 Systolic blood pressure 126 mm[Hg] Jessica Ailin DO Work Phone: [facility] 03-16-2024 15:44-0400 Body height 167.64 cm [facility] 03-16-2024 15:44-0400 Body mass index (BMI) [Ratio] 28.3 kg/m2 [facility] 03-16-2024 15:44-0400 Body weight 79.54 kg [facility] 03-16-2024 15:44-0400 Diastolic blood pressure 70 mm[Hg] [facility] 03-16-2024 15:44-0400 Heart rate 86 /min [facility] 03-16-2024 15:44-0400 Respiratory rate 16 /min [facility] 03-16-2024 15:44-0400 SaO2% (BldA) [Mass fraction] 98 % [facility] 03-16-2024 15:44-0400 Systolic blood pressure 102 mm[Hg] [facility] 02-07-2024 10:090400 Body height 167.64 cm [facility] 02-07-2024 10:090400 Body mass index (BMI) [Ratio] 29.3 kg/m2 [facility] 02-07-2024 10:090400 Body weight 82.55 kg [facility] 02-07-2024 10:090400 Diastolic blood pressure 78 mm[Hg] [facility] 02-07-2024 10:090400 Heart rate 59 /min [facility] 02-07-2024 10:09-0400 Systolic blood pressure 124 mm[Hg] [facility] 01-31-2024 10:13-0400 Body height 167.6 cm Estrellita Jacob HAT MARKER.DENTIST Work Phone: [facility] 01-31-2024 10:13-0400 Body mass index (BMI) [Ratio] 27.44 kg/m2 Estrellita Jacob HAT MARKER.DENTIST Work Phone: [facility] 01-31-2024 10:13-0400 Body weight 77.11 kg Estrellita Jacob HAT MARKER.DENTIST Work Phone: [facility] 01-31-2024 10:13-0400 Diastolic blood pressure 86 mm[Hg] Estrellita Jacob HAT MARKER.DENTIST Work Phone: [facility] 01-31-2024 10:13-0400 Heart rate 64 /min Estrellita Jacob HAT MARKER.DENTIST Work Phone: [facility] 01-31-2024 10:13-0400 Systolic blood pressure 131 mm[Hg] Estrellita Jacob HAT MARKER.DENTIST Work Phone: [facility] 09-13-2023 14:00-0400 Diastolic blood pressure 52 mm[Hg] Marcello Villarreal MD Work Phone: [facility] 09-13-2023 14:00-0400 Heart rate 66 /min Marcello Villarreal MD Work Phone: [facility] 09-13-2023 14:00-0400 Respiratory rate 16 /min Marcello Villarreal MD Work Phone: [facility] 09-13-2023 14:00-0400 SaO2% (BldA) [Mass fraction] 99 % Marcello Villarreal MD Work Phone: [facility] 09-13-2023 14:00-0400 Systolic blood pressure 95 mm[Hg] Marcello Villarreal MD Work Phone: [facility] 09-13-2023 12:50-0400 Body height 167.6 cm Marcello Villarreal MD Work Phone: [facility] 09-13-2023 12:50-0400 Body mass index (BMI) [Ratio] 26.95 kg/m2 Marcello Villarreal MD Work Phone: [facility] 09-13-2023 12:50-0400 Body temperature 98.29 [degF] Marcello Villarreal MD Work Phone: [facility] 09-13-2023 12:50-0400 Body weight 75.75 kg Marcello Villarreal MD Work Phone: [facility] 08-30-2023 10:23-0400 Body height 167.6 cm Estrellita Jacob APRN.DENTIST Work Phone: [facility] 08-30-2023 10:23-0400 Body temperature 98.1 [degF] Estrellita Jacob APRN.DENTIST Work Phone: [facility] 08-30-2023 10:23-0400 Body weight 77.56 kg Estrellita Jacob HAT MARKER.DENTIST Work Phone: [facility] 08-30-2023 10:23-0400 Diastolic blood pressure 80 mm[Hg] Estrellita Jacob HAT MARKER.DENTIST Work Phone: [facility] 08-30-2023 10:23-0400 Heart rate 66 /min Estrellita Jacob HAT MARKER.DENTIST Work Phone: [facility] 08-30-2023 10:23-0400 Systolic blood pressure 122 mm[Hg] Estrellita Jacob HAT MARKER.DENTIST Work Phone: [facility] 08-21-2023 09:24-0400 Body height 167.64 cm [facility] 08-21-2023 09:24-0400 Body mass index (BMI) [Ratio] 27.6 kg/m2 [facility] 08-21-2023 09:24-0400 Body weight 77.62 kg [facility] 08-21-2023 09:24-0400 Diastolic blood pressure 79 mm[Hg] [facility] 08-21-2023 09:24-0400 Heart rate 76 /min [facility] 08-21-2023 09:24-0400 Systolic blood pressure 127 mm[Hg] [facility] Encounters Encounter Date Encounter Type Care Provider Facility Start: 02-02-2025 End: 02-02-2025 Office outpatient visit 15 minutes Ashley AGUILAR Work Phone: [facility] Comment on above: Encounter for weight management Start: 02-02-2025 End: 02-02-2025 ambulatory ASHLEY TSANG Not Available Start: 02-02-2025 End: 02-02-2025 Bamboo flowsheet Ashley AGUILAR Work Phone: [facility] Start: 02-02-2025 End: 02-02-2025 Bamboo flowsheet Ashley AGUILAR Work Phone: [facility] Start: 01-04-2025 End: 01-04-2025 Office outpatient visit 5 minutes Ashley AGUILAR Work Phone: [facility] Comment on above: Weight gain; Encounter for weight management Start: 01-04-2025 End: 01-04-2025 ambulatory ASHLEY TSANG Not Available Start: 01-04-2025 End: 01-04-2025 Bamboo flowsheet Ashley AGUILAR Work Phone: [facility] Start: 01-04-2025 End: 01-04-2025 Bamboo flowsheet Ashley AGUILAR Work Phone: [facility] Start: 12-07-2024 End: 12-07-2024 Office outpatient visit 15 minutes Ashley AGUILAR Work Phone: [facility] Comment on above: Encounter for weight management; Menopause Start: 12-07-2024 End: 12-07-2024 ambulatory ASHLEY TSANG Not Available Start: 12-07-2024 End: 12-07-2024 Bamboo flowsheet Ashley AGUILAR Work Phone: [facility] Start: 12-07-2024 End: 12-07-2024 Bamboo flowsheet Ashley AGUILAR Work Phone: [facility] Start: 09-28-2024 End: 09-28-2024 Patient encounter procedure Jessica Ailin DO Work Phone: [facility] Comment on above: Encounter for IUD re moval; Encounter for IUD insertion Start: 09-28-2024 End: 09-28-2024 ambulatory JESSICA AILIN Not Available Start: 09-16-2024 End: 09-16-2024 Patient encounter procedure Jessica Ailin DO Work Phone: [facility] Start: 09-16-2024 End: 09-16-2024 Periodic preventive med est patient 40-64yrs Jessica Ailin DO Work Phone: [facility] Comment on above: Well woman exam with routine gynecological exam; Encounter for screening mammogram for malignant neoplasm of breast Start: 09-16-2024 End: 09-16-2024 ambulatory JESSICA AILIN Not Available Start: 09-16-2024 End: 09-16-2024 Bamboo flowsheet Jessica Ailin DO Work Phone: [facility] Start: 09-16-2024 End: 09-21-2024 Bamboo flowsheet Jessica Ailin DO Work Phone: [facility] Start: 09-16-2024 End: 09-21-2024 Clinisync Result Encounter Jessica Ailin DO Work Phone: [facility] Unsolicited Start: 03-16-2024 End: 03-16-2024 ambulatory [facility] Work Phone: Start: 03-16-2024 End: 03-16-2024 Patient encounter procedure [facility] Work Phone: Start: 02-07-2024 End: 02-07-2024 ambulatory [facility] Work Phone: Start: 02-07-2024 End: 02-07-2024 Patient encounter procedure [facility] Work Phone: Start: 01-31-2024 End: 01-31-2024 Patient encounter procedure Estrellita Jacob APRN.DENTIST [facility] Comment on above: Loose stools (Primar y Dx); Abdominal cramping; Epigastric pain Start: 09-19-2023 End: 09-19-2023 ambulatory KIM SHEPHERD Facility:[facility] Start: 09-19-2023 Telephone encounter Estrellita jaffe APRN.DENTIST Work Phone: [facility] Start: 09-13-2023 End: 09-13-2023 Subsequent hospital visit by physician Marcello Lemus MD Work Phone: [facility] Comment on above: Epigastric pain [R10 .13] Start: 08-30-2023 End: 08-30-2023 Patient encounter procedure Estrellita Jacob APRN.DENTIST Work Phone: [facility] Comment on above: Epigastric pain (Jaimee sofia Dx); Screening for malignant neoplasm of colon; Diarrhea, unspecified type Start: 08-21-2023 End: 08-21-2023 ambulatory [facility] Work Phone: Start: 08-21-2023 End: 08-21-2023 Patient encounter procedure [facility] Work Phone: Start: 08-16-2023 Non-patient / Non-visit [facility] Work Phone: Start: 08-07-2023 Non-patient / Non-visit [facility] Work Phone: Start: [...] Start: 06-08-2013 Patient encounter status Estrellita Jacob SARAI.DENTIST Work Phone: [facility] Work Phone: Procedures Date Procedure Procedure Detail Performing Clinician Start: 09-28-2024 Urine test visual color cmprsn meths Jessica Ailin DO Work Phone: Start: 09-28-2024 IUD INSERTION Jessica Ailin DO Work Phone: Start: 09-17-2024 Microscopic observation [Identifier] in Cervix by Cyto stain Jessica Ailin DO Work Phone: Start: 09-16-2024 IGP,APTIMA HPV,AGE GDLN Jessica Ailin DO Work Phone: Start: 05-15-2024 Mammography Jessica Ailin DO Work Phone: Start: 09-13-2023 Colonoscopy flx dx w/collj spec when pfrmd Estrellita Jacob APRN.DENTIST Work Phone: Start: 09-13-2023 Esophagogastroduodenoscopy transoral diagnostic Estrellita Jacob HAT MARKER.DENTIST Work Phone: Start: 09-13-2023 Colonoscopy Estrellita Jacob HAT MARKER.DENTIST Work Phone: Start: 08-16-2023 Salmonella/Shigella Screen Start: 08-07-2023 Microscopic observation [Identifier] in Cervix by Cyto stain Jessica Ailin DO Work Phone: Start: 05-10-2023 Mammography Jessicanino Floreso DO Work Phone: Start: 06-10-2015 Lipid 1996 panel - Serum or Plasma Shu Jacob APRN.DENTIST Work Phone: Plan of Treatment Date Care Activity Detail Author Start: 09-12-2033 Screening for malignant neoplasm of colon [facility] Start: 09-17-2029 Screening for malignant neoplasm of cervix [facility] Start: 08-06-2028 Screening for malignant neoplasm of cervix [facility] Start: 09-27-2025 End: 09-27-2025 Patient encounter procedure [facility] Start: 05-15-2025 Screening for malignant neoplasm of breast Mammogram [facility] Start: 03-01-2025 End: 03-01-2025 Patient encounter procedure 03/01/2025 3:30 PM EDT Office Visit [facility] [address] [place] [address] Ida Vera, MEDICAL AIDES TEACHER [address] [place] [address] [facility] [place] [facility] Start: 02-02-2025 End: 02-02-2025 Patient encounter procedure 02/02/2025 3:00 PM EDT Office Visit [facility] [address] [place] [phone] Ashley Tsang PA [address] [place] [address] Arrived [facility] Comment on above: Arrived Start: 02-01-2025 Influenza vaccination Influenza Vacc ine (#1) [facility] Start: 01-04-2025 End: 01-04-2025 Patient encounter procedure [facility] Comment on above: Arrived Start: 12-07-2024 End: 12-07-2024 Patient encounter procedure 12/07/2024 4:00 PM EDT Office Visit [facility] [address] [place] [id number] Ashley Tsang PA [address] [place] [address] Arrived [facility] Comment on above: Arrived Start: 09-28-2024 End: 09-28-2024 Patient encounter procedure 09/28/2024 9:30 AM EDT Procedure Visit [facility] [address] [place] [phone] Jessica Parisi, DO [address] [address] [facility] Start: 09-16-2024 End: 09-16-2024 Patient encounter procedure 09/16/2024 3:40 PM EDT Office Visit [facility] [address] [place] [phone] Jessica Parisi, DO [address] [address] Arrived [facility] Comment on above: Arrived Start: 09-16-2024 End: 11-16-2025 MG Breast - bilateral Screening Bilateral screening mammogram Imaging Routine Encounter for screening mammogram for malignant neoplasm of breast Expected: 09/16/2024 (Approximate), Expires: 11/16/2025 [facility] Work Phone: Comment on above: Expected: 09/16/2024 (Approximate), Expires: 11/16/2025 Start: 09-12-2024 Screening for malignant neoplasm of colon [facility] Start: 05-10-2024 Screening for malignant neoplasm of breast Mammogram [facility] Start: 02-02-2024 Covid-19 Vaccine () Covid-19 Vaccine () [facility] Start: 02-02-2024 Influenza vaccination Influenza Vacc ine (#1) [facility] Start: 08-21-2023 Patient referral [facility] Work Phone: Start: 08-07-2023 End: 08-07-2023 Patient encounter procedure 08/07/2023 4:00 PM EST Office Visit [facility] [address] [place] [id number] Jessica Parisi, DO [address] [address] [facility] Start: 07-03-2023 Screening for malignant neoplasm of breast Mammogram Screening [facility] Start: 06-03-2023 Behavioral Health Screening Behavioral Health Screening [facility] Start: 06-03-2023 Depression Assessment Depression Ass essment [facility] Start: 02-01-2023 Covid-19 Vaccine () Covid-19 Vaccine () [facility] Start: 06-10-2020 Lipid panel Lipid Screening [facility] Start: 02-06-2020 Diabetes Screening Diabetes Screenin g [facility] Start: 02-06-2020 Screening for malignant neoplasm of colon [facility] Start: 2005 Screening for malignant neoplasm of cervix [facility] Start: 02-06-1996 Screening for malignant neoplasm of cervix [facility] Start: 1994 Hepatitis B Vaccine (1 of 3 - 19+ 3-dose series) Hepatitis B Vaccine (1 of 3 - 19+ 3-dose series) [facility] Start: 1994 Urine microalbumin profile DTaP,Tdap,Td Vaccine (1 - Tdap) [facility] Start: 1993 Anxiety Screening Anxiety Screening [facility] Start: 1993 Depression Screening Depression Scre ening [facility] Start: 1993 Hepatitis C screening Hepatitis C Sc reening [facility] Start: 1975 Screening for malignant neoplasm of colon [facility] End: 08-29-2024 EGD DIAGNOSTIC EGD DIAGNOSTIC Endoscopy Routine Epigastric pain 1 Occurrences starting 08/30/2023 until 08/29/2024 [facility] Work Phone: Comment on above: 1 Occurrences starti ng 08/30/2023 until 08/29/2024 Patient referral [facility] Work Phone: End: 08-29-2024 Screening colonoscopy COLONOSCOPY SCREENING Endoscopy Routine Screening for malignant neoplasm of colon 1 Occurrences starting 08/30/2023 until 08/29/2024 [facility] Work Phone: Comment on above: 1 Occurrences starti ng 08/30/2023 until 08/29/2024 THIN PREP TIS PAP AN D HR HPV DNA THIN PREP TIS PAP AND HR HPV DNA Pathology and Cytology Routine Well woman exam with routine gynecological exam Ordered: 09/16/2024 [facility] Comment on above: Ordered: 09/16/2024 End: 09-28-2024 US Abdomen RUQ US ABD RIGHT UPPER QUADRANT Radiology Routine Epigastric pain 1 Occurrences starting 08/30/2023 until 09/28/2024 [facility] Work Phone: Comment on above: 1 Occurrences starti ng 08/30/2023 until 09/28/2024 [facility] Immunizations Immunization Date Immunization Notes Care Provider Dylan miller 03-31-2024 influenza virus vacc ine, unspecified formulation Ashley AGUILAR Work Phone: [facility] 03-12-2023 influenza virus vacc ine, unspecified formulation Estrellita Jacob HAT MARKER.DENTIST Work Phone: [facility] 03-26-2022 influenza virus vacc ine, unspecified formulation Estrellita Zambory HAT MARKER.DENTIST Work Phone: [facility] 03-06-2021 influenza virus vacc ine, unspecified formulation Estrellita Zambory HAT MARKER.DENTIST Work Phone: [facility] 04-11-2018 influenza virus vacc ine, unspecified formulation Estrellita Zambory HAT MARKER.DENTIST Work Phone: [facility] 04-03-2017 influenza virus vacc ine, unspecified formulation Estrellita Zambory HAT MARKER.DENTIST Work Phone: [facility] 03-08-2016 influenza virus vacc ine, unspecified formulation Estrellita Zambory HAT MARKER.DENTIST Work Phone: [facility] 03-09-2015 influenza virus vacc ine, unspecified formulation Estrellita Zambory HAT MARKER.DENTIST Work Phone: [facility] Payers Date Payer Category Payer Managed Care O (unspecified) [id number] 2021 Private Health Insurance [id number] 2021 Private Health Insurance EHP AET NA EHP PLUS STAFF/NON STAFF / EHP Plus [facility] [id number] 2021-Present [phone] [address] [place] [address] PPO [id number] 1975 Unknown [id number] 1975 Unknown [id number] 1975 Unknown [id number] [id number] 1975 Unknown [id number] [id number] 1975 Unknown [id number] [id number] 1975 Unknown [id number] [id number] 1975 Unknown [id number] [id number] 1975 Unknown [id number] [id number] 1975 Unknown [id number] [id number] 1975 Unknown [id number] 1959 Private Health Insurance [id number] Social History Date Type Detail Facility Start: 07-15-2023 End: 08-21-2023 Tobacco smoking status VAIS Never smoked tobacco [facility] Start: 07-15-2023 End: 01-31-2024 Tobacco use and exposure Smokeless tobacco non-user [facility] Start: 07-15-2023 End: 02-02-2025 Alcohol intake Lifetime non-drinker (finding) [facility] Start: 1975 Sex Assigned At Not on file [facility] Start: 08-30-2023 End: 09-28-2024 Gender identity Not on file [facility] Start: 1975 Sex Assigned At Female [facility] Start: 08-30-2023 End: 09-28-2024 History of Social function [facility] National Score (1-10 0), lower number is lower risk 67 [facility] Start: 06-05-2021 Gender identity Identifies as female gender (finding) [facility] Start: 06-05-2021 Sexual orientation Heterosexual (finding) [facility] Clinical Notes 08-30-2023 to 02-02-2025 JEFF Padilla - 02/02/2025 3:00 PM Olga Tsang, JEFF - 12/07/2024 4:00 PM Gil Jones, KYAW - 09/28/2024 9:30 AM Audieiqra Lyle, KYAW - 09/16/2024 3:40 PM EDT Note Date & Type Note Facility 02-02-2025 History of Presen t illness Narrative Reason for Appointment: Patient ID: September Bob is a 49 y.o. female who presents for encounter for weight management Patient presents today for Weight Management Consult. MEDICATIONS Current Outpatient Medications Medication Instructions doxycycline (VIBRAMYCIN) 100 mg, Daily estradiol (ESTRACE) 0.5 mg, Oral, Daily, Take 1 tablet by mouth for 30 days Multiple Vitamin (Multivitamin Adult) tablet Take by mouth phentermine (ADIPEX-P) 37.5 mg, Oral, Daily before breakfast PROzac 20 MG capsule ALLERGIES No Known Allergies PROBLEMS Active Ambulatory Problems Diagnosis Date Noted No Active Ambulatory Problems Resolved Ambulatory Problems Diagnosis Date Noted No Resolved Ambulatory Problems Past Medical History: Diagnosis Date Abnormal weight gain Anxiety and depression Breast cyst, left Fatigue Insomnia IUD (intrauterine device) in place Migraines Thyroid disease HISTORY PAST MEDICAL HISTORY SOCIAL HISTORY Past Medical History: Diagnosis Date Abnormal weight gain Anxiety and depression Breast cyst, left Fatigue Insomnia IUD (intrauterine device) in place Migraines Thyroid disease Social History Tobacco Use Smoking status: Never [...] Exam Constitutional: Appearance: Normal appearance. She is normal weight. HENT: Head: Normocephalic. Cardiovascular: Rate and Rhythm: Normal rate. Pulses: Normal pulses. Pulmonary: Effort: Pulmonary effort is normal. Breath sounds: Normal breath sounds. Abdominal: Palpations: Abdomen is soft. Musculoskeletal: General: Normal range of motion. Neurological: General: No focal deficit present. Mental Status: She is alert and oriented to person, place, and time. Psychiatric: Mood and Affect: Mood normal. Behavior: Behavior normal. Thought Content: Thought content normal. Judgment: Judgment normal. Vitals and nursing note reviewed. Vitals: Estimated body mass index is 31.02 kg/m as calculated from the following: Height as of 25: 5' 5 . Weight as of this encounter: 186 lb 6.4 oz. BP: 110/70 No LMP recorded. (Menstrual status: IUD). ASSESSMENT & PLAN ICD-10-CM 1. Encounter for weight management Z76.89 phentermine (Adipex-P) 37.5 MG tablet Patient presents today for 3rd Adipex prescription. Patient desires additional weigh loss and she is currently taking metformin along with working out to achieve further results. Weight and blood pressure has been captured and it has been discussed/reiterated the importance of keeping a food journal, proper nutrition/diet, and exercise regimen. Patient verbalized understanding. Patient has not lost more than 5% of her initial body weight Follow Up: Patient is to return to office for annual well women exam unless needed otherwise. Documented by JEFF Padilla on behalf of: JEFF Padilla documented in this encounter [facility] 12-07-2024 History of Presen t illness Narrative Reason for Appointment: Patient ID: Gloria Rojas is a 49 y.o. female who presents for encounter for weight management and Menopause Patient presents today for Weight Management Consult. MEDICATIONS Current Outpatient Medications Medication Instructions estradiol (ESTRACE) 0.5 mg, Oral, Daily, Take 1 tablet by mouth for 30 days Levonorgestrel (Mirena, 52 MG,) 20 MCG/DAY intrauterine device as directed Intrauterine Multiple Vitamin (Multivitamin Adult) tablet Take by mouth phentermine (ADIPEX-P) 37.5 mg, Oral, Daily before breakfast PROzac 20 MG capsule ALLERGIES No Known Allergies PROBLEMS Active Ambulatory Problems Diagnosis Date Noted No Active Ambulatory Problems Resolved Ambulatory Problems Diagnosis Date Noted No Resolved Ambulatory Problems Past Medical History: Diagnosis Date Abnormal weight gain Anxiety and depression Breast cyst, left Fatigue Insomnia IUD (intrauterine device) in place Migraines Thyroid disease HISTORY PAST MEDICAL HISTORY SOCIAL HISTORY Past Medical History: Diagnosis Date Abnormal weight gain Anxiety and depression Breast cyst, left Fatigue Insomnia IUD (intrauterine device) in place Migraines Thyroid disease Social History Tobacco Use Smoking status: Never [...] Exam Constitutional: Appearance: Normal appearance. She is normal weight. HENT: Head: Normocephalic. Cardiovascular: Rate and Rhythm: Normal rate. Pulses: Normal pulses. Pulmonary: Effort: Pulmonary effort is normal. Breath sounds: Normal breath sounds. Abdominal: Palpations: Abdomen is soft. Musculoskeletal: General: Normal range of motion. Neurological: General: No focal deficit present. Mental Status: She is alert and oriented to person, place, and time. Psychiatric: Mood and Affect: Mood normal. Behavior: Behavior normal. Thought Content: Thought content normal. Judgment: Judgment normal. Vitals and nursing note reviewed. Vitals: Estimated body mass index is 31.8 kg/m as calculated from the following: Height as of 23: 5' 5 . Weight as of this encounter: 191 lb 1.9 oz. BP: 128/80 No LMP recorded. (Menstrual status: IUD). ASSESSMENT & PLAN ICD-10-CM 1. Encounter for weight management Z76.89 phentermine (Adipex-P) 37.5 MG tablet 2. Menopause Z78.0 estradiol (Estrace) 0.5 MG tablet Patient presents today for initial Adipex prescription. The importance of keeping a food journal, proper nutrition/diet, and exercise regimen while taking Adipex has been discussed. Patient verbalized understanding and signed consents to initiate (Adipex) medication therapy. Patient was given a printed prescription signed by provider to take to their local pharmacy. Patient has taken adipex in the past and tolerated well. She states she has gradulally gained weight and has not been able to lose. Feels she may also be perimenopausal. She is having irritability, sleep issues and some noticed hot flashes. Patient does have IUD in place, we will send in low dose estradiol to help with symptoms. She will return in one month. We discussed adding metformin to her medications in the future. Follow Up: Patient is to return to the office in 1 month for further evaluation to assess patient progress. Weight and blood pressure will need to be captured in order for patient to receive 2nd prescription. Documented by JEFF Padilla on behalf of: JEFF Padilla documented in this encounter [facility] 09-28-2024 History of Presen t illness Narrative Associated Order(s): IUD Insertion Post-Procedure Diagnose(s): Encounter for IUD insertion; Encounter for IUD removal Reason for Appointment: Patient ID: Gloria Rojas is a 49 y.o. female who presents for IUD removal and insertion Patient presents today for a IUD Insertion and IUD Removal appointment. MEDICATIONS Current Outpatient Medications Medication Instructions Levonorgestrel (Mirena, 52 MG,) 20 MCG/DAY intrauterine device as directed Intrauterine Multiple Vitamin (Multivitamin Adult) tablet Oral PROzac 20 MG capsule ALLERGIES No Known Allergies SURGICAL HISTORY Past Surgical History: Procedure Laterality [...] appearance. She is well-developed. Genitourinary: Vulva normal. Cardiovascular: Rate and Rhythm: Normal rate and [...] nursing note reviewed. Exam conducted with a garment form assembler present. Vitals: Estimated body mass index is 30.47 kg/m as calculated from the following: Height as of 09/26/22: 5' 5 . Weight as of this encounter: 183 lb 1.9 oz. BP: 114/74 No LMP recorded (lmp unknown). Patient has had an implant. ASSESSMENT & PLAN Assessment/Plan Encounter Diagnosis: ICD-10-CM 1. Encounter for IUD removal Z30.432 2. Encounter for IUD insertion Z30.430 Levonorgestrel intrauterine device 52 mg POCT , urine manually resulted IUD Insertion Performed by: Jessica Parisi DO Authorized by: Jessica Parisi DO Procedure: IUD removal and insertion Consent obtained by patient, parent, or legal power of senior trial attorney - including discussion of procedure risks and benefits, patient questions answered, and patient education provided: yes Reason for removal: patient request Strings visualized: yes Tenaculum applied to cervix: yes Cervix dilated: yes Cervix dilated with: Cervical os finder IUD grasped by forceps: yes Performed with ultrasound guidance: no IUD removed: yes Date/Time of Removal: 09/28/2024 10:19 AM Removed without complications: yes IUD intact: yes risk: reasonably certain the patient is not Date/Time of Insertion: 09/28/2024 10:19 AM Immediately prior to procedure a time out was called: yes Pelvic exam performed: no Speculum placed in vagina: yes Cervix cleaned and prepped: yes Tenaculum/Allis/Ring Forceps applied to cervix: yes IUD inserted without complications: yes OSM: 52 mg Levonorgestrel 20 MCG/DAY Patient tolerated procedure well: yes Inserted with ultrasound guidance: no Transvaginal sono confirmed fundal placement: no Intended removal date: 5 years IUD Removal/Insertion: Patient presents today for an IUD Removal/Insertion. Patient is having an unknown IUD removed and a Mirena placed, written consent was obtained and patient was placed in dorsal lithotomy position with feet in stirrups. A sterile speculum was inserted into the vagina and cervix was visualized. The IUD strings were grasped gently with forceps and the IUD was removed in its entirety without difficulty. The IUD was shown to the patient then properly discarded. Cervix was cleansed with betadine and the anterior lip was grasped with ring forceps. Uterus was then gently sounded, New IUD was advanced through the endocervix, toward the uterine fundus. The was then deployed as device was gently removed from the uterus. The IUD strings were cut to length from external os. All instruments were removed from the vagina. Post-procedure instructions given. All of patients questions were answered and she expressed understanding. Advised patient to call in interim with any questions or concerns. Follow Up: Patient is to return to the office in 4 weeks for a string check. Documented by Mali Jones LPN on behalf of: Jessica Parisi DO documented in this encounter [facility] 09-16-2024 History of Presen t illness Narrative [...] nursing note reviewed. Exam conducted with a garment form assembler present. Vitals: Estimated body mass index is [...] Jessica Parisi DO documented in this encounter [facility] 09-01-2024 History of Presen t illness Narrative Reason for Appointment: Patient ID: September Bob is a 49 y.o. female who presents for Weight Management (Pt present today for Adipex #2 visit.) Patient presents today for a weight management consultation. Patient has been prescribed Adipex and she is here for her 2nd prescription. Today's Vitals: Estimated body mass index is 31.28 kg/m as calculated from the following: Height as of this encounter: 5' 5 . Weight as of this encounter: 188 lb. Previous Weight/BMI: Wt Readings from Last 2 Encounters: 01/04/25 188 lb 12/07/24 191 lb 1.9 oz BMI Readings from Last 2 Encounters: 01/04/25 31.28 kg/m 12/07/24 31.80 kg/m Allergies as of 01/04/2025 (No Known Allergies) Past Medical History: Diagnosis Date Abnormal weight gain Anxiety and depression Breast cyst, left Fatigue Insomnia IUD (intrauterine device) in place Migraines Thyroid disease Past Surgical History: Procedure Laterality Date TONSILECTOMY, ADENOIDECTOMY, BILATERAL MYRINGOTOMY AND TUBES age 5-6 Assessment/Plan Encounter Diagnoses Name Primary? Weight gain Encounter for weight management Adipex: Patient presents today for 2nd Adipex prescription. Patients weight and blood pressure has been captured and discussed with the patient. I have discussed/reiterated the importance of keeping a food journal, proper nutrition/diet, and exercise regimen while taking Adipex. Patient verbalized understanding and was given a printed prescription signed by provider to take to their local pharmacy. Follow Up: Patient is to return to the office in 1 month for further evaluation to assess patient progress. Weight and blood pressure will need to be obtained in order for patient to receive 3rd prescription. Documented by: Ainsley Guerrier MA on behalf of JEFF Padilla documented in this encounter [facility] 01-31-2024 History of Presen t illness Narrative [...] female who presents today for diarrhea, f/u [facility]. Pleasant 48-year-old female who presents [...] prior endoscopic evaluation. 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 HISTORIES ACTIVE PROBLEM LIST Preventative Health Care [place] (Advanced Maternal Age) Multigravida 35+ History of [...] normal. Behavior: Behavior normal. CELIAC SCREEN Order: [id number] - Part of Panel Order [id number] Status: Final result Visible to patient: Yes (seen) Dx: Diarrhea, unspecified type 0 Result Notes Component Ref Range & Units 4 mo ago Transglutaminase IgA Abs <4 U/mL <2 Transglutaminase IgA Abs Interpretation Negative Negative Comment: The following results were obtained with [employer] QU[employer]A Lite R h-tTG IgA VINCE. R [...] correlated to an endpoint titer. Resulting Agency [facility] Specimen Collected: 09/19/23 2:39 PM EDT Last [...] mg by mouth daily. Estrellita Jacob APRN.MARYANNE [facility] [address] [place] [address], [address] [place] [address] Department: [phone] This note was generated with voice recognition software and may contain errors, including spelling, grammar, syntax and misrecognition of what was dictated, that are not fully corrected. documented in this encounter [facility] 09-19-2023 Miscellaneous Notes Summary: Biopsy Results EXTERNAL LAB (Order [id number]) Patient Info Patient Name Sex Gloria Maldonado ([id number]) Female 1975 Scanned Documents View External Labs - Pathology [ID [id number]] documented in this encounter [facility] 09-13-2023 Note [facility] [place] Patient Name: Gloria Lang. Procedure Date: 09/13/2023 1:38 PM Date of : 1975 Age: 48 Gender: Female Race: Unknown Attending MD: Marcello Lemus MD, [id number] Procedure: Colonoscopy Referring MD: KIM SHEPHERD MD [...] immediate complications. Procedure Code(s): --- Professional --- 99613, Colonoscopy, flexible; with biopsy, single or multiple Diagnosis Code(s): --- Professional --- Z12.11, Encounter for screening for malignant neoplasm of colon CPT copyright 2020 [employer]. All rights reserved. The codes documented in this report are preliminary and upon end user support specialist review may be revised to meet current compliance requirements. Marcello Lemus MD 09/13/2023 1:54:04 PM This report has been signed electron (more content not included)... [facility] 09-13-2023 Note [facility] Patient Name: Gloria Newby Procedure Date: 09/13/2023 1:16 PM Date of : 1975 Age: 48 Gender: Female Race: Unknown Attending MD: Marcello Lemus MD, [id number] Procedure: Upper GI endoscopy Referring MD: KIM [...] by the physician, the nurse and the wet finisher in the pre-procedure area in the endoscopy [...] included)... [facility] 09-13-2023 History and physical note [facility] [address] [place] [address] September Bob is a 48 year old female who presents today for diarrhea, f/u [facility]. Pleasant 48-year-old female who presents [...] prior endoscopic evaluation. 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 UPDATED HISTORY AND PHYSICAL EXAMINATION SERVICE DATE: [...] TIME: 1:24 PM PAGER: Marcello Lemus MD [facility] designer and patternmaker,[facility] Clinical injection molding supervisor, [facility] Work Phone: 09-13-2023 History and physical note [facility] [address] [place] [address] Gloria Rojas is a 48 year old female who presents today for diarrhea, f/u [facility]. Pleasant 48-year-old female who presents [...] prior endoscopic evaluation. 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 UPDATED HISTORY AND PHYSICAL EXAMINATION SERVICE DATE: [...] TIME: 1:24 PM PAGER: Marcello Lemus MD [facility] designer and patternmaker,[facility] Clinical injection molding supervisor, [facility] documented in this encounter [facility] 08-30-2023 History of Presen t illness Narrative Images from the original note were not included. Gloria Rojas is a 48 year old female who presents today for diarrhea, f/u [facility]. Pleasant 48-year-old female who presents [...] prior endoscopic evaluation. 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 HISTORIES FAMILY HISTORY Problem Relation Age of [...] regress. Colonoscopy as above. Estrellita Jacob APRN.CNP [facility] [address] [place] [address], [address] [place] [address] Department: [phone] This note was generated with voice recognition software and may contain errors, including spelling, grammar, syntax and misrecognition of what was dictated, that are not fully corrected. documented in this encounter [facility] Evaluation note Diagnosis Onset Date Diarrhea acute Screening for colon cancer a cute [facility] Work Phone: Evaluation note* Diagnosis Epigastric pain- Primary Abdominal pain, epigastric Screening for malignant neoplasm of colon Diarrhea, unspecified type [facility] Diagnosis Loose stools- Primary Abnormal feces Abdominal cramping Abdominal pain, unspecified site Epigastric pain Abdominal pain, epigastric [facility] Diagnosis Onset Date Resolution Status Overweight with body mass in dex (BMI) of 29 to 29.9 in adult acute [facility] Work Phone: Evaluation note* Diagnosis Epigastric pain Abdominal pain, epigastric Screening for malignant neoplasm of colon [facility] Diagnosis Onset Date Resolution Status Overweight with body mass in dex (BMI) of 29 to 29.9 in adult acute Overweight with body mass in dex (BMI) of 28 to 28.9 in adult acute [facility] Work Phone: Evaluation note* Diagnosis Well woman exam with routine gynecological exam Routine gynecological examination Encounter for screening mammogram for malignant neoplasm of breast documented in this encounter [facility]* Diagnosis Encounter for IUD removal Encounter for IUD insertion Insertion of intrauterine contraceptive device documented in this encounter [facility]* Diagnosis Encounter for weight management Menopause Symptomatic menopausal or female climacteric states documented in this encounter [facility]* Diagnosis Weight gain Other symptoms concerning nutrition, metabolism, and development Encounter for weight management documented in this encounter [facility]* Diagnosis Encounter for weight management documented in this encounter [facility] Discharge instructionsAmbulatory Orders* Referral to Gastroenterology Time Frame: 08/21/23, Location: None Selected [facility] Work Phone: Reason for referral (narrative)* Diagnostic Procedure Only (Routine) - Authorized Specialty Diagnoses / Procedures Referred By María giang Referred To Contact [facility] Diagnoses Epigastric pain Procedures US ABD RIGHT UPPER QUADRANT US ABDOMINAL REAL TIME W/IMAGE LIMITED Estrellita Jacob APRN.DENTIST [address] [facility] [address] [place] [address] [facility] [address] Referral ID Status Reason Start Date Expiration Date Visits Requested Visits Authorized [id number] Authorized Auto-Generat ed Referral 08/30/2023 09/28/2024 1 1 * Outpatient Procedure (Routine) - Authorized Specialty Diagnoses / Procedures Referred By Contac t Referred To Contact [facility] Diagnoses Screening for malignant neoplasm of colon Procedures COLONOSCOPY SCREENING COLONOSCOPY FLX DX W/COLLJ SPEC WHEN PFRMEstrellita Mata APRN.DENTIST [address] [facility] [address] [place] [address] [address] Referral ID Status Reason Start Date Expiration Date Visits Requested Visits Authorized [id number] Authorized Auto-Generat ed Referral 08/30/2023 08/29/2024 1 1 * Outpatient Procedure (Routine) - Authorized Specialty Diagnoses / Procedures Referred By Contac t Referred To Contact [facility] Diagnoses Epigastric pain Procedures EGD DIAGNOSTIC ESOPHAGOGASTRODUODENOSC OPY TRANSORAL DIAGNOSTIC Estrellita Jacob APRN.DENTIST [address] [facility] [address] [place] [address] [address] Referral ID Status Reason Start Date Expiration Date Visits Requested Visits Authorized [id number] Authorized Auto-Generat ed Referral 08/30/2023 08/29/2024 1 1 [facility] for referral (narrative)* Outpatient Procedure (Routine) - Closed Specialty Diagnoses / Procedures Referred By Contac t Referred To Contact [facility] Diagnoses Screening for malignant neoplasm of colon Procedures COLONOSCOPY SCREENING COLONOSCOPY FLX DX W/COLLJ SPEC WHEN PFRMEstrellita Mata APRN.DENTIST [address] [facility] [address] [place] [address] [facility] [address] [address] Referral ID Status Reason Start Date Expiration Date V isits Requested Visits Authorized [id number] Closed Auto-Generate d Referral 08/30/2023 08/29/2024 1 1 * Outpatient Procedure (Routine) - Closed Specialty Diagnoses / Procedures Referred By Contac t Referred To Contact [facility] Diagnoses Epigastric pain Procedures EGD DIAGNOSTIC ESOPHAGOGASTRODUODENOSC OPY TRANSORAL DIAGNOSTIC Estrellita Jacob APRN.CNP [address] [facility] [address] [place] [address] [facility] [address] [place] [address] Referral ID Status Reason Start Date Expiration Date V isits Requested Visits Authorized [id number] Closed Auto-Generate d Referral 08/30/2023 08/29/2024 1 1 [facility] Outpatient Procedure (Routine) - Closed Specialty Diagnoses / Procedures Referred By Contac t Referred To Contact [facility] Diagnoses Screening for malignant neoplasm of colon Procedures COLONOSCOPY SCREENING COLONOSCOPY FLX DX W/COLLJ SPEC WHEN PFRMD Estrellita Jacob APRN.DENTIST [address] [facility] [address] [place] [address] [facility] [address] [place] [address] Referral ID Status Reason Start Date Expiration Date V isits Requested Visits Authorized [id number] Closed Auto-Generate d Referral 08/30/2023 08/29/2024 1 1 [facility] Summary Purpose Family History No Family History Records FoundNo Family History Records FoundNo Family History Records Found Advance Directives No Advanced Directives Records Found Advance Directive Response Recorded Date/ Time Advance Directives No August 20 9:11am Chief Complaint and Reason for Visit Chief Complaint ER Follow Up[facility] Reason for Visit Diarrhea Screening for [...] content) DATE CREATED AUTHOR 07/10/2022 [facility] DATE CREATED AUTHOR AUTHOR'S ORGANIZ ATION 09/21/2023 [facility] DATE CREATED AUTHOR AUTHOR'S ORGANIZ ATION 02/03/2025 [facility] Care Teams (unrecognized sec tion and content) Team Status: Active Member Role Status Dates Kim Shepherd MD Primary Care Provider Active Team Status: Inactive Member Role Status Dates Kim Shepherd MD Primary Care Provide r, Attending Provider Active Start: February 07, 2024 End: February 07, 2024 Finishing Range Operator Relationship Specialty Start Date End Date Kim Shepherd MD [address] [place] [phone] PCP - General Family Medicine 04/03/23 Team [...] August 21, 2023 End: August 21, 2023 Finishing Range Operator Relationship Specialty Start Date End Date Kim Shepherd MD [address] [place] [phone] PCP - General Family Medicine 03/23/14 Finishing Range Operator Relationship Specialty Start Date End Date Kim Shepherd MD [address] [place] [phone] PCP - General Family Medicine 03/23/14 Finishing Range Operator Relationship Specialty Start Date End Date Kim Shepherd MD [address] [place] [facility] [place] [phone] PCP - General Family Medicine 03/23/14 Finishing Range Operator Relationship Specialty Start Date End Date Kim Shepherd MD [address] [place] [facility] [phone] PCP - General Family Medicine 03/23/14 Team Status: Inactive Member Role Status Dates Kim Shepherd MD Primary Care Provide r, Attending Provider Active Start: March 16, 2024 End: March 16, 2024 Finishing Range Operator Relationship Specialty Start Date End Date Kim Shepherd MD [address] [place] [facility] [place] [phone] PCP - General Family Medicine 04/03/23 Finishing Range Operator Relationship Specialty Start Date End Date Kim Shepherd MD [address] [place] [facility] [place] [phone] PCP - General Family Medicine 04/03/23 Finishing Range Operator Relationship Specialty Start Date End Date Kim Shepherd MD [address] [place] [facility] [place] [phone] PCP - General Family Medicine 04/03/23 Finishing Range Operator Relationship Specialty Start Date End Date Kim Shepherd MD [address] [facility] [place] [phone] PCP - General Family Medicine 04/03/23 Finishing Range Operator Relationship Specialty Start Date End Date Kim Shepherd MD [address] [place] [facility] [place] [phone] PCP - General Family Medicine 04/03/23 Finishing Range Operator Relationship Specialty Start Date End Date Kim Shepherd MD [address] [facility] [place] [phone] PCP - General Family Medicine 04/03/23 Finishing Range Operator Relationship Specialty Start Date End Date Kim Shepherd MD [address] [place] [facility] [place] [address] PCP - General Family Medicine 04/03/23 Finishing Range Operator Relationship Specialty Start Date End Date Kim Shepherd MD [address] [facility] [place] [address] PCP - General Family Medicine 04/03/23 Goals [...] or prosecute any alcohol or drug abuse patient.[facility] the event this information is protected by the Federal Confidentiality of Alcohol and Drug Abuse Patient Records regulations: The Federal rules restrict any use of the information to criminally investigate or prosecute any alcohol or drug abuse patient.[facility] the event this information is protected by the Federal Confidentiality of Alcohol and Drug Abuse Patient Records regulations: The Federal rules restrict any use of the information to criminally investigate or prosecute any alcohol or drug abuse patient.[facility] the event this information is protected by the Federal Confidentiality of Alcohol and Drug Abuse Patient Records regulations: The Federal rules restrict any use of the information to criminally investigate or prosecute any alcohol or drug abuse patient.[facility] Reason for Visit (unrecogniz ed section and content) Reason Comments [facility] f/u Reason Comments Follow Up Follow up visit Reason Comments Well Women Visit Reason Comments IUD removal and insertion Reason Comments encounter for weight management Menopause Reason Comments Weight Management Pt present today for Adipex #2 visit. Reason Comments encounter for weight management FOR RECORDS PERTAINING TO PATIENTS WHO ARE [...] BE BASED ON THE PRIMARY CLINICAL RECORDS. [employer] provides no warranty or guarantee of the accuracy or completeness of information in this document.
--- OUTSIDE RECORDS SUMMARY | 2025-02-24 07:08 | XMS_ITS | Clinical Summary ---
Author Organization [facility] Address [address] [place] [address] Care Team Providers Care Program Supervisor Name Role Phone Kim Hendricks MD Primary Care Provider [phone] Allergies No known active allergies Medications omeprazole magnesium (PRILOSEC OTC ORAL) 10/02/19 24 Active dicyclomine (BENTYL) 10 mg capsule Take 1 capsule by mouth before meals and at bedtime. 120 capsule 2 02/04/2024 1:59 PM EDT 01/31/20 24 Active Phentermine HCl 37.5 mg tablet Take 1 tablet by mouth once daily 30 minutes before or 1 to 2 hours after breakfast 30 tablet 03/17/2024 1:27 PM EDT 03/16/20 24 Active FLUoxetine (PROZAC) 20 mg capsule Take 1 capsule by mouth once daily 90 capsule 1 08/19/2024 2:54 PM EDT 05/18/20 24 Active FLUoxetine (PROZAC) 40 mg capsule Take 1 capsule by mouth once daily. 90 capsule 1 10/15/2024 12:31 PM EDT 10/10/19 25 Active estradiol (ESTRACE) 0.5 mg tablet Take 1 tablet (0.5 mg) by mouth once daily 30 tablet 6 02/15/2025 1:41 PM EDT 12/08/19 25 Active doxycycline hyclate (VIBRAMYCIN) 100 mg capsule Take 1 capsule by mouth daily with food. 30 capsule 2 02/02/2025 1:13 PM EDT 12/26/19 25 Active ivermectin 1 % Apply 1 gram to face daily 45 g 2 12/26/19 25 Active Sulfacetamide Sodium, Acne, 10 % susp Apply to face once daily 118 mL 3 01/27/2025 3:05 PM EDT 01/26/20 25 Active Phentermine HCl 37.5 mg tablet Take 1 tablet by mouth once daily in the morning before meal. 30 tablet 02/03/2025 2:49 PM EDT 02/04/20 25 Active Phentermine HCl 37.5 mg tablet Take 1 tablet by mouth every morning before meals. 30 tablet 01/11/2025 1:35 PM EDT 01/12/20 25 025 Discontinued Active Problems Problem Noted Date Diagnosed Date Acute maxillary sinusitis 07/20/2015 Echogenic bowel of fetus on ultrasound 05/10/2014 AMA (advanced maternal age) multigravida 35+ 03/2014 History of delivery, currently 04/12/2014 Preventative health care 06/08/2013 Encounters Date Type Department Care Team Description 01/06/2025 Get Medical Advice [facility] [address] [place] [id number] Provider, [facility] Prior auth from Last 3 Months Immunizations Immunization Administration Dates Next Due influenza (IIV3) vaccine, tr ivalent, PF (AFLURIA, FLUARIX, FLULAVAL, FLUVIRIN, FLUZONE) 03/31/2024 influenza vaccine, unspecifi ed formulation 03/12/2023,03/26/2022,03/06/2021,2017,04/03/2017,03/08/2016,03/09/2015 zoster (RZV) vaccine, recomb inant (SHINGRIX) 02/15/2025 Family History Medical History Relation Comments Diabetes Father Hypertension Father Gall Stones Mother Heart disease Mother Relation Status Comments Father Mother Social History Tobacco Use Types Packs/Day Years [...] is lower risk 5 08/30/2023 Data from: https://www.neighborhoodatlas.[facility].edu /. Last address used for calculation [id number] 08/30/2023 Comments No Sex and Gender Information Value Date Recorded Sex Assigned at Female 06/05/2021 1:25 PM EST Legal Sex Female 9:07 AM EST Gender Identity Female 06/05/2021 1:25 PM EST Sexual Orientation Straight 06/05/2021 1: 25 PM EST Last Filed Vital Signs Vital Sign Reading Time Taken Comments Blood Pressure 131/86 01/31/2024 10:13 AM EDT Pulse 64 01/31/2024 10:13 AM EDT Temperature 36.8 C (98.3 F) 09/13/2023 12:50 PM EDT Respiratory Rate 16 09/13/2023 2:00 PM EDT Oxygen Saturation 99% 09/13/2023 2:00 PM EDT Inhaled Oxygen Concentration - - Weight 77.1 kg (170 lb) 01/31/2024 10:13 AM EDT Height 167.6 cm (5' 6 ) 01/31/2024 10:13 AM EDT Body Mass Index 27.44 01/31/2024 10:13 AM EDT Plan of Treatment Health Maintenance Due Date Last Done Comments Anxiety Screening 1993 Depression Screening 1993 Hepatitis C Screening 1993 DTaP,Tdap,Td Vaccine (1 - Tdap) 1994 Hepatitis B Vaccine (1 of 3 - 19+ 3-dose series) 1994 Cervical Cancer Screening 02/06/1996 CT Colonography 02/06/2020 Cologuard (FIT-DNA) 02/06/2020 Diabetes Screening 02/06/2020 06/10/2015 Fecal Occult Blood 02/06/2020 Sigmoidoscopy 02/06/2020 Lipid Screening 06/10/2020 06/10/2015 Mammogram Screening 07/03/2023 07/03/2022, 2 Colonoscopy 09/12/2024 09/13/2023 Colorectal Cancer Screening 09/12/2024 Influenza Vaccine (#1) 2025 4, 03/12/2023, 03/26/2022, Additional history exists Pneumococcal Vaccine: 50+ (1 of 1 - PCV) 2025 Shingrix Vaccine (2 of 2) 04/12/2025 02/15/2025 HIV Screening Completed 03/23/2014 Procedures Procedure Name Priority Date/Time Associated Diagnosis Comments COLONOSCOPY SCREENING Routine 09/13/2023 1:38 PM EDT Screening for malignant neoplasm of colon COMPREHENSIVE METABOLIC PANEL Routine 06/10/2015 8:36 AM EST Screening, lipid LIPID PANEL, FASTING Routine 06/10/2015 8:36 AM EST Screening, lipid HIV 1/2 COMBO WITH REFLEX TO DIFFERENTIATION Routine 03/23/2014 8:30 AM EDT from Last 3 Months or Most Recently Relevant to Health Maintenance Results * COLONOSCOPY SCREENING (09/13/2023 1:38 PM EDT) Anatomical Region Laterality Modality Other 09/13/2023 1:38 PM EDT Narrative 09/13/2023 1:51 PM EDT [facility] Patient Name: Gloria Newby Procedure Date: 09/13/2023 1:38 PM Date of : 1975 Age: 48 Gender: Female Race: Unknown Attending MD: Marcello Lemus MD, [id number] Procedure: Colonoscopy Referring MD: KIM HENDRICKS MD Providers: Marcello Lemus MD Indications: Screening [...] immediate complications. Procedure Code(s): --- Professional --- 84621, Colonoscopy, flexible; with biopsy, single or multiple Diagnosis Code(s): --- Professional --- Z12.11, Encounter for screening for malignant neoplasm of colon CPT copyright 2020 [employer]. All rights reserved. The codes documented in this report are preliminary and upon associate music professor review may be revised to meet current compliance requirements. Marcello Lemus MD 09/13/2023 1:54:04 PM This report has been signed electronically. Number of Addenda: 0 Note Initiated On: 09/13/2023 1:38 PM Estrellita Jacob APRN.HYDRAULIC PRESS IN OPERATOR DIGESTIVE DISEASE Final Result * LIPID PANEL BASIC (06/10/2015 8:36 AM EST) Triglyceride 52 30 - 149 mg/dL 06/10/2015 4:50 PM EST [facility] Cholesterol, Total 151 100 - 199 mg/dL 06/10/2015 4:50 PM EST [facility] HDL Cholesterol 56 >55 mg/dL 6 4:50 PM EST [facility] VLDL Cholesterol 10 6 - 40 mg/dL 06/10/2015 4:50 PM EST [facility] LDL Cholesterol, Calculated 85 60 - 129 mg/dL 06/10/2015 4:50 PM EST [facility] Fasting Time 12 hrs 06/10/2015 8:39 AM EST [facility] TC:HDL Ratio 2.70 1.00 - 5.00 06/10/2015 4:50 PM EST [facility] LDL:HDL Ratio 1.52 0.50 - 3.55 06/10/2015 4:50 PM EST [facility] Non HDL Cholesterol 95 90 - 159 mg/dL 06/10/2015 4:50 PM EST [facility] Blood specimen (specimen) BLOOD SPECIMEN / Unknown 06/10/2015 8:36 AM EST 06/10/2015 8:38 AM EST Pretty Hardin PA-C LABORATORY Final Result Performing Organization Address City/State/[facility] Co de Phone Number [facility] [address] [facility] [place] [address] [address] * COMP METABOLIC PANEL (06/10/2015 8:36 AM EST) Protein, Total 8.1 6.0 - 8.4 g/dL 06/10/2015 4:50 PM EST [facility] Albumin 4.5 3.5 - 5.0 g/dL 06/10/2015 4:50 PM EST [facility] Calcium 9.5 8.5 - 10.5 mg/dL 06/10/2015 4:50 PM EST [facility] Bilirubin, Total 0.4 0.0 - 1.5 mg/dL 06/10/2015 4:50 PM [facility] Alkaline Phosphatase 82 40 - 150 U/L 06/10/2015 4:50 PM [facility] AST 18 7 - 40 U/L 06/10/2015 4:50 PM [facility] Glucose 85 65 - 100 mg/dL 06/10/2015 4:50 PM [facility] BUN 11 8 - 25 mg/dL 06/10/2015 4:50 PM [facility] Creatinine 0.77 0.70 - 1.40 mg/dL 06/10/2015 4:50 PM [facility] Sodium 141 132 - 148 mmol/L 06/10/2015 4:50 PM [facility] Potassium 4.3 3.5 - 5.0 mmol/L 06/10/2015 4:50 PM [facility] Chloride 102 98 - 110 mmol/L 06/10/2015 4:50 PM [facility] CO2 26 23 - 32 mmol/L 06/10/2015 4:50 PM [facility] Anion Gap 13 0 - 15 mmol/L 06/10/2015 4:50 PM [facility] ALT 27 0 - 45 U/L 06/10/2015 4:50 PM [facility] eGFR- >60 06/10/2015 4:50 PM [facility] eGFR-All Other Races >60 . 06/10/2015 4:50 PM [facility] Comment: eGFR (Estimated GFR) Units of measure: mL/min/1.73 meters squared eGFR is derived from the reexpressed MDRD Study equation using the following parameters: serum creatinine, age, gender and race. The creatinine assay has been calibrated to be traceable to IDMS. An eGFR <60 mL/min/1.73m2 for >3 months is consistent with chronic kidney disease. Refer to KDOQI guidelines for clinical interpretation. In patients with unstable renal function, e.g. those with acute kidney injury, the eGFR may not accurately reflect actual GFR. Blood specimen (specimen) BLOOD SPECIMEN / Unknown 06/10/2015 8:36 AM EST 06/10/2015 8:38 AM EST us Pretty Hardin PA-C LABORATORY Final Result Performing Organization Address City/State/[facility] Co de Phone Number [facility] [address] [place] [address] * HIV 1,2 COMBO (AG/AB) (03/23/2014 8:30 AM EDT) HIV 12 Combo (Ag/Ab) Non Reactive NR [facility] Comment: (NOTE) HIV Information: [place] Rev. Code 3701.243(E): This information has been disclosed to you from confidential records protected from disclosure by state law. You shall make no further disclosure of this information without the specific, written, and informed release of the individual to whom it pertains, or as otherwise permitted by state law. A general authorization for the release of medical or other information is not sufficient for the purpose of the release of HIV test results or diagnoses. 03/23/2014 8:30 AM EDT 03/23/2014 2:09 PM EDT [facility] Provider LABORATORY Final Result Performing Organization Address [facility] Co de Phone Number [facility] [address] [place] [address] from Last 3 Months or Most Recently Relevant to Health Maintenance Insurance [facility] AETNA Care Teams Program Supervisor Relationship Specialty Start Date End Date Kim Hendricks MD [address] [facility] [place] [phone] PCP - General Family Medicine 03/23/14
--- OUTSIDE RECORDS SUMMARY | 2025-02-24 07:08 | XMS_ITS | Encounter Summary ---
Author Organization [facility] Address [address] [place] [address] Care Team Providers Care Mushroom Packer Name Role Phone Kim Hendricks MD Primary Care Provider [phone] Source Comments In the event this information is protected by the Federal Confidentiality of Alcohol and Drug AbusePatient Records regulations: The Federal rules restrict any use of the information to criminally investigate or prosecute any alcohol or drug abuse patient.[facility] Encounter Details Date Type Department Care Team (Late st Contact Info) Description 06/24/2024 Get Medical Advice [facility] [address] [place] [address] Estrellita Jacob APRN.AUTOMATIC SILK SCREEN PRINTER [address] [place] [address] Dicyclomine Social History Tobacco Use Types Packs/Day Years Used Date Smoking Tobacco: Never Smokeless Tobacco: Never Alcohol Use Standard Drinks/Week Comments Never 0 (1 standard drink = 0.6 oz pur e alcohol) Area Deprivation Index Answer Date Ady rded National Score (1-100), lowe r number is lower risk 67 08/30/2023 State Score (1-10), lower number is lower risk 5 08/30/2023 Data from: https://www.neighborhoodatlas.medicine.[facility].edu /. Last address used for calculation [address] 08/30/2023 Comments No Sex and [...] on filedocumented in this encounter Care Teams Mushroom Packer Relationship Specialty Start Date End Date Kim Hendricks MD [address] [place] [address] PCP - General Family Medicine 03/23/14 documented as of this encounter
--- OUTSIDE RECORDS SUMMARY | 2025-02-24 07:08 | XMS_ITS | Encounter Summary ---
Author Organization [facility] Address [address] [place], [place] [id number] Care Team Providers Care Agricultural Technical Officer Name Role Phone Kim Hendricks MD Primary Care Provider [phone] Source Comments In the event this information is protected by the Federal Confidentiality of Alcohol and Drug AbusePatient Records regulations: The Federal rules restrict any use of the information to criminally investigate or prosecute any alcohol or drug abuse patient.[facility] Encounter Details Date Type Department Care Team (Late st Contact Info) Description 01/09/2024 Patient Msg [facility] [address] [place] [address] Marcello Lemus I, MD [address] [place] [address] appointment Social History Tobacco Use Types Packs/Day Years Used Date Smoking Tobacco: Never Alcohol Use Standard Drinks/Week Comments Never 0 (1 standard drink = 0.6 oz pur e alcohol) Area Deprivation Index Answer Date Ady rded National Score (1-100), lowe r number is lower risk 67 08/30/2023 State Score (1-10), lower number is lower risk 5 08/30/2023 Data from: https://www.neighborhoodatlas.medicine.[facility].edu /. Last address used for calculation [address] 08/30/2023 Comments Unknown Sex and [...] on filedocumented in this encounter Care Teams Agricultural Technical Officer Relationship Specialty Start Date End Date iKm Hendricks MD [address] [place] [phone] PCP - General Family Medicine 03/23/14 documented as of this encounter
--- OUTSIDE RECORDS SUMMARY | 2025-02-24 07:08 | XMS_ITS | Encounter Summary ---
Author Organization [facility] Address [address] [place] [address] Care Team Providers Care Circus Hand Name Role Phone Kim Hendricks MD Primary Care Provider [phone] Source Comments In the event this information is protected by the Federal Confidentiality of Alcohol and Drug AbusePatient Records regulations: The Federal rules restrict any use of the information to criminally investigate or prosecute any alcohol or drug abuse patient.[facility] Encounter Details Date Type Department Care Team (Latest Contact Info) Description 03/16/2024 Patient Msg [facility] [address] [place] [address] Estrellita Jacob APRN.CONDOMINIUM PROPERTY MANAGER [address] [place] [address] Update on Dicyclomine Social History Tobacco Use Types Packs/Day Years Used Date Smoking Tobacco: Never Smokeless Tobacco: Never Alcohol Use Standard Drinks/Week Comments Never 0 (1 standard drink = 0.6 oz pur e alcohol) Area Deprivation Index Answer Date Ady rded National Score (1-100), lowe r number is lower risk 67 08/30/2023 State Score (1-10), lower number is lower risk 5 08/30/2023 Data from: https://www.neighborhoodatlas.medicine.[facility].edu /. Last address used for calculation [address] 08/30/2023 Comments No Sex [...] on filedocumented in this encounter Care Teams Circus Hand Relationship Specialty Start Date End Date Kim Hendricks MD [address] [place] [address] PCP - General Family Medicine 03/23/14 documented as of this encounter
--- OUTSIDE RECORDS SUMMARY | 2025-02-24 07:08 | XMS_ITS | Encounter Summary ---
Author Organization [facility] Address [address] [place] [address] Care Team Providers Care Demand Manager Name Role Phone Kim Hendricks MD Primary Care Provider [phone] Source Comments In the event this information is protected by the Federal Confidentiality of Alcohol and Drug AbusePatient Records regulations: The Federal rules restrict any use of the information to criminally investigate or prosecute any alcohol or drug abuse patient.[facility] Encounter Details Date Type Department Care Team (Latest Contact Info) Description 11/27/2023 Patient Msg [facility] [address] [place] [address] Estrellita Jacob APRN.GEOSCIENCE TECHNICIAN [address] [place] [address] Appointment Request Social History Tobacco Use Types Packs/Day Years Used Date Smoking Tobacco: Never Alcohol Use Standard Drinks/Week Comments Never 0 (1 standard drink = 0.6 oz pur e alcohol) Area Deprivation Index Answer Date Ady rded National Score (1-100), lowe r number is lower risk 67 08/30/2023 State Score (1-10), lower number is lower risk 5 08/30/2023 Data from: https://www.neighborhoodatlas.medicine.[facility].edu /. Last address used for calculation [address] 08/30/2023 Comments Unknown Sex and Gender Information Value Date Recorded Sex Assigned at Female 06/05/2021 1:25 PM EST Legal Sex Female 9:07 AM EST Gender Identity Female 06/05/2021 1:25 PM EST Sexual Orientation Straight 06/05/2021 1: 25 PM EST documented as of this encounter Miscellaneous Notes * Telephone Encounter - Mariana Hyde - 11/27/2023 2:21 PM EDT Called patient and left message to return call to set up office visit documented in this encounter Plan of Treatment Not on file documented as of this encounter Visit Diagnoses Not on filedocumented in this encounter Care Teams Demand Manager Relationship Specialty Start Date End Date Kim Hendricks MD [address] [place] [phone] PCP - General Family Medicine 03/23/14 documented as of this encounter
[2025-02-24] MEDS: 0.9 % SODIUM CHLORIDE 1,000 ML 125 ML IV (07:15)
[2025-02-24] MEDS: DIAZEPAM 10 MG/2 ML SYRINGE 5 MG IV (07:15)
[2025-02-24 07:16] LABS: Alanine Aminotransferase 31 U/L (14-59); Albumin Globulin Ratio 1.0; Albumin Level 4.1 g/dL (3.4-5.0); Alkaline Phosphatase 61 U/L (46-116); Anion Gap 19.1; Aspartate Amino Transferase 18 U/L (15-37); Blood Urea Nitrogen 12.0 mg/dL (7.0-18.0); Calcium 9.1 mg/dL (8.5-10.1); Carbon Dioxide 23.2 mmol/L (21.0-32.0); Chloride 102 mmol/L (98-107); Estimated GFR (African America >60 (>=60 mL/min/1.73m^2); Estimated GFR (Non-African Ame 57 (>=60 mL/min/1.73m^2); Globulin 4.3 g/dL; Glucose 157 mg/dL (74-106); Potassium 4.3 mmol/L (3.5-5.1); Sodium 140 mmol/L (136-145); Total Protein 8.4 g/dL (6.4-8.2)
[2025-02-24 07:17] LABS: Magnesium 1.7 mg/dL (1.8-2.4)
--- NOTE | 2025-02-24 08:33 | ED_ITS ---
HPI HPI - General Adult General Chief complaint: Altered Mental Status Stated complaint: CVA SYMPTOMS Time Seen by Provider: 02/24/25 06:56 Source: family Mode of arrival: Wheelchair Limitations: no limitations History of Present Illness HPI narrative: 50-year-old female presenting to the emergency department and was initially seen by Dr. Espinoza. Please see her full history and physical exam. Related Data Allergies Allergy/AdvReac Type Severity Reaction Status Date / Time No Known Drug Allergies Allergy Verified 02/24/25 07:00 Opioid HPI Opioid Management Most Recent Opioid Data: Last Pain Scale 4 08/16/23, 23:30 Exam Constitutional Vital Signs, click to edit/add: Last Vital Signs Temp 98.3 F 02/24/25 07:01 Pulse 72 02/24/25 08:30 Resp 23 H 02/24/25 08:30 BP 101/71 02/24/25 08:30 Pulse Ox 98 02/24/25 08:30 O2 Del Method Room Air 02/24/25 07:01 Course Vital Signs Vital signs: Vital Signs Blood Pressure 131/79 02/24/25 06:52 Pulse Oximetry 100 02/24/25 06:52 Temperature 98.3 F 02/24/25 07:01 Pulse Rate 72 02/24/25 08:30 Respiratory Rate 23 H 02/24/25 08:30 Blood Pressure 101/71 02/24/25 08:30 Pulse Oximetry 98 02/24/25 08:30 Oxygen Delivery Method Room Air 02/24/25 07:01 Medical Decision Making [facility] Narrative Medical decision making narrative: When the patient presented she had carpal spasm and pedal spasm. She was given IV Valium with complete resolution of her symptoms which were bilateral initially. CT brain is negative and all blood work is negative. The patient's symptoms have resolved completely and she remains asymptomatic. Findings are discussed with the patient. There is no evidence of stroke and my clinical impression is that this was a panic attack. She reports that she has been under a great deal of stress recently. Treatment diagnosis and follow-up were discussed with the patient and her . Lab Data Lab results reviewed: Yes I reviewed the patient's lab results Labs: Lab Results 02/24/25 02/24/25 Range/Units 06:54 06:55 WBC 7.2 (4.0-11.0) 10^3/uL RBC 4.74 (4.20-5.40) 10^6/uL Hgb 14.3 (12.0-16.0) g/dL Hct 43.5 (36.0-48.0) % MCV 91.8 (81.0-99.0) fL MCH 30.2 (26.7-34.0) pg MCHC 32.9 (29.9-35.2) g/dL RDW 13.1 (11.0-15.0) % Plt Count 432 (150-450) 10^3/uL MPV 11.5 (9.5-13.5) fL Neut % (Auto) 52.9 (43.0-75.0) % Lymph % (Auto) 37.0 (20.5-60.0) % [place] % (Auto) 7.1 (1.7-12.0) % Eos % (Auto) 1.3 (0.9-7.0) % Baso % (Auto) 1.4 (0.2-2.0) % Neut # (Auto) 3.8 (1.4-6.5) 10^3/uL Lymph # (Auto) 2.7 (1.2-3.8) 10^3/uL [place] # (Auto) 0.5 (0.3-0.8) 10^3/uL Eos # (Auto) 0.1 (0.0-0.7) 10^3/uL Baso # (Auto) 0.1 (0.0-0.1) 10^3/uL Abs Immat Gran (auto) 0.02 (0.00-0.03) 10^3/uL Imm/Tot Granulo (auto) 0.3 (0.0-0.5) % Sodium 140 (136-145) mmol/L Potassium 4.3 (3.5-5.1) mmol/L Chloride 102 (98-107) mmol/L Carbon Dioxide 23.2 (21.0-32.0) mmol/L Anion Gap 19.1 BUN 12.0 (7.0-18.0) mg/dL Creatinine 1.02 (0.55-1.02) mg/dL Est GFR ( Amer) >60 (>=60 mL/min/1.73m^2) Est GFR (Non-Af Amer) 57 L (>=60 mL/min/1.73m^2) BUN/Creatinine Ratio 11.8 Glucose 157 H (74-106) mg/dL Calcium 9.1 (8.5-10.1) mg/dL Magnesium 1.7 L (1.8-2.4) mg/dL Total Bilirubin 0.6 (0.2-1.0) mg/dL AST 18 (15-37) U/L ALT 31 (14-59) U/L Alkaline Phosphatase 61 (46-116) U/L Troponin I High Sens <4.0 L (4.0-51.3) pg/mL Total Protein 8.4 H (6.4-8.2) g/dL Albumin 4.1 (3.4-5.0) g/dL Globulin 4.3 g/dL Albumin/Globulin Ratio 1.0 POC Glucose 144 H (74-106) mg/dL Imaging Data CT scan - head: Radiologist's impression: No acute intracranial abnormality ECG Data Attestation: I personally reviewed and interpreted this ECG as follows: (EKG on my interpretation shows sinus rhythm with rate of 77 and artifact) Discharge Plan Discharge Chief Complaint: Altered Mental Status Clinical Impression: Panic attack Patient Disposition: Home, Self-Care Time of Disposition Decision: 08:32 Condition: Good Mode of Transportation: Private Vehicle Print Language: Ethiopian Instructions: Panic Attack (ED) Referrals: Kim Hendricks MD [Primary Care Provider, Family Practice] - 1 week
== END 2025-02-24 08:46 | disposition home or self-care (01) ==
PROVIDERS: Emergency Medicine; Emergency Provider Emergency Medicine; PCP Family Medicine
DX: F41.0 Panic disorder [episodic paroxysmal anxiety] (principal)
CPT/HCPCS: 36415; 70450; 80053; 83735; 84484; 85025; 93005; 96374; 96375; 99285; J2405; J3360